=== PATIENT | male | born 1935 | race Hispanic/Latino ===

== ENCOUNTER 2017-12-28 11:15 | Observation (INO) | payer OTHER, MEDICAID ==
[2017-12-28] MEDS ORDERED: LEVALBUTEROL 1.25 MG/3 ML NEB ONE (11:54)
[2017-12-28] MEDS ORDERED: IPRATROPIUM BROM 0.5MG/2.5ML ONE (11:54)
[2017-12-28 12:20] LABS: Absolute Lymphocytes (CBC) 2.3 K/uL (0.7-4.9); Absolute Monocytes 1.3 K/uL (0.1-1.3); Absolute Neutrophil 10.5 K/uL (1.8-8.0); Basophils % 0.4 % (0-1.3); Hematocrit 37.6 % (39.6-49.0); Lymphocytes % 15.9 % (15.3-44.8); MCH 24.9 pg (27.0-35.0); MCV 76.4 fL (80-100); MPV 7.3 fL (7.6-11.3); Monocytes % 8.9 % (3.3-12.3); RBC Red Blood Cell Count 4.92 M/uL (4.33-5.43)
--- NOTE | 2017-12-28 12:25 | EKG ---
Test Date: 2017-12-28 Test Time: 11:38:06 Engineering Mathematician: JOSELIN MEASUREMENT RESULTS: Intervals: Rate: 81 OH: 144 QRSD: 76 QT: 398 QTc: 462 [place]: P: 5 OH: 144 QRS: 65 T: 51 INTERPRETIVE STATEMENTS: Normal sinus rhythm Normal ECG Compared to ECG 08/09/2017 05:18:45 Atrial fibrillation no longer present ST (T wave) deviation no longer present Electronically Signed On 12-28-17 12:25:05 CDT by Olman Devries
[2017-12-28 12:30] LABS: Protime INR 2.73
--- NOTE | 2017-12-28 12:31 | RAD REPORT ---
EXAM DESCRIPTION: RAD - Chest Single View - 12/28/2017 12:25 pm CLINICAL HISTORY: Shortness of breath, cough. COMPARISON: 08/07/2017 FINDINGS: Portable technique limits examination quality. The lungs are emphysematous but grossly clear. The heart is normal in size. No displaced fractures. IMPRESSION: No acute intrathoracic process suspected.
[2017-12-28 12:33] LABS: Glucose Level 220 mg/dL (65-120)
[2017-12-28 12:34] LABS: BUN Blood Urea Nitrogen 12 mg/dL (6-20)
[2017-12-28 12:37] LABS: Bicarbonate 26 mEq/L (21-31); Sodium Level 132 mEq/L (135-145)
[2017-12-28] MEDS ORDERED: METHYLPREDNISOLONE 125 MG INJ ONE (12:38)
[2017-12-28] MEDS ORDERED: POTASSIUM CL SA 10 MEQ TAB PO ONE (13:20)
[2017-12-28] MEDS ORDERED: ONDANSETRON 4 MG/2 ML VIAL IV PRN (13:35)
[2017-12-28] MEDS ORDERED: IPRATROPIUM BROM 0.5MG/2.5ML NEB PRN (13:35)
[2017-12-28] MEDS ORDERED: BENZONATATE 100 MG CAP PO PRN (13:35)
[2017-12-28] MEDS ORDERED: ACETAMINOPHEN 500 MG TAB PO PRN (13:35)
[2017-12-28] MEDS ORDERED: ALBUTEROL 2.5 MG/3 ML NEB SOL NEB PRN (13:35)
--- NOTE | 2017-12-28 13:40 | EDPHYS ---
Physician Documentation [facility] Name: Geen Cisneros Age: 82 yrs Sex: Male : 1935 Arrival Date: 12/28/2017 Time: 11:18 Bed 15 Private MD: Out, [facility], [facility] ED Physician Linden Shen HPI: 12/28 12:13 This 82 yrs old Male presents to ER via Ambulatory with complaints of Cough, rn Congestion, Chest Pain, COPD Exacerbation. 12:13 The patient or guardian reports cough, difficulty breathing. Onset: The rn symptoms/episode began/occurred 1 week(s) ago. Severity of symptoms: At their worst the symptoms were moderate, in the emergency department the symptoms are unchanged. Modifying factors: The symptoms are alleviated by nothing, the symptoms are aggravated by nothing. The patient has experienced similar episodes in the past. Reports cough, sob, worse over last few days, had abx for worsening symptoms a couple of weeks ago, no fever, no chest pain. . Historical: - Allergies: 11:33 No Known Allergies; tw2 - Home Meds: 16:55 cilostazol 50 mg Oral tab 1 tab 2 times per day [Active]; pravastatin 40 mg Oral tab 1 ch tab once daily [Active]; Sotalol 40 mg Oral 2 times per day [Active]; tamsulosin 0.4 mg Oral cp24 1 cap once daily [Active]; Lyrica 200 mg Oral 1 cap 2 times per day for Diabetic Peripheral Neuropathy [Active]; Jantoven 2 mg Oral tab [Active]; triamterene-hydrochlorothiazid 37.5-25 mg Oral cap 1 cap once daily [Active]; Nexium 20 mg Oral cpDR 1 cap once daily [Active]; Vitamin D3 2,000 unit oral tab [Active]; mirtazapine 15 mg Oral tab 1 tab once daily [Active]; metformin 500 mg Oral tab 1 tab daily [Active]; aspirin 81 mg Oral chew 1 tab once daily [Active]; ipratropium-albuterol 0.5 mg-3 mg(2.5 mg base)/3 mL Inhl nebu 3 mL 4 times per day [Active]; - PMHx: 11:33 Atrial Fib; PVD; Diabetes - NIDDM; Hypertension; Bronchitis; CAD; COPD; Pneumonia; tw2 - PSHx: 17:14 back; anal fistula; Cholecystectomy; ch - Immunization history:: Adult Immunizations up to date. - Social history:: Smoking status: Patient/guardian denies using tobacco. - Family history:: not pertinent. - Hospitalizations: : No recent hospitalization is reported. ROS: 12:13 Constitutional: Negative for fever, chills, and weight loss, Eyes: Negative for injury, rn pain, redness, and discharge, Neck: Negative for injury, pain, and swelling, Cardiovascular: Negative for chest pain, palpitations, and edema, Respiratory: Negative for pleuritic chest pain Abdomen/GI: Negative for abdominal pain, nausea, vomiting, diarrhea, and constipation, MS/Extremity: Negative for injury and deformity, Skin: Negative for injury, rash, and discoloration, Neuro: Negative for headache, weakness, numbness, tingling, and seizure. Exam: 12:13 Constitutional: This is a well developed, well nourished patient who is awake, alert, rn and in no acute distress. Head/Face: Normocephalic, atraumatic. Eyes: Pupils equal round and reactive to light, extra-ocular motions intact. Lids and lashes normal. Conjunctiva and sclera are non-icteric and not injected. Cornea within normal limits. Periorbital areas with no swelling, redness, or edema. Cardiovascular: Regular rate and rhythm with a normal S1 and S2. No gallops, murmurs, or rubs. Normal PMI, no JVD. No pulse deficits. Respiratory: diffuse exp wheezing bilaterally, mildly diminished LLL Abdomen/GI: Soft, non-tender, with normal bowel sounds. No distension or tympany. No guarding or rebound. No evidence of tenderness throughout. MS/ Extremity: Pulses equal, no cyanosis. Neurovascular intact. Full, normal range of motion. Equal circumference. Neuro: Awake and alert, GCS 15, oriented to person, place, time, and situation. Cranial nerves II-XII grossly intact. Motor strength 5/5 in all extremities. Sensory grossly intact. Vital Signs: 11:32 BP 120 / 74; Pulse 85; Resp 19; Temp 98.2(O); Pulse Ox 96% on R/A; Weight 70.31 kg (R); tw2 Height 5 ft. 4 in. (162.56 cm); Pain 0/10; 12:32 BP 110 / 68; Pulse 83; Resp 20; Temp 99; Pulse Ox 100% on Nebulizer Mask; Pain 0/10; ch 13:36 Resp 26; rn 14:07 BP 109 / 60; Pulse 86; Resp 15; Pulse Ox 96% on R/A; mh5 15:03 BP 129 / 67; Pulse 80; Resp 19; Pulse Ox 95% on R/A; Pain 0/10; ed1 16:30 BP 106 / 62; Pulse 150; Resp 26 S; Pulse Ox 94% on R/A; ch 16:55 BP 142 / 80; Pulse 82; Resp 18; Pulse Ox 96% on R/A; Pain 0/10; ch 18:00 BP 132 / 71; Pulse 91; Resp 20; Pulse Ox 96% on R/A; Pain 0/10; ch 11:32 Body Mass Index 26.61 (70.31 kg, 162.56 cm) tw2 MDM: 11:37 Patient medically screened. rn 13:36 Differential Diagnosis: Upper Respiratory Infection Viral Syndrome Pneumonia. rn Differential Diagnosis: Bronchitis. Data reviewed: vital signs, nurses notes. Data reviewed: vital signs, lab test result(s), EKG, radiologic studies, plain films, and as a result, I will admit patient. Counseling: I had a detailed discussion with the patient and/or guardian regarding: the historical points, exam findings, and any diagnostic results supporting the discharge/admit diagnosis, lab results, radiology results, the need for further work-up and treatment in the hospital. Response to treatment: the patient's symptoms have mildly improved after treatment, and as a result, I will admit patient. Admission orders: after a detailed discussion of the patient's condition and case, the admit orders are written by me. ED course: Pt still tachypneic, faint wheezing, will obs given abnormal vital signs.. 12/28 11:50 Order name: Blood Culture Adult (2) rn 12/28 11:50 Order name: BMP; Complete Time: 12:37 rn 12/28 11:50 Order name: BNP; Complete Time: 13:03 rn 12/28 11:50 Order name: CBC with Diff; Complete Time: 12:37 rn 12/28 11:50 Order name: PT-INR; Complete Time: 12:37 rn 12/28 11:50 Order name: Ptt, Activated; Complete Time: 12:37 rn 12/28 11:50 Order name: Troponin (emerg Dept Use Only); Complete Time: 13:03 rn 12/28 13:40 Order name: Basic Metabolic Panel EDMS 12/28 13:40 Order name: Basic Metabolic Panel EDMS 12/28 13:40 Order name: Basic Metabolic Panel EDMS 12/28 13:40 Order name: Basic Metabolic Panel EDMS 12/28 13:40 Order name: CBC with Automated Diff EDMS 12/28 13:40 Order name: Magnesium EDMS 12/28 13:40 Order name: Magnesium EDMS 12/28 11:50 Order name: XRAY CXR (1 view); Complete Time: 12:37 rn 12/28 13:40 Order name: Magnesium EDMS 12/28 13:40 Order name: Magnesium EDMS 12/28 13:41 Order name: Urinalysis EDGA 12/28 13:41 Order name: CBC with Automated Diff EDMS 12/28 13:41 Order name: CBC with Automated Diff EDMS 12/28 13:41 Order name: CBC with Automated Diff EDMS 12/28 13:41 Order name: Chest Pa And Lat (2 Views) EDMS 12/28 13:41 Order name: Chest Pa And Lat (2 Views) EDMS 12/28 11:50 Order name: Cardiac monitoring; Complete Time: 11:51 rn 12/28 11:50 Order name: EKG - Nurse/Tech; Complete Time: 11:51 rn 12/28 11:50 Order name: IV Saline Lock; Complete Time: 11:51 rn 12/28 11:50 Order name: Labs collected and sent; Complete Time: 11:51 rn 12/28 11:50 Order name: O2 Per Protocol; Complete Time: 11:51 rn 12/28 11:50 Order name: O2 Sat Monitoring; Complete Time: 11:51 rn 12/28 11:51 Order name: EKG Electrocardiogram; Complete Time: 12:58 EDGA 12/28 13:40 Order name: Consistent Carb (ADA) 2000 Caesar EDGA 12/28 13:41 Order name: Respiratory Therapy Consult EDMS Administered Medications: 11:50 Drug: Xopenex (3) 1.25 mg Route: Inhalation; 13:00 Follow up: Response: No adverse reaction; Marked relief of symptoms ch 12:15 Drug: AtroVENT Aerosol 0.5 mg Route: Inhalation; 13:03 Drug: SOLU-Medrol 125 mg Route: IVP; Site: right forearm; 16:00 Follow up: Response: No adverse reaction 13:22 Drug: Potassium Chloride 40 mEq Route: PO; 15:05 Follow up: Response: No adverse reaction ed1 16:49 CANCELLED (Duplicate Order; pt has personal meds): Sotalol 80 mg PO once rn 17:47 Drug: Insulin Regular Human 4 units {Co-Signature: (Emmy Noe RN).} Route: iw Sub-Q; Site: right upper arm; 18:14 Follow up: Response: No adverse reaction; Marked relief of symptoms Point of Care Testing: Blood Glucose: 17:26 Blood Glucose: 287 mg/dL; Ranges: Critical Glucose Levels:Adult <50 mg/dl or >400 mg/dl <40 mg/dl or >180 mg/dl Disposition: 12/28/17 13:39 Hospitalization ordered by Greg Nicholas for Observation. Preliminary diagnosis is Chronic obstructive pulmonary disease with (acute) exacerbation. - Bed requested for Telemetry/MedSurg (observation). - Status is Observation. ch - Condition is Stable. - Problem is new. - Symptoms have improved. UTI on Admission? No Signatures: Dispatcher [employer] EDMS Yadi Bowling Christina, RN RN Neisha Oconnor RN RN Linden Shen MD MD rn Wise, Tara, RN RN 2 Vane Senior [facility] ed1 Emmy Noe RN Corrections: (The following items were deleted from the chart) 16:44 13:39 Hospitalization Ordered by Greg Nicholas DO for Observation. Preliminary bd diagnosis is Chronic obstructive pulmonary disease with (acute) exacerbation. Bed requested for Telemetry/MedSurg (observation). Status is Observation. Condition is Stable. Problem is new. Symptoms have improved. UTI on Admission? No. rn 16:49 16:49 Sotalol 80 mg PO once ordered. rn rn 18:14 16:44 12/28/2017 13:39 Hospitalization Ordered by Greg Nicholas DO for Observation. Preliminary diagnosis is Chronic obstructive pulmonary disease with (acute) exacerbation. Bed requested for Telemetry/MedSurg (observation). Status is Observation. Condition is Stable. Problem is new. Symptoms have improved. UTI on Admission? No. bd
--- NOTE | 2017-12-28 13:40 | ER ---
Nurse's Notes [facility] Name: Gene Cisneros Age: 82 yrs Sex: Male : 1935 Arrival Date: 12/28/2017 Time: 11:18 Bed 15 Private MD: Out, [facility] Diagnosis: Chronic obstructive pulmonary disease with (acute) exacerbation Presentation: 12/28 11:31 Presenting complaint: Patient states: yesterday or the day before, he wanted to go see tw2 the drAdelaide but my daughter convinced me to come here, sob and cough, then some chest pain. Transition of care: patient was not received from another setting of care. Onset of symptoms was December 28, 2017. Risk Assessment: Do you want to hurt yourself or someone else? Patient reports no desire to harm self or others. Care prior to arrival: None. 11:31 Method Of Arrival: Ambulatory tw2 11:31 Acuity: JO-ANN 3 tw2 11:33 Initial Sepsis Screen: Does the patient meet any 2 criteria? No. Patient's initial tw2 sepsis screen is negative. Does the patient have a suspected source of infection? No. Patient's initial sepsis screen is negative. Historical: - Allergies: 11:33 No Known Allergies; tw2 - Home Meds: 16:55 cilostazol 50 mg Oral tab 1 tab 2 times per day [Active]; pravastatin 40 mg Oral tab 1 ch tab once daily [Active]; Sotalol 40 mg Oral 2 times per day [Active]; tamsulosin 0.4 mg Oral cp24 1 cap once daily [Active]; Lyrica 200 mg Oral 1 cap 2 times per day for Diabetic Peripheral Neuropathy [Active]; Jantoven 2 mg Oral tab [Active]; triamterene-hydrochlorothiazid 37.5-25 mg Oral cap 1 cap once daily [Active]; Nexium 20 mg Oral cpDR 1 cap once daily [Active]; Vitamin D3 2,000 unit oral tab [Active]; mirtazapine 15 mg Oral tab 1 tab once daily [Active]; metformin 500 mg Oral tab 1 tab daily [Active]; aspirin 81 mg Oral chew 1 tab once daily [Active]; ipratropium-albuterol 0.5 mg-3 mg(2.5 mg base)/3 mL Inhl nebu 3 mL 4 times per day [Active]; - PMHx: 11:33 Atrial Fib; PVD; Diabetes - NIDDM; Hypertension; Bronchitis; CAD; COPD; Pneumonia; tw2 - PSHx: 17:14 back; anal fistula; Cholecystectomy; ch - Immunization history:: Adult Immunizations up to date. - Social history:: Smoking status: Patient/guardian denies using tobacco. - Family history:: not pertinent. - Hospitalizations: : No recent hospitalization is reported. Screenin:49 Abuse screen: Denies threats or abuse. Denies injuries from another. Nutritional ch screening: No deficits noted. Tuberculosis screening: No symptoms or risk factors identified. Fall Risk None identified. Assessment: 11:49 General: Appears in no apparent distress. comfortable, Behavior is cooperative, ch appropriate for age. Pain: Denies pain. Neuro: No deficits noted. Cardiovascular: Heart tones S1 S2 present Capillary refill < 3 seconds in bilateral fingers toes Clubbing of nail beds is present JVD is absent Patient's skin is warm and dry. Pulses are all present. Edema is 1+ to left midcalf, left ankle, right midcalf and right ankle Rhythm is sinus rhythm. Respiratory: Airway is patent Trachea midline Respiratory effort is even, labored, Respiratory pattern is regular, Breath sounds with rhonchi bilaterally. Breath sounds with wheezes. GI: No signs and/or symptoms were reported involving the gastrointestinal system. : No signs and/or symptoms were reported regarding the genitourinary system. Derm: Skin is pink, warm \T\ dry. Musculoskeletal: No signs and/or symptoms reported regarding the musculoskeletal system. 12:32 Reassessment: Patient appears in no apparent distress at this time. Patient and/or ch family updated on plan of care and expected duration. Pain level reassessed. pt respiratory effor is improved Patient states feeling better. Patient states symptoms have improved. 13:01 Reassessment: Patient appears in no apparent distress at this time. Patient and/or ch family updated on plan of care and expected duration. Pain level reassessed. pt has dry hacking cough. report given to Diana. 15:03 Reassessment: Patient appears in no apparent distress at this time. No changes from ed1 previously documented assessment. Patient and/or family updated on plan of care and expected duration. Pain level reassessed. Patient is alert, oriented x 3, equal unlabored respirations, skin warm/dry/pink. Patient denies pain at this time. 16:00 Reassessment: Patient appears in no apparent distress at this time. Patient and/or ch family updated on plan of care and expected duration. Pain level reassessed. Patient states feeling better. Patient states symptoms have improved. 16:40 Reassessment: erp notified of pt HR, pt takes his home SOTOLOL per Dr. Shen orders. pt ch auto converts from 150 to 90's on his own after coughing prior to taking sotolol. pt still takes home sotolol 40 mg po home medication per dr shen. 17:06 Reassessment: Patient appears in no apparent distress at this time. Patient and/or ch family updated on plan of care and expected duration. Pain level reassessed. pt states he feels better now that his HR is down. pt states he no longer feels SOB, or dizzy. Patient states feeling better. Patient states symptoms have improved. 17:08 Reassessment: Patient appears in no apparent distress at this time. Patient and/or ch family updated on plan of care and expected duration. Pain level reassessed. Patient is alert, oriented x 3, equal unlabored respirations, skin warm/dry/pink. I call to give report pt, placed on hold. 17:24 Reassessment: Patient appears in no apparent distress at this time. I call to give ch report again to floor now. 18:12 Reassessment: Patient appears in no apparent distress at this time. Patient and/or ch family updated on plan of care and expected duration. Pain level reassessed. Patient is alert, oriented x 3, equal unlabored respirations, skin warm/dry/pink. Patient states feeling better. Patient states symptoms have improved. Vital Signs: 11:32 BP 120 / 74; Pulse 85; Resp 19; Temp 98.2(O); Pulse Ox 96% on R/A; Weight 70.31 kg (R); tw2 Height 5 ft. 4 in. (162.56 cm); Pain 0/10; 12:32 BP 110 / 68; Pulse 83; Resp 20; Temp 99; Pulse Ox 100% on Nebulizer Mask; Pain 0/10; ch 13:36 Resp 26; rn 14:07 BP 109 / 60; Pulse 86; Resp 15; Pulse Ox 96% on R/A; mh5 15:03 BP 129 / 67; Pulse 80; Resp 19; Pulse Ox 95% on R/A; Pain 0/10; ed1 16:30 BP 106 / 62; Pulse 150; Resp 26 S; Pulse Ox 94% on R/A; ch 16:55 BP 142 / 80; Pulse 82; Resp 18; Pulse Ox 96% on R/A; Pain 0/10; ch 18:00 BP 132 / 71; Pulse 91; Resp 20; Pulse Ox 96% on R/A; Pain 0/10; ch 11:32 Body Mass Index 26.61 (70.31 kg, 162.56 cm) tw2 ED Course: 11:18 Patient arrived in ED. mr 11:19 Out, of Town is Private Physician. mr 11:31 Arm band placed on. tw2 11:32 Triage completed. tw2 11:37 Linden Shen MD is Attending Physician. rn 11:43 EKG done, by arcade game technician. reviewed by Linden Shen MD. at1 11:49 Emmy Noe, DEBBI is Primary Nurse. ch 11:49 No apparent distress. Resting quietly. ch 11:49 Patient has correct armband on for positive identification. Placed in gown. Bed in low ch position. Call light in reach. Side rails up X 1. Adult w/ patient. youth nutritional monitor on. Pulse ox on. NIBP on. 11:49 No provider procedures requiring assistance completed. ch 12:25 XRAY CXR (1 view) In Process Unspecified. EDMS 12:32 Inserted saline lock: 20 gauge in right forearm, using aseptic technique. Blood ch collected. 13:38 Greg Nicholas DO is Hospitalizing Provider. rn 13:44 Primary Nurse role handed off by Emmy Noe, DEBBI ed1 13:44 Diana Senior LVN is Primary Nurse. ed1 15:04 Resting quietly. Awaiting bed assignment. ed1 15:50 Primary Nurse role handed off by Diana Senior LVN ed1 16:48 Emmy Noe, DEBBI is Primary Nurse. ch 18:00 Patient admitted, IV remains in place. ch Administered Medications: 11:50 Drug: Xopenex (3) 1.25 mg Route: Inhalation; ch 13:00 Follow up: Response: No adverse reaction; Marked relief of symptoms ch 12:15 Drug: AtroVENT Aerosol 0.5 mg Route: Inhalation; ch 13:03 Drug: SOLU-Medrol 125 mg Route: IVP; Site: right forearm; 16:00 Follow up: Response: No adverse reaction ch 13:22 Drug: Potassium Chloride 40 mEq Route: PO; ch 15:05 Follow up: Response: No adverse reaction ed1 16:49 CANCELLED (Duplicate Order; pt has personal meds): Sotalol 80 mg PO once rn 17:47 Drug: Insulin Regular Human 4 units {Co-Signature: (Emmy Noe RN).} Route: iw Sub-Q; Site: right upper arm; 18:14 Follow up: Response: No adverse reaction; Marked relief of symptoms Point of Care Testing: Blood Glucose: 17:26 Blood Glucose: 287 mg/dL; Ranges: Outcome: 13:39 Decision to Hospitalize by Provider. rn 17:48 Admitted to Med/surg accompanied by nurse, via wheelchair, room 210, with chart, Report ch called to [place] 17:48 Condition: stable 17:48 Instructed on the need for admit. 18:14 Patient left the ED. ch Signatures: Dispatcher [employer] EDMS Emmy Noe, RN RN Marylu Yadav Irene, RN Linden Adorno MD MD rn Riggs, Erika, GREENHOUSE ASSISTANT GREENHOUSE ASSISTANT ed1 Aydee downs, airdox fitter EKG Tat1 Sommer Funk RN RN Marylu Nash 5 Emmy Noe RN ch
[2017-12-28] MEDS ORDERED: D50W 25 GM/50 ML SYRINGE IV PRN (13:43)
[2017-12-28] MEDS ORDERED: GLUCAGON 1 MG/VIAL IM PRN (13:43)
--- NOTE | 2017-12-28 13:45 | P.HP ---
Certification for Inpatient Patient admitted to: Observation With expected LOS: <2 Midnights Patient will require the following post-hospital care: None Practitioner: I am a practitioner with admitting privileges, knowledge of patient current condition, hospital course, and medical plan of care. Services: Services provided to patient in accordance with Admission requirements found in Title 42 Section 412.3 of the Code of Federal Regulations Patient History Date of Service: 12/28/17 Primary Care Provider: Dr. Huang([facility]); Pulm-Dr. Conway; Card-Dr. Constantino Reason for admission: Shortness of breath History of Present Illness: 82-year-old male presented emergency room with shortness of breath Patient presented with shortness of breath and cough over the last several days. He denies any fever. Patient reports some mild chest pain with cough. Patient has a history of COPD with bronchitis in the past. Patient came to the ER for further evaluation. Patient denied any nausea, vomiting. No palpitations noted. In the ER the patient was assessed. Patient was slightly tachycardic and tachypneic upon arrival. Patient given treatment in the ER. Symptoms improved. Due to his multiple medical problems the patient was admitted for observation. I was asked to admit the patient. Initial chest x-ray she unremarkable. White count 14.3. Hemoglobin 12. Sodium 132, potassium 3.0. Troponin unremarkable. BMP unremarkable. INR 2.73. When I saw the patient ER, he appeared comfortable but reported some shortness of breath with cough. Patient with history of COPD, CAD, atrial fibrillation on chronic anti coagulation therapy, carotid arterial disease, hypertension, diabetes and hyperlipidemia. Patient is a previous smoker. Allergies No Known Allergies Allergy (Verified 03/17/16 00:56) Home medications list reviewed: Yes Home Medications: Metformin HCl [Glucophage*] 500 mg PO DAILY 11/03/15 Pravastatin Sodium [Pravachol] 40 mg PO DAILY 11/03/15 Pregabalin [Lyrica] 200 mg PO BID 11/03/15 Roflumilast [Daliresp] 500 mcg PO DAILY 11/03/15 Tamsulosin [Flomax*] 0.4 mg PO DAILY 11/03/15 Warfarin Sodium [Coumadin] 2 mg PO SEECOM 11/03/15 Triamterene/Hydrochlorothiazid [Triamterene-Hctz 37.5-25 mg Cp] 1 cap PO DAILY 03/03/16 Esomeprazole Mag Trihydrate [Nexium] 1 cap PO DAILY 08/25/16 Cilostazol 50 mg PO BID 11/04/16 Mirtazapine 15 mg PO BEDTIME 11/04/16 Sotalol HCl [Betapace*] 40 mg PO BID 11/04/16 Albuterol Inhaler [Ventolin Inhaler*] 2 puff IH Q6H PRN #1 hfa.aer.ad 08/09/17 Guaifen W/Codeine Syrup [ROBITUSSIN A-C Syrup*] 5 ml PO QID #120 ml 08/09/17 Insulin -Regular Human [Novolin -R*] See Protocol SQ ACHS ml 08/09/17 Ipratropium Neb [Atrovent*] 0.5 mg NEB [id number] amp 08/09/17 Methylpred Na Suc [Solu-Medrol*] 40 mg IV Q8HR vial 08/09/17 Prednisone [Prednisone*] 40 mg PO [id number] #20 tab 08/09/17 - Past Medical/Surgical History Diabetic: Yes -: COPD -: Atrial fibrillation, chronic anti coagulation -: Hyperlipidemia -: Carotid arterial disease -: CAD -: Hypertension -: Diabetes mellitus type 2 -: Urinary incontinence -: Former tobacco use -: PVD -: CHOLECYSTECTOMY -: BACK SURGERY -: RECTAL FISTULA REPAIRED -: Carotid stent Psychosocial/ Personal History: The patient is . He has 7 children. He does not work. - Family History Father -: Heart disease, Diabetes Mother -: Other (see notes) Notes: hypotension Sister -: Lung disease, Diabetes Brother -: Lung disease, Diabetes - Social History Smoking Status: Former smoker Alcohol use: Yes CD- Drugs: No Caffeine use: Yes Place of Residence: Home Review of Systems General: Weakness, As per HPI Eyes: Unremarkable ENT: As per HPI Respiratory: Cough, Shortness of Breath, SOB with Excertion, Wheezing, As per HPI Cardiovascular: As per HPI Gastrointestinal: Unremarkable Genitourinary: Unremarkable Musculoskeletal: Unremarkable Integumentary: Unremarkable Neurological: As per HPI Lymphatics: Unremarkable Physical Examination - Physical Exam General: Alert, In no apparent distress, Oriented x3, Cooperative HEENT: Atraumatic, Normocephalic, PERRLA, Mucous membr. moist/pink Neck: Supple, No Thyromegaly Respiratory: Crackles/rales (To the right base), Expiratory wheezes (Bilateral) Cardiovascular: Normal pulses, Regular rate/rhythm Gastrointestinal: Normal bowel sounds, Soft and benign, Non-distended, No tenderness, No masses, No rebound, No guarding Musculoskeletal: No erythema, No tenderness, No warmth Integumentary: No tenderness/swelling, No erythema, No warmth, No cyanosis Neurological: Normal speech, Normal strength at 5/5 x4 extr, Normal tone, Normal affect Lymphatics: No axilla or inguinal lymphadenopathy - Studies Laboratory Data (last 24 hrs) 12/28/17 12:10: PT 32.6 H, INR 2.73, APTT 41.8 H 12/28/17 12:10: WBC 14.3 H, Hgb 12.3 L, Hct 37.6 L, Plt Count 399 12/28/17 12:10: B-Natriuretic Peptide 65 12/28/17 12:10: Sodium 132 L, Potassium 3.0 L, BUN 12, Creatinine 0.80, Glucose 220 H Assessment and Plan - Problems (Diagnosis) (1) Carotid arterial disease Current Visit: Yes Status: Chronic Plan: Will need to continue home medication. Qualifiers: Laterality: unspecified laterality Qualified Code(s): I77.9 - Disorder of arteries and arterioles, unspecified (2) Chronic anticoagulation Current Visit: Yes Status: Chronic Plan: Will verify home medication and restart. INR therapeutic. (3) CAD (coronary artery disease) Onset Date: 11/04/15 Current Visit: No Status: Chronic Plan: Will continue with home medication. (4) COPD (chronic obstructive pulmonary disease) Onset Date: 11/04/15 Current Visit: No Status: Acute Plan: COPD exacerbation noted. No evidence of pneumonia. Will check for influenza. Will continue IV steroids and COPD treatment. Will wean off oxygen. Anticipate discharge tomorrow if much improved. Qualifiers: COPD type: COPD with acute exacerbation Qualified Code(s): J44.1 - Chronic obstructive pulmonary disease with (acute) exacerbation (5) Hypokalemia Onset Date: 06/08/16 Current Visit: No Status: Acute Plan: Will monitor and replace appropriately. Replacement protocol in place. (6) PVD (peripheral vascular disease) Onset Date: 11/04/15 Current Visit: No Status: Chronic Plan: Continue with medication (7) Atrial fibrillation Onset Date: 11/04/15 Current Visit: No Status: Chronic Plan: Continue with medication. Qualifiers: Atrial fibrillation type: chronic Qualified Code(s): I48.2 - Chronic atrial fibrillation (8) Hypertension Onset Date: 11/04/15 Current Visit: No Status: Chronic Plan: Will verify and restart home medication. Qualifiers: Hypertension type: essential hypertension (9) Diabetes mellitus Current Visit: Yes Status: Chronic Plan: Will monitor Accu-Cheks and provide sliding scale. Qualifiers: Diabetes mellitus type: type 2 Diabetes mellitus salvage determiner insulin use: without salvage determiner use Diabetes mellitus complication status: with other specified complication Qualified Code(s): E11.69 - Type 2 diabetes mellitus with other specified complication Discharge Plan: Home Plan to discharge in: 24 Hours - Advance Directives Does patient have a Living Will: No Does patient have a Durable POA for Healthcare: No - Code Status/Comfort Care Code Status Assessed: Yes (Patient is DNR. Patient has filed paperwork.) Time Spent Managing Pts Care (In Minutes): 55
[2017-12-28] MEDS: INSULIN -REGULAR HUMAN 50 UNIT/0.5 ML ML SQ SCH ×2 (16:30→22:18)
[2017-12-28] MEDS ORDERED: INSULIN -REGULAR HUMAN 50 UNIT/0.5 ML ML ONE (17:35)
[2017-12-28] MEDS: METHYLPREDNISOLONE 40 MG INJ IV SCH (18:17)
[2017-12-28 18:29] VITALS: BMI 26.6
[2017-12-28] MEDS: ARFORMOTEROL TARTRATE 15 MCG/2 ML VIAL.NEB NEB SCH (19:52)
[2017-12-29 00:39] LABS: Urine Appearance CLEAR; Urine Bilirubin NEGATIVE (NEG); Urine Blood NEGATIVE (NEG); Urine Color YELLOW; Urine Glucose 2+ (NEG); Urine Protein NEGATIVE (NEG); Urine Urobilinogen 0.2 mg/dL (0.2-1.0); Urine pH 6.5 (5.0-7.0)
[2017-12-29 00:44] LABS: Urine Microscopic Reflex NO UMIC
[2017-12-29] MEDS: METHYLPREDNISOLONE 40 MG INJ IV SCH ×2 (01:25→09:56)
[2017-12-29 05:12] LABS: Absolute Lymphocytes (CBC) 1.3 K/uL (0.7-4.9); Absolute Monocytes 0.2 K/uL (0.1-1.3); Absolute Neutrophil 7.6 K/uL (1.8-8.0); Basophils % 0.2 % (0-1.3); Lymphocytes % 14.3 % (15.3-44.8); MCH 25.2 pg (27.0-35.0); MCV 75.8 fL (80-100); MPV 7.9 fL (7.6-11.3); Monocytes % 2.5 % (3.3-12.3); RBC Red Blood Cell Count 5.01 M/uL (4.33-5.43)
[2017-12-29 05:33] LABS: Bicarbonate 26 mEq/L (21-31); Potassium 4.2 mEq/L (3.6-5.0); Sodium Level 132 mEq/L (135-145)
[2017-12-29 05:34] LABS: BUN Blood Urea Nitrogen 14 mg/dL (6-20); Glucose Level 255 mg/dL (65-120); Magnesium 1.9 mg/dL (1.8-2.5)
[2017-12-29] MEDS ORDERED: PANTOPRAZOLE 40MG TABLET PO SCH (07:30)
--- NOTE | 2017-12-29 08:10 | P.DS ---
Admission Date: 12/28/17 Discharge Date: 12/29/17 Primary Care Provider: Dr. Huang([facility]); [place]-Dr. Conway; [place]dy-Dr. Constantino Disposition: ROUTINE DISCHARGE Discharge Condition: GOOD Reason for Admission: Shortness of breath - Problems (1) Carotid arterial disease Onset Date: 12/29/17 Current Visit: Yes Status: Chronic Qualifiers: Laterality: unspecified laterality Qualified Code(s): I77.9 - Disorder of arteries and arterioles, unspecified (2) Chronic anticoagulation Onset Date: 12/29/17 Current Visit: Yes Status: Chronic (3) CAD (coronary artery disease) Onset Date: 11/04/15 Current Visit: No Status: Chronic Qualifiers: Coronary Disease-Associated Artery/Lesion type: unspecified vessel or lesion type [place] vs. transplanted heart: unspecified whether [place] or transplanted heart Associated angina: angina presence unspecified Qualified Code(s): I25.10 - Atherosclerotic heart disease of [place] coronary artery without angina pectoris (4) COPD (chronic obstructive pulmonary disease) Onset Date: 11/04/15 Current Visit: No Status: Acute Qualifiers: COPD type: COPD with acute exacerbation Qualified Code(s): J44.1 - Chronic obstructive pulmonary disease with (acute) exacerbation (5) Hypokalemia Onset Date: 06/08/16 Current Visit: No Status: Acute (6) PVD (peripheral vascular disease) Onset Date: 11/04/15 Current Visit: No Status: Chronic (7) Atrial fibrillation Onset Date: 11/04/15 Current Visit: No Status: Chronic Qualifiers: Atrial fibrillation type: chronic Qualified Code(s): I48.2 - Chronic atrial fibrillation (8) Hypertension Onset Date: 11/04/15 Current Visit: No Status: Chronic Qualifiers: Hypertension type: essential hypertension (9) Diabetes mellitus Onset Date: 12/29/17 Current Visit: Yes Status: Chronic Qualifiers: Diabetes mellitus type: type 2 Diabetes mellitus fdc insulin use: without fdc use Diabetes mellitus complication status: with other specified complication Qualified Code(s): E11.69 - Type 2 diabetes mellitus with other specified complication (10) Hyponatremia Onset Date: 06/08/16 Current Visit: No Status: Acute (11) GERD (gastroesophageal reflux disease) Current Visit: Yes Status: Chronic Qualifiers: Esophagitis presence: esophagitis presence not specified Qualified Code(s) : K21.9 - Gastro-esophageal reflux disease without esophagitis (12) Diabetic neuropathy Current Visit: Yes Status: Acute Qualifiers: Diabetes mellitus type: type 2 Diabetes mellitus complication detail: diabetic polyneuropathy Qualified Code(s): E11.42 - Type 2 diabetes mellitus with diabetic polyneuropathy Brief History of Present Illness: 82-year-old male presented emergency room with shortness of breath Patient presented with shortness of breath and cough over the last several days. He denies any fever. Patient reports some mild chest pain with cough. Patient has a history of COPD with bronchitis in the past. Patient came to the ER for further evaluation. Patient denied any nausea, vomiting. No palpitations noted. In the ER the patient was assessed. Patient was slightly tachycardic and tachypneic upon arrival. Patient given treatment in the ER. Symptoms improved. Due to his multiple medical problems the patient was admitted for observation. I was asked to admit the patient. Initial chest x-ray she unremarkable. White count 14.3. Hemoglobin 12. Sodium 132, potassium 3.0. Troponin unremarkable. BMP unremarkable. INR 2.73. When I saw the patient ER, he appeared comfortable but reported some shortness of breath with cough. Patient with history of COPD, CAD, atrial fibrillation on chronic anti coagulation therapy, carotid arterial disease, hypertension, diabetes and hyperlipidemia. Patient is a previous smoker. Hospital Course: The patient presented with shortness of breath secondary to COPD exacerbation. Patient was treated in the hospital all with IV steroids and COPD treatment. Patient doing well at discharge. No significant chest pain or shortness of breath. Patient did not require any oxygen at discharge. Patient will continue with his COPD medication. At discharge patient will continue with prednisone 20 mg 1 pill twice daily for 5 days then 1 pill once daily for 5 days. Patient will be started on Brovana 1 unit dose twice daily for his COPD. Patient will continue with atrovent/albuterol nebs 1 unit dose 3 times a day as needed for shortness of breath. Patient will continue with his medication of Daliresp 1 pill daily. Recommendations for the patient to follow up with his collections and archives director in 1-2 weeks to follow up this hospitalization. Patient has chronic atrial fibrillation with chronic anti coagulation therapy. This remained stable during his stay. Patient continue with his medication including sotalol and Coumadin. INR therapeutic at this time. His INR's will need to be monitored by his PCP or supervisor [place]. Patient has diabetes. This seems to be fairly controlled. Patient will continue with his medication-Glucophage. Recommendation is to maintain blood sugars less than 140 fasting and less than 200 after meals. Further adjustment can be done by his PCP. Patient has hypertension. Patient will continue with his medication, this includes triamterene/hydrochlorothiazide. Recommendation is to maintain blood pressures less 150/80. Further adjustment can be done by his PCP. Patient has BPH. Patient will continue with his medication-Flomax. Patient has GERD. He will continue with his medication-Nexium. Patient has diabetic neuropathy. Patient will continue with his medication- Lyrica. Patient has hyperlipidemia. Patient will continue with Pravachol. Patient had some electrolyte abnormalities. This improved. Recommendation is to recheck BMP in 1 week to monitor his progress. Vital Signs/Physical Exam: Temp Pulse Resp BP Pulse Ox 97.0 F 69 18 156/69 H 98 12/29/17 04:00 12/29/17 04:00 12/29/17 04:00 12/29/17 04:00 12/29/17 04:00 General: Alert, In no apparent distress, Oriented x3, Cooperative HEENT: Atraumatic Neck: Supple Respiratory: Clear to auscultation bilaterally, Normal air movement Cardiovascular: Normal pulses, Regular rate/rhythm Gastrointestinal: Normal bowel sounds, Soft and benign, Non-distended, No masses , No rebound, No guarding Musculoskeletal: No erythema, No tenderness, No warmth Integumentary: No tenderness/swelling, No erythema, No warmth, No cyanosis Neurological: Normal speech, Normal strength at 5/5 x4 extr, Normal tone, Normal affect Lymphatics: No axilla or inguinal lymphadenopathy Laboratory Data at Discharge: WBC 9.1 K/uL (4.3-10.9) D 12/29/17 04:29 Hgb 12.6 g/dL (13.6-17.9) L 12/29/17 04:29 Hct 38.0 % (39.6-49.0) L 12/29/17 04:29 Plt Count 420 K/uL (152-406) H 12/29/17 04:29 PT 32.6 SECONDS (9.5-12.5) H 12/28/17 12:10 INR 2.73 12/28/17 12:10 APTT 41.8 SECONDS (24.3-36.9) H 12/28/17 12:10 Sodium 132 mEq/L (135-145) L 12/29/17 04:29 Potassium 4.2 mEq/L (3.6-5.0) 12/29/17 04:29 BUN 14 mg/dL (6-20) 12/29/17 04:29 Creatinine 0.73 mg/dL (0.61-1.24) 12/29/17 04:29 Glucose 255 mg/dL (65-120) H 12/29/17 04:29 Magnesium 1.9 mg/dL (1.8-2.5) 12/29/17 04:29 B-Natriuretic Peptide 65 pg/ml (<=100) 12/28/17 12:10 Home Medications: Metformin HCl [Glucophage*] 2 tab PO DAILY 11/03/15 Pravastatin Sodium [Pravachol] 40 mg PO DAILY 11/03/15 Pregabalin [Lyrica] 200 mg PO BID 11/03/15 Roflumilast [Daliresp] 500 mcg PO DAILY 11/03/15 Tamsulosin [Flomax*] 0.4 mg PO DAILY 11/03/15 Warfarin Sodium [Coumadin] 2 mg PO SEECOM 11/03/15 Triamterene/Hydrochlorothiazid [Triamterene-Hctz 37.5-25 mg Cp] 1 cap PO DAILY 03/03/16 Esomeprazole Mag Trihydrate [Nexium] 1 cap PO DAILY 08/25/16 Cilostazol 50 mg PO BID 11/04/16 Mirtazapine 15 mg PO BEDTIME 11/04/16 Sotalol HCl [Betapace*] 40 mg PO BID 11/04/16 Arformoterol Tartrate [Brovana] 15 mcg NEB BIDRESP #60 vial.neb 12/29/17 Benzonatate [Tessalon Perle*] 200 mg PO TID PRN #30 cap 12/29/17 Ipratropium/Albuterol Sulfate [Iprat-Albut 0.5-3(2.5) mg/3 ml] 3 ml NEB QID PRN #90 ampul.neb 12/29/17 Prednisone 20 mg PO SEECOM #15 tablet 12/29/17 New Medications: Arformoterol Tartrate [Brovana] 15 mcg NEB BIDRESP #60 vial.neb Benzonatate [Tessalon Perle*] 200 mg PO TID PRN #30 cap PRN Reason: Cough Ipratropium/Albuterol Sulfate [Iprat-Albut 0.5-3(2.5) mg/3 ml] 3 ml NEB QID PRN #90 ampul.neb PRN Reason: Shortness Of Breath Prednisone 20 mg PO SEECOM #15 tablet Patient Discharge Instructions: 1. Patient will need to follow up its PCP in 1 week to follow up this hospitalization. 2. Patient presented with shortness of breath secondary to COPD exacerbation. Patient doing well at discharge. No significant chest pain or shortness of breath. Patient did not require any oxygen at discharge. Patient will continue with his COPD medication. At discharge patient will continue with prednisone 20 mg 1 pill twice daily for 5 days then 1 pill once daily for 5 days. Patient will be started on Brovana 1 unit dose twice daily for his COPD. Patient will continue with atrovent/ albuterol nebs 1 unit dose 3 times a day as needed for shortness of breath. Patient will continue with his medication of Daliresp 1 pill daily. Recommendations for the patient to follow up with his collections and archives director in 1-2 weeks to follow up this hospitalization. 3. Patient has chronic atrial fibrillation with chronic anti coagulation therapy. Patient continue with his medication including sotalol and Coumadin. INR therapeutic at this time. His INR's will need to be monitored by his PCP or supervisor [place]. 4. Patient has diabetes. This seems to be fairly controlled. Patient will continue with his medication-Glucophage. Recommendation is to maintain blood sugars less than 140 fasting and less than 200 after meals. Further adjustment can be done by his PCP. 5. Patient has hypertension. Patient will continue with his medication, this includes triamterene/hydrochlorothiazide. Recommendation is to maintain blood pressures less 150/80. Further adjustment can be done by his PCP. 6. Patient has BPH. Patient will continue with his medication-Flomax. 7. Patient has GERD. He will continue with his medication-Nexium. 8. Patient has diabetic neuropathy. Patient will continue with his medication- Lyrica. 9. Patient has hyperlipidemia. Patient will continue with Pravachol. 10. Patient had some electrolyte abnormalities. This improved. Recommendation is to recheck BMP in 1 week to monitor his progress. Diet: ADA Activity: Fall precautions Time spent managing pt's care (in minutes): 55
[2017-12-29] MEDS ORDERED: METFORMIN HCL 500 MG TAB PO SCH (08:30)
[2017-12-29] MEDS: ARFORMOTEROL TARTRATE 15 MCG/2 ML VIAL.NEB NEB SCH (08:44)
[2017-12-29] MEDS ORDERED: MAXZIDE (HCTZ 25/TRIAMTERENE 37.5MG) TAB PO SCH (09:00)
[2017-12-29] MEDS ORDERED: TAMSULOSIN 0.4 MG SR CAP PO SCH (09:00)
[2017-12-29] MEDS ORDERED: PREGABALIN 50 MG CAP PO SCH (09:00)
[2017-12-29] MEDS ORDERED: SOTALOL HCL 80 MG TAB PO SCH (09:00)
[2017-12-29] MEDS ORDERED: PREGABALIN 150 MG CAP PO SCH (09:00)
[2017-12-29] MEDS ORDERED: ROFLUMILAST 500 MCG TABLET PO SCH (09:00)
[2017-12-29] MEDS ORDERED: PREGABALIN 200 MG PO SCH (09:00)
[2017-12-29] MEDS ORDERED: CILOSTAZOL 100 MG TAB PO SCH (09:00)
[2017-12-29 09:30] VITALS: O2SAT 94
--- NOTE | 2017-12-29 09:43 | RAD REPORT ---
EXAM DESCRIPTION: RAD - Chest Pa And Lat (2 Views) - 12/29/2017 7:22 am CLINICAL HISTORY: Shortness of breath COMPARISON: 12/28/2017, 08/07/2017 FINDINGS: Diffuse COPD is noted. No focal infiltrate detected. The heart is normal in size. No displ aced fractures. IMPRESSION: COPD.
[2017-12-29] MEDS: INSULIN -REGULAR HUMAN 50 UNIT/0.5 ML ML SQ SCH (09:55)
[2017-12-29 10:06] VITALS: BP 112/59; TEMP 97.4
[2017-12-29] MEDS ORDERED: WARFARIN SODIUM 1 MG TAB PO SCH (17:00)
[2017-12-29] MEDS ORDERED: MIRTAZAPINE 15 MG TAB PO SCH (21:00)
[2017-12-29] MEDS ORDERED: ATORVASTATIN 10 MG TAB PO SCH (21:00)
[2017-12-30] MEDS ORDERED: WARFARIN SODIUM 2 MG TAB PO SCH (17:00)
== END 2017-12-29 11:16 | disposition home or self-care (01) ==
LOC: ER 11:15 → ERHOLD 13:35 → 2ND 17:31
PROVIDERS: ADMIT Family Medicine; ATTEND Family Medicine
DX: J44.1 Chronic obstructive pulmonary disease with (acute) exacerbation (principal); E87.6 Hypokalemia; I77.89 Other specified disorders of arteries and arterioles; I25.10 Atherosclerotic heart disease of native coronary artery without angina pectoris; I73.9 Peripheral vascular disease, unspecified; I48.2 Chronic atrial fibrillation; I10 Essential (primary) hypertension; E87.1 Hypo-osmolality and hyponatremia; K21.9 Gastro-esophageal reflux disease without esophagitis; E11.42 Type 2 diabetes mellitus with diabetic polyneuropathy; Z79.01 Long term (current) use of anticoagulants
CPT/HCPCS: 36415; 71045; 71046; 80048 ×2; 81003; 82962 ×3; 83735; 83880; 84484; 85025 ×2; 85610; 85730; 87040 ×2; 87070; 87205; 93005; 94640; 96372; 96374; 99285; G0378 ×2; J2920 ×3; J2930; J7605 ×2

== ENCOUNTER 2018-01-08 02:16 | Observation (INO) | payer OTHER ==
--- NOTE | 2018-01-08 03:40 | ER ---
Nurse's Notes [facility] Name: Gene Cisneros Age: 82 yrs Sex: Male : 1935 Arrival Date: 01/08/2018 Time: 02:29 Bed 8 Private MD: Out, [facility] Diagnosis: Asthma;Dyspnea;Chronic obstructive pulmonary disease with (acute) exacerbation;Hypokalemia Presentation: 01/08 02:53 Presenting complaint: Patient states: he has chills, productive cough, SOB and chest bb pain was seen here last week for similar symptoms but now is getting worse, pt has hx of COPD and Asthma. Transition of care: patient was not received from another setting of care. Onset of symptoms was December 31, 2017. Risk Assessment: Do you want to hurt yourself or someone else? Patient reports no desire to harm self or others. Initial Sepsis Screen: Does the patient meet any 2 criteria? No. Patient's initial sepsis screen is negative. Does the patient have a suspected source of infection? No. Patient's initial sepsis screen is negative. Care prior to arrival: None. 02:53 Method Of Arrival: Ambulatory bb 02:53 Acuity: JO-ANN 3 bb Historical: - Allergies: 02:55 No Known Allergies; bb - Home Meds: 02:55 aspirin 81 mg Oral chew 1 tab once daily [Active]; cilostazol 50 mg Oral tab 1 tab 2 bb times per day [Active]; ipratropium-albuterol 0.5 mg-3 mg(2.5 mg base)/3 mL Inhl nebu 3 mL 4 times per day [Active]; Jantoven 2 mg Oral tab [Active]; Lyrica 200 mg Oral 1 cap 2 times per day for Diabetic Peripheral Neuropathy [Active]; metformin 500 mg Oral tab 1 tab daily [Active]; mirtazapine 15 mg Oral tab 1 tab once daily [Active]; Nexium 20 mg Oral cpDR 1 cap once daily [Active]; pravastatin 40 mg Oral tab 1 tab once daily [Active]; Sotalol 40 mg Oral 2 times per day [Active]; tamsulosin 0.4 mg Oral cp24 1 cap once daily [Active]; triamterene-hydrochlorothiazid 37.5-25 mg Oral cap 1 cap once daily [Active]; Vitamin D3 2,000 unit Oral tab [Active]; - PMHx: 02:55 Atrial Fib; Bronchitis; CAD; COPD; Diabetes - NIDDM; Hypertension; Pneumonia; PVD; bb - PSHx: 02:55 back; anal fistula; Cholecystectomy; bb - Immunization history:: Adult Immunizations up to date. - Social history:: Smoking status: Patient/guardian denies using tobacco. - Ebola Screening: : No symptoms or risks identified at this time. Screenin:15 Abuse screen: Denies threats or abuse. Denies injuries from another. Nutritional ao screening: No deficits noted. Tuberculosis screening: No symptoms or risk factors identified. Fall Risk None identified. Assessment: 03:13 General: Appears in no apparent distress. uncomfortable, Behavior is calm, cooperative, ao appropriate for age. Pain: Complains of pain in chest congestion. Neuro: Level of Consciousness is awake, alert, obeys commands, Oriented to person, place, time, situation, Appropriate for age Moves all extremities. Speech is normal, Facial symmetry appears normal. Cardiovascular: Heart tones S1 S2. Respiratory: Airway is patent Respiratory effort is even, unlabored, Respiratory pattern is regular, symmetrical, Sputum is thick, Cough. GI: Abdomen is non-distended. : No signs and/or symptoms were reported regarding the genitourinary system. EENT: No signs and/or symptoms were reported regarding the EENT system. Derm: Skin is intact, Skin is pink, warm \T\ dry. Skin temperature is warm. Musculoskeletal: Range of motion:. 04:00 Reassessment: Patient appears in no apparent distress at this time. Patient and/or ao family updated on plan of care and expected duration. Pain level reassessed. Patient is alert, oriented x 3, equal unlabored respirations, skin warm/dry/pink. 05:23 Reassessment: Patient appears in no apparent distress at this time. Patient and/or ao family updated on plan of care and expected duration. Pain level reassessed. Patient is alert, oriented x 3, equal unlabored respirations, skin warm/dry/pink. 05:26 Reassessment: Waiting on room assignment. ao 06:30 Reassessment: Patient appears in no apparent distress at this time. Patient and/or ao family updated on plan of care and expected duration. Pain level reassessed. Patient is alert, oriented x 3, equal unlabored respirations, skin warm/dry/pink. Patient o be taken to his room after shift change. Vital Signs: 02:55 BP 118 / 80; Pulse 86; Resp 20 S; Temp 97.7(O); Pulse Ox 95% on R/A; Weight 70.31 kg bb (R); Height 5 ft. 4 in. (162.56 cm) (R); Pain 4/10; 04:00 BP 112 / 74; Pulse 88; Resp 18; Pulse Ox 98% on R/A; Pain 0/10; ao 05:23 BP 118 / 72; Pulse 82; Resp 16; Pulse Ox 100% on R/A; Pain 0/10; ao 06:30 BP 120 / 68; Pulse 80; Resp 18; Pulse Ox 98% on R/A; ao 02:55 Body Mass Index 26.61 (70.31 kg, 162.56 cm) bb ED Course: 02:29 Patient arrived in ED. es 02:30 Out, [facility] is Private Physician. es 02:54 Triage completed. bb 02:55 Arm band placed on Patient placed in an exam room, on a stretcher, on pulse oximetry. bb Family accompanied patient. 03:00 Wil Rock, DEBBI is Primary Nurse. bp 03:04 Stef Ravi MD is Attending Physician. evgeny 03:15 Patient has correct armband on for positive identification. Pulse ox on. NIBP on. ao 03:38 Kathie Paredes MD is Hospitalizing Provider. evgeny 03:45 X-ray completed. Portable x-ray completed in exam room. Patient tolerated procedure kc2 well. 03:45 XRAY Chest (1 view) In Process Unspecified. EDMS 04:19 Inserted saline lock: 20 gauge in right antecubital area, using aseptic technique. ao Blood collected. 06:59 Report given to Rickey RN. ao Administered Medications: 03:40 Drug: Albuterol - atroVENT (3:1) (2.5 mg - 0.5 mg) 3 ml Route: Nebulizer; ao 05:59 Follow up: Response: No adverse reaction ao 04:00 Drug: SOLU-Medrol 125 mg Route: IVP; Site: right forearm; ao 05:59 Follow up: Response: No adverse reaction ao 04:16 Drug: Zithromax 500 mg Route: IVPB; Infused Over: 1 hrs; Site: left antecubital; ao 05:54 Follow up: IV Status: Completed infusion bp 04:17 Drug: Rocephin - (cefTRIAXone) 1 grams Route: IVPB; Infused Over: 30 mins; Site: left ao antecubital; 05:54 Follow up: IV Status: Completed infusion bp 05:54 Drug: Potassium Effervescent Tablet 25 mEq Route: PO; bp 05:54 Follow up: Response: No adverse reaction bp 05:54 Drug: Xopenex 2.5 mg Route: Inhalation; bp Outcome: 03:40 Decision to Hospitalize by Provider. [facility] 08:37 Patient left the ED. ss Signatures: Dispatcher [employer] EDStef Degroot MD MD cha Salyer, Edna es Ballard, Brenda, RN RN Althea Mantilla RN RN Luis Alberto Camilo RN RN Cynthia Silvestre Brian, RN RN bp
--- NOTE | 2018-01-08 03:40 | EDPHYS ---
Physician Documentation [facility] Name: Gene Cisneros Age: 82 yrs Sex: Male : 1935 Arrival Date: 01/08/2018 Time: 02:29 Bed 8 Private MD: Out, [facility] ED Physician Stef Ravi HPI: 01/08 03:32 This 82 yrs old Male presents to ER via Ambulatory with complaints of Chest evgeny Congestion, Cough, Fever. 03:32 The patient or guardian reports airway noise, cough, difficulty breathing. Onset: The evgeny symptoms/episode began/occurred 2 day(s) ago. Severity of symptoms: At their worst the symptoms were mild, moderate, in the emergency department the symptoms are unchanged. Modifying factors: The symptoms are alleviated by nothing, the symptoms are aggravated by nothing. Associated signs and symptoms: The patient has no apparent associated signs or symptoms. The patient has not experienced similar symptoms in the past. Historical: - Allergies: 02:55 No Known Allergies; bb - Home Meds: 02:55 aspirin 81 mg Oral chew 1 tab once daily [Active]; cilostazol 50 mg Oral tab 1 tab 2 bb times per day [Active]; ipratropium-albuterol 0.5 mg-3 mg(2.5 mg base)/3 mL Inhl nebu 3 mL 4 times per day [Active]; Jantoven 2 mg Oral tab [Active]; Lyrica 200 mg Oral 1 cap 2 times per day for Diabetic Peripheral Neuropathy [Active]; metformin 500 mg Oral tab 1 tab daily [Active]; mirtazapine 15 mg Oral tab 1 tab once daily [Active]; Nexium 20 mg Oral cpDR 1 cap once daily [Active]; pravastatin 40 mg Oral tab 1 tab once daily [Active]; Sotalol 40 mg Oral 2 times per day [Active]; tamsulosin 0.4 mg Oral cp24 1 cap once daily [Active]; triamterene-hydrochlorothiazid 37.5-25 mg Oral cap 1 cap once daily [Active]; Vitamin D3 2,000 unit Oral tab [Active]; - PMHx: 02:55 Atrial Fib; Bronchitis; CAD; COPD; Diabetes - NIDDM; Hypertension; Pneumonia; PVD; bb - PSHx: 02:55 back; anal fistula; Cholecystectomy; bb - Immunization history:: Adult Immunizations up to date. - Social history:: Smoking status: Patient/guardian denies using tobacco. - Ebola Screening: : No symptoms or risks identified at this time. ROS: 03:33 Constitutional: Negative for fever, chills, and weight loss, Eyes: Negative for injury, evgeny pain, redness, and discharge, ENT: Negative for injury, pain, and discharge, Neck: Negative for injury, pain, and swelling, Cardiovascular: Negative for chest pain, palpitations, and edema, Abdomen/GI: Negative for abdominal pain, nausea, vomiting, diarrhea, and constipation, Back: Negative for injury and pain, : Negative for injury, bleeding, discharge, and swelling, MS/Extremity: Negative for injury and deformity, Skin: Negative for injury, rash, and discoloration, Neuro: Negative for headache, weakness, numbness, tingling, and seizure, Psych: Negative for depression, anxiety, suicide ideation, homicidal ideation, and hallucinations, Allergy/Immunology: Negative for hives, rash, and allergies, Endocrine: Negative for neck swelling, polydipsia, polyuria, polyphagia, and marked weight changes, Hematologic/Lymphatic: Negative for swollen nodes, abnormal bleeding, and unusual bruising. 03:33 Respiratory: Positive for cough, shortness of breath, wheezing, inspiratory, expiratory. Exam: 03:33 Constitutional: This is a well developed, well nourished patient who is awake, alert, evgeny and in no acute distress. Head/Face: Normocephalic, atraumatic. Eyes: Pupils equal round and reactive to light, extra-ocular motions intact. Lids and lashes normal. Conjunctiva and sclera are non-icteric and not injected. Cornea within normal limits. Periorbital areas with no swelling, redness, or edema. ENT: Nares patent. No nasal discharge, no septal abnormalities noted. Tympanic membranes are normal and external auditory canals are clear. Oropharynx with no redness, swelling, or masses, exudates, or evidence of obstruction, uvula midline. Mucous membranes moist. Neck: Trachea midline, no thyromegaly or masses palpated, and no cervical lymphadenopathy. Supple, full range of motion without nuchal rigidity, or vertebral point tenderness. No Meningismus. Chest/axilla: Normal chest wall appearance and motion. Nontender with no deformity. No lesions are appreciated. Cardiovascular: Regular rate and rhythm with a normal S1 and S2. No gallops, murmurs, or rubs. Normal PMI, no JVD. No pulse deficits. Abdomen/GI: Soft, non-tender, with normal bowel sounds. No distension or tympany. No guarding or rebound. No evidence of tenderness throughout. Back: No spinal tenderness. No costovertebral tenderness. Full range of motion. Male : Normal genitalia with no discharge or lesions. Skin: Warm, dry with normal turgor. Normal color with no rashes, no lesions, and no evidence of cellulitis. MS/ Extremity: Pulses equal, no cyanosis. Neurovascular intact. Full, normal range of motion. Neuro: Awake and alert, GCS 15, oriented to person, place, time, and situation. Cranial nerves II-XII grossly intact. Motor strength 5/5 in all extremities. Sensory grossly intact. Cerebellar exam normal. Normal gait. Psych: Awake, alert, with orientation to person, place and time. Behavior, mood, and affect are within normal limits. 03:33 Respiratory: mild respiratory distress is noted, Respirations: labored breathing, that is mild, Breath sounds: bronchial sounds, decreased breath sounds, rhonchi, wheezing: inspiratory expiratory Vital Signs: 02:55 BP 118 / 80; Pulse 86; Resp 20 S; Temp 97.7(O); Pulse Ox 95% on R/A; Weight 70.31 kg bb (R); Height 5 ft. 4 in. (162.56 cm) (R); Pain 4/10; 04:00 BP 112 / 74; Pulse 88; Resp 18; Pulse Ox 98% on R/A; Pain 0/10; ao 05:23 BP 118 / 72; Pulse 82; Resp 16; Pulse Ox 100% on R/A; Pain 0/10; ao 06:30 BP 120 / 68; Pulse 80; Resp 18; Pulse Ox 98% on R/A; ao 02:55 Body Mass Index 26.61 (70.31 kg, 162.56 cm) MDM: 03:04 Patient medically screened. [facility] 03:33 Data reviewed: vital signs, nurses notes, lab test result(s), EKG, radiologic studies, [facility] plain films. 01/08 03:32 Order name: Basic Metabolic Panel [facility] 01/08 03:32 Order name: BNP [facility] 01/08 03:32 Order name: CBC with Diff; Complete Time: 05:33 [facility] 01/08 03:32 Order name: Ckmb; Complete Time: 05:33 [facility] 01/08 03:32 Order name: CPK; Complete Time: 05:33 [facility] 01/08 03:32 Order name: LFT's; Complete Time: 05:33 evgeny 01/08 03:32 Order name: Magnesium; Complete Time: 05:33 [facility] 01/08 03:32 Order name: PT-INR; Complete Time: 05:33 [facility] 01/08 03:32 Order name: Ptt, Activated; Complete Time: 05:33 [facility] 01/08 03:32 Order name: Troponin (emerg Dept Use Only); Complete Time: 05:33 [facility] 01/08 03:32 Order name: Lipase; Complete Time: 05:33 [facility] 01/08 03:32 Order name: Blood Culture Adult (2) [facility] 01/08 03:32 Order name: Procalcitonin; Complete Time: 05:33 [facility] 01/08 03:32 Order name: Basic Metabolic Panel; Complete Time: 05:33 EDMS 01/08 03:32 Order name: XRAY Chest (1 view) [facility] 01/08 03:32 Order name: EKG; Complete Time: 03:33 [facility] 01/08 03:32 Order name: Cardiac monitoring; Complete Time: 04:18 [facility] 01/08 03:32 Order name: EKG - Nurse/Tech; Complete Time: 04:18 [facility] 01/08 03:32 Order name: IV Saline Lock; Complete Time: 04:18 [facility] 01/08 03:32 Order name: Labs collected and sent; Complete Time: 04:18 [facility] 01/08 03:32 Order name: O2 Per Protocol; Complete Time: 04:18 [facility] 01/08 03:32 Order name: O2 Sat Monitoring; Complete Time: 04:18 [facility] Administered Medications: 03:40 Drug: Albuterol - atroVENT (3:1) (2.5 mg - 0.5 mg) 3 ml Route: Nebulizer; ao 05:59 Follow up: Response: No adverse reaction ao 04:00 Drug: SOLU-Medrol 125 mg Route: IVP; Site: right forearm; ao 05:59 Follow up: Response: No adverse reaction ao 04:16 Drug: Zithromax 500 mg Route: IVPB; Infused Over: 1 hrs; Site: left antecubital; ao 05:54 Follow up: IV Status: Completed infusion bp 04:17 Drug: Rocephin - (cefTRIAXone) 1 grams Route: IVPB; Infused Over: 30 mins; Site: left ao antecubital; 05:54 Follow up: IV Status: Completed infusion bp 05:54 Drug: Potassium Effervescent Tablet 25 mEq Route: PO; bp 05:54 Follow up: Response: No adverse reaction bp 05:54 Drug: Xopenex 2.5 mg Route: Inhalation; bp Disposition: 01/08/18 03:40 Hospitalization ordered by Kathie Paredes for Inpatient Admission. Preliminary diagnosis are Asthma, Dyspnea, Chronic obstructive pulmonary disease with (acute) exacerbation, Hypokalemia. - Bed requested for Telemetry/MedSurg (Inpatient). - Status is Inpatient Admission. ss - Condition is Fair. - Problem is new. - Symptoms have improved. UTI on Admission? No Signatures: Dispatcher [employer] EDMS Nathaly Moore RN RN kl Anderson, Corey, MD MD cha Ballard, Brenda, RN RN bb Martinez, Eric em1 Althea Thomas RN RN ss Ortiz, Alex, RN RN ao Wil Rock RN RN bp Corrections: (The following items were deleted from the chart) 05:35 03:40 Hospitalization Ordered by Kathie Paredes MD for Inpatient Admission. Preliminary evgeny diagnosis is Asthma; Dyspnea; Chronic obstructive pulmonary disease with (acute) exacerbation. Bed requested for Telemetry/MedSurg (Inpatient). Status is Inpatient Admission. Condition is Fair. Problem is new. Symptoms have improved. UTI on Admission? No. evgeny 06:13 05:35 01/08/2018 03:40 Hospitalization Ordered by Kathie Paredes MD for Inpatient kl Admission. Preliminary diagnosis is Asthma; Dyspnea; Chronic obstructive pulmonary disease with (acute) exacerbation; Hypokalemia. Bed requested for Telemetry/MedSurg (Inpatient). Status is Inpatient Admission. Condition is Fair. Problem is new. Symptoms have improved. UTI on Admission? No. evgeny 08:04 06:13 01/08/2018 03:40 Hospitalization Ordered by Kathie Paredes MD for Inpatient em1 Admission. Preliminary diagnosis is Asthma; Dyspnea; Chronic obstructive pulmonary disease with (acute) exacerbation; Hypokalemia. Bed requested for Telemetry/MedSurg (Inpatient). Status is Inpatient Admission. Condition is Fair. Problem is new. Symptoms have improved. UTI on Admission? No. kl 08:37 08:04 01/08/2018 03:40 Hospitalization Ordered by Kathie Paredes MD for Inpatient ss Admission. Preliminary diagnosis is Asthma; Dyspnea; Chronic obstructive pulmonary disease with (acute) exacerbation; Hypokalemia. Bed requested for Telemetry/MedSurg (Inpatient). Status is Inpatient Admission. Condition is Fair. Problem is new. Symptoms have improved. UTI on Admission? No. em1
[2018-01-08] MEDS ORDERED: ALBUTEROL 2.5 MG/3 ML NEB SOL ONE (03:46)
[2018-01-08] MEDS ORDERED: METHYLPREDNISOLONE 125 MG INJ ONE (03:46)
[2018-01-08] MEDS ORDERED: IPRATROPIUM BROM 0.5MG/2.5ML ONE (03:46)
[2018-01-08] MEDS ORDERED: AZITHROMYCIN 500 MG/250 ML BAG ONE (03:47)
[2018-01-08] MEDS ORDERED: CEFTRIAXONE 1000 MG/VIAL ONE (03:47)
[2018-01-08 04:14] LABS: Absolute Lymphocytes (CBC) 2.3 K/uL (0.7-4.9); Absolute Monocytes 1.6 K/uL (0.1-1.3); Basophils % 0.4 % (0-1.3); Eosinophils % 1.7 % (0-4.4); Hematocrit 44.4 % (39.6-49.0); Lymphocytes % 15.2 % (15.3-44.8); MCH 24.6 pg (27.0-35.0); MCV 76.3 fL (80-100); MPV 7.5 fL (7.6-11.3); Monocytes % 10.2 % (3.3-12.3); RBC Red Blood Cell Count 5.82 M/uL (4.33-5.43)
[2018-01-08 04:32] LABS: Protime INR 2.71
[2018-01-08 04:35] LABS: Potassium 3.4 mEq/L (3.6-5.0)
[2018-01-08 04:41] LABS: Albumin 3.6 g/dL (3.2-5.5); Bilirubin Direct 0.1 mg/dL (0-0.2); Bilirubin Total 0.7 mg/dL (0.3-1.2); Magnesium 1.8 mg/dL (1.8-2.5); Protein, Total 6.9 g/dL (6.0-8.3)
[2018-01-08 04:45] LABS: CKMB Creatine Kinase MB 4.5 ng/ml (0.3-4.0)
--- NOTE | 2018-01-08 05:21 | P.HP ---
Certification for Inpatient Patient admitted to: Observation With expected LOS: <2 Midnights Practitioner: I am a practitioner with admitting privileges, knowledge of patient current condition, hospital course, and medical plan of care. Services: Services provided to patient in accordance with Admission requirements found in Title 42 Section 412.3 of the Code of Federal Regulations Patient History Date of Service: 01/08/18 Reason for admission: COPD exacerbation History of Present Illness: Mr Cisneros is an 82 years old male with history of COPD, A.Fib anticoagulated with warfarin, DM II, who was admitted to the the hospital 1 week ago due to COPD exacerbation. Since discharge, the patient slowly start with productive cough, with yellowish secretion. He also has had progressive SOB, associated with fever. Today temp at home was 99.9 F. At arrival the patient had audible wheezing, temp was 97.7 F, O2 sat 95% on RA. Lab work shows leukocytosis 15.2K, but he is on prednisone at home, normal procalcitonin, hyponatremia. Allergies No Known Allergies Allergy (Verified 12/28/17 23:18) Home Medications: Metformin HCl [Glucophage*] 2 tab PO DAILY 11/03/15 Pravastatin Sodium [Pravachol] 40 mg PO DAILY 11/03/15 Pregabalin [Lyrica] 200 mg PO BID 11/03/15 Roflumilast [Daliresp] 500 mcg PO DAILY 11/03/15 Tamsulosin [Flomax*] 0.4 mg PO DAILY 11/03/15 Warfarin Sodium [Coumadin] 2 mg PO SEECOM 11/03/15 Triamterene/Hydrochlorothiazid [Triamterene-Hctz 37.5-25 mg Cp] 1 cap PO DAILY 03/03/16 Esomeprazole Mag Trihydrate [Nexium] 1 cap PO DAILY 08/25/16 Cilostazol 50 mg PO BID 11/04/16 Mirtazapine 15 mg PO BEDTIME 11/04/16 Sotalol HCl [Betapace*] 40 mg PO BID 11/04/16 Arformoterol Tartrate [Brovana] 15 mcg NEB BIDRESP #60 vial.neb 12/29/17 Benzonatate [Tessalon Perle*] 200 mg PO TID PRN #30 cap 12/29/17 Ipratropium/Albuterol Sulfate [Iprat-Albut 0.5-3(2.5) mg/3 ml] 3 ml NEB QID PRN #90 ampul.neb 12/29/17 Prednisone 20 mg PO SEECOM #15 tablet 12/29/17 - Past Medical/Surgical History Diabetic: Yes -: COPD -: Atrial fibrillation, chronic anti coagulation -: Hyperlipidemia -: Carotid arterial disease -: CAD -: Hypertension -: Diabetes mellitus type 2 -: Urinary incontinence -: Former tobacco use -: PVD -: CHOLECYSTECTOMY -: BACK SURGERY -: RECTAL FISTULA REPAIRED -: Carotid stent Psychosocial/ Personal History: The patient is . He has 7 children. He does not work. - Family History Father -: Heart disease, Diabetes Mother -: Other (see notes) Notes: hypotension Sister -: Lung disease, Diabetes Brother -: Lung disease, Diabetes - Social History Smoking Status: Former smoker Alcohol use: Yes CD- Drugs: No Caffeine use: Yes Place of Residence: Home Review of Systems 10-point ROS is otherwise unremarkable Physical Examination - Physical Exam General: Alert, In no apparent distress HEENT: Atraumatic, PERRLA, Mucous membr. moist/pink, EOMI, Sclerae nonicteric Neck: Supple, 2+ carotid pulse no bruit, No LAD, Without JVD or thyroid abnormality Respiratory: Diminished, Crackles/rales (bibasilar crackles, more on the right than left), Expiratory wheezes Cardiovascular: Regular rate/rhythm, Normal S1 S2 Gastrointestinal: Normal bowel sounds, No tenderness Musculoskeletal: No tenderness Integumentary: No rashes Neurological: Normal speech, Normal strength at 5/5 x4 extr, Normal tone, Normal affect Lymphatics: No axilla or inguinal lymphadenopathy - Studies Laboratory Data (last 24 hrs) 01/08/18 03:15: PT 32.3 H, INR 2.71, APTT 38.9 H 01/08/18 03:15: WBC 15.2 H D, Hgb 14.3, Hct 44.4 D, Plt Count 315 D 01/08/18 03:15: Sodium 130 L, Potassium 3.4 L, BUN 18, Creatinine 0.90, Glucose 219 H, Magnesium 1.8, Total Bilirubin 0.7, AST 37, ALT 50, Alkaline Phosphatase 71, Lipase 33 Assessment and Plan - Problems (Diagnosis) (1) COPD exacerbation Onset Date: 11/04/16 Current Visit: No Status: Acute (2) Hyponatremia Onset Date: 06/08/16 Current Visit: No Status: Acute (3) Afib Onset Date: 06/08/16 Current Visit: No Status: Chronic Qualifiers: Atrial fibrillation type: persistent Qualified Code(s): I48.1 - Persistent atrial fibrillation (4) Diabetes mellitus Onset Date: 12/29/17 Current Visit: No Status: Chronic Qualifiers: Diabetes mellitus type: type 2 Diabetes mellitus intermission coordinator insulin use: without group home use Diabetes mellitus complication status: with other specified complication Qualified Code(s): E11.69 - Type 2 diabetes mellitus with other specified complication - Plan #1 COPD exacerbation: Awaiting formal reading of CXR, no obvious consolidation. Will order IV steroids, IV antibiotics and breathing treatments. #2 hyponatremia: possible a combination of volume depletion and medication, will give IV NS, hold HCTZ. #3 DM II: continue with SSI #4 history of A.Fib: currently on SR, anticoagulated with warfarin. Check INR in AM - Advance Directives Does patient have a Living Will: No Does patient have a Durable POA for Healthcare: No - Code Status/Comfort Care Code Status Assessed: Yes Code Status: Full Code
[2018-01-08] MEDS ORDERED: LEVALBUTEROL 1.25 MG/3 ML NEB ONE (05:46)
[2018-01-08] MEDS ORDERED: POTASSIUM 25 MEQ EFFERV TAB ONE (05:47)
--- NOTE | 2018-01-08 06:45 | EKG ---
Test Date: 2018-01-08 Test Time: 03:49:53 Complaint Investigator: BONNIE MEASUREMENT RESULTS: Intervals: Rate: 85 [place]: 140 QRSD: 72 QT: 386 QTc: 459 Wever: P: 41 [place]: 140 QRS: 43 T: 71 INTERPRETIVE STATEMENTS: Normal sinus rhythm Normal ECG Compared to ECG 12/28/2017 11:38:06 No significant changes Electronically Signed On 01-08-18 06:45:02 CDT by Olman Devries
[2018-01-08] MEDS: INSULIN -REGULAR HUMAN 50 UNIT/0.5 ML ML SQ SCH ×4 (08:09→21:00)
[2018-01-08] MEDS ORDERED: ONDANSETRON 4 MG/2 ML VIAL IV PRN (08:09)
[2018-01-08] MEDS ORDERED: ACETAMINOPHEN 500 MG TAB PO PRN (08:09)
[2018-01-08] MEDS ORDERED: NA CHLORIDE 0.9% 1,000 ML IV SCH (08:09)
[2018-01-08] MEDS ORDERED: D50W 25 GM/50 ML SYRINGE IV PRN (08:20)
[2018-01-08] MEDS ORDERED: GLUCAGON 1 MG/VIAL IM PRN (08:20)
[2018-01-08] MEDS ORDERED: Levofloxacin 750mg IV 750 MG/150 ML BAG IV SCH (09:00)
[2018-01-08] MEDS ORDERED: IPRATROPIUM BROM 0.5MG/2.5ML NEB SCH (09:00)
[2018-01-08] MEDS ORDERED: METHYLPREDNISOLONE 40 MG INJ IV SCH (09:00)
[2018-01-08] MEDS ORDERED: ALBUTEROL 2.5 MG/3 ML NEB SOL NEB SCH (09:00)
[2018-01-08] MEDS: ENOXAPARIN 40 MG/0.4 ML SQ SCH ×2 (09:00→10:19)
--- NOTE | 2018-01-08 10:36 | RAD REPORT ---
EXAM DESCRIPTION: RAD - Chest Single View - 01/08/2018 3:48 am CLINICAL HISTORY: Cough, shortness of breath, chest pain COMPARISON: December 2017 TECHNIQUE: AP portable chest image was obtained 0336 hours . FINDINGS: No significant failure or volume overload. Patient has chronic interstitial lung disease a ccentuated by the shallow inspiration. Significant change from comparison is doubtful. Heart and vasculature are normal. No measurable pleural effusion and no pneumothorax. No gross bony abnormality seen. No acute aortic findings suspected. IMPRESSION: Chronic interstitial lung disease not substantially different from comparison.
[2018-01-08 10:38] VITALS: BMI 26.6
[2018-01-08] MEDS ORDERED: WARFARIN SODIUM 2 MG TAB PO SCH (11:00)
--- NOTE | 2018-01-08 11:22 | P.CNS ---
Date of Consult: 01/08/18 Reason for Consult: COPD exacerbation Chief Complaint: COPD exacerbation History of Present Illness: Patient is 82 years of age. 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 ironer got worse over the past month and a half frequent exacerbation frequent antibiotics uses Spiriva and nebulizers at home is not on any oxygen this time he has gotten particularly worse as coughing spells shortness of breath is here about 2 weeks ago patient is fully anti coagulated nonproductive cough Allergies No Known Allergies Allergy (Verified 12/28/17 23:18) Home Medications: Metformin HCl [Glucophage*] 2 tab PO DAILY 11/03/15 Pravastatin Sodium [Pravachol] 40 mg PO DAILY 11/03/15 Tamsulosin [Flomax*] 0.4 mg PO DAILY 11/03/15 Warfarin Sodium [Coumadin] 2 mg PO SEECOM 11/03/15 Triamterene/Hydrochlorothiazid [Triamterene-Hctz 37.5-25 mg Cp] 1 cap PO DAILY 03/03/16 Esomeprazole Mag Trihydrate [Nexium] 1 cap PO DAILY 08/25/16 Cilostazol 50 mg PO BID 11/04/16 Mirtazapine 15 mg PO BEDTIME 11/04/16 Sotalol HCl [Betapace*] 40 mg PO BID 11/04/16 Albuterol Inhaler [Ventolin Inhaler] 2 puff IH Q6H PRN 01/08/18 - Past Medical/Surgical History Diabetic: Yes -: COPD -: Atrial fibrillation, chronic anti coagulation -: Hyperlipidemia -: Carotid arterial disease -: CAD -: Hypertension -: Diabetes mellitus type 2 -: Urinary incontinence -: Former tobacco use -: PVD -: CHOLECYSTECTOMY -: BACK SURGERY -: RECTAL FISTULA REPAIRED -: Carotid stent Psychosocial/ Personal History: The patient is . He has 7 children. He does not work. - Family History Father Medical History: Heart disease, Diabetes Mother Medical History: Other (see notes) Notes: hypotension Sister Medical History: Lung disease, Diabetes Brother Medical History: Lung disease, Diabetes - Social History Smoking Status: Former smoker Alcohol use: Yes CD- Drugs: No Caffeine use: Yes Place of Residence: Home Review of Systems 10-point ROS is otherwise unremarkable General: Weakness Respiratory: Cough, Shortness of Breath Physical Examination Temp Pulse Resp BP Pulse Ox 98.1 F 82 18 120/59 L 93 01/08/18 08:30 01/08/18 08:30 01/08/18 08:30 01/08/18 08:30 01/08/18 08:30 General: Alert, Oriented x3 HEENT: Atraumatic Neck: Supple Respiratory: Expiratory wheezes Cardiovascular: No edema, Irregular heart rate/rhythm Gastrointestinal: Normal bowel sounds, Soft and benign Musculoskeletal: No clubbing, No swelling Laboratory Data (last 24 hrs) 01/08/18 03:32: B-Natriuretic Peptide 55 01/08/18 03:15: PT 32.3 H, INR 2.71, APTT 38.9 H 01/08/18 03:15: WBC 15.2 H D, Hgb 14.3, Hct 44.4 D, Plt Count 315 D 01/08/18 03:15: Sodium 130 L, Potassium 3.4 L, BUN 18, Creatinine 0.90, Glucose 219 H, Magnesium 1.8, Total Bilirubin 0.7, AST 37, ALT 50, Alkaline Phosphatase 71, Lipase 33 - Problems (1) COPD exacerbation Onset Date: 11/04/16 Current Visit: No Status: Acute Plan: Patient is 82 years of age with a history of severe COPD and multi with an exacerbation he has had frequent exacerbation hospitalizations in the past month and a half patient is followed up at the [facility] and has all his doctors over there is fully anti coagulated labs all reviewed PT INR is therapeutic BNP is negative mildly elevated white count presumably from steroids ordered ABGs continue with bronchodilators previous echo in 2017 was normal repeat an echo also added per Rafiq room-air oxygenation is 93% lithium probably benefit from a nebulized long-acting bronchodilator at home instead of an inhaler
[2018-01-08] MEDS: TAMSULOSIN 0.4 MG SR CAP PO SCH (13:02)
[2018-01-08] MEDS: ROFLUMILAST 500 MCG TABLET PO SCH (13:02)
[2018-01-08] MEDS: PANTOPRAZOLE 40MG TABLET PO SCH (13:02)
[2018-01-08] MEDS: CILOSTAZOL 100 MG TAB PO SCH ×2 (13:03→21:21)
[2018-01-08] MEDS: SOTALOL HCL 80 MG TAB PO SCH ×2 (13:03→21:22)
[2018-01-08] MEDS: MAXZIDE (HCTZ 25/TRIAMTERENE 37.5MG) TAB PO SCH (13:03)
[2018-01-08] MEDS: IPRATROPIUM BROM 0.5MG/2.5ML NEB SCH ×2 (13:30→19:16)
[2018-01-08] MEDS: ARFORMOTEROL TARTRATE 15 MCG/2 ML VIAL.NEB NEB SCH ×2 (13:30→19:21)
[2018-01-08] MEDS: ALBUTEROL 2.5 MG/3 ML NEB SOL NEB SCH ×2 (13:30→19:21)
[2018-01-08 13:47] LABS: Arterial Blood Carboxyhemoglob 1.4 % (0-1.5); Blood Gas Oxyhemoglobin 92.1 % (94-97); Blood O2 Saturation 93.6 % (92-98.5)
[2018-01-08] MEDS: METHYLPREDNISOLONE 40 MG INJ IV SCH (17:03)
[2018-01-08 20:41] LABS: Urine Appearance CLEAR; Urine Bilirubin NEGATIVE (NEG); Urine Blood NEGATIVE (NEG); Urine Color YELLOW; Urine Glucose 2+ (NEG); Urine Protein NEGATIVE (NEG); Urine Urobilinogen 0.2 mg/dL (0.2-1.0)
[2018-01-08 20:48] LABS: Urine Microscopic Reflex NO UMIC
[2018-01-08] MEDS ORDERED: CILOSTAZOL 50 MG PO SCH (21:00)
[2018-01-08] MEDS: MIRTAZAPINE 15 MG TAB PO SCH (21:21)
[2018-01-08] MEDS: ATORVASTATIN 10 MG TAB PO SCH (21:22)
[2018-01-09] MEDS: METHYLPREDNISOLONE 40 MG INJ IV SCH ×3 (00:01→17:00)
[2018-01-09] MEDS: IPRATROPIUM BROM 0.5MG/2.5ML NEB SCH ×4 (01:05→19:30)
[2018-01-09] MEDS: ALBUTEROL 2.5 MG/3 ML NEB SOL NEB SCH ×4 (01:06→19:30)
[2018-01-09 05:20] LABS: Absolute Lymphocytes (CBC) 1.5 K/uL (0.7-4.9); Absolute Monocytes 0.5 K/uL (0.1-1.3); Absolute Neutrophil 11.6 K/uL (1.8-8.0); Basophils % 0.2 % (0-1.3); Lymphocytes % 11.1 % (15.3-44.8); MCH 25.1 pg (27.0-35.0); MCV 76.6 fL (80-100); MPV 7.7 fL (7.6-11.3); Monocytes % 3.5 % (3.3-12.3); RBC Red Blood Cell Count 5.22 M/uL (4.33-5.43)
[2018-01-09 05:21] LABS: Protime INR 2.02
[2018-01-09 05:53] LABS: BUN Blood Urea Nitrogen 19 mg/dL (6-20); Bicarbonate 25 mEq/L (21-31); Glucose Level 320 mg/dL (65-120); Magnesium 1.9 mg/dL (1.8-2.5); Potassium 4.2 mEq/L (3.6-5.0); Sodium Level 132 mEq/L (135-145)
[2018-01-09 06:03] LABS: Blood Morphology Comment NOT SEEN (NOT SEEN); Platelet Estimate ADEQ; Urine White Blood Cell Casts OK
[2018-01-09] MEDS: ARFORMOTEROL TARTRATE 15 MCG/2 ML VIAL.NEB NEB SCH ×2 (07:40→19:30)
[2018-01-09] MEDS: PANTOPRAZOLE 40MG TABLET PO SCH (08:57)
[2018-01-09] MEDS: INSULIN -REGULAR HUMAN 50 UNIT/0.5 ML ML SQ SCH ×4 (08:57→21:18)
[2018-01-09] MEDS: SOTALOL HCL 80 MG TAB PO SCH ×2 (08:58→21:19)
[2018-01-09] MEDS: CILOSTAZOL 100 MG TAB PO SCH ×2 (08:58→21:19)
[2018-01-09] MEDS: TAMSULOSIN 0.4 MG SR CAP PO SCH (08:58)
[2018-01-09] MEDS: MAXZIDE (HCTZ 25/TRIAMTERENE 37.5MG) TAB PO SCH (08:58)
[2018-01-09] MEDS: ROFLUMILAST 500 MCG TABLET PO SCH (08:58)
[2018-01-09] MEDS ORDERED: HOME MED 1 EA UNK (Esomeprazole Mag Trihydrate [Nexium] 1 CAP) PO SCH (09:00)
[2018-01-09] MEDS ORDERED: HOME MED 1 EA UNK (Pravastatin Sodium [Pravachol] 40 MG) PO SCH (09:00)
[2018-01-09] MEDS ORDERED: [UNRECOGNIZED DRUG - OTHER] PO SCH (09:00)
--- NOTE | 2018-01-09 14:08 | P.PN ---
Subjective Date of Service: 01/09/18 Chief Complaint: COPD exacerbation pt seen and examined at bedside. Chart reviewed. case DW Pulmonology. Currently Pt sitting up in the chair. having audible Wheezing. last neb treatment was 1 hrs ago. No complains to offer at this time Review of Systems General: As per HPI Physical Examination - Vital Signs Temperature: 97.8 F Blood Pressure: 148/77 Pulse: 77 Respirations: 18 Pulse Ox (%): 98 - Physical Exam General: Alert, Oriented x3, Mild distress HEENT: Atraumatic Neck: Supple, JVD not distended Respiratory: Normal air movement, Expiratory wheezes, Inspiratory wheezes Cardiovascular: Regular rate/rhythm, Normal S1 S2 Gastrointestinal: Normal bowel sounds, No tenderness Musculoskeletal: No tenderness Integumentary: No rashes Neurological: Normal speech, Normal tone, Normal affect Lymphatics: No axilla or inguinal lymphadenopathy - Studies Medications List Reviewed: Yes Assessment & Plan - Problems (Diagnosis) (1) COPD exacerbation Onset Date: 11/04/16 Current Visit: No Status: Acute Plan: COPD exacerbation. ESCOPD with progressive worsening. -Pt has been off the dailresp at home due to insurance. -Pulmonology consulted. Appreciated reccs -Currently on duonebs, Steriods, Brovana and Dailyresp here in the hospital -Marked Improvement -Awaiting ECHO sherie (2) Atrial fibrillation Onset Date: 11/04/15 Current Visit: No Status: Chronic Qualifiers: Atrial fibrillation type: chronic Qualified Code(s): I48.2 - Chronic atrial fibrillation (3) CAD (coronary artery disease) Onset Date: 11/04/15 Current Visit: No Status: Chronic Qualifiers: Coronary Disease-Associated Artery/Lesion type: unspecified vessel or lesion type [place] vs. transplanted heart: unspecified whether [place] or transplanted heart Associated angina: angina presence unspecified Qualified Code(s): I25.10 - Atherosclerotic heart disease of [place] coronary artery without angina pectoris (4) Carotid arterial disease Onset Date: 12/29/17 Current Visit: No Status: Chronic Qualifiers: Laterality: unspecified laterality Qualified Code(s): I77.9 - Disorder of arteries and arterioles, unspecified (5) Chronic anticoagulation Onset Date: 12/29/17 Current Visit: No Status: Chronic (6) Diabetes mellitus, type II, insulin dependent Onset Date: 11/04/15 Current Visit: No Status: Chronic (7) GERD (gastroesophageal reflux disease) Current Visit: No Status: Chronic Qualifiers: Esophagitis presence: esophagitis presence not specified Qualified Code(s) : K21.9 - Gastro-esophageal reflux disease without esophagitis (8) Hypertension Onset Date: 11/04/15 Current Visit: No Status: Chronic Qualifiers: Hypertension type: essential hypertension (9) PVD (peripheral vascular disease) Onset Date: 11/04/15 Current Visit: No Status: Chronic Discharge Plan: Home Plan to discharge in: 48 Hours - Code Status/Comfort Care Code Status Assessed: Yes Critical Care: No
[2018-01-09] MEDS ORDERED: WARFARIN SODIUM 2 MG TAB PO ONE (21:00)
[2018-01-09] MEDS: MIRTAZAPINE 15 MG TAB PO SCH (21:18)
[2018-01-09] MEDS: ATORVASTATIN 10 MG TAB PO SCH (21:19)
[2018-01-09] MEDS ORDERED: TRAZODONE 50 MG TABLET PO ONE (22:00)
[2018-01-10] MEDS: METHYLPREDNISOLONE 40 MG INJ IV SCH ×2 (00:35→08:09)
[2018-01-10] MEDS: ALBUTEROL 2.5 MG/3 ML NEB SOL NEB SCH ×4 (02:10→19:45)
[2018-01-10] MEDS: IPRATROPIUM BROM 0.5MG/2.5ML NEB SCH ×4 (02:10→19:45)
[2018-01-10] MEDS: INSULIN -REGULAR HUMAN 50 UNIT/0.5 ML ML SQ SCH ×4 (08:07→21:37)
[2018-01-10] MEDS: ROFLUMILAST 500 MCG TABLET PO SCH (08:08)
[2018-01-10] MEDS: PANTOPRAZOLE 40MG TABLET PO SCH (08:08)
[2018-01-10] MEDS: SOTALOL HCL 80 MG TAB PO SCH ×2 (08:08→21:36)
[2018-01-10] MEDS: MAXZIDE (HCTZ 25/TRIAMTERENE 37.5MG) TAB PO SCH (08:09)
[2018-01-10] MEDS: TAMSULOSIN 0.4 MG SR CAP PO SCH (08:09)
[2018-01-10] MEDS: CILOSTAZOL 100 MG TAB PO SCH ×2 (08:09→21:36)
[2018-01-10] MEDS: ARFORMOTEROL TARTRATE 15 MCG/2 ML VIAL.NEB NEB SCH ×2 (08:59→19:45)
--- NOTE | 2018-01-10 09:21 | P.PN ---
Subjective Date of Service: 01/10/18 Chief Complaint: COPD exacerbation pt seen and examined at bedside. Chart reviewed. case DW Pulmonology. Currently Pt laying in bed. No Audible Wheezing however does appear to be in some distress. States he feels the same as yesterday. Review of Systems General: As per HPI Physical Examination - Vital Signs Temperature: 97.2 F Blood Pressure: 138/75 Pulse: 82 Respirations: 16 Pulse Ox (%): 94 - Physical Exam General: Alert, Oriented x3, Mild distress HEENT: Atraumatic, PERRLA, EOMI Neck: Supple, JVD not distended Respiratory: Normal air movement, Expiratory wheezes, Inspiratory wheezes Cardiovascular: Regular rate/rhythm, Normal S1 S2 Gastrointestinal: Normal bowel sounds, Soft and benign, Non-distended, No tenderness Musculoskeletal: No tenderness Integumentary: No rashes Neurological: Normal speech, Normal tone, Normal affect Lymphatics: No axilla or inguinal lymphadenopathy - Studies Medications List Reviewed: Yes Assessment & Plan - Problems (Diagnosis) (1) COPD exacerbation Onset Date: 11/04/16 Current Visit: No Status: Acute Plan: COPD exacerbation. ESCOPD with progressive worsening. -Pt has been off the dailresp at home due to insurance denial for medication cost. -Pulmonology consulted. Appreciated reccs -Currently on duonebs, IV Steriods, Brovana and Dailyresp here in the hospital -Has improvement. Will change to PO steriods today and observe for another 24hrs. If continue to improve can DC home sherie -Awaiting ECHO today (2) Atrial fibrillation Onset Date: 11/04/15 Current Visit: No Status: Chronic Qualifiers: Atrial fibrillation type: chronic Qualified Code(s): I48.2 - Chronic atrial fibrillation (3) CAD (coronary artery disease) Onset Date: 11/04/15 Current Visit: No Status: Chronic Qualifiers: Coronary Disease-Associated Artery/Lesion type: unspecified vessel or lesion type [place] vs. transplanted heart: unspecified whether [place] or transplanted heart Associated angina: angina presence unspecified Qualified Code(s): I25.10 - Atherosclerotic heart disease of [place] coronary artery without angina pectoris (4) Carotid arterial disease Onset Date: 12/29/17 Current Visit: No Status: Chronic Qualifiers: Laterality: unspecified laterality Qualified Code(s): I77.9 - Disorder of arteries and arterioles, unspecified (5) Chronic anticoagulation Onset Date: 12/29/17 Current Visit: No Status: Chronic (6) Diabetes mellitus, type II, insulin dependent Onset Date: 11/04/15 Current Visit: No Status: Chronic (7) GERD (gastroesophageal reflux disease) Current Visit: No Status: Chronic Qualifiers: Esophagitis presence: esophagitis presence not specified Qualified Code(s) : K21.9 - Gastro-esophageal reflux disease without esophagitis (8) Hypertension Onset Date: 11/04/15 Current Visit: No Status: Chronic Qualifiers: Hypertension type: essential hypertension (9) PVD (peripheral vascular disease) Onset Date: 11/04/15 Current Visit: No Status: Chronic Discharge Plan: Home Plan to discharge in: 48 Hours - Code Status/Comfort Care Code Status Assessed: Yes Critical Care: No
--- NOTE | 2018-01-10 12:31 | ECHO ---
HEIGHT: 5 ft 4 in WEIGHT: 155 lb 0 oz DATE OF STUDY: 01/10/[address]: Aman Cervantes MD 2-DIMENSIONAL: YES M.MODE: YES DOPPLER: YES COLOR FLOW: YES TDS: YES PORTABLE: NO DEFINITY: NO BUBBLE STUDY: NO DIAGNOSIS: SHORTNESS OF BREATH CARDIAC HISTORY: CATHERIZATION: NO SURGERY: NO PROSTHETIC VALVE: NO PACEMAKER: NO MEASUREMENTS (cm) DIASTOLIC (NORMALS) SYSTOLIC (NORMALS) IVSd 1.0 (0.6-1.2) LA Diam (1.9-4.0) LVEF 60% LVIDd 3.4 (3.5-5.7) LVIDs 2.4 (2.0-3.5) %FS 31% LVPWd 1.3 (0.6-1.2) Ao Diam 2.8 (2.0-3.7) 2 DIMENSIONAL ASSESSMENT: RIGHT ATRIUM: NORMAL LEFT ATRIUM: DILATED RIGHT VENTRICLE: NORMAL LEFT VENTRICLE: NORMAL TRICUSPID VALVE: NORMAL MITRAL VALVE: NORMAL PULMONIC VALVE: NORMAL AORTIC VALVE: NORMAL PERICARDIAL EFFUSION: NONE AORTIC ROOT: NORMAL LEFT VENTRICULAR WALL MOTION: NORMAL DOPPLER/COLOR FLOW: IMPAIRED LEFT VENTRICULAR RELAXATION. COMMENTS: NORMAL LEFT VENTRICULAR EJECTION FRACTION. DILATED LEFT ATRIUM. IMPAIRED LEFT VENTRICULAR RELAXATION. TECHNOLOGIST: Agnes HIRSCH
--- NOTE | 2018-01-10 12:42 | P.PN ---
Subjective Date of Service: 01/10/18 Chief Complaint: COPD exacerbation Subjective: Improving (Patient's cough is improving is still short of breath) Review of Systems Respiratory: Cough, Shortness of Breath Physical Examination - Vital Signs Temperature: 97.7 F Blood Pressure: 144/71 Pulse: 81 Respirations: 18 Pulse Ox (%): 92 - Physical Exam General: Alert, Oriented x3 Respiratory: Expiratory wheezes Cardiovascular: No edema, Regular rate/rhythm - Studies Medications List Reviewed: Yes Assessment & Plan - Problems (Diagnosis) (1) COPD exacerbation Onset Date: 11/04/16 Current Visit: No Status: Acute Plan: Patient is 82 years of age she is doing well admitted with COPD exacerbation discuss with Dr. Callahan reduce prednisone to 10 mg twice a day continue with Advair Spiriva and Dalresp at home patient will not qualify for home O2 patient probably has underlying diastolic dysfunction patient to restrict fluid intake follow with me in 2 weeks if possible
[2018-01-10] MEDS ORDERED: WARFARIN SODIUM 2 MG TAB PO SCH (17:00)
[2018-01-10] MEDS: predniSONE 20 MG TAB PO SCH (21:36)
[2018-01-10] MEDS: ATORVASTATIN 10 MG TAB PO SCH (21:36)
[2018-01-10] MEDS: MIRTAZAPINE 15 MG TAB PO SCH (21:36)
[2018-01-11] MEDS: IPRATROPIUM BROM 0.5MG/2.5ML NEB SCH ×2 (01:18→07:54)
[2018-01-11] MEDS: ALBUTEROL 2.5 MG/3 ML NEB SOL NEB SCH ×2 (01:18→07:54)
[2018-01-11] MEDS: INSULIN -REGULAR HUMAN 50 UNIT/0.5 ML ML SQ SCH ×2 (07:30→11:30)
[2018-01-11] MEDS: ARFORMOTEROL TARTRATE 15 MCG/2 ML VIAL.NEB NEB SCH (07:54)
[2018-01-11] MEDS: ROFLUMILAST 500 MCG TABLET PO SCH (09:51)
[2018-01-11] MEDS: PANTOPRAZOLE 40MG TABLET PO SCH (09:51)
[2018-01-11] MEDS: CILOSTAZOL 100 MG TAB PO SCH (09:51)
[2018-01-11] MEDS: SOTALOL HCL 80 MG TAB PO SCH (09:51)
[2018-01-11] MEDS: MAXZIDE (HCTZ 25/TRIAMTERENE 37.5MG) TAB PO SCH (09:52)
[2018-01-11] MEDS: predniSONE 20 MG TAB PO SCH (09:52)
[2018-01-11] MEDS: TAMSULOSIN 0.4 MG SR CAP PO SCH (09:52)
[2018-01-11 12:11] VITALS: O2SAT 94
--- NOTE | 2018-01-11 12:24 | P.DS ---
Admission Date: 01/08/18 Discharge Date: 01/11/18 Disposition: ROUTINE DISCHARGE Discharge Condition: GOOD Reason for Admission: COPD exacerbation Consultations: Pulmonology - Problems (1) COPD exacerbation Onset Date: 11/04/16 Current Visit: No Status: Acute (2) Atrial fibrillation Onset Date: 11/04/15 Current Visit: No Status: Chronic Qualifiers: Atrial fibrillation type: chronic Qualified Code(s): I48.2 - Chronic atrial fibrillation (3) CAD (coronary artery disease) Onset Date: 11/04/15 Current Visit: No Status: Chronic Qualifiers: Coronary Disease-Associated Artery/Lesion type: unspecified vessel or lesion type [place] vs. transplanted heart: unspecified whether [place] or transplanted heart Associated angina: angina presence unspecified Qualified Code(s): I25.10 - Atherosclerotic heart disease of [place] coronary artery without angina pectoris (4) Carotid arterial disease Onset Date: 12/29/17 Current Visit: No Status: Chronic Qualifiers: Laterality: unspecified laterality Qualified Code(s): I77.9 - Disorder of arteries and arterioles, unspecified (5) Chronic anticoagulation Onset Date: 12/29/17 Current Visit: No Status: Chronic (6) Diabetes mellitus, type II, insulin dependent Onset Date: 11/04/15 Current Visit: No Status: Chronic (7) GERD (gastroesophageal reflux disease) Current Visit: No Status: Chronic Qualifiers: Esophagitis presence: esophagitis presence not specified Qualified Code(s) : K21.9 - Gastro-esophageal reflux disease without esophagitis (8) Hypertension Onset Date: 11/04/15 Current Visit: No Status: Chronic Qualifiers: Hypertension type: essential hypertension (9) PVD (peripheral vascular disease) Onset Date: 11/04/15 Current Visit: No Status: Chronic Brief History of Present Illness: Mr Cisneros is an 82 years old male with history of COPD, A.Fib anticoagulated with warfarin, DM II, who was admitted to the the hospital 1 week ago due to COPD exacerbation. Since discharge, the patient slowly start with productive cough, with yellowish secretion. He also has had progressive SOB, associated with fever. Today temp at home was 99.9 F. At arrival the patient had audible wheezing, temp was 97.7 F, O2 sat 95% on RA. Lab work shows leukocytosis 15.2K, but he is on prednisone at home, normal procalcitonin, hyponatremia. Hospital Course: Overall during the hospital stay patient remained stable The patient was initially admitted to the hospital for COPD exacerbation. Patient has frequent hospitalization due to his end-stage COPD. Patient's daughter at bedside stated that patient has not been able to get his dailyresp any inhaler approved by insurance program and has not been able to take them. However insurance did approve the meds and she can get it in the house latest by tomorrow. Patient was initially admitted for COPD and was treated with Duonebs, steroids Dailyresp and Brovana. Pulmonology was consulted who agreed with the above plan and stated that patient could be switched over to oral steroids 10 mg BID with dailyresp after patient was having marked improvement on IV steroids and the nebulizing treatment. Patient was also asked to continue taking his albuterol and Spiriva at home. Patient was asked to follow up with a cement handler in about 1-2 days post discharge. Patient does have a cement handler in [place] that he usually sees and was asked to return to him for Dr. Magallanes here in [place]. Vital Signs/Physical Exam: Temp Pulse Resp BP Pulse Ox 97.4 F 82 14 140/69 93 01/11/18 04:00 01/11/18 04:00 01/11/18 04:00 01/11/18 04:00 01/11/18 04:00 General: Alert, In no apparent distress HEENT: Atraumatic, PERRLA, EOMI Neck: Supple, JVD not distended Respiratory: Clear to auscultation bilaterally, Normal air movement Cardiovascular: Regular rate/rhythm, Normal S1 S2 Gastrointestinal: Normal bowel sounds, No tenderness Musculoskeletal: No tenderness Integumentary: No rashes Neurological: Normal speech, Normal tone, Normal affect Lymphatics: No axilla or inguinal lymphadenopathy Laboratory Data at Discharge: WBC 13.6 K/uL (4.3-10.9) H 01/09/18 04:53 Hgb 13.1 g/dL (13.6-17.9) L 01/09/18 04:53 Hct 40.0 % (39.6-49.0) 01/09/18 04:53 Plt Count 308 K/uL (152-406) 01/09/18 04:53 PT 24.0 SECONDS (9.5-12.5) H 01/09/18 04:53 INR 2.02 01/09/18 04:53 APTT 38.9 SECONDS (24.3-36.9) H 01/08/18 03:15 Sodium 132 mEq/L (135-145) L 01/09/18 04:53 Potassium 4.2 mEq/L (3.6-5.0) 01/09/18 04:53 BUN 19 mg/dL (6-20) 01/09/18 04:53 Creatinine 0.75 mg/dL (0.61-1.24) 01/09/18 04:53 Glucose 320 mg/dL (65-120) H 01/09/18 04:53 Magnesium 1.9 mg/dL (1.8-2.5) 01/09/18 04:53 Total Bilirubin 0.7 mg/dL (0.3-1.2) 01/08/18 03:15 AST 37 IU/L (10-42) 01/08/18 03:15 ALT 50 IU/L (10-60) 01/08/18 03:15 Alkaline Phosphatase 71 IU/L (42-121) 01/08/18 03:15 B-Natriuretic Peptide 55 pg/ml (<=100) 01/08/18 03:32 Lipase 33 U/L (22-51) 01/08/18 03:15 Home Medications: Metformin HCl [Glucophage*] 2 tab PO DAILY 11/03/15 Pravastatin Sodium [Pravachol] 40 mg PO DAILY 11/03/15 Tamsulosin [Flomax*] 0.4 mg PO DAILY 11/03/15 Warfarin Sodium [Coumadin] 2 mg PO SEECOM 11/03/15 Triamterene/Hydrochlorothiazid [Triamterene-Hctz 37.5-25 mg Cp] 1 cap PO DAILY 03/03/16 Esomeprazole Mag Trihydrate [Nexium] 1 cap PO DAILY 08/25/16 Cilostazol 50 mg PO BID 11/04/16 Mirtazapine 15 mg PO BEDTIME 11/04/16 Sotalol HCl [Betapace*] 40 mg PO BID 11/04/16 Albuterol Inhaler [Ventolin Inhaler*] 2 puff IH Q6H PRN 01/08/18 Arformoterol Tartrate [Brovana] 15 mcg NEB BIDRESP #60 vial.neb 06/05/18 Prednisone [Prednisone*] 10 mg PO BID #20 tab 01/11/18 Roflumilast [Daliresp*] 250 mcg PO DAILY #30 tablet 01/11/18 New Medications: Arformoterol Tartrate [Brovana] 15 mcg NEB BIDRESP #60 vial.neb Prednisone [Prednisone*] 10 mg PO BID #20 tab Roflumilast [Daliresp*] 250 mcg PO DAILY #30 tablet Patient Discharge Instructions: Please f/u with PCP and Hot Dip Tinning Supervisor in 1 week post discharge. New medication. Brovana Neb --> occupational hygienist from dr Magallanes office samples. Prednisone with tapering dose. Continue the following medication as prescribed. Albuterol. Spirivia. Dailyresp Diet: Regular Activity: Ad berna Followup: Aman Cervantes MD [ACTIVE - CAN ADMIT] - 1 Week (Proceed to his office after discharge to orange picker machine operator samples.Call to schedule an appointment. ) Jae MORGAN [OUTSIDE PHYSICIAN] - 1 Week (CAll to schedule an appointment)
[2018-01-11 13:49] VITALS: BP 128/69; TEMP 97
[2018-01-12] MEDS ORDERED: WARFARIN SODIUM 1 MG TAB PO SCH (17:00)
== END 2018-01-11 13:29 | disposition home or self-care (01) ==
LOC: ER 02:16 → ERHOLD 03:41 → 2ND 08:20 → 4TH 01-10 11:35
PROVIDERS: ADMIT Internal Medicine; ATTEND Internal Medicine
DX: J44.1 Chronic obstructive pulmonary disease with (acute) exacerbation (principal); I73.9 Peripheral vascular disease, unspecified; I10 Essential (primary) hypertension; I48.91 Unspecified atrial fibrillation; E11.9 Type 2 diabetes mellitus without complications; I25.10 Atherosclerotic heart disease of native coronary artery without angina pectoris; I77.89 Other specified disorders of arteries and arterioles; E87.1 Hypo-osmolality and hyponatremia; K21.9 Gastro-esophageal reflux disease without esophagitis; Z79.01 Long term (current) use of anticoagulants
CPT/HCPCS: 36415 ×2; 71045; 80048 ×2; 80076; 81003; 82550; 82553; 82805; 82962 ×13; 83690; 83735 ×2; 83880; 84132; 84145; 84484; 85025 ×2; 85610 ×2; 85730; 87040 ×2; 87070; 87205; 93005; 93306; 94640 ×2; 94760 ×8; 96365; 96368; 96375; 99284; G0378 ×2; J0456; J2405; J2920 ×7; J2930; J7030; J7605 ×7; J1650; J7512

== ENCOUNTER 2018-04-07 08:34 | Observation (INO) | payer OTHER, MEDICAID ==
[2018-04-07 09:27] LABS: BUN Blood Urea Nitrogen 12 mg/dL (7-18); Bicarbonate 28 mmol/L (21-32); Glucose Level 140 mg/dL (74-106); Magnesium 2.2 mg/dL (1.8-2.4); Potassium 3.1 mmol/L (3.5-5.1); Sodium Level 134 mmol/L (136-145)
[2018-04-07] MEDS ORDERED: NA CHLORIDE 0.9% 500 ML ONE (09:27)
--- NOTE | 2018-04-07 09:38 | RAD REPORT ---
EXAM DESCRIPTION: CT - Head Brain Wo Cont - 04/07/2018 9:08 am CLINICAL HISTORY: Numbness COMPARISON: 2015 TECHNIQUE: Computed axial tomography of the head was obtained. IV contrast was not requested. All CT scans are performed using dose optimization technique as appropriate and may include automated exposure control or mA/KV adjustment according to patient size. FINDINGS: An intracranial bleed is not seen . The ventricles are normal in caliber. No extra-axial fluid collection is noted. Moderate low-density areas within periventricular, deep and subcortical white matter likely represent ischemic changes secondary to small vessel disease Fluid within the sinuses/ mastoids is not seen. IMPRESSION: No acute intracranial abnormality is seen. If patient's symptoms persist MRI of the bra in would be recommended.
[2018-04-07] MEDS ORDERED: KCL 20 MEQ/100 mL IVPB 20 MEQ/100 ML BAG IV ONE (10:01)
[2018-04-07 10:14] LABS: Absolute Lymphocytes (CBC) 2.8 K/uL (0.7-4.9); Absolute Monocytes 0.9 K/uL (0.1-1.3); Absolute Neutrophil 7.1 K/uL (1.8-8.0); Basophils % 0.6 % (0-1.3); Eosinophils % 0.7 % (0-4.4); Lymphocytes % 25.6 % (15.3-44.8); MCH 26.9 pg (27.0-35.0); MCV 78.7 fL (80-100); MPV 7.7 fL (7.6-11.3); Monocytes % 7.9 % (3.3-12.3); RBC Red Blood Cell Count 5.08 M/uL (4.33-5.43)
[2018-04-07] MEDS ORDERED: NA CHLORIDE 0.9% 250 ML ONE (10:16)
--- NOTE | 2018-04-07 10:56 | RAD REPORT ---
EXAM DESCRIPTION: RAD - Chest Single View - 04/07/2018 9:19 am CLINICAL HISTORY: Chest pain;Dyspnea Chest pain. COMPARISON: Chest Single View dated 01/08/2018; Chest Pa And Lat (2 Views) dated 12/29/2017; Chest Sing le View dated 12/28/2017; Chest Single View dated 08/07/2017 FINDINGS: Portable technique limits examination quality. The lungs are emphysematous but grossly clear. The heart is normal in size. No displaced fractures. IMPRESSION: No acute intrathoracic process suspected.
[2018-04-07 11:40] LABS: Urine Blood NEGATIVE (NEG); Urine Glucose NEGATIVE (NEG); Urine Protein NEGATIVE (NEG); Urine Specific Gravity 1.015 (1.005-1.030)
--- NOTE | 2018-04-07 11:40 | EDPHYS ---
Physician Documentation [facility] Name: Gene Cisneros Age: 83 yrs Sex: Male : 1935 Arrival Date: 04/07/2018 Time: 08:35 Bed 20 Private MD: ED Physician Linden Shen HPI: 04/07 09:00 This 83 yrs old Male presents to ER via Unassigned with complaints of rn paresthesias, trouble walking. 09:00 The patient's problem is reported as difficulty walking, paresthesias, all over. Onset: rn The symptoms/episode began/occurred last night. Duration: This was a single incident. The symptoms are alleviated by nothing. The symptoms are aggravated by nothing. Severity of symptoms: At their worst the symptoms were mild in the emergency department the symptoms are unchanged. The patient has experienced similar episodes in the past. REports generalized weakness, + paresthesias of face and extremities, + trouble walking, feels like falls without assistance, also reports mild sob and chest pain, son reports has happened multiple times in past like this and told was "mini strokes". . Historical: - Allergies: 08:38 No Known Allergies; rb1 - Home Meds: 08:38 benzonatate 200 mg oral cap 1 cap 3 times per day [Active]; prednisone 10 mg Oral tab 1 rb1 tab once daily [Active]; Jantoven 2 mg Oral tab [Active]; Sotalol 40 mg Oral 2 times per day [Active]; prednisone 2.5 mg Oral tab 2 tabs once daily [Active]; cilostazol 50 mg Oral tab 1 tab 2 times per day [Active]; pravastatin 40 mg Oral tab 1 tab once daily [Active]; triamterene-hydrochlorothiazid 37.5-25 mg Oral cap 1 cap once daily [Active]; Daliresp 500 mcg oral tab 1 tab once daily [Active]; mirtazapine 15 mg Oral tab 1 tab once daily [Active]; Lyrica 100 mg Oral 1 cap 2 times per day [Active]; sotalol 80 mg Oral tab 0.5 tab 2 times per day [Active]; 08:38 nitroglycerin 0.4 mg SL subl 1 tab every 5 minutes [Active]; tamsulosin 0.4 mg Oral rb1 cp24 1 cap once daily [Active]; Nexium 20 mg Oral cpDR 1 cap once daily [Active]; Vitamin D3 2,000 unit Oral tab [Active]; metformin 500 mg Oral tab 2 tabs daily [Active]; aspirin 81 mg Oral chew 1 tab once daily [Active]; ipratropium-albuterol 0.5 mg-3 mg(2.5 mg base)/3 mL Inhl nebu 3 mL 4 times per day [Active]; - PMHx: 08:38 Atrial Fib; Bronchitis; rb1 08:38 CAD; COPD; Diabetes - NIDDM; Hypertension; Pneumonia; PVD; rb1 - PSHx: 08:38 back; anal fistula; Cholecystectomy; rb1 - Immunization history:: Adult Immunizations up to date. - Social history:: Smoking status: Patient/guardian denies using tobacco. - Family history:: not pertinent. - Ebola Screening: : Patient negative for fever greater than or equal to 101.5 degrees Fahrenheit, and additional compatible Ebola Virus Disease symptoms. - Hospitalizations: : No recent hospitalization is reported. ROS: 09:00 Constitutional: Negative for fever, chills, and weight loss, Eyes: Negative for injury, rn pain, redness, and discharge, Neck: Negative for injury, pain, and swelling, Cardiovascular: Negative for palpitations, and edema, Respiratory: Negative for pleuritic chest pain, Abdomen/GI: Negative for abdominal pain, nausea, vomiting, diarrhea, and constipation, Back: Negative for injury and pain, MS/Extremity: Negative for injury and deformity, Skin: Negative for injury, rash, and discoloration, Neuro: Negative for headache, seizure. Exam: 09:00 Constitutional: This is a well developed, well nourished patient who is awake, alert, rn and in no acute distress. Head/Face: Normocephalic, atraumatic. Eyes: Pupils equal round and reactive to light, extra-ocular motions intact. Lids and lashes normal. Conjunctiva and sclera are non-icteric and not injected. Cornea within normal limits. Periorbital areas with no swelling, redness, or edema. Neck: Trachea midline, no thyromegaly or masses palpated, and no cervical lymphadenopathy. Supple, full range of motion without nuchal rigidity, or vertebral point tenderness. No Meningismus. Cardiovascular: Regular rate and rhythm with a normal S1 and S2. No gallops, murmurs, or rubs. Normal PMI, no JVD. No pulse deficits. Respiratory: coarse bilateral breath sounds, no retractions Abdomen/GI: soft, non-tender MS/ Extremity: Pulses equal, no cyanosis. Neurovascular intact. Full, normal range of motion. Equal circumference. Neuro: Awake and alert, GCS 15, oriented to person, place, time, and situation. Cranial nerves II-XII grossly intact. Motor strength 5/5 in all extremities. Decreased sensation in all 4 extremities and both sides of face. Wide based gait. Vital Signs: 08:38 BP 155 / 79; Pulse 84; Resp 20; Temp 97.6(O); Pulse Ox 97% on R/A; Weight 68.04 kg (R); rb1 Height 5 ft. 4 in. (162.56 cm) (R); Pain 0/10; 09:30 BP 112 / 61; Pulse 79; Resp 20; Pulse Ox 99% on R/A; Pain 0/10; rb1 10:30 BP 125 / 69; Pulse 75; Resp 18; Pulse Ox 98% ; rb1 11:30 BP 109 / 68; Pulse 75; Resp 17; Pulse Ox 99% on R/A; rb1 12:00 BP 119 / 87; Pulse 74; Resp 19; Pulse Ox 99% on R/A; Pain 0/10; rb1 12:53 BP 148 / 84; Pulse 78; Resp 20; Pulse Ox 99% on R/A; Pain 0/10; rb1 08:38 Body Mass Index 25.75 (68.04 kg, 162.56 cm) rb1 NIH Stroke Scale Scores: 08:38 NIHSS Score: 0 rb1 MDM: 08:37 Patient medically screened. rn 11:37 Differential diagnosis: CVA, TIA, metabolic disorder. Data reviewed: vital signs, rn nurses notes, lab test result(s), EKG, radiologic studies, CT scan, plain films, and as a result, I will admit patient. Counseling: I had a detailed discussion with the patient and/or guardian regarding: the historical points, exam findings, and any diagnostic results supporting the discharge/admit diagnosis, lab results, radiology results, the need for further work-up and treatment in the hospital. Response to treatment: the patient's symptoms have mildly improved after treatment, and as a result, I will admit patient. Admission orders: after a detailed discussion of the patient's condition and case, the admit orders are written by me. ED course: Pt improved some with potassium replacement, daughter here states had some facial droop on left side as well as left sided paresthesias, gives different story than son and patient, will admit for CVA/TIA w/u. Admitted to Dr. Richard.. 04/07 08:51 Order name: Urine Microscopic Only 04/07 08:51 Order name: Basic Metabolic Panel; Complete Time: 09:43 rn 04/07 08:51 Order name: CBC with Diff; Complete Time: 10:35 rn 04/07 08:51 Order name: Magnesium; Complete Time: 09:43 rn 04/07 08:51 Order name: Troponin (emerg Dept Use Only); Complete Time: 09:43 04/07 08:51 Order name: Urine Microscopic Only [facility] 04/07 08:51 Order name: CT Head Brain wo Cont; Complete Time: 09:43 04/07 08:51 Order name: XRAY Chest (1 view); Complete Time: 11:00 04/07 11:33 Order name: Urine Dipstick--Ancillary (enter results) 04/07 11:34 Order name: Urine Dipstick-Ancillary [facility] 04/07 11:48 Order name: Echo with Doppler [facility] 04/07 11:48 Order name: Stroke Protocol [facility] 04/07 11:48 Order name: Carotid Artery Bilateral [facility] 04/07 08:51 Order name: EKG; Complete Time: 08:52 04/07 08:51 Order name: Cardiac monitoring; Complete Time: 09:33 rn 04/07 08:51 Order name: EKG - Nurse/Tech; Complete Time: 09:33 rn 04/07 08:51 Order name: IV Saline Lock; Complete Time: 09:33 rn 04/07 08:51 Order name: Labs collected and sent; Complete Time: 09:34 rn 04/07 08:51 Order name: NPO; Complete Time: 09:34 rn 04/07 08:51 Order name: O2 Per Protocol; Complete Time: 09:34 rn 04/07 08:51 Order name: O2 Sat Monitoring; Complete Time: 09:34 rn 04/07 11:48 Order name: CONS Physician Consult [facility] 04/07 11:48 Order name: Physical Therapy Consult [facility] 04/07 11:48 Order name: Speech Therapy Consult [facility] 04/07 11:48 Order name: NPO [facility] 04/07 11:48 Order name: NPO [facility] 04/07 11:48 Order name: NPO [facility] 04/07 08:51 Order name: Urine Dipstick-Ancillary (obtain specimen); Complete Time: 11:26 rn 04/07 08:51 Order name: Glucose Level; Complete Time: 09:01 rn Administered Medications: 09:22 Drug: NS 0.9% 500 ml Route: IV; Rate: bolus; Site: left femoral; rb1 10:18 Follow up: IV Status: Completed infusion rb1 09:57 Drug: Potassium Chloride 20 mEq Route: IV; Rate: calculated rate; Site: left wrist; tw2 12:45 Follow up: Response: No adverse reaction; IV Status: Completed infusion rb1 10:10 Drug: NS 0.9% 250 ml {Note: Infusing with the potassium.} Route: IV; Rate: bolus; Site: rb1 left forearm; 12:45 Follow up: IV Status: Completed infusion rb1 Point of Care Testing: Blood Glucose: 08:38 Blood Glucose: 121 mg/dL; rb1 Ranges: Critical Glucose Levels:Adult <50 mg/dl or >400 mg/dl <40 mg/dl or >180 mg/dl Disposition: 04/07/18 11:39 Hospitalization ordered by Stephon Richard for Inpatient Admission. Preliminary diagnosis are Paresthesia of skin, Hypokalemia, Dyspnea, unspecified. - Bed requested for Telemetry/MedSurg (Inpatient). - Status is Inpatient Admission. rb1 - Condition is Stable. - Problem is new. - Symptoms have improved. UTI on Admission? No NIH Stroke Scale - NIH Stroke Score Date: 04/07/2018 Time: 08:38 Total Score = 0 1a. Level of Consciousness (LOC) - 0(Alert) 1b. Level of Consciousness (LOC) (Year \\T\\ Age) - 0(Both) 1c. LOC Commands (Open \\T\\ Closes Eyes/Centrifugal Spinner) - 0(Both) 2. Best Gaze (Lateral Gaze Paresis) - 0(Normal) 3. Visual Field Loss - 0(No visual loss) 4. Facial Palsy - 0(Normal) 5a. Left Arm: Motor (10-second hold) - 0(No drift) 5b. Right Arm: Motor (10-second hold) - 0(No drift) 6a. Left Leg: Motor (5-second hold - always test supine) - 0(No drift) 6b. Right Leg: Motor (5-second hold - always test supine) - 0(No drift) 7. Limb Ataxia (finger/nose \\T\\ heel/andrew - test with eyes open) - 0(Absent) 8. Sensory Loss (pinprick arms/legs/face) - 0(Normal) 9. Best Language: Aphasia (description/naming/reading) - 0(No aphasia) 10. Dysarthria (speech clarity - read or repeat words) - 0(Normal) 11. Extinction and Inattention (visual/tactile/auditory/spatial/personal) - 0(No abnormality) Initials: rb1 Signatures: Dispatcher [employer] EDMS Nathaly Moore RN RN Linden Glass MD MD rn Barber, Rebecca, RN RN rb1 Sommer Funk RN RN tw2 Corrections: (The following items were deleted from the chart) 12:32 11:39 Hospitalization Ordered by Stephon Richard MD for Inpatient Admission. kl Preliminary diagnosis is Paresthesia of skin; Hypokalemia; Dyspnea, unspecified. Bed requested for Telemetry/MedSurg (Inpatient). Status is Inpatient Admission. Condition is Stable. Problem is new. Symptoms have improved. UTI on Admission? No. rn 13:08 12:32 04/07/2018 11:39 Hospitalization Ordered by Stephon Richard MD for Inpatient rb1 Admission. Preliminary diagnosis is Paresthesia of skin; Hypokalemia; Dyspnea, unspecified. Bed requested for Telemetry/MedSurg (Inpatient). Status is Inpatient Admission. Condition is Stable. Problem is new. Symptoms have improved. UTI on Admission? No. kl
--- NOTE | 2018-04-07 11:40 | ER ---
Nurse's Notes [facility] Name: Gene Cisneros Age: 83 yrs Sex: Male : 1935 Arrival Date: 04/07/2018 Time: 08:35 Bed 20 Private MD: Diagnosis: Paresthesia of skin;Hypokalemia;Dyspnea, unspecified Presentation: 04/07 08:38 Presenting complaint: Patient states: Numbness on the face and bilateral hands since rb1 last night. Transition of care: patient was not received from another setting of care. Onset of symptoms was April 06, 2018. 08:38 Method Of Arrival: Wheelchair rb1 08:38 Acuity: JO-ANN 3 rb1 08:38 Risk Assessment: Do you want to hurt yourself or someone else? Patient reports no rb1 desire to harm self or others. Initial Sepsis Screen: Does the patient meet any 2 criteria? No. Patient's initial sepsis screen is negative. Does the patient have a suspected source of infection? No. Patient's initial sepsis screen is negative. Care prior to arrival: None. Triage Assessment: 08:38 General: Appears in no apparent distress. comfortable, Behavior is calm, cooperative, rb1 Denies fever. Pain: Denies pain. Neuro: Level of Consciousness is awake, alert, obeys commands, Oriented to person, place, time, situation. Cardiovascular: Capillary refill < 3 seconds is brisk in bilateral fingers. Respiratory: Reports shortness of breath on exertion Airway is patent Respiratory effort is even, unlabored, Respiratory pattern is regular, symmetrical. GI: No signs and/or symptoms were reported involving the gastrointestinal system. : No signs and/or symptoms were reported regarding the genitourinary system. Derm: Skin is dry, Skin is normal, Skin temperature is warm. Musculoskeletal: Range of motion: intact in all extremities, Reports numbness in face and bilateral hands Son reports that the pt. is walking unsteady, which is a new onset. Pt. denies falling. 08:38 Neuro: Reports weakness in generalized. rb1 Historical: - Allergies: 08:38 No Known Allergies; rb1 - Home Meds: 08:38 benzonatate 200 mg oral cap 1 cap 3 times per day [Active]; prednisone 10 mg Oral tab 1 rb1 tab once daily [Active]; Jantoven 2 mg Oral tab [Active]; Sotalol 40 mg Oral 2 times per day [Active]; prednisone 2.5 mg Oral tab 2 tabs once daily [Active]; cilostazol 50 mg Oral tab 1 tab 2 times per day [Active]; pravastatin 40 mg Oral tab 1 tab once daily [Active]; triamterene-hydrochlorothiazid 37.5-25 mg Oral cap 1 cap once daily [Active]; Daliresp 500 mcg oral tab 1 tab once daily [Active]; mirtazapine 15 mg Oral tab 1 tab once daily [Active]; Lyrica 100 mg Oral 1 cap 2 times per day [Active]; sotalol 80 mg Oral tab 0.5 tab 2 times per day [Active]; 08:38 nitroglycerin 0.4 mg SL subl 1 tab every 5 minutes [Active]; tamsulosin 0.4 mg Oral rb1 cp24 1 cap once daily [Active]; Nexium 20 mg Oral cpDR 1 cap once daily [Active]; Vitamin D3 2,000 unit Oral tab [Active]; metformin 500 mg Oral tab 2 tabs daily [Active]; aspirin 81 mg Oral chew 1 tab once daily [Active]; ipratropium-albuterol 0.5 mg-3 mg(2.5 mg base)/3 mL Inhl nebu 3 mL 4 times per day [Active]; - PMHx: 08:38 Atrial Fib; Bronchitis; rb1 08:38 CAD; COPD; Diabetes - NIDDM; Hypertension; Pneumonia; PVD; rb1 - PSHx: 08:38 back; anal fistula; Cholecystectomy; rb1 - Immunization history:: Adult Immunizations up to date. - Social history:: Smoking status: Patient/guardian denies using tobacco. - Family history:: not pertinent. - Ebola Screening: : Patient negative for fever greater than or equal to 101.5 degrees Fahrenheit, and additional compatible Ebola Virus Disease symptoms. - Hospitalizations: : No recent hospitalization is reported. Screenin:38 Abuse screen: Denies threats or abuse. Nutritional screening: No deficits noted. rb1 Tuberculosis screening: No symptoms or risk factors identified. Fall Risk No fall in past 12 months (0 pts). Secondary diagnosis (15 points) impaired mobility, No IV (0 pts). Ambulatory Aid- None/Bed Rest/Nurse Assist (0 pts). Gait- Impaired (20 pts.). Mental Status- Oriented to own ability (0 pts). Total Velasco Fall Scale indicates Low Risk Score (25-44 pts). Fall prevention measures have been instituted. Side Rails Up X 2 Placed close to Nursing Station 1:1 attendant Assigned to Pt. Frequent Obs/Assesments occuring Family Present and informed to notify staff if they need to leave bedside As available Patient and Family Educated on Fall Prevention Program and strategies. 08:38 Patient has been NPO before screening. The patient is alert, able to follow commands. rb1 The patient does not exhibit slurred or garbled speech The patient is not exhibiting difficulty speaking. The patient does not exhibit difficulty understanding words. The patient is able to swallow own secretions with no drooling or need for suction. Patient tolerated one teaspoon of water. No drooling, immediate coughing, gurgling, or clearing of the throat was noted. The patient tolerated 90mL of water. No drooling, immediate coughing, gurgling, or clearing of the throat was noted. The patient passed the bedside swallow screening. Oral medications may be given as ordered. Contact Physician for further diet orders. Provider notified of bedside swallow screening results: Linden Shen MD. Assessment: 08:38 General: See triage assessment. rb1 08:38 Neuro: Rib Builder are equal bilaterally Moves all extremities. Gait is unsteady, Speech is rb1 normal, Facial symmetry appears normal, Pupils are PERRLA. 09:35 Reassessment: Patient appears in no apparent distress at this time. No changes from rb1 previously documented assessment. Family at bedside. 10:19 Reassessment: Patient appears in no apparent distress at this time. Patient and/or rb1 family updated on plan of care and expected duration. Pain level reassessed. Patient is alert, oriented x 3, equal unlabored respirations, skin warm/dry/pink. Family remains at bedside. 11:19 Reassessment: Patient appears in no apparent distress at this time. No changes from rb1 previously documented assessment. 12:10 Reassessment: Patient appears in no apparent distress at this time. Patient and/or rb1 family updated on plan of care and expected duration. Pain level reassessed. Patient is alert, oriented x 3, equal unlabored respirations, skin warm/dry/pink. Pt. is having ECHO done at bedside. Patient denies pain at this time. 12:45 Reassessment: Gave report to DEBBI Mcclain. Information from the SBAR was given. All rb1 questions asked and answered. 13:01 Reassessment: Patient appears in no apparent distress at this time. No changes from rb1 previously documented assessment. Pt. is going to MRI and will be taken to the floor from there. Vital Signs: 08:38 BP 155 / 79; Pulse 84; Resp 20; Temp 97.6(O); Pulse Ox 97% on R/A; Weight 68.04 kg (R); rb1 Height 5 ft. 4 in. (162.56 cm) (R); Pain 0/10; 09:30 BP 112 / 61; Pulse 79; Resp 20; Pulse Ox 99% on R/A; Pain 0/10; rb1 10:30 BP 125 / 69; Pulse 75; Resp 18; Pulse Ox 98% ; rb1 11:30 BP 109 / 68; Pulse 75; Resp 17; Pulse Ox 99% on R/A; rb1 12:00 BP 119 / 87; Pulse 74; Resp 19; Pulse Ox 99% on R/A; Pain 0/10; rb1 12:53 BP 148 / 84; Pulse 78; Resp 20; Pulse Ox 99% on R/A; Pain 0/10; rb1 08:38 Body Mass Index 25.75 (68.04 kg, 162.56 cm) rb1 NIH Stroke Scale Scores: 08:38 NIHSS Score: 0 rb1 ED Course: 08:35 Patient arrived in ED. sb2 08:37 Linden Shen MD is Attending Physician. rn 08:38 Farhana To, RN is Primary Nurse. rb1 08:38 Arm band placed on right wrist. rb1 08:38 Patient has correct armband on for positive identification. Placed in gown. Bed in low rb1 position. Call light in reach. Side rails up X2. hardware assembler on. Pulse ox on. NIBP on. Warm blanket given. 09:08 CT Head Brain wo Cont In Process Unspecified. EDMS 09:08 CT completed. Patient tolerated procedure well. Patient moved to CT via stretcher. sj Patient moved back from CT. 09:16 X-ray completed. Patient tolerated procedure well. Patient moved back from radiology. jb2 09:19 XRAY Chest (1 view) In Process Unspecified. EDMS 09:28 EKG done, by fire technician. reviewed by Linden Shen MD. at1 10:22 Triage completed. rb1 11:39 Stephon Richard MD is Hospitalizing Provider. rn 12:54 Echocardiogram with Doppler done by porcelain technician. tc 13:02 No provider procedures requiring assistance completed. Patient admitted, IV remains in rb1 place. Administered Medications: 09:22 Drug: NS 0.9% 500 ml Route: IV; Rate: bolus; Site: left femoral; rb1 10:18 Follow up: IV Status: Completed infusion rb1 09:57 Drug: Potassium Chloride 20 mEq Route: IV; Rate: calculated rate; Site: left wrist; tw2 12:45 Follow up: Response: No adverse reaction; IV Status: Completed infusion rb1 10:10 Drug: NS 0.9% 250 ml {Note: Infusing with the potassium.} Route: IV; Rate: bolus; Site: rb1 left forearm; 12:45 Follow up: IV Status: Completed infusion rb1 Point of Care Testing: Blood Glucose: 08:38 Blood Glucose: 121 mg/dL; rb1 Ranges: Outcome: 11:39 Decision to Hospitalize by Provider. rn 13:02 Admitted to Tele accompanied by tech, via wheelchair, room 411, with chart, Report rb1 called to DEBBI Mcclain. Information from the SBAR was given. All questions asked and answered. 13:02 Condition: stable 13:02 Instructed on the need for admit. 13:02 Patient left the ED. rb1 NIH Stroke Scale - NIH Stroke Score Date: 04/07/2018 Time: 08:38 Total Score = 0 1a. Level of Consciousness (LOC) - 0(Alert) 1b. Level of Consciousness (LOC) (Year \T\ Age) - 0(Both) 1c. LOC Commands (Open \T\ Closes Eyes/Industrial Fabric Cutter) - 0(Both) 2. Best Gaze (Lateral Gaze Paresis) - 0(Normal) 3. Visual Field Loss - 0(No visual loss) 4. Facial Palsy - 0(Normal) 5a. Left Arm: Motor (10-second hold) - 0(No drift) 5b. Right Arm: Motor (10-second hold) - 0(No drift) 6a. Left Leg: Motor (5-second hold - always test supine) - 0(No drift) 6b. Right Leg: Motor (5-second hold - always test supine) - 0(No drift) 7. Limb Ataxia (finger/nose \T\ heel/andrew - test with eyes open) - 0(Absent) 8. Sensory Loss (pinprick arms/legs/face) - 0(Normal) 9. Best Language: Aphasia (description/naming/reading) - 0(No aphasia) 10. Dysarthria (speech clarity - read or repeat words) - 0(Normal) 11. Extinction and Inattention (visual/tactile/auditory/spatial/personal) - 0(No abnormality) Initials: rb1 Signatures: Dispatcher [employer] EDMS [place] Jason jb2 Suzanne Silvestre Roman, MD MD rn Aydee Alfonso, hand model EKG Tat1 Lesly Kimball, hand model EKG Ttc Farhana To RN RN rb1 Sommer Funk RN RN tw2 Kayla Black sb2 Corrections: (The following items were deleted from the chart) 12:11 11:30 BP 119 / 87; Pulse 74bpm; Resp 19bpm; Pulse Ox 99% RA; Pain 0/10; rb1 rb1 20:07 13:08 Patient left the ED. rb1 rb1
[2018-04-07 11:41] LABS: Urine Bacteria NONE SEEN /HPF (NONE SEEN); Urine Culture Reflex Order NOT NEEDED; Urine RBC NONE SEEN /HPF (NONE SEEN)
[2018-04-07] MEDS ORDERED: ONDANSETRON 4 MG/2 ML VIAL IV PRN (11:43)
[2018-04-07] MEDS ORDERED: ACETAMINOPHEN 500 MG TAB PO PRN (11:43)
--- NOTE | 2018-04-07 14:26 | RAD REPORT ---
EXAM DESCRIPTION: MRI - Brain W/Wo Cont - 04/07/2018 2:07 pm CLINICAL HISTORY: CVA COMPARISON: MRA Head Wo Cont dated 04/07/2018; Head Brain Wo Cont dated 04/07/2018; Head Brain Wo Cont dated 03/16/2016; Brain Wo Cont dated 03/03/2016 TECHNIQUE: Multi-sequence, multiplanar MR imaging of the brain was performed with contrast. FINDINGS: No intracranial hemorrhage, hydrocephalus, extra-axial fluid collection or acute infarctio n.Moderate confluent T2/FLAIR hyperintensity in the periventricular and deep white matter is present compatible with chronic microvascular ischemic changes. No edema or shift of midline structures. No i ntracranial mass. DWI is negative for acute CVA. The midline structures are normally formed. Mastoid air cells and paranasal sinuses are clear. Post-contrast images show no abnormal enhancement to suggest tumor or infection. IMPRESSION: Negative for acute CVA or other acute intracranial process. No pathologic contrast enhancement seen.
--- NOTE | 2018-04-07 14:33 | RAD REPORT ---
EXAM DESCRIPTION: MRI - MRA Head Wo Cont - 04/07/2018 2:08 pm CLINICAL HISTORY: CVA CVA COMPARISON: Head Brain Wo Cont dated 04/07/2018 FINDINGS: 3D noncontrast [id number] MR angiography of the [place] was performed. No aneurysm, flow-limiting stenosis or vascular malformation is seen. Forward flow seen in codominant vertebral arteries. The visualized dural venous sinuses appear patent. IMPRESSION: No significant flow abnormality of the [place] is identified.
--- NOTE | 2018-04-07 14:35 | RAD REPORT ---
EXAM DESCRIPTION: MRI - MRA Neck W/Wo Cont - 04/07/2018 2:07 pm CLINICAL HISTORY: CVA COMPARISON: Carotid Artery Bilateral dated 04/07/2018 FINDINGS: Contrast enhance 2D [id number] MR angiography of the neck vessels was performed. Diminished flow is visible in the proximal left internal carotid artery, likely related to the presen ce of an internal carotid artery stent. The stent appears patent. Mild atheromatous narrowing of both carotid bulbs is seen without high-grade carotid stenosis suspected. Antegrade flow seen in both renzo tebral arteries. IMPRESSION: No high-grade carotid stenosis is seen.
[2018-04-07 14:59] LABS: Protime INR 2.64
[2018-04-07] MEDS ORDERED: D50W 25 GM/50 ML SYRINGE IV PRN (15:00)
[2018-04-07] MEDS ORDERED: GLUCAGON 1 MG/VIAL IM PRN (15:00)
[2018-04-07 15:16] VITALS: BMI 24.9
[2018-04-07] MEDS ORDERED: ROFLUMILAST 500 MCG TABLET PO PRN (16:25)
[2018-04-07] MEDS ORDERED: ALBUTEROL INHALER 60 PUFF/8 GM IH PRN (16:25)
--- NOTE | 2018-04-07 16:29 | EKG ---
Test Date: 2018-04-07 Test Time: 09:28:56 Graphic Coordinator: JOSELIN MEASUREMENT RESULTS: Intervals: Rate: 78 [place]: 142 QRSD: 70 QT: 392 QTc: 446 [place]: P: 51 [place]: 142 QRS: 34 T: 49 INTERPRETIVE STATEMENTS: Normal sinus rhythm with sinus arrhythmia Normal ECG Compared to ECG 01/08/2018 03:49:53 No significant changes Electronically Signed On 04-07-18 16:26:12 CDT by Aly Mari
[2018-04-07] MEDS: INSULIN -REGULAR HUMAN 50 UNIT/0.5 ML ML SQ SCH ×2 (16:30→22:49)
--- NOTE | 2018-04-07 16:55 | ECHO ---
HEIGHT: 5 ft 4 in WEIGHT: 145 lb 0 oz DATE OF STUDY: 04/07/[address]: Stephon Richard MD 2-DIMENSIONAL: YES M.MODE: YES DOPPLER: YES COLOR FLOW: YES TDS: YES PORTABLE: YES DEFINITY: BUBBLE STUDY: DIAGNOSIS: STROKE CARDIAC HISTORY: CATHERIZATION: NO SURGERY: NO PROSTHETIC VALVE: NO PACEMAKER: NO MEASUREMENTS (cm) DIASTOLIC (NORMALS) SYSTOLIC (NORMALS) IVSd 1.0 (0.6-1.2) LA Diam 3.2 (1.9-4.0) LVEF 55% LVIDd 4.1 (3.5-5.7) LVIDs 2.9 (2.0-3.5) %FS 28% LVPWd 0.9 (0.6-1.2) Ao Diam 2.9 (2.0-3.7) 2 DIMENSIONAL ASSESSMENT: RIGHT ATRIUM: NORMAL LEFT ATRIUM: NORMAL RIGHT VENTRICLE: NORMAL LEFT VENTRICLE: NORMAL TRICUSPID VALVE: NORMAL MITRAL VALVE: NORMAL PULMONIC VALVE: NORMAL AORTIC VALVE: NORMAL PERICARDIAL EFFUSION: NONE AORTIC ROOT: NORMAL LEFT VENTRICULAR WALL MOTION: NORMAL DOPPLER/COLOR FLOW: NORMAL COMMENTS: NORMAL TWO DIMENSIONAL ECHOCARDIOGRAM WITH DOPPLER. NO WALL MOTION ABNORMALITY. NO VEGETATION. NO THROMBUS. TECHNOLOGIST: DARIEN GOOD
[2018-04-07] MEDS ORDERED: NITROGLYCERIN 0.4 MG/TAB SL PRN (16:59)
[2018-04-07] MEDS ORDERED: HOME MED 1 EA UNK (Ipratropium/Albuterol Sulfate [Iprat-Albut 0.5-3(2.5) Mg/3 Ml] 3 ML) IH SCH (17:00)
[2018-04-07] MEDS ORDERED: POTASSIUM 25 MEQ EFFERV TAB PO ONE (17:00)
[2018-04-07] MEDS: NA CHLORIDE 0.9% 1,000 ML IV SCH (17:04)
--- NOTE | 2018-04-07 17:25 | RAD REPORT ---
EXAM DESCRIPTION: USCAROTID ARTERY BILATERAL04/07/2018 12:37 pm CLINICAL HISTORY: CVASyncope COMPARISON: Carotid Artery Bilateral dated FINDINGS: The velocity of the right internal carotid artery equals 59 cm/sec. The right ICA/CCA rati o 0.8 The velocity of the left internal carotid artery equals 102 cm/sec. The left ICA/CCA ratio 1.6 A left internal carotid arterial stent is patent. Mild to moderate plaque is present within the carot id arteries. The vertebral arteries demonstrate antegrade flow IMPRESSION: Patent left internal carotid arterial stent No evidence of a hemodynamically significant stenosis
[2018-04-07] MEDS: ARFORMOTEROL TARTRATE 15 MCG/2 ML VIAL.NEB NEB PRN (19:49)
[2018-04-07] MEDS: PREGABALIN 150 MG CAP PO SCH (21:00)
[2018-04-07] MEDS ORDERED: CILOSTAZOL 50 MG PO SCH (21:00)
[2018-04-07] MEDS ORDERED: PREGABALIN 50 MG CAP PO SCH (21:00)
[2018-04-07] MEDS ORDERED: MELATONIN PO SCH (21:00)
[2018-04-07] MEDS ORDERED: PREGABALIN 200 MG PO SCH (21:00)
[2018-04-07] MEDS: SOTALOL HCL 80 MG TAB PO SCH (21:00)
[2018-04-07] MEDS: CILOSTAZOL 100 MG TAB PO SCH (22:50)
[2018-04-07] MEDS: MELATONIN 5 MG TABLET PO SCH (22:50)
[2018-04-07] MEDS: ATORVASTATIN 40 MG TAB PO SCH (22:51)
[2018-04-07] MEDS: MIRTAZAPINE 15 MG TAB PO SCH (22:52)
[2018-04-07] MEDS: ATORVASTATIN 10 MG TAB PO SCH (22:52)
[2018-04-08] MEDS: NA CHLORIDE 0.9% 1,000 ML IV SCH ×3 (01:20→16:48)
--- NOTE | 2018-04-08 02:05 | HP ---
Date of Admission: 04/07/2018 Code Status: DNR. Primary Care Physician: In [place]. Patent Drafter: Dr. Black with Neurology. Chief Complaint: Paresthesia of the left arm and face, left face drooping. History Of Present Illness: The patient is an 83-year-old male with past medical history of TIA; [employer]INE[employer] D; Afib, on Coumadin; diabetes; hyperlipidemia; carotid artery disease; heart disease; hypertension a nd peripheral vascular disease, comes in with weakness on the left side of the face, which was notice d at 10 p.m. last night. The patient did have some improvement in his condition. He did report some paresthesias that extended from the face over to the left side of his arm. The patient therefore wa s brought into the ER for worsening symptoms. His symptoms are constant, moderate, and progressively worsening. In the ER, his workup revealed normal vital signs. He was afebrile. His labs showed lo w potassium, otherwise, normal white blood cell count. CT scan was done, which was negative for any acute hemorrhage. The patient has been referred for admission for possible CVA. When the patient wa hoda seen, he was awake, alert, and oriented x3, in some mild distress. Past Medical History: Peripheral vascular disease; coronary artery disease; COPD;, atrial fibrillati on, on Coumadin; hyperlipidemia; carotid artery disease; hypertension; diabetes mellitus type 2; urin ry incontinence; former tobacco user. Surgical History: Cholecystectomy, back surgery, rectal fistula repair, and carotid stent. Social History: The patient is , has 7 children. He is retired, former smoker. Does not use alcohol or illicit drug use. Currently independent in his activities of daily living. Allergies: NO KNOWN DRUG ALLERGIES. Medications: List reviewed. Family History: Father had heart disease and diabetes. Mother had hypertension. Sister had lung di sease and diabetes as well as a brother who also had lung disease and diabetes. Review of Systems: An 11-point system reviewed, negative except as per HPI. Physical Examination: Vital Signs: Temperature 97.6, heart rate 84, blood pressure 155/79, respirations 20, and O2 97% on room air. General: Awake, alert, and oriented x3. Some mild distress. Elderly male, somewhat lethargic, ill appearing. HEENT: Normocephalic, atraumatic. PERRLA. EOMI. Moist mucous membranes. Oropharynx is clear. Po or dentition. Conjunctivae anicteric. Neck: Supple. No JVD. Trachea midline. CV: S1, S2. Irregularly irregular. Peripheral pulses weak bilaterally. Respiratory: Moving air well bilaterally. No wheezing. No stridor or use of accessory muscles. Gastrointestinal: Abdomen is soft, nontender, and nondistended. Positive bowel sounds. Extremities: No clubbing, cyanosis, or edema. No calf tenderness. Neuro: Cranial nerves 2-12 intact grossly. The patient does have some weakness in the left upper ex tremity, normal strength 5/5 in the right upper extremity and bilateral lower extremities. Sensation is intact to light touch. Speech is normal. No facial asymmetry. Skin: No rashes. Normal skin turgor. Psych: Mood is okay. Affect is full. Insight and judgment are good. Laboratory Data: WBC 10.8, H and H 13.7 and 40, platelets 364, and neutrophils 65%. INR 2.64. [place] um 134, potassium 3.1, chloride 97, CO2 28, BUN 12, creatinine 0.8, glucose 140, calcium 9.1, and mag nesium 2.2. Troponin less than 0.02. UA is negative. CT scan of the head shows no acute intracrani al abnormality. Chest x-ray personally reviewed, shows no acute intrathoracic process identified. M RA of the neck shows no high-grade carotid stenosis. Brain MRI and MRA show no significant flow abno rmality of the [place] and brain MRI does not show any acute CVA. Assessment: An 83-year-old male with; 1.Left-sided facial droop, possible TIA versus CVA. MRI of the brain is negative. The patient does have history of neck trauma in the remote past. May have some cervical radiculopathy leading to par esthesia in his left arm. We will continue anticoagulation. We will check INR. 2.Carotid artery disease. MRA of neck does not show any significant stenosis. 3.COPD, chronic bronchitis. 4.Atrial fibrillation, on Coumadin. We will check INR. 5.Hyperlipidemia. 6.Essential hypertension. 7.Diabetes mellitus type 2, non-insulin dependent. We will start on sliding scale insulin. 8.Urinary incontinence. 9.Peripheral vascular disease. 10.Coronary artery disease, [place] artery and [place] heart, without angina. Plan: Admit the patient to Med-Surg, place as inpatient. Dr. Black of Neurology has been consult ed. We will continue workup including echocardiogram. May need cervical spine MRI. Continue PT, OT , and ST. SA/MODL Voice ID: [id number]
[2018-04-08 05:57] LABS: Absolute Lymphocytes (CBC) 2.9 K/uL (0.7-4.9); Absolute Monocytes 0.8 K/uL (0.1-1.3); Absolute Neutrophil 5.7 K/uL (1.8-8.0); Basophils % 0.5 % (0-1.3); Eosinophils % 0.7 % (0-4.4); Hematocrit 37.5 % (39.6-49.0); Lymphocytes % 30.4 % (15.3-44.8); MCH 27.1 pg (27.0-35.0); MCV 78.6 fL (80-100); MPV 7.3 fL (7.6-11.3); Monocytes % 8.2 % (3.3-12.3); RBC Red Blood Cell Count 4.76 M/uL (4.33-5.43)
[2018-04-08 06:03] LABS: Protime INR 2.53
[2018-04-08 06:09] LABS: ALT/SGPT 51 U/L (12-78); AST/SGOT 29 U/L (15-37); Albumin 3.2 g/dL (3.4-5.0); Alkaline Phosphatase 71 U/L (45-117); BUN Blood Urea Nitrogen 8 mg/dL (7-18); Bicarbonate 27 mmol/L (21-32); Bilirubin Total 0.9 mg/dL (0.2-1.0); Glucose Level 100 mg/dL (74-106); HDL Cholesterol 59 mg/dL (40-60); LDL Cholesterol, Calculated 55 (<130); Potassium 3.3 mmol/L (3.5-5.1); Protein, Total 6.8 g/dL (6.4-8.2); Sodium Level 139 mmol/L (136-145)
[2018-04-08] MEDS ORDERED: POTASSIUM CL SA 10 MEQ TAB PO ONE ×2 (06:49→13:59)
[2018-04-08] MEDS: INSULIN -REGULAR HUMAN 50 UNIT/0.5 ML ML SQ SCH ×4 (07:30→21:00)
[2018-04-08] MEDS: ARFORMOTEROL TARTRATE 15 MCG/2 ML VIAL.NEB NEB PRN (07:42)
[2018-04-08] MEDS ORDERED: [UNRECOGNIZED DRUG - OTHER] PO SCH (09:00)
[2018-04-08] MEDS ORDERED: HOME MED 1 EA UNK (Esomeprazole Mag Trihydrate [Nexium] 1 CAP) PO SCH (09:00)
[2018-04-08] MEDS ORDERED: predniSONE 5 MG TAB PO SCH (09:00)
[2018-04-08] MEDS ORDERED: HOME MED 1 EA UNK (Budesonide/Formoterol Fumarate [Symbicort 160-4.5 Mcg Inhaler] 2 PUFF) IH SCH (09:00)
[2018-04-08] MEDS: CILOSTAZOL 100 MG TAB PO SCH ×2 (09:00→22:05)
[2018-04-08] MEDS ORDERED: HOME MED 1 EA UNK (Pravastatin Sodium [Pravachol] 40 MG) PO SCH (09:00)
[2018-04-08] MEDS: MAXZIDE (HCTZ 25/TRIAMTERENE 37.5MG) TAB PO SCH (10:09)
[2018-04-08] MEDS: PREGABALIN 150 MG CAP PO SCH ×2 (10:09→22:06)
[2018-04-08] MEDS: SOTALOL HCL 80 MG TAB PO SCH ×2 (10:09→22:06)
[2018-04-08] MEDS: PREGABALIN 50 MG CAP PO SCH ×2 (10:09→22:05)
[2018-04-08] MEDS: ASPIRIN EC 81 MG TAB PO SCH (10:10)
[2018-04-08] MEDS: TAMSULOSIN 0.4 MG SR CAP PO SCH (10:10)
[2018-04-08] MEDS: PANTOPRAZOLE 40MG TABLET PO SCH (10:10)
[2018-04-08] MEDS ORDERED: WARFARIN SODIUM 1 MG TAB PO SCH (17:00)
--- NOTE | 2018-04-08 17:13 | CON ---
Reason For Consultation: Consultation called because of possible stroke. History Of Present Illness: Mr. Cisneros is an 83-year-old right-handed patient with history of atrial fibrillation and bronchitis along with coronary artery disease, hypertension who comes in with bilateral face and hand numbness. He was to [facility] on 04[facility]07[facility]18 with those symptoms. There is no report that the patient had a focal findings or deficits on his evaluation, and his NIH score was 0 on his admission. His head CT scan and brain MRI were negative for acute ischemic or hemorrhagic events. His brain and neck MRA were essentially unremarkable for any hemodynamically significant stenosis. Echocardiogram was unremarkable for any abnormalities. Ejection fraction 55%. Study was essentially normal. The patient did say that the symptoms resolved sometime after he was admitted. He is unclear how long symptoms were in place. Please note too that his carotid artery ultrasound did identify a patent left internal carotid artery stent. He had an electrocardiogram showing normal sinus rhythm and is a normal study. He has been treated with aspirin and Coumadin prior to his admission. Past Medical History: As indicated above in addition to chronic obstructive pulmonary disease. He has [id number] diabetes mellitus and history of pneumonia and peripheral vascular disease. Surgical History: Anal fistula surgery, cholecystectomy, back surgery. Allergies: NO KNOWN DRUG ALLERGIES. Medications: Benzonatate 200 mg 3 times daily, prednisone 10 mg daily, Jantoven 2 mg daily, sotalol 40 mg twice daily, prednisone 2.5 mg 2 times daily , cilostazol 50 mg twice daily, pravastatin once daily, triamterene hydrochlorothiazide 37.5/25 daily, Daliresp 500 mcg daily, mirtazapine 15 mg once at night for insomnia, Lyrica 100 mg twice daily, sotalol 80 mg tablets half 2 times daily, nitroglycerin 0.4 mg every 5 minutes as needed, tamsulosin 0.4 mg every 24 hours, Nexium 20 mg daily, vitamin D3 2000 mcg daily, metformin 500 mg 2 daily, aspirin 81 mg daily, ipratropium albuterol 0.5 mg-3 mg nebulizer 4 times daily. Social History: No recent alcohol, tobacco, or drug use. The patient resides at home with family. Review of Systems: No recent fevers or chills. Mild shortness of breath related to COPD. No nausea or vomiting. No myalgias, arthralgias. No rash. No weight change. No headaches. Physical Examination: Vital Signs: Blood pressure 140/78, pulse 82, respiratory rate 18, temperature 97.4, oxygen saturation 97%, weight 145 pounds, height 5 feet 4 inches, BMI 24.9. General: Mr. Alfonso is resting in bed. He is in no acute distress. HEENT: He is normocephalic, atraumatic. Sclerae anicteric. Oropharynx is pink and moist. Neck: Supple. Chest: Clear. Heart: Regular. Extremities: show no edema, cyanosis, or clubbing. Neurologic: He is alert and oriented to situation place, person. Follows all commands appropriately. He has no cranial nerve deficits on 2 through 12. He has normal labial, lingual and guttural sounds and no expressive or receptive aphasia. Motor examination, he has normal bulk and tone in the arms and legs, 5 /5 proximally and distally. Sensory examination, he has stocking-glove loss to light touch, temperature in the arms and legs. Reflexes 0 at the biceps, triceps, brachioradialis, 0 at the patella and heels. Coordination intact in upper lower extremities and his gait, he has good stance, stride, and arm swing. Laboratory Studies: White blood cell count 9.4, hemoglobin 12.9, hematocrit 37.5, platelets 317. INR 2.53. Chemistry; sodium 139, potassium 3.3, chloride 105, carbon dioxide 27, BUN 8, creatinine 0.6. Glucose ranged from 100-206. Calcium 8.4, albumin 3.2. LDL cholesterol 55, HDL cholesterol 59. The cholesterol to HDL ratio is 2.41 with a total cholesterol of 142. Urinalysis is normal. Assessment: Mr. Cisneros is an 83-year-old patient with nonspecific face and arm tingling and no focal neurologic deficits on all neurologic examination as well as no abnormalities seen on brain CT scan and MRI. The patient's symptoms are not likely to be related to stroke, perhaps related to anxiety. He does have reported history of atrial fibrillation, but is currently in normal sinus rhythm with a normal EKG. He does have a therapeutic INR while on Coumadin. Plan: 1. The patient will be discharged home. Follow up with his primary care physician and Cardiology as scheduled. 2. Follow up if needed with Neurology. At this point, no clear reason for him to follow up with Neurology and he may be discharged home at this point. It is mentioned that the patient may have had some neck pain related to an accident that he suffered about 50 years ago. The hospitalist is working that up with a noncontrast MRI of the C-spine and may follow up with Dr. Black for that reason within a month. VICENTA Voice ID: [id number] Report ID: [id number] PEPITO
--- NOTE | 2018-04-08 19:38 | RAD REPORT ---
EXAM DESCRIPTION: CT - Head Brain Wo Cont - 04/08/2018 7:11 pm CLINICAL HISTORY: slurred speach, numbness left side COMPARISON: Head Brain Wo Cont dated 04/07/2018; Head Brain Wo Cont dated 03/16/2016; Brain W/Wo Cont d ated 04/07/2018 TECHNIQUE: Computed axial tomography of the head was obtained. IV contrast was not requested. All CT scans are performed using dose optimization technique as appropriate and may include automated exposure control or mA/KV adjustment according to patient size. FINDINGS: An intracranial bleed is not seen . The ventricles are normal in caliber. No extra-axial fluid collection is noted. Moderate low-density areas within periventricular, deep and subcortical white matter likely represent ischemic changes secondary to small vessel disease. Fluid within the sinuses/ mastoids is not seen. IMPRESSION: No acute intracranial abnormality is seen. If patient's symptoms persist MRI of the bra in would be recommended.
--- NOTE | 2018-04-08 20:02 | RAD REPORT ---
EXAM DESCRIPTION: MRI - C Spine Wo Cont - 04/08/2018 7:41 pm CLINICAL HISTORY: numbness, tingling left arm COMPARISON: None TECHNIQUE: Magnetic resonance imaging of the cervical spine was obtained with coronal and sagittal r econstruction FINDINGS: C2-3 is unremarkable Osteophytes and facet hypertrophy at C3-4 result in mild narrowing of the left neural foramina. C4-5 disc is thinned. Disc bulge, osteophytes and facet hypertrophy are present. The thecal sac measu res 9.5 millimeters. Moderate narrowing the neural foramina bilaterally is seen. Disc bulge and osteophytes are present at C5-6. The thecal sac is mildly narrowed. There is moderate to marked narrowing of the neural foramina bilaterally. Disc bulge osteophytes and facet hypertrophy are present C 6-7. Moderate to marked narrowing of the r ight and mild moderate narrowing left neural foramina is seen. C7-T1 is unremarkable. The spinal cord is normal caliber and signal. No abnormal signal within the bones is noted. 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 Moderate bilateral foraminal stenosis is present. Spondylosis C5-6 resulting in moderate to marked bilateral foraminal stenosis Spondylosis C6-7 resulting in moderate to marked right foraminal stenosis
[2018-04-08] MEDS: ATORVASTATIN 10 MG TAB PO SCH (21:00)
[2018-04-08] MEDS: MELATONIN 5 MG TABLET PO SCH (21:00)
[2018-04-08] MEDS ORDERED: HYDROCORTISONE SUC 100 MG INJ IV ONE (21:38)
[2018-04-08] MEDS: ATORVASTATIN 40 MG TAB PO SCH (22:06)
[2018-04-08] MEDS: MIRTAZAPINE 15 MG TAB PO SCH (22:06)
--- NOTE | 2018-04-08 22:33 | PN ---
Date of Progress Note: 04/08/2018 Subjective: The patient was seen and examined. Chart was reviewed and case was discussed with DEBBI Black. The patient feels significantly better. No further episodes of facial asymmetry or paresthesias. Review of Systems: Negative. Medications: Reviewed. Physical Examination: Vital Signs: Temperature 97.2, heart rate 79, blood pressure 109/59, respirations 18, and O2 96% on room air. General: Awake, alert, and oriented x3. No acute distress. Elderly male. CV: S1 and S2. No murmurs. Respiratory: Moving air well bilaterally. No wheezing or stridor. No use of accessory muscles. Gastrointestinal: Abdomen is soft, nontender, and nondistended. Positive bowel sounds. Extremities: No clubbing, cyanosis, or edema. Neurologic: Nonfocal. The patient does have some decrease sensation to light touch on the left lowe r extremity. No facial asymmetry. Muscle strength is 5/5 in bilateral upper and lower extremities. Laboratory Data: Sodium 139, potassium 3.3, recheck is 3.6, chloride 105, CO2 27, BUN 8, creatinine 0.6, glucose 100, and calcium 8.4. WBC 9.4, H and H 12.9 and 37.5, and platelets 317. Triglycerides 141, cholesterol 142, LDL 55, and HDL 59. INR 2.53. Echocardiogram shows EF 55%, no wall motion ab normality, no vegetations, and no thrombus. Assessment: An 83-year-old male with; 1.TIA, CVA ruled out. MRI of the brain is negative. MRA of the brain does not show any abnormaliti es of [place]. MRA of the neck, negative. Echocardiogram does not show any thrombus or veg etation. We will continue with warfarin. Appreciate Dr. Black's input. No further symptoms of f acial asymmetry. 2.Paresthesias may be related to cervical radiculopathy. C-spine MRI pending. 3.Carotid artery disease. 4.COPD, chronic bronchitis. 5.Atrial fibrillation, on Coumadin. Therapeutic INR. 6.Mixed hyperlipidemia. Lipid panel shows normal triglycerides and total cholesterol. 7.Essential hypertension, stable. 8.Diabetes mellitus, type 2, non insulin dependent. Continue sliding scale insulin. 9.Urinary incontinence. 10.Peripheral vascular disease. 11.Coronary artery disease, [place] artery and [place] heart, without angina. Plan: Follow up on C-spine MRI. Discharge once cleared by Neurology. SA/MODL Voice ID: [id number] Report ID: [id number]
--- NOTE | 2018-04-09 06:06 | EKG ---
Test Date: 2018-04-08 Test Time: 18:56:09 Transformation Specialist: RT MEASUREMENT RESULTS: Intervals: Rate: 77 TX: 152 QRSD: 68 QT: 356 QTc: 402 [place]: P: 53 TX: 152 QRS: 31 T: 73 INTERPRETIVE STATEMENTS: Normal sinus rhythm Normal ECG Compared to ECG 04/07/2018 09:28:56 Sinus arrhythmia no longer present Electronically Signed On 04-09-18 06:05:59 CDT by Aly Mari
[2018-04-09 06:07] LABS: Absolute Monocytes 0.4 K/uL (0.1-1.3); Absolute Neutrophil 6.8 K/uL (1.8-8.0); Basophils % 0.4 % (0-1.3); Eosinophils % 0.1 % (0-4.4); Lymphocytes % 21.8 % (15.3-44.8); MCH 27.2 pg (27.0-35.0); MCV 80.7 fL (80-100); MPV 7.3 fL (7.6-11.3); Monocytes % 4.5 % (3.3-12.3); RBC Red Blood Cell Count 4.84 M/uL (4.33-5.43)
[2018-04-09 06:13] LABS: ALT/SGPT 50 U/L (12-78); AST/SGOT 30 U/L (15-37); Alkaline Phosphatase 68 U/L (45-117); BUN Blood Urea Nitrogen 9 mg/dL (7-18); Bicarbonate 24 mmol/L (21-32); Bilirubin Total 0.6 mg/dL (0.2-1.0); Glucose Level 184 mg/dL (74-106); Potassium 3.8 mmol/L (3.5-5.1); Sodium Level 140 mmol/L (136-145)
[2018-04-09 06:14] LABS: Albumin 3.1 g/dL (3.4-5.0); Protein, Total 6.6 g/dL (6.4-8.2)
[2018-04-09] MEDS ORDERED: POTASSIUM CL SA 10 MEQ TAB PO ONE (06:28)
[2018-04-09] MEDS: INSULIN -REGULAR HUMAN 50 UNIT/0.5 ML ML SQ SCH ×2 (07:30→11:30)
[2018-04-09] MEDS: NA CHLORIDE 0.9% 1,000 ML IV SCH (07:40)
[2018-04-09] MEDS ORDERED: predniSONE 10 MG TAB PO SCH (09:00)
[2018-04-09] MEDS ORDERED: predniSONE 5 MG TAB PO SCH (09:00)
[2018-04-09] MEDS: ASPIRIN EC 81 MG TAB PO SCH (09:13)
[2018-04-09] MEDS: PREGABALIN 150 MG CAP PO SCH (09:13)
[2018-04-09] MEDS: CILOSTAZOL 100 MG TAB PO SCH (09:13)
[2018-04-09] MEDS: MAXZIDE (HCTZ 25/TRIAMTERENE 37.5MG) TAB PO SCH (09:13)
[2018-04-09] MEDS: PREGABALIN 50 MG CAP PO SCH (09:13)
[2018-04-09] MEDS: PANTOPRAZOLE 40MG TABLET PO SCH (09:13)
[2018-04-09] MEDS: TAMSULOSIN 0.4 MG SR CAP PO SCH (09:13)
[2018-04-09] MEDS: SOTALOL HCL 80 MG TAB PO SCH (09:13)
[2018-04-09 11:16] VITALS: O2SAT 96
[2018-04-09 12:58] VITALS: BP 133/66; TEMP 97.5
[2018-04-09] MEDS ORDERED: WARFARIN SODIUM 2 MG TAB PO SCH ×2 (17:00)
--- NOTE | 2018-04-10 11:21 | P.DS ---
Admission Date: 04/07/18 Discharge Date: 04/10/18 Disposition: ROUTINE DISCHARGE Discharge Condition: FAIR Consultations: Dr. Victor Brief History of Present Illness: Patient is 08/16/1977 years of age admitted with paresthesia Hospital Course: Extensive workup did not show any significant abnormality patient has had brain MRI MRA a CT scan of the head including cervical spine evaluation at the time of discharge he was alert oriented responsive cooperative vital signs all stable ambulating he had no weakness of his arms and legs no facial weakness was seen by neurologist and was stable for discharge to follow up with his primary care physician patient's home medications were all resumed vital signs stable room-air sats satisfactory Vital Signs/Physical Exam: Temp Pulse Resp BP Pulse Ox 97.5 F 84 18 133/66 96 04/09/18 12:00 04/09/18 12:00 04/09/18 12:00 04/09/18 12:00 04/09/18 12:00 Laboratory Data at Discharge: WBC 9.2 K/uL (4.3-10.9) 04/09/18 05:10 Hgb 13.1 g/dL (13.6-17.9) L 04/09/18 05:10 Hct 39.0 % (39.6-49.0) L 04/09/18 05:10 Plt Count 315 K/uL (152-406) 04/09/18 05:10 PT 30.1 SECONDS (9.5-12.5) H 04/08/18 05:08 INR 2.53 04/08/18 05:08 Sodium 140 mmol/L (136-145) 04/09/18 05:10 Potassium 3.8 mmol/L (3.5-5.1) 04/09/18 05:10 BUN 9 mg/dL (7-18) 04/09/18 05:10 Creatinine 0.60 mg/dL (0.55-1.3) 04/09/18 05:10 Glucose 184 mg/dL (74-106) H 04/09/18 05:10 Magnesium 2.2 mg/dL (1.8-2.4) 04/07/18 08:55 Total Bilirubin 0.6 mg/dL (0.2-1.0) 04/09/18 05:10 AST 30 U/L (15-37) 04/09/18 05:10 ALT 50 U/L (12-78) 04/09/18 05:10 Alkaline Phosphatase 68 U/L (45-117) 04/09/18 05:10 Troponin I < 0.02 ng/mL (0.0-0.045) 04/09/18 06:19 Triglycerides 141 mg/dL (<150) 04/08/18 05:08 Cholesterol 142 mg/dL (<200) 04/08/18 05:08 HDL Cholesterol 59 mg/dL (40-60) 04/08/18 05:08 Cholesterol/HDL Ratio 2.41 04/08/18 05:08 Home Medications: Metformin HCl [Glucophage*] 2 tab PO DAILY 11/03/15 Pravastatin Sodium [Pravachol] 40 mg PO DAILY 11/03/15 Tamsulosin [Flomax*] 0.4 mg PO DAILY 11/03/15 Warfarin Sodium [Coumadin] 2 mg PO SEECOM 11/03/15 Esomeprazole Mag Trihydrate [Nexium] 1 cap PO DAILY 08/25/16 Cilostazol 50 mg PO BID 11/04/16 Mirtazapine 15 mg PO BEDTIME 11/04/16 Sotalol HCl [Betapace*] 40 mg PO BID 11/04/16 Albuterol Inhaler [Ventolin Inhaler*] 2 puff IH Q6H PRN 01/08/18 Arformoterol Tartrate [Brovana] 1 aero NEB BID PRN 04/07/18 Budesonide/Formoterol Fumarate [Symbicort 160-4.5 Mcg Inhaler] 2 puff IH DAILY 04/07/18 Cholecalciferol (Vitamin D3) [Vitamin D3] 1 cap PO DAILY 04/07/18 Ipratropium/Albuterol Sulfate [Iprat-Albut 0.5-3(2.5) mg/3 ml] 3 ml IH QID 04/07 Melatonin 1 cap PO BEDTIME 04/07/18 Mepolizumab [Nucala] 100 mg IVP SEECOM 04/07/18 Nitroglycerin 0.4 mg SL SEECOM PRN 04/07/18 Pregabalin [Lyrica] 200 mg PO BID 04/07/18 Roflumilast [Daliresp*] 500 mcg PO DAILY PRN 04/07/18 Triamterene/Hydrochlorothiazid [Triamterene-Hctz 37.5-25 mg Cp] 1 cap PO DAILY 04/07/18 Warfarin Sodium [Coumadin] 1 mg PO SEECOM 04/07/18 predniSONE [Prednisone*] 5 mg PO SEECOM 04/07/18 predniSONE [Prednisone*] 10 mg PO SEECOM 04/07/18 Followup: Oneal Black MD [ASSOCIATE-ACTIVE - CAN ADMIT] - (Call for appointment)
--- NOTE | 2018-04-10 11:26 | CON ---
Date of Consultation: 04/09/[address] Richard's service on 04/07/2018. I saw the patient on 04/09/2018. Reason For Consultation: Paresthesias and atrial fibrillation. History Of Present Illness: Mr. Cisneros is an 83-year-old male. He came in with par esthesias and numbness in the face and arms bilaterally. The family requested that I see the patient because of history of atrial fibrillation and cerebrovascular disease. He denied any chest pain, na usea, vomiting, diaphoresis, PND, orthopnea, pedal edema, palpitation, or syncope. He has already be en seen by Dr. Healy who believed some of his symptoms may be cervical spondylosis related or anxiety related. He has an extensive past medical history including hypertension, diabetes, dyslipidemia, a trial fibrillation, and COPD. He has had a left carotid stent before. Since he has been in the hosp ital, he has had a normal chest x-ray, normal EKG, and normal CT of his head. He has had a normal MR I, normal MRA, carotid Doppler, and echocardiogram. He had a negative Lexiscan in 2016. Past Medical History: As stated above. Allergies: NONE. Review of Systems: Negative. Social History: Negative. Family History: Noncontributory. Medications: Include metformin, Pravachol, Betapace, multiple inhalers, Coumadin, and prednisone. Physical Examination: General: He appeared to be in no acute distress. Still complaining of some paresthesia. Vital Signs: Stable, sinus rhythm, afebrile. HEENT: Negative. Neck: Supple without any bruit, lymphadenopathy, JVD, or thyromegaly. Chest: Clear to auscultation and percussion. Cardiac: Revealed a regular rhythm and rate without any murmurs, gallops, or rubs. Abdomen: Benign. Extremities: Revealed no clubbing, cyanosis, or edema. Diagnostic Data: Showed a glucose of 222. INR of 2.53. Potassium was 3.3. Rest of the workup was mentioned in the HPI. Impression And Plan: 1.I believe Mr. Cisneros's symptoms of paresthesia are most likely secondary to cervical spondylosis , documented by MRI of the neck, spine and certainly could be anxiety, but this is not an acute coron ry syndrome and I do not think his symptoms are related to anything coronary gutierrez or atrial fibrilla tion gutierrez. Certainly, it is possible that the Betapace may be given him some side effects as well. We may have to re-address down the road. If the symptoms continue that may be worth trying. 2.Cardiovascular diseases, status post left carotid stent that is patent. 3.Chronic obstructive pulmonary disease. 4.Atrial fibrillation, resolved on Coumadin and Betapace. 5.Diabetes, controlled. 6.Dyslipidemia, controlled. 7.Hypertension, controlled. The case was discussed in detail with Mr. Cisneros. He was really most ly reassured. Mr. Cisneros as far as I am concerned can go home. We will be happy to see him in the office in the near future if his symptoms persist. LANE/AICHA Voice ID: [id number] Report ID: [id number]
== END 2018-04-09 15:20 | disposition home or self-care (01) ==
LOC: ER 08:34 → ERHOLD 11:40 → INTOOBSV 11:40 → 4TH 12:54
PROVIDERS: ADMIT Family Medicine; ATTEND Family Medicine
DX: R20.2 Paresthesia of skin (principal); I48.91 Unspecified atrial fibrillation; I10 Essential (primary) hypertension; E78.5 Hyperlipidemia, unspecified; E11.9 Type 2 diabetes mellitus without complications; J44.9 Chronic obstructive pulmonary disease, unspecified; I77.89 Other specified disorders of arteries and arterioles; I25.10 Atherosclerotic heart disease of native coronary artery without angina pectoris; I73.9 Peripheral vascular disease, unspecified; R32 Unspecified urinary incontinence; Z86.73 Personal history of transient ischemic attack (TIA), and cerebral infarction without residual deficits; Z79.01 Long term (current) use of anticoagulants; Z87.891 Personal history of nicotine dependence
CPT/HCPCS: 36415 ×2; 70450 ×2; 70544; 70549; 70553; 71045; 72141; 80048; 80053 ×2; 80061; 82962 ×8; 83735; 84132 ×2; 84484 ×4; 85025 ×3; 85610 ×2; 92526; 93005 ×2; 93306; 93880; 94760 ×6; 97163; 99285; A9577; G0378 ×2; J1720; J7030 ×4; J7605 ×2; 81003; 81015; J7512

== ENCOUNTER 2018-07-04 10:59 | Emergency (ER) | payer OTHER, MEDICAID ==
--- NOTE | 2018-07-04 12:40 | EKG ---
Test Date: 2018-07-04 Test Time: 11:37:28 Appliance Service Supervisor: JOSELIN MEASUREMENT RESULTS: Intervals: Rate: 86 IA: 142 QRSD: 72 QT: 362 QTc: 433 [place]: P: 56 IA: 142 QRS: 54 T: 68 INTERPRETIVE STATEMENTS: Normal sinus rhythm Normal ECG Compared to ECG 04/08/2018 18:56:09 No significant changes Electronically Signed On 07-04-18 12:39:27 CONTAMINATED LAND CONSULTANT by Olman Devries
[2018-07-04] MEDS ORDERED: METHYLPREDNISOLONE 125 MG INJ ONE (12:48)
[2018-07-04] MEDS ORDERED: LEVALBUTEROL 1.25 MG/3 ML NEB ONE ×2 (12:48→15:32)
[2018-07-04 13:02] LABS: Absolute Lymphocytes (CBC) 1.2 K/uL (0.7-4.9); Absolute Monocytes 0.9 K/uL (0.1-1.3); Absolute Neutrophil 10.3 K/uL (1.8-8.0); Basophils % 0.3 % (0-1.3); Eosinophils % 0.1 % (0-4.4); Hematocrit 36.5 % (39.6-49.0); Lymphocytes % 9.4 % (15.3-44.8); MCH 25.3 pg (27.0-35.0); MCV 74.9 fL (80-100); MPV 7.4 fL (7.6-11.3); Monocytes % 7.4 % (3.3-12.3); RBC Red Blood Cell Count 4.87 M/uL (4.33-5.43)
[2018-07-04 13:05] LABS: Protime INR 2.44
[2018-07-04 13:26] LABS: BUN Blood Urea Nitrogen 12 mg/dL (7-18); Bicarbonate 27 mmol/L (21-32); Glucose Level 252 mg/dL (74-106); NT PRO-BNP 505 pg/mL (<450); Potassium 3.7 mmol/L (3.5-5.1); Sodium Level 135 mmol/L (136-145); Troponin (Emerg Dept Use Only) < 0.02 ng/mL (0.0-0.045)
--- NOTE | 2018-07-04 14:08 | RAD REPORT ---
EXAM DESCRIPTION: RAD - Chest Single View - 07/04/2018 1:45 pm CLINICAL HISTORY: Cough, COPD COMPARISON: April 07, 2018 TECHNIQUE: AP portable chest image was obtained 1300 hours . FINDINGS: Lungs are fibrotic as a baseline. Interstitial pattern is similar to comparison. No focal infiltrate, mass or significant failure finding. Heart and vasculature are normal. No measurable pleural effusion and no pneumothorax. No acute bony abnormality seen. No acute aortic findings suspected. IMPRESSION: Chronic fibrotic lung change similar to comparison. No acute finding.
--- NOTE | 2018-07-04 14:30 | ER ---
Nurse's Notes [facility] Name: Gene Cisneros Age: 83 yrs Sex: Male : 1935 Arrival Date: 07/04/2018 Time: 11:06 Bed 7 Private MD: Diagnosis: Chronic obstructive pulmonary disease with (acute) exacerbation Presentation: 07/04 11:24 Presenting complaint: Child states: has had SOB, productive cough, no fever, X 3 days. iw Transition of care: patient was not received from another setting of care. Onset of symptoms was July 01, 2018. Risk Assessment: Do you want to hurt yourself or someone else? Patient reports no desire to harm self or others. Initial Sepsis Screen: Does the patient meet any 2 criteria? No. Patient's initial sepsis screen is negative. Does the patient have a suspected source of infection? No. Patient's initial sepsis screen is negative. Care prior to arrival: None. 11:24 Method Of Arrival: Ambulatory iw 11:24 Acuity: JO-ANN 3 iw Historical: - Allergies: 11: No Known Allergies; iw - Home Meds: 11:27 aspirin 81 mg Oral chew 1 tab once daily [Active]; benzonatate 200 mg Oral cap 1 cap 3 iw times per day [Active]; cilostazol 50 mg Oral tab 1 tab 2 times per day [Active]; Daliresp 500 mcg Oral tab 1 tab once daily [Active]; ipratropium-albuterol 0.5 mg-3 mg(2.5 mg base)/3 mL Inhl nebu 3 mL 4 times per day [Active]; Jantoven 2 mg Oral tab [Active]; Lyrica 100 mg Oral 1 cap 2 times per day for Diabetic Peripheral Neuropathy [Active]; metformin 500 mg Oral tab 2 tabs daily [Active]; mirtazapine 15 mg Oral tab 1 tab once daily [Active]; Nexium 20 mg Oral cpDR 1 cap once daily [Active]; nitroglycerin 0.4 mg SL subl 1 tab every 5 minutes [Active]; pravastatin 40 mg Oral tab 1 tab once daily [Active]; prednisone 10 mg Oral tab 1 tab once daily [Active]; prednisone 2.5 mg Oral tab 2 tabs once daily [Active]; sotalol 80 mg Oral tab 0.5 tab 2 times per day [Active]; Sotalol 40 mg Oral 2 times per day [Active]; tamsulosin 0.4 mg Oral cp24 1 cap once daily [Active]; triamterene-hydrochlorothiazid 37.5-25 mg Oral cap 1 cap once daily [Active]; Vitamin D3 2,000 unit Oral tab [Active]; - PMHx: 11:27 Atrial Fib; Bronchitis; CAD; COPD; Diabetes - NIDDM; Hypertension; Pneumonia; PVD; iw - PSHx: 11:27 back; anal fistula; Cholecystectomy; iw - Immunization history:: Adult Immunizations up to date. - Social history:: Smoking status: Patient/guardian denies using tobacco. - Ebola Screening: : Patient negative for fever greater than or equal to 101.5 degrees Fahrenheit, and additional compatible Ebola Virus Disease symptoms Patient denies exposure to infectious person Patient denies travel to an Ebola-affected area in the 21 days before illness onset No symptoms or risks identified at this time. - Family history:: not pertinent. - Hospitalizations: : No recent hospitalization is reported. Screenin:27 Abuse screen: Denies threats or abuse. Denies injuries from another. Nutritional jl7 screening: No deficits noted. Tuberculosis screening: No symptoms or risk factors identified. Fall Risk IV access (20 points). Total Velasco Fall Scale indicates No Risk (0-24 pts). Assessment: 12:21 General: Appears in no apparent distress. uncomfortable, ill, Behavior is calm, jl7 cooperative, appropriate for age. Pain: Denies pain. Neuro: Level of Consciousness is awake, alert, obeys commands. Cardiovascular: Heart tones present Rhythm is regular. Respiratory: Airway is patent Respiratory effort is even, unlabored, Respiratory pattern is regular, symmetrical, Breath sounds are coarse bilaterally. Breath sounds with wheezes bilaterally. GI: No signs and/or symptoms were reported involving the gastrointestinal system. Patient currently denies diarrhea, nausea, vomiting. : No signs and/or symptoms were reported regarding the genitourinary system. EENT: No signs and/or symptoms were reported regarding the EENT system. Derm: Skin is pink, warm \T\ dry. Musculoskeletal: No signs and/or symptoms reported regarding the musculoskeletal system. Vital Signs: 11:27 BP 139 / 75; Pulse 86; Resp 20 S; Temp 97.5(TE); Pulse Ox 96% on R/A; Weight 70.31 kg; iw Height 5 ft. 4 in. (162.56 cm); Pain 0/10; 12:27 BP 148 / 70; Pulse 88; Resp 20 S; Pulse Ox 95% on R/A; jl7 11:27 Body Mass Index 26.61 (70.31 kg, 162.56 cm) ED Course: 11:06 Patient arrived in ED. sb2 11:25 Triage completed. iw 11:27 Arm band placed on. iw 12:20 Dalila Feldman RN is Primary Nurse. jl7 12:27 Patient has correct armband on for positive identification. Placed in gown. Bed in low jl7 position. Call light in reach. Side rails up X 1. dispatcher refinery on. Pulse ox on. NIBP on. Warm blanket given. 12:28 Linden Shen MD is Attending Physician. rn 12:35 Inserted saline lock: 22 gauge in right wrist, using aseptic technique. Blood collected.gm 12:35 First set of blood cultures drawn by me. gm 12:50 Second set of blood cultures drawn by me. gm 12:55 Initial lab(s) drawn, by me, sent to lab. gm 13:17 X-ray completed. Portable x-ray completed in exam room. Patient tolerated procedure jb2 well. 13:47 XRAY CXR (1 view) In Process Unspecified. EDMS Administered Medications: 12:48 Drug: SOLU-Medrol 125 mg Route: IVP; Site: right wrist; jl7 12:49 Follow up: Response: No adverse reaction jl7 12:48 Drug: Xopenex (3) 1.25 mg Route: Inhalation; jl7 15:28 Drug: Xopenex 1.25 mg Route: Inhalation; jl7 Outcome: 14:29 Discharge ordered by . rn 15:58 Patient left the ED. dm5 Signatures: Dispatcher [employer] EDMS Minal Arnett RN RN dm5 [place] Jason jb2 Neisha Oconnor RN RN iw Linden Shen MD MD rn Leal, Jahala, RN RN jl7 Kayla Black sb2 Mariam Spivey
--- NOTE | 2018-07-04 14:30 | EDPHYS ---
Physician Documentation [facility] Name: Gene Cisneros Age: 83 yrs Sex: Male : 1935 Arrival Date: 07/04/2018 Time: 11:06 Bed 7 Private MD: ED Physician Linden Shen HPI: 07/04 13:29 This 83 yrs old Male presents to ER via Ambulatory with complaints of Cough, rn Shortness Of Breath. 13:29 The patient or guardian reports cough, difficulty breathing. Onset: The rn symptoms/episode began/occurred 3 day(s) ago. Severity of symptoms: At their worst the symptoms were moderate, in the emergency department the symptoms are unchanged. Modifying factors: The symptoms are alleviated by nothing, the symptoms are aggravated by exertion. The patient has experienced similar episodes in the past. Family reports several days of cough and sob, breathing treatments help a little but returns, + cough, no fever, no hemoptysis.. Historical: - Allergies: 11: No Known Allergies; iw - Home Meds: 11:27 aspirin 81 mg Oral chew 1 tab once daily [Active]; benzonatate 200 mg Oral cap 1 cap 3 iw times per day [Active]; cilostazol 50 mg Oral tab 1 tab 2 times per day [Active]; Daliresp 500 mcg Oral tab 1 tab once daily [Active]; ipratropium-albuterol 0.5 mg-3 mg(2.5 mg base)/3 mL Inhl nebu 3 mL 4 times per day [Active]; Jantoven 2 mg Oral tab [Active]; Lyrica 100 mg Oral 1 cap 2 times per day for Diabetic Peripheral Neuropathy [Active]; metformin 500 mg Oral tab 2 tabs daily [Active]; mirtazapine 15 mg Oral tab 1 tab once daily [Active]; Nexium 20 mg Oral cpDR 1 cap once daily [Active]; nitroglycerin 0.4 mg SL subl 1 tab every 5 minutes [Active]; pravastatin 40 mg Oral tab 1 tab once daily [Active]; prednisone 10 mg Oral tab 1 tab once daily [Active]; prednisone 2.5 mg Oral tab 2 tabs once daily [Active]; sotalol 80 mg Oral tab 0.5 tab 2 times per day [Active]; Sotalol 40 mg Oral 2 times per day [Active]; tamsulosin 0.4 mg Oral cp24 1 cap once daily [Active]; triamterene-hydrochlorothiazid 37.5-25 mg Oral cap 1 cap once daily [Active]; Vitamin D3 2,000 unit Oral tab [Active]; - PMHx: 11:27 Atrial Fib; Bronchitis; CAD; COPD; Diabetes - NIDDM; Hypertension; Pneumonia; PVD; iw - PSHx: 11:27 back; anal fistula; Cholecystectomy; iw - Immunization history:: Adult Immunizations up to date. - Social history:: Smoking status: Patient/guardian denies using tobacco. - Ebola Screening: : Patient negative for fever greater than or equal to 101.5 degrees Fahrenheit, and additional compatible Ebola Virus Disease symptoms Patient denies exposure to infectious person Patient denies travel to an Ebola-affected area in the 21 days before illness onset No symptoms or risks identified at this time. - Family history:: not pertinent. - Hospitalizations: : No recent hospitalization is reported. ROS: 13:29 Constitutional: Negative for fever, chills, and weight loss, Eyes: Negative for injury, rn pain, redness, and discharge, Neck: Negative for injury, pain, and swelling, Cardiovascular: Negative for chest pain, palpitations, and edema, Respiratory: + sob and cough Abdomen/GI: Negative for abdominal pain, nausea, vomiting, diarrhea, and constipation, MS/Extremity: Negative for injury and deformity, Skin: Negative for injury, rash, and discoloration, Neuro: + generalized weakness Exam: 13:29 Constitutional: This is a well developed, well nourished patient who is awake, alert, rn + mild tachypnea Head/Face: Normocephalic, atraumatic. ENT: dry MM, no stridor Cardiovascular: Irregular rhythm, normal rate, no murmur Respiratory: + mild tachypnea, no retractions, + diffuse wheezing Abdomen/GI: soft, non-tender MS/ Extremity: Pulses equal, no cyanosis. Neurovascular intact. Full, normal range of motion. Equal circumference. Neuro: Awake and alert, GCS 15, oriented to person, place, time, and situation. Cranial nerves II-XII grossly intact. Motor strength 5/5 in all extremities. Sensory grossly intact. Vital Signs: 11:27 BP 139 / 75; Pulse 86; Resp 20 S; Temp 97.5(TE); Pulse Ox 96% on R/A; Weight 70.31 kg; iw Height 5 ft. 4 in. (162.56 cm); Pain 0/10; 12:27 BP 148 / 70; Pulse 88; Resp 20 S; Pulse Ox 95% on R/A; jl7 11:27 Body Mass Index 26.61 (70.31 kg, 162.56 cm) iw MDM: 12:28 Patient medically screened. rn 14:28 Differential Diagnosis: Bronchitis Upper Respiratory Infection Viral Syndrome rn Pneumonia. Data reviewed: vital signs, nurses notes, lab test result(s), radiologic studies, plain films, and as a result, I will discharge patient. Counseling: I had a detailed discussion with the patient and/or guardian regarding: the historical points, exam findings, and any diagnostic results supporting the discharge/admit diagnosis, lab results, radiology results, the need for outpatient follow up, to return to the emergency department if symptoms worsen or persist or if there are any questions or concerns that arise at home. Response to treatment: the patient's symptoms have markedly improved after treatment, and as a result, I will discharge patient. Special discussion: I discussed with the patient/guardian in detail that at this point there is no indication for admission to the hospital. It is understood, however, that if the symptoms persist or worsen the patient needs to return immediately for re-evaluation. ED course: Pt improved, feels better, improved oxygenation and decreased effort, offered observation, patient wants to go home, CXR clear, will dc home with abx and steroids, family states still has breathing treatments. . 07/04 12:37 Order name: PT-INR rn 07/04 12:37 Order name: Blood Culture Adult (2) rn 07/04 12:37 Order name: BMP; Complete Time: 13:28 rn 07/04 12:37 Order name: CBC with Diff; Complete Time: 13:28 rn 07/04 12:37 Order name: NT PRO-BNP; Complete Time: 13:28 rn 07/04 12:37 Order name: Troponin (emerg Dept Use Only); Complete Time: 13:28 rn 07/04 12:37 Order name: XRAY CXR (1 view); Complete Time: 14:14 rn 07/04 12:37 Order name: EKG; Complete Time: 12:38 rn 07/04 12:37 Order name: Cardiac monitoring; Complete Time: 12:49 rn 07/04 12:37 Order name: Flu; Complete Time: 13:28 rn 07/04 12:38 Order name: Protime (+INR); Complete Time: 13:28 EDMS 07/04 12:37 Order name: EKG - Nurse/Tech; Complete Time: 12:49 rn 07/04 12:37 Order name: IV Saline Lock; Complete Time: 12:49 rn 07/04 12:37 Order name: Labs collected and sent; Complete Time: 12:49 rn 07/04 12:37 Order name: O2 Per Protocol; Complete Time: 12:49 rn 07/04 12:37 Order name: O2 Sat Monitoring; Complete Time: 12:49 rn Administered Medications: 12:48 Drug: SOLU-Medrol 125 mg Route: IVP; Site: right wrist; 7 12:49 Follow up: Response: No adverse reaction jl7 12:48 Drug: Xopenex (3) 1.25 mg Route: Inhalation; jl7 15:28 Drug: Xopenex 1.25 mg Route: Inhalation; jl7 Disposition: 07/04/18 14:29 Discharged to Home. Impression: Chronic obstructive pulmonary disease with (acute) exacerbation. - Condition is Stable. - Discharge Instructions: Chronic Obstructive Pulmonary Disease, Chronic Obstructive Pulmonary Disease Exacerbation. - Prescriptions for Augmentin 875- 125 mg Oral Tablet - take 1 tablet by ORAL route every 12 hours for 10 days; 20 tablet. Prednisone 20 mg Oral Tablet - take 3 tablet by ORAL route once daily for 5 days; 15 tablet. - Medication Reconciliation Form, Thank You Letter, Antibiotic Education, Prescription Opioid Use form. - Follow up: Private Physician; When: As needed; Reason: Recheck today's complaints, Re-evaluation by your physician. - Problem is new. - Symptoms have improved. Signatures: Dispatcher [employer] [facility] Minal Arnett RN RN dmNeisha Parish RN RN iw Nieto, Roman, MD MD rn Leal, Jahala, RN RN jl7 Corrections: (The following items were deleted from the chart) 15:58 14:29 07/04/2018 14:29 Discharged to Home. Impression: Chronic obstructive pulmonary dm5 disease with (acute) exacerbation. Condition is Stable. Forms are Medication Reconciliation Form, Thank You Letter, Antibiotic Education, Prescription Opioid Use. Follow up: Private Physician; When: As needed; Reason: Recheck today's complaints, Re-evaluation by your physician. Problem is new. Symptoms have improved. rn
[2018-07-04 21:39] VITALS: TEMP 97.5
[2018-07-04 21:41] VITALS: BP 148/70; O2SAT 95
== END 2018-07-04 15:58 | disposition home or self-care (01) ==
LOC: ER 10:59
DX: J44.1 Chronic obstructive pulmonary disease with (acute) exacerbation (principal); E11.51 Type 2 diabetes mellitus with diabetic peripheral angiopathy without gangrene; E11.42 Type 2 diabetes mellitus with diabetic polyneuropathy; I48.91 Unspecified atrial fibrillation; I25.10 Atherosclerotic heart disease of native coronary artery without angina pectoris; I10 Essential (primary) hypertension; Z79.82 Long term (current) use of aspirin; Z79.84 Long term (current) use of oral hypoglycemic drugs; Z79.52 Long term (current) use of systemic steroids; Z79.899 Other long term (current) drug therapy
CPT/HCPCS: 36415; 71045; 80048; 83880; 84484; 85025; 85610; 87040 ×2; 87804 ×2; 93005; 96374; 99285; J2930

== ENCOUNTER 2018-09-18 13:01 | Observation (INO) | payer OTHER, MEDICAID ==
[2018-09-18] MEDS ORDERED: METHYLPREDNISOLONE 125 MG INJ ONE (13:31)
[2018-09-18] MEDS ORDERED: LEVALBUTEROL 1.25 MG/3 ML NEB ONE (13:31)
[2018-09-18] MEDS ORDERED: predniSONE 20 MG TAB ONE (13:32)
[2018-09-18 13:58] LABS: Absolute Lymphocytes (CBC) 1.3 K/uL (0.7-4.9); Absolute Monocytes 0.7 K/uL (0.1-1.3); Absolute Neutrophil 5.8 K/uL (1.8-8.0); Basophils % 0.6 % (0-1.3); Eosinophils % 0.1 % (0-4.4); Hematocrit 37.1 % (39.6-49.0); Lymphocytes % 16.7 % (15.3-44.8); MPV 7.4 fL (7.6-11.3); Monocytes % 8.6 % (3.3-12.3); RBC Red Blood Cell Count 5.11 M/uL (4.33-5.43)
[2018-09-18 13:59] LABS: Protime INR 2.43
[2018-09-18 14:17] LABS: NT PRO-BNP 127 pg/mL (<450); Sodium Level 137 mmol/L (136-145); Troponin (Emerg Dept Use Only) < 0.02 ng/mL (0.0-0.045)
[2018-09-18 14:18] LABS: ALT/SGPT 38 U/L (12-78); AST/SGOT 25 U/L (15-37); Albumin 3.4 g/dL (3.4-5.0); Alkaline Phosphatase 73 U/L (45-117); BUN Blood Urea Nitrogen 13 mg/dL (7-18); Bicarbonate 26 mmol/L (21-32); Bilirubin Direct 0.1 mg/dL (0-0.2); Bilirubin Total 0.3 mg/dL (0.2-1.0); Glucose Level 250 mg/dL (74-106); Magnesium 2.2 mg/dL (1.8-2.4); Potassium 3.4 mmol/L (3.5-5.1); Protein, Total 7.3 g/dL (6.4-8.2)
--- NOTE | 2018-09-18 14:22 | RAD REPORT ---
EXAM DESCRIPTION: RAD - Chest Single View - 09/18/2018 1:50 pm CLINICAL HISTORY: Cough, shortness of breath, COPD COMPARISON: June 2018 TECHNIQUE: AP portable chest image was obtained 1348 hours . FINDINGS: Lungs are fibrotic with the interstitial pattern appearing to have increased slightly from the comparison. No focal consolidation or mass. Failure or volume overload are not suspected. Heart and vasculature are normal. No measurable pleural effusion and no pneumothorax. No acute bony abnorma lity seen. No acute aortic findings suspected. IMPRESSION: Bilateral interstitial edema or infiltrate superimposed on COPD.
[2018-09-18] MEDS ORDERED: ALBUTEROL 2.5 MG/3 ML NEB SOL ONE (14:53)
[2018-09-18] MEDS ORDERED: IPRATROPIUM BROM 0.5MG/2.5ML ONE (14:53)
--- NOTE | 2018-09-18 15:37 | EDPHYS ---
Physician Documentation [facility] Name: Gene Cisneros Age: 83 yrs Sex: Male : 1935 Arrival Date: 09/18/2018 Time: 13:03 Bed 25 Private MD: Out, [facility] ED Physician Linden Shen HPI: 09/18 13:30 This 83 yrs old Male presents to ER via Ambulatory with complaints of pm1 Shortness Of Breath. 13:30 The patient has shortness of breath at rest. Onset: The symptoms/episode began/occurred pm1 3 day(s) ago. Duration: The symptoms are continuous, and are steadily getting worse. The patient's shortness of breath is aggravated by light activity, is alleviated by nothing. Associated signs and symptoms: Pertinent positives: productive cough, Pertinent negatives: chest pain, fever. Severity of symptoms: in the emergency department the symptoms are worse Pain is currently a 0 / 10. The patient has experienced similar episodes in the past, several times. The patient has been recently seen by a physician: the patient's primary care provider, yesterday, with similar presenting complaints, and apparently given a diagnosis of COPD exacerbation and given a prescription for cefuroxime , was given a prescription for antibiotics, but the patient's symptoms have worsened. Historical: - Allergies: 13:14 No Known Allergies; hb - Home Meds: 13:14 aspirin 81 mg Oral chew 1 tab once daily [Active]; benzonatate 200 mg Oral cap 1 cap 3 hb times per day [Active]; cilostazol 50 mg Oral tab 1 tab 2 times per day [Active]; Daliresp 500 mcg Oral tab 1 tab once daily [Active]; ipratropium-albuterol 0.5 mg-3 mg(2.5 mg base)/3 mL Inhl nebu 3 mL 4 times per day [Active]; Jantoven 2 mg Oral tab [Active]; Lyrica 100 mg Oral 1 cap 2 times per day for Diabetic Peripheral Neuropathy [Active]; metformin 500 mg Oral tab 2 tabs daily [Active]; mirtazapine 15 mg Oral tab 1 tab once daily [Active]; Nexium 20 mg Oral cpDR 1 cap once daily [Active]; nitroglycerin 0.4 mg SL subl 1 tab every 5 minutes [Active]; pravastatin 40 mg Oral tab 1 tab once daily [Active]; prednisone 10 mg Oral tab 1 tab once daily [Active]; prednisone 2.5 mg Oral tab 2 tabs once daily [Active]; sotalol 80 mg Oral tab 0.5 tab 2 times per day [Active]; Sotalol 40 mg Oral 2 times per day [Active]; tamsulosin 0.4 mg Oral cp24 1 cap once daily [Active]; triamterene-hydrochlorothiazid 37.5-25 mg Oral cap 1 cap once daily [Active]; Vitamin D3 2,000 unit Oral tab [Active]; - PMHx: 13:14 Atrial Fib; Bronchitis; COPD; Hypertension; Diabetes - NIDDM; CAD; Pneumonia; PVD; hb - PSHx: 13:14 back; anal fistula; Cholecystectomy; hb - Immunization history:: Adult Immunizations up to date. - Social history:: Smoking status: Patient/guardian denies using tobacco. - Ebola Screening: : No symptoms or risks identified at this time. ROS: 13:30 Constitutional: Negative for fever, chills, and weight loss, Eyes: Negative for injury, pm1 pain, redness, and discharge, ENT: Negative for injury, pain, and discharge, Neck: Negative for injury, pain, and swelling, Cardiovascular: Negative for chest pain, palpitations, and edema. 13:30 Abdomen/GI: Negative for abdominal pain, nausea, vomiting, diarrhea, and constipation, Back: Negative for injury and pain, : Negative for injury, bleeding, discharge, and swelling, MS/Extremity: Negative for injury and deformity, Skin: Negative for injury, rash, and discoloration, Neuro: Negative for headache, weakness, numbness, tingling, and seizure. 13:30 Respiratory: Positive for cough, with yellow sputum, shortness of breath, at rest. Exam: 13:30 Constitutional: This is a well developed, well nourished patient who is awake, alert, pm1 and in no acute distress. Head/Face: Normocephalic, atraumatic. Eyes: Pupils equal round and reactive to light, extra-ocular motions intact. Lids and lashes normal. Conjunctiva and sclera are non-icteric and not injected. Cornea within normal limits. Periorbital areas with no swelling, redness, or edema. ENT: Nares patent. No nasal discharge, no septal abnormalities noted. Tympanic membranes are normal and external auditory canals are clear. Oropharynx with no redness, swelling, or masses, exudates, or evidence of obstruction, uvula midline. Mucous membranes moist. Neck: Trachea midline, no thyromegaly or masses palpated, and no cervical lymphadenopathy. Supple, full range of motion without nuchal rigidity, or vertebral point tenderness. No Meningismus. Chest/axilla: Normal chest wall appearance and motion. Nontender with no deformity. No lesions are appreciated. Cardiovascular: Regular rate and rhythm with a normal S1 and S2. No gallops, murmurs, or rubs. Normal PMI, no JVD. No pulse deficits. 13:30 Abdomen/GI: Soft, non-tender, with normal bowel sounds. No distension or tympany. No guarding or rebound. No evidence of tenderness throughout. Back: No spinal tenderness. No costovertebral tenderness. Full range of motion. Skin: Warm, dry with normal turgor. Normal color with no rashes, no lesions, and no evidence of cellulitis. MS/ Extremity: Pulses equal, no cyanosis. Neurovascular intact. Full, normal range of motion. 13:30 Respiratory: the patient does not display signs of respiratory distress, Respirations: accessory muscle usage, that is mild, Breath sounds: wheezing: expiratory is heard diffusely. 13:30 Neuro: Orientation: is normal, Motor: is normal, moves all fours, Gait: is steady, at a normal pace, without difficulty. Vital Signs: 13:12 BP 156 / 77; Pulse 102; Resp 24; Temp 99.4; Pulse Ox 97% on R/A; Pain 2/10; hb 14:01 BP 116 / 70; Pulse 93; Resp 18; Pulse Ox 94% on R/A; la1 14:40 BP 126 / 66; Pulse 97; Resp 18; Pulse Ox 96% on R/A; la1 16:23 BP 126 / 89; Pulse 81; Resp 16; Temp 97.4; Pulse Ox 98% on R/A; la1 17:04 BP 128 / 68; Pulse 98; Resp 18; Pulse Ox 97% on R/A; la1 17:05 Temp 97.9(O); la1 MDM: 13:16 Patient medically screened. pm1 15:34 Data reviewed: vital signs. Data interpreted: Pulse oximetry: on room air is 96 %. pm1 Interpretation: normal. Counseling: I had a detailed discussion with the patient and/or guardian regarding: the historical points, exam findings, and any diagnostic results supporting the discharge/admit diagnosis, lab results, radiology results, the need for further work-up and treatment in the hospital. 15:55 Physician consultation: Stephon Richard MD was contacted at 15:55, regarding admission, pm1 patient's condition, in the emergency department to see patient at 15:55. 09/18 13:20 Order name: Basic Metabolic Panel; Complete Time: 14:33 pm09/18 13:20 Order name: CBC with Diff; Complete Time: 14:33 pm09/18 13:20 Order name: LFT's; Complete Time: 14:33 pm09/18 13:20 Order name: Magnesium; Complete Time: 14:33 pm09/18 13:20 Order name: NT PRO-BNP; Complete Time: 14:33 pm09/18 13:20 Order name: PT-INR; Complete Time: 14:33 pm09/18 13:20 Order name: Troponin (emerg Dept Use Only); Complete Time: 14:33 pm09/18 13:20 Order name: XRAY Chest (1 view); Complete Time: 14:33 pm09/18 13:20 Order name: Blood Culture Adult (2) pm09/18 13:20 Order name: Flu; Complete Time: 14:33 pm09/18 15:36 Order name: Procalcitonin; Complete Time: 16:38 pm09/18 13:20 Order name: EKG; Complete Time: 13:22 pm09/18 13:20 Order name: Cardiac monitoring; Complete Time: 14:01 pm09/18 13:20 Order name: EKG - Nurse/Tech; Complete Time: 14:01 pm09/18 13:20 Order name: IV Saline Lock; Complete Time: 14:01 pm09/18 13:20 Order name: Labs collected and sent; Complete Time: 14:01 pm09/18 13:20 Order name: O2 Per Protocol; Complete Time: 14:01 pm09/18 13:20 Order name: O2 Sat Monitoring; Complete Time: 14:01 pm1 Administered Medications: 13:26 Drug: Xopenex (3) 1.25 mg Route: Inhalation; la1 14:39 Follow up: Response: No adverse reaction; Wheezing diminished la1 13:26 Drug: predniSONE 60 mg Route: PO; la1 14:39 Follow up: Response: No adverse reaction la1 14:44 Drug: Albuterol 2.5 mg Route: Inhalation; la1 14:44 Drug: AtroVENT Aerosol 0.5 mg Route: Inhalation; la1 16:22 Drug: Rocephin 1 grams Route: IV; Rate: calculated rate; Site: left antecubital; la1 17:17 Follow up: IV Status: Completed infusion la1 16:23 Drug: AZITHromycin 500 mg Route: IVPB; Infused Over: 1 hrs; Site: left antecubital; la1 17:17 Follow up: IV Status: Completed infusion la1 Disposition: 18:38 Co-signature as Attending Physician, Linden Shen MD. rn Disposition: 09/18/18 15:36 Hospitalization ordered by Stephon Richard for Inpatient Admission. Preliminary diagnosis is Pneumonia, unspecified organism. - Bed requested for Telemetry/MedSurg (Inpatient). - Status is Inpatient Admission. la1 - Condition is Stable. - Problem is new. - Symptoms have improved. UTI on Admission? No Signatures: Dispatcher [employer] EDMS Linden Shen MD MD rn Attema, Lee, RN RN la1 Luis Martinez, MATTEO LODGE ATTENDANT pm1 Davina Garcia RN RN hb Fitzgerald, Diane, RN RN df Corrections: (The following items were deleted from the chart) 16:50 15:36 Hospitalization Ordered by Stephon Richard MD for Inpatient Admission. Preliminary df diagnosis is Pneumonia, unspecified organism. Bed requested for Telemetry/MedSurg (Inpatient). Status is Inpatient Admission. Condition is Stable. Problem is new. Symptoms have improved. UTI on Admission? No. pm1 18:09 16:50 09/18/2018 15:36 Hospitalization Ordered by Stephon Richard MD for Inpatient la1 Admission. Preliminary diagnosis is Pneumonia, unspecified organism. Bed requested for Telemetry/MedSurg (Inpatient). Status is Inpatient Admission. Condition is Stable. Problem is new. Symptoms have improved. UTI on Admission? No. df
--- NOTE | 2018-09-18 15:37 | ER ---
Nurse's Notes [facility] Name: Gene Cisneros Age: 83 yrs Sex: Male : 1935 Arrival Date: 09/18/2018 Time: 13:03 Bed 25 Private MD: Out, [facility] Diagnosis: Pneumonia, unspecified organism Presentation: 09/18 13:11 Presenting complaint: SOB, wheezing, and productive cough with yellow sputum x 3 days. hb Denies fever. Transition of care: patient was not received from another setting of care. Onset of symptoms was September 18, 2018. Risk Assessment: Do you want to hurt yourself or someone else? Patient reports no desire to harm self or others. Care prior to arrival: None. 13:11 Method Of Arrival: Ambulatory hb 13:11 Acuity: JO-ANN 2 hb 14:00 Initial Sepsis Screen: Does the patient meet any 2 criteria? RR > 20 per min. Does the la1 patient have a suspected source of infection? No. Patient's initial sepsis screen is negative. Historical: - Allergies: 13:14 No Known Allergies; hb - Home Meds: 13:14 aspirin 81 mg Oral chew 1 tab once daily [Active]; benzonatate 200 mg Oral cap 1 cap 3 hb times per day [Active]; cilostazol 50 mg Oral tab 1 tab 2 times per day [Active]; Daliresp 500 mcg Oral tab 1 tab once daily [Active]; ipratropium-albuterol 0.5 mg-3 mg(2.5 mg base)/3 mL Inhl nebu 3 mL 4 times per day [Active]; Jantoven 2 mg Oral tab [Active]; Lyrica 100 mg Oral 1 cap 2 times per day for Diabetic Peripheral Neuropathy [Active]; metformin 500 mg Oral tab 2 tabs daily [Active]; mirtazapine 15 mg Oral tab 1 tab once daily [Active]; Nexium 20 mg Oral cpDR 1 cap once daily [Active]; nitroglycerin 0.4 mg SL subl 1 tab every 5 minutes [Active]; pravastatin 40 mg Oral tab 1 tab once daily [Active]; prednisone 10 mg Oral tab 1 tab once daily [Active]; prednisone 2.5 mg Oral tab 2 tabs once daily [Active]; sotalol 80 mg Oral tab 0.5 tab 2 times per day [Active]; Sotalol 40 mg Oral 2 times per day [Active]; tamsulosin 0.4 mg Oral cp24 1 cap once daily [Active]; triamterene-hydrochlorothiazid 37.5-25 mg Oral cap 1 cap once daily [Active]; Vitamin D3 2,000 unit Oral tab [Active]; - PMHx: 13:14 Atrial Fib; Bronchitis; COPD; Hypertension; Diabetes - NIDDM; CAD; Pneumonia; PVD; hb - PSHx: 13:14 back; anal fistula; Cholecystectomy; hb - Immunization history:: Adult Immunizations up to date. - Social history:: Smoking status: Patient/guardian denies using tobacco. - Ebola Screening: : No symptoms or risks identified at this time. Screenin:59 Abuse screen: Denies threats or abuse. Nutritional screening: No deficits noted. la1 Tuberculosis screening: No symptoms or risk factors identified. Fall Risk None identified. Assessment: 13:59 General: Appears in no apparent distress. ill, Behavior is calm, cooperative. Pain: la1 Complains of pain in chest. Neuro: Level of Consciousness is awake, alert, obeys commands, Oriented to person, place, time, situation. Cardiovascular: Capillary refill < 3 seconds Patient's skin is warm and dry. Rhythm is sinus rhythm. Respiratory: Airway is patent Respiratory effort is labored, Respiratory pattern is regular, symmetrical, Breath sounds with wheezes bilaterally. the patient has moderate shortness of breath. GI: No signs and/or symptoms were reported involving the gastrointestinal system. : No signs and/or symptoms were reported regarding the genitourinary system. 16:23 Reassessment: Patient appears in no apparent distress at this time. No changes from la1 previously documented assessment. Patient and/or family updated on plan of care and expected duration. Pain level reassessed. Patient states feeling better. Patient states symptoms have improved. Vital Signs: 13:12 BP 156 / 77; Pulse 102; Resp 24; Temp 99.4; Pulse Ox 97% on R/A; Pain 2/10; hb 14:01 BP 116 / 70; Pulse 93; Resp 18; Pulse Ox 94% on R/A; la1 14:40 BP 126 / 66; Pulse 97; Resp 18; Pulse Ox 96% on R/A; la1 16:23 BP 126 / 89; Pulse 81; Resp 16; Temp 97.4; Pulse Ox 98% on R/A; la1 17:04 BP 128 / 68; Pulse 98; Resp 18; Pulse Ox 97% on R/A; la1 17:05 Temp 97.9(O); la1 ED Course: 13:03 Patient arrived in ED. sb2 13:04 Out, of Town is Private Physician. sb2 13:11 Triage completed. hb 13:12 Arm band placed on. hb 13:16 Luis Martinez NP is PHCP. pm1 13:16 Linden Shen MD is Attending Physician. pm1 13:47 XRAY Chest (1 view) In Process Unspecified. EDMS 13:59 Sg Molina RN is Primary Nurse. la1 14:00 Call light in reach. Side rails up X 1. cafeteria monitor on. Pulse ox on. NIBP on. la1 14:00 Inserted saline lock: 22 gauge in left wrist, using aseptic technique. Blood collected. la1 15:36 Stephon Richard MD is Hospitalizing Provider. pm1 18:08 No provider procedures requiring assistance completed. Patient admitted, IV remains in la1 place. Administered Medications: 13:26 Drug: Xopenex (3) 1.25 mg Route: Inhalation; la1 14:39 Follow up: Response: No adverse reaction; Wheezing diminished la1 13:26 Drug: predniSONE 60 mg Route: PO; la1 14:39 Follow up: Response: No adverse reaction la1 14:44 Drug: Albuterol 2.5 mg Route: Inhalation; la1 14:44 Drug: AtroVENT Aerosol 0.5 mg Route: Inhalation; la1 16:22 Drug: Rocephin 1 grams Route: IV; Rate: calculated rate; Site: left antecubital; la1 17:17 Follow up: IV Status: Completed infusion la1 16:23 Drug: AZITHromycin 500 mg Route: IVPB; Infused Over: 1 hrs; Site: left antecubital; la1 17:17 Follow up: IV Status: Completed infusion la1 Outcome: 15:36 Decision to Hospitalize by Provider. pm1 18:08 Admitted to Med/surg accompanied by tech, via wheelchair, with chart. la1 18:08 Condition: stable 18:08 Instructed on the need for admit. 18:09 Patient left the ED. la1 Signatures: Dispatcher [employer] Sg Chase RN RN la1 Luis Martinez, ASSISTANT PROFESSOR OF PHYSICS ASSISTANT PROFESSOR OF PHYSICS pm1 Davina Garcia RN RN hb Kayla Black sb2 Corrections: (The following items were deleted from the chart) 13:14 13:12 BP 156 / 77; Pulse 91bpm; Resp 24bpm; Pulse Ox 97% RA; Temp 99.4F; Pain 2/10; hb hb
[2018-09-18] MEDS ORDERED: CEFTRIAXONE/SWI 1gm 1 GM/10 ML SYR ONE (16:10)
[2018-09-18] MEDS ORDERED: AZITHROMYCIN 500 MG/250 ML BAG ONE ×2 (16:10→16:20)
[2018-09-18] MEDS ORDERED: ONDANSETRON 4 MG/2 ML VIAL IV PRN (17:58)
[2018-09-18] MEDS ORDERED: ACETAMINOPHEN 500 MG TAB PO PRN (17:58)
[2018-09-18 18:30] VITALS: BMI 26.7
[2018-09-18] MEDS ORDERED: METHYLPREDNISOLONE 40 MG INJ IV SCH (19:00)
[2018-09-18] MEDS ORDERED: NITROGLYCERIN 0.4 MG/TAB SL PRN (20:10)
[2018-09-18] MEDS ORDERED: ROFLUMILAST 500 MCG TABLET PO PRN (20:10)
[2018-09-18] MEDS ORDERED: GLUCAGON 1 MG/VIAL IM PRN (20:26)
[2018-09-18] MEDS ORDERED: D50W 25 GM/50 ML SYRINGE IV PRN (20:26)
[2018-09-18] MEDS: ALBUTEROL 2.5 MG/3 ML NEB SOL NEB PRN (20:57)
[2018-09-18] MEDS: IPRATROPIUM BROM 0.5MG/2.5ML NEB PRN (20:57)
[2018-09-18] MEDS ORDERED: CILOSTAZOL 50 MG PO SCH (21:00)
[2018-09-18] MEDS: SOTALOL HCL 80 MG TAB PO SCH (21:00)
[2018-09-18] MEDS ORDERED: MIRTAZAPINE 15 MG TAB PO SCH (21:00)
[2018-09-18] MEDS ORDERED: WARFARIN SODIUM 2 MG TAB PO SCH (21:00)
[2018-09-18] MEDS: BACLOFEN 10 MG TAB PO SCH (21:00)
[2018-09-18] MEDS ORDERED: WARFARIN SODIUM 1 MG TAB PO SCH (21:00)
[2018-09-18] MEDS ORDERED: PREGABALIN 200 MG PO SCH (21:00)
[2018-09-18] MEDS ORDERED: MELATONIN PO SCH (21:00)
[2018-09-18] MEDS: CEFTRIAXONE/SWI 1gm 1 GM/10 ML SYR IVP SCH (21:13)
[2018-09-18] MEDS: INSULIN -REGULAR HUMAN 50 UNIT/0.5 ML ML SQ SCH (21:20)
[2018-09-18] MEDS: METHYLPREDNISOLONE 40 MG INJ IV SCH (21:21)
--- NOTE | 2018-09-18 21:50 | EKG ---
Test Date: 2018-09-18 Test Time: 13:53:24 [place]: [place] MEASUREMENT RESULTS: Intervals: Rate: 91 MI: 126 QRSD: 74 QT: 368 QTc: 452 [place]: P: 68 MI: 126 QRS: 37 T: 63 INTERPRETIVE STATEMENTS: Normal sinus rhythm Normal ECG Compared to ECG 07/04/2018 11:37:28 No significant changes Electronically Signed On 09-18-18 21:50:09 SIZE MARKER by Olman Devries
[2018-09-18] MEDS: guaiFENesin 100 MG/5 ML UCUP PO PRN (22:31)
[2018-09-19] MEDS: IPRATROPIUM BROM 0.5MG/2.5ML NEB PRN ×2 (01:31→08:29)
[2018-09-19] MEDS: ALBUTEROL 2.5 MG/3 ML NEB SOL NEB PRN ×2 (01:31→08:29)
--- NOTE | 2018-09-19 05:08 | HP ---
Date of Admission: 09/18/2018 Code Status: Full. Chief Complaint: Shortness of breath. History Of Present Illness: The patient is an 83-year-old male with past medical history of TIA, COPD, atrial fibrillation, on Coumadin, diabetes, hyperlipidemia, coronary artery disease, hypertension, peripheral vascular disease, who comes in with some shortness of breath and chills. No reported fevers. The patient is also bringing up some sputum that was clear. The patient has been reporting some shortness of breath, worse with exertion. The patient's symptoms are moderate, progressive, and progressively worsening; therefore, he was brought into the ER. On evaluation, he was found to have infiltrates on the chest x-ray. He had some minimal electrolyte abnormalities, potassium being 3.4. His white blood cell count was normal. The patient was started on IV antibiotics, given breathing treatments, and felt better. The patient was then referred for admission. Past Medical History: Peripheral vascular disease, coronary artery disease, COPD, atrial fibrillation, on Coumadin, hyperlipidemia, hypertension, diabetes mellitus type 2, urinary incontinence, former tobacco smoker. Past Surgical History: Cholecystectomy, back surgery, rectal fistula repair, carotid stent. Social History: The patient is , has 7 children. Retired. Former smoker. Does not use alcohol or illicit drugs. Independent in his activities of daily living. Lives with his son. Allergies: NO KNOWN DRUG ALLERGIES. Medications: List reviewed. Family History: Father had heart disease and diabetes. Mother had hypertension. Sister had lung disease and diabetes. Brother also was a patient who had lung disease and diabetes. Review of Systems: An 11-point system reviewed, negative except as per HPI. Physical Examination: Vital Signs: Blood pressure 156/77, pulse 102, respirations 24, temperature 99.4, pulse oximetry 97% on room air, respirations 18. General: Awake, alert, and oriented x3. Some mild respiratory distress. Elderly male, ill appearing. HEENT: Normocephalic, atraumatic. PERRLA. EOMI. Moist mucous membranes. Oropharynx is clear. Poor dentition. Conjunctivae anicteric. Neck: Supple. Trachea midline. No JVD. CV: S1, S2, irregularly irregular. Peripheral pulses 1+ bilaterally. Respiratory: Diminished breath sounds. Diffuse wheezing heard. The patient is not using any accessory muscles. No stridor. Gastrointestinal: Abdomen is soft, nontender, nondistended. Positive bowel sounds. No guarding or rigidity. Extremities: No clubbing, cyanosis, or edema. No calf tenderness. Neuro: Cranial nerves 2 through 12 intact grossly. No focal neurological deficit. Strength is 5/5 in bilateral upper and lower extremities. Sensation is intact to light touch. Speech is normal. No facial asymmetry. Skin: No rashes. Normal skin turgor. Psych: Mood is okay. Affect is full. Insight and judgment are good. Laboratory Data: WBC 7.8, H and H 11.8 and 37.1, platelets 380. INR 2.43. Sodium 137, potassium 3.4, chloride 101, CO2 26, BUN 13, creatinine 0.79, glucose 250, calcium 8.9. Procalcitonin less than 0.05. Influenza screen negative. Imaging Studies: Chest x-ray shows bilateral interstitial edema or infiltrate superimposed on COPD. Assessment And Plan: An 83-year-old male with, 1. Pneumonia, bilateral. We will continue with azithromycin and Rocephin. Obtain blood cultures and sputum cultures. Influenza screen is negative. 2. Acute chronic obstructive pulmonary disease exacerbation. We will continue with breathing treatment and steroids. 3. Coronary artery disease, [place] artery, and [place] heart without angina. 4. Atrial fibrillation with controlled ventricular rate on Coumadin. INR is therapeutic. We will continue to monitor. 5. Mixed hyperlipidemia, statin. 6. Essential hypertension. Resume home medications as appropriate. 7. Diabetes mellitus type 2, noninsulin dependent, with hyperglycemia. We will start on sliding-scale insulin and continue Accu-Cheks. 8. Urinary incontinence. 9. Peripheral vascular disease. 10. History of transient ischemic attack. 11. Peripheral vascular disease. 12. Gastrointestinal and deep venous thrombosis prophylaxis addressed. The patient is already on Coumadin. Plan: Admit the patient to Med-Surg, place as observation. If the patient continues to improve within the next 24 hours, he may be discharged back home. We will obtain PT evaluation, and mobilize the patient. SHRUTHI Voice ID: [id number] PEPITO
[2018-09-19 05:26] LABS: Urine Appearance CLEAR; Urine Bilirubin NEGATIVE (NEG); Urine Blood NEGATIVE (NEG); Urine Color YELLOW; Urine Glucose 3+ (NEG); Urine Protein NEGATIVE (NEG); Urine Specific Gravity >=1.030 (1.005-1.030); Urine Urobilinogen 0.2 mg/dL (0.2-1.0)
[2018-09-19] MEDS: guaiFENesin 100 MG/5 ML UCUP PO PRN (05:39)
[2018-09-19 05:41] LABS: Urine Microscopic Reflex NO UMIC
[2018-09-19 06:04] LABS: Absolute Lymphocytes (CBC) 1.1 K/uL (0.7-4.9); Absolute Monocytes 0.3 K/uL (0.1-1.3); Absolute Neutrophil 5.5 K/uL (1.8-8.0); Basophils % 0.1 % (0-1.3); Hematocrit 40.1 % (39.6-49.0); Lymphocytes % 15.6 % (15.3-44.8); MPV 7.5 fL (7.6-11.3); Monocytes % 4.3 % (3.3-12.3); RBC Red Blood Cell Count 5.53 M/uL (4.33-5.43)
[2018-09-19 06:25] LABS: Albumin 3.8 g/dL (3.4-5.0); Bilirubin Total 0.3 mg/dL (0.2-1.0); Potassium 3.8 mmol/L (3.5-5.1); Protein, Total 8.4 g/dL (6.4-8.2)
[2018-09-19] MEDS ORDERED: glipiZIDE 5 MG TAB PO SCH (06:30)
[2018-09-19] MEDS ORDERED: PANTOPRAZOLE 40MG TABLET PO SCH (06:30)
[2018-09-19] MEDS: INSULIN -REGULAR HUMAN 50 UNIT/0.5 ML ML SQ SCH ×2 (07:30→11:30)
[2018-09-19 08:45] VITALS: BP 135/63; TEMP 97.4
[2018-09-19] MEDS ORDERED: MAXZIDE (HCTZ 25/TRIAMTERENE 37.5MG) TAB PO SCH (09:00)
[2018-09-19] MEDS ORDERED: AZITHROMYCIN IV 500 MG in NA CHLORIDE 0.9% 250 ML IVPB SCH (09:00)
[2018-09-19] MEDS ORDERED: PREGABALIN 50 MG CAP PO SCH (09:00)
[2018-09-19] MEDS ORDERED: POTASSIUM 25 MEQ EFFERV TAB PO ONE (09:00)
[2018-09-19] MEDS ORDERED: TAMSULOSIN 0.4 MG SR CAP PO SCH (09:00)
[2018-09-19] MEDS ORDERED: CILOSTAZOL 100 MG TAB PO SCH (09:00)
[2018-09-19] MEDS ORDERED: ATORVASTATIN 10 MG TAB PO SCH (09:00)
[2018-09-19] MEDS: SOTALOL HCL 80 MG TAB PO SCH (11:16)
[2018-09-19] MEDS: BACLOFEN 10 MG TAB PO SCH (11:16)
[2018-09-19] MEDS: CEFTRIAXONE/SWI 1gm 1 GM/10 ML SYR IVP SCH (11:17)
[2018-09-19] MEDS: METHYLPREDNISOLONE 40 MG INJ IV SCH (11:17)
[2018-09-19 12:03] VITALS: O2SAT 95
[2018-09-19] MEDS ORDERED: WARFARIN SODIUM 2 MG TAB PO SCH (17:00)
[2018-09-19] MEDS ORDERED: WARFARIN SODIUM 1 MG TAB PO SCH (17:00)
[2018-09-19] MEDS ORDERED: MELATONIN 5 MG TABLET PO SCH (21:00)
--- NOTE | 2018-09-20 03:09 | DS ---
Date of Discharge: 09/19/2018 Discharge Diagnoses: 1.Pneumonia, bilateral. We will continue with oral antibiotics on discharge. 2.Acute chronic obstructive pulmonary disease exacerbation, improved. 3.Coronary artery disease, [place] artery and [place] heart, without angina, stable. 4.Atrial fibrillation with controlled ventricular rate on Coumadin. INR is therapeutic. 5.Mixed hyperlipidemia, on statin. 6.Essential hypertension, stable. 7.Diabetes mellitus type 2, non-insulin dependent, with hyperglycemia, stable. 8.Urinary incontinence. 9.Peripheral vascular disease. 10.History of transient ischemic attack. 11.Carotid artery disease. Hospital Course: The patient is an 83-year-old male who comes in with shortness of breath. The el ent was found to have pneumonia, infiltrates on chest x-ray. He did have a normal white count; howev er, did have significant shortness of breath and dyspnea upon exertion. The patient also was treated for COPD exacerbation, started on IV steroids and breathing treatments. His condition improved. He did not have any fevers. The patient's breathing also improved. Cultures are currently pending; aide lund, no growth at this time. Influenza screen was also negative. The patient was stable. He was able to ambulate within the room and did not have any significant shortness of breath. The patient d oes use oxygen at home, has a nebulizer. The patient was then cleared for discharge and was sent deangelo e in a stable condition. Activity: As tolerated. No strenuous activity. Followup: Follow up with primary care physician in 2 to 3 days. Follow up with personal injury specialist in 2 w eeks. Return to ER for worsening condition. Diet: Diabetic. Medications: As per medication reconciliation list. Physical Examination: General: Awake, alert, oriented x3. Elderly male. CV: S1, S2. Peripheral pulses are present. Respiratory: Moving air well bilaterally. Minimal wheezing is heard. No stridor. No use of access ory muscles. Gastrointestinal: Abdomen is soft, nontender, and nondistended. Positive bowel sounds. Extremities: No clubbing, cyanosis, or edema. Neurologic: Nonfocal. SA/MODL Voice ID: [id number] Report ID: [id number]
[2018-09-20] MEDS ORDERED: WARFARIN SODIUM 2 MG TAB PO SCH (17:00)
== END 2018-09-19 12:16 | disposition home or self-care (01) ==
LOC: ER 13:01 → ERHOLD 16:32 → 2ND 17:20
PROVIDERS: ADMIT Family Medicine; ATTEND Family Medicine
DX: J44.0 Chronic obstructive pulmonary disease with (acute) lower respiratory infection (principal); J18.9 Pneumonia, unspecified organism; J44.1 Chronic obstructive pulmonary disease with (acute) exacerbation; I48.91 Unspecified atrial fibrillation; I25.10 Atherosclerotic heart disease of native coronary artery without angina pectoris; E11.9 Type 2 diabetes mellitus without complications; E78.2 Mixed hyperlipidemia; I10 Essential (primary) hypertension; R32 Unspecified urinary incontinence; Z79.01 Long term (current) use of anticoagulants; Z86.73 Personal history of transient ischemic attack (TIA), and cerebral infarction without residual deficits; I73.9 Peripheral vascular disease, unspecified; I77.89 Other specified disorders of arteries and arterioles
CPT/HCPCS: 36415; 71045; 80048; 80053; 80076; 81003; 82962 ×2; 83735; 83880; 84145; 84484; 85025 ×2; 85610; 87040 ×2; 87070; 87205; 87804 ×2; 93005; 94760 ×3; 96365; 96368; 97162; 99285; G0378 ×2; J0456 ×4; J0696 ×3; J2920 ×2; J2930; J7512

== ENCOUNTER 2018-09-21 13:14 | Observation (INO) | payer OTHER ==
--- NOTE | 2018-09-21 14:31 | RAD REPORT ---
EXAM DESCRIPTION: Sameert Pa And Lat (2 Views)09/21/2018 2:23 pm CLINICAL HISTORY: Cough COMPARISON: September 18, 2017 FINDINGS: No change has occurred in mild bilateral interstitial opacities. I suspect most if not al l of this is chronic. A lung consolidation is not noted. The heart is normal size
[2018-09-21] MEDS ORDERED: LEVALBUTEROL 1.25 MG/3 ML NEB ONE ×2 (15:24→16:53)
[2018-09-21] MEDS ORDERED: IPRATROPIUM BROM 0.5MG/2.5ML ONE (15:24)
[2018-09-21] MEDS ORDERED: METHYLPREDNISOLONE 125 MG INJ ONE (15:24)
[2018-09-21 15:32] LABS: Absolute Lymphocytes (CBC) 1.5 K/uL (0.7-4.9); Absolute Monocytes 0.6 K/uL (0.1-1.3); Absolute Neutrophil 8.1 K/uL (1.8-8.0); Basophils % 0.3 % (0-1.3); Hematocrit 39.9 % (39.6-49.0); Lymphocytes % 14.9 % (15.3-44.8); MPV 7.1 fL (7.6-11.3); Monocytes % 5.9 % (3.3-12.3); RBC Red Blood Cell Count 5.46 M/uL (4.33-5.43)
[2018-09-21 15:47] LABS: Potassium 4.1 mmol/L (3.5-5.1)
--- NOTE | 2018-09-21 16:09 | EDPHYS ---
Physician Documentation [facility] Name: Gene Cisneros Age: 83 yrs Sex: Male : 1935 Arrival Date: 09/21/2018 Time: 13:17 Bed 30 Private MD: Out, [facility] ED Physician Linden Shen HPI: 09/21 15:48 This 83 yrs old Male presents to ER via Wheelchair with complaints of rn Shortness Of Breath. 15:48 The patient has shortness of breath at rest, with light activity. Onset: The rn symptoms/episode began/occurred 4 day(s) ago. Duration: The symptoms are continuous. The patient's shortness of breath is aggravated by exertion, light activity, talking, walking, is alleviated by nebulizer treatment. Severity of symptoms: At their worst the symptoms were moderate in the emergency department the symptoms are unchanged. The patient has experienced similar episodes in the past. The patient has been recently been admitted at [facility]. Reports admitted and discharged after 1 night, discharged 2 days ago, admitted for COPD exacerbation, taking cefuroxime at home with nebs, not better, feels like got sent home too earlier. Still sob, son feels like got worse. . Historical: - Allergies: 13:20 No Known Allergies; hb - PMHx: 13:20 Atrial Fib; CAD; Hypertension; COPD; Diabetes - NIDDM; Pneumonia; Bronchitis; PVD; hb - PSHx: 13:20 back; anal fistula; Cholecystectomy; hb - Immunization history:: Adult Immunizations up to date. - Social history:: Smoking status: Patient/guardian denies using tobacco. - Ebola Screening: : No symptoms or risks identified at this time. - Family history:: not pertinent. - Hospitalizations: : The patient was recently seen at [facility]. ROS: 15:48 Constitutional: Negative for fever, chills, and weight loss, Eyes: Negative for injury, rn pain, redness, and discharge, Neck: Negative for injury, pain, and swelling, Cardiovascular: Negative for chest pain, palpitations, and edema, Respiratory: Negative for pleuritic chest pain Abdomen/GI: Negative for abdominal pain, nausea, vomiting, diarrhea, and constipation, MS/Extremity: Negative for injury and deformity, Skin: Negative for injury, rash, and discoloration, Neuro: Negative for headache, numbness, tingling, and seizure. Exam: 15:48 Constitutional: This is a well developed, well nourished patient who is awake, alert, rn mild respiratory distress Head/Face: Normocephalic, atraumatic. Eyes: Pupils equal round and reactive to light, extra-ocular motions intact. Lids and lashes normal. Conjunctiva and sclera are non-icteric and not injected. Cornea within normal limits. Periorbital areas with no swelling, redness, or edema. Cardiovascular: Regular rate. No pulse deficits. Respiratory: + moderate tachypnea, no retractions, + diminished bilateral breath sounds, with diffuse inspiratory and expiratory wheezing Abdomen/GI: Soft, non-tender Skin: Warm, dry with normal turgor. Normal color with no rashes, no lesions, and no evidence of cellulitis. MS/ Extremity: Pulses equal, no cyanosis. Neurovascular intact. Full, normal range of motion. Equal circumference. Neuro: Awake and alert, GCS 15, oriented to person, place, time, and situation. Cranial nerves II-XII grossly intact. Motor strength 5/5 in all extremities. Sensory grossly intact. Vital Signs: 13:19 BP 124 / 70; Pulse 95; Resp 20; Temp 97.5; Pulse Ox 96% on R/A; Pain 2/10; hb 15:33 BP 125 / 66; Pulse 82; Resp 19; Pulse Ox 100% on Nebulizer Mask; rv 16:00 BP 108 / 91; Pulse 95; Resp 22; Pulse Ox 96% on R/A; rv 16:31 BP 122 / 66; Pulse 94; Resp 21; Pulse Ox 100% on Nebulizer Mask; rv 17:00 BP 140 / 73; Pulse 101; Resp 22 S; Pulse Ox 97% on R/A; rv 17:30 BP 123 / 66; Pulse 96; Resp 23; Pulse Ox 96% on R/A; rv 18:00 BP 134 / 74; Pulse 95; Resp 22; Pulse Ox 95% on R/A; rv 18:30 BP 143 / 73; Pulse 103; Resp 23 S; Pulse Ox 96% on R/A; rv 19:49 BP 141 / 81; Pulse 96; Resp 23 S; Pulse Ox 96% on R/A; rv MDM: 14:58 Patient medically screened. rn 16:07 Differential diagnosis: Bronchitis pneumonia, Pneumothorax pulmonary edema, reactive rn airway disease. Data reviewed: vital signs, nurses notes, lab test result(s), EKG, radiologic studies, plain films, and as a result, I will admit patient. Counseling: I had a detailed discussion with the patient and/or guardian regarding: the historical points, exam findings, and any diagnostic results supporting the discharge/admit diagnosis, lab results, radiology results, the need for further work-up and treatment in the hospital. Response to treatment: the patient's symptoms have mildly improved after treatment, and as a result, I will admit patient. 09/21 15:03 Order name: CBC with Diff; Complete Time: 15:42 rn 09/21 15:03 Order name: Basic Metabolic Panel rn 09/21 13:43 Order name: Chest Pa And Lat (2 Views) XRAY; Complete Time: 14:59 snw 09/21 15:52 Order name: Urine Dipstick--Ancillary (enter results) em1 09/21 13:43 Order name: EKG; Complete Time: 13:44 snw 09/21 13:43 Order name: EKG - Nurse/Tech; Complete Time: 15:32 snw 09/21 15:03 Order name: IV Start; Complete Time: 15:32 rn Administered Medications: 15:15 Drug: Xopenex (3) 1.25 mg Route: Inhalation; rv 16:12 Follow up: Response: Wheezing diminished rv 15:15 Drug: AtroVENT Aerosol 0.5 mg Route: Inhalation; rv 16:12 Follow up: Response: Wheezing diminished rv 15:22 Drug: SOLU-Medrol 125 mg Route: IVP; Site: right antecubital; rv 16:12 Follow up: Response: Marked relief of symptoms rv 16:44 Drug: Xopenex 1.25 mg Route: Inhalation; rv 19:49 Follow up: Response: Wheezing diminished rv Disposition: 09/21/18 16:09 Hospitalization ordered by Vilma Callahan for Inpatient Admission. Preliminary diagnosis are Chronic obstructive pulmonary disease with (acute) exacerbation, Dyspnea, unspecified. - Bed requested for Telemetry/MedSurg (Inpatient). - Status is Inpatient Admission. rv - Condition is Stable. - Problem is an ongoing problem. - Symptoms have improved. UTI on Admission? No Signatures: Dispatcher [employer] EDDaily Castelan, INK MAKER-C INK MAKER-Csnw Linden Shen MD MD rn Smirch, Shelby, RN RN ss Davina Garcia, DEBBI RN Gonzalez Arnold, DEBBI RN rv Corrections: (The following items were deleted from the chart) 19:00 16:09 Hospitalization Ordered by Vilma Callahan MD for Inpatient Admission. Preliminary ss diagnosis is Chronic obstructive pulmonary disease with (acute) exacerbation; Dyspnea, unspecified. Bed requested for Telemetry/MedSurg (Inpatient). Status is Inpatient Admission. Condition is Stable. Problem is an ongoing problem. Symptoms have improved. UTI on Admission? No. rn 20:15 19:00 09/21/2018 16:09 Hospitalization Ordered by Vilma Callahan MD for Inpatient rv Admission. Preliminary diagnosis is Chronic obstructive pulmonary disease with (acute) exacerbation; Dyspnea, unspecified. Bed requested for Telemetry/MedSurg (Inpatient). Status is Inpatient Admission. Condition is Stable. Problem is an ongoing problem. Symptoms have improved. UTI on Admission? No. ss
--- NOTE | 2018-09-21 16:09 | ER ---
Nurse's Notes [facility] Name: Gene Cisneros Age: 83 yrs Sex: Male : 1935 Arrival Date: 09/21/2018 Time: 13:17 Bed 30 Private MD: Out, [facility] Diagnosis: Chronic obstructive pulmonary disease with (acute) exacerbation;Dyspnea, unspecified Presentation: 09/21 13:18 Presenting complaint: Recently hospitalized with pneumonia, d/c home 2 days ago. hb Reports worsening SOB and productive cough since yesterday. Transition of care: patient was not received from another setting of care. Onset of symptoms was September 20, 2018. Risk Assessment: Do you want to hurt yourself or someone else? Patient reports no desire to harm self or others. Care prior to arrival: None. 13:18 Method Of Arrival: Wheelchair hb 13:18 Acuity: JO-ANN 3 hb 15:34 Initial Sepsis Screen: Does the patient meet any 2 criteria? No. Patient's initial rv sepsis screen is negative. Does the patient have a suspected source of infection? No. Patient's initial sepsis screen is negative. Triage Assessment: 15:34 General: Appears in no apparent distress. comfortable. Respiratory: Reports shortness rv of breath at rest Onset: The symptoms/episode began/occurred gradually, the patient has mild shortness of breath. Historical: - Allergies: 13:20 No Known Allergies; hb - PMHx: 13:20 Atrial Fib; CAD; Hypertension; COPD; Diabetes - NIDDM; Pneumonia; Bronchitis; PVD; hb - PSHx: 13:20 back; anal fistula; Cholecystectomy; hb - Immunization history:: Adult Immunizations up to date. - Social history:: Smoking status: Patient/guardian denies using tobacco. - Ebola Screening: : No symptoms or risks identified at this time. - Family history:: not pertinent. - Hospitalizations: : The patient was recently seen at [facility]. Screenin:34 Abuse screen: Denies threats or abuse. Denies injuries from another. Nutritional rv screening: No deficits noted. Tuberculosis screening: No symptoms or risk factors identified. Fall Risk None identified. Assessment: 15:33 General: Appears in no apparent distress. comfortable, Behavior is calm, cooperative. rv Pain: Denies pain. Neuro: Level of Consciousness is awake, alert, obeys commands, Oriented to person, place, time, situation. Cardiovascular: Rhythm is regular. Respiratory: Airway is patent Respiratory effort is labored, Breath sounds with wheezes bilaterally. GI: No signs and/or symptoms were reported involving the gastrointestinal system. : No signs and/or symptoms were reported regarding the genitourinary system. EENT: No signs and/or symptoms were reported regarding the EENT system. Derm: Skin is intact. Musculoskeletal: No signs and/or symptoms reported regarding the musculoskeletal system. 16:59 Reassessment: Patient appears in no apparent distress at this time. Patient and/or rv family updated on plan of care and expected duration. Pain level reassessed. Patient is alert, oriented x 3, equal unlabored respirations, skin warm/dry/pink. Vital Signs: 13:19 BP 124 / 70; Pulse 95; Resp 20; Temp 97.5; Pulse Ox 96% on R/A; Pain 2/10; hb 15:33 BP 125 / 66; Pulse 82; Resp 19; Pulse Ox 100% on Nebulizer Mask; rv 16:00 BP 108 / 91; Pulse 95; Resp 22; Pulse Ox 96% on R/A; rv 16:31 BP 122 / 66; Pulse 94; Resp 21; Pulse Ox 100% on Nebulizer Mask; rv 17:00 BP 140 / 73; Pulse 101; Resp 22 S; Pulse Ox 97% on R/A; rv 17:30 BP 123 / 66; Pulse 96; Resp 23; Pulse Ox 96% on R/A; rv 18:00 BP 134 / 74; Pulse 95; Resp 22; Pulse Ox 95% on R/A; rv 18:30 BP 143 / 73; Pulse 103; Resp 23 S; Pulse Ox 96% on R/A; rv 19:49 BP 141 / 81; Pulse 96; Resp 23 S; Pulse Ox 96% on R/A; rv ED Course: 13:17 Patient arrived in ED. sb2 13:17 Out, of Town is Private Physician. sb2 13:19 Triage completed. hb 13:20 Arm band placed on. hb 14:15 Patient moved to radiology via wheelchair. jb2 14:22 X-ray completed. Patient tolerated procedure well. Patient moved back from radiology. jb2 14:23 Chest Pa And Lat (2 Views) XRAY In Process Unspecified. EDMS 14:58 Linden Shen MD is Attending Physician. rn 15:20 Inserted saline lock: 20 gauge in right antecubital area, using aseptic technique. rv Blood collected. 15:32 EKG done, by public address technician. reviewed by Linden Shen MD. dt2 15:32 CBC with Diff Sent. rv 15:32 Basic Metabolic Panel Sent. rv 15:34 Patient has correct armband on for positive identification. Bed in low position. Call rv light in reach. Side rails up X 1. Adult w/ patient. equipment monitor phototypesetting on. Pulse ox on. NIBP on. 16:08 Vilma Callahan MD is Hospitalizing Provider. rn 19:49 No provider procedures requiring assistance completed. Patient admitted, IV remains in rv place. intact. Administered Medications: 15:15 Drug: Xopenex (3) 1.25 mg Route: Inhalation; rv 16:12 Follow up: Response: Wheezing diminished rv 15:15 Drug: AtroVENT Aerosol 0.5 mg Route: Inhalation; rv 16:12 Follow up: Response: Wheezing diminished rv 15:22 Drug: SOLU-Medrol 125 mg Route: IVP; Site: right antecubital; rv 16:12 Follow up: Response: Marked relief of symptoms rv 16:44 Drug: Xopenex 1.25 mg Route: Inhalation; rv 19:49 Follow up: Response: Wheezing diminished rv Outcome: 16:09 Decision to Hospitalize by Provider. rn 19:49 Admitted to Tele accompanied by tech, via wheelchair, room 407, with chart, Report rv called to ANABEL WERNER 19:49 Condition: good 19:49 Instructed on the need for admit. 20:15 Patient left the ED. rv Signatures: Dispatcher [employer] EDMS [place] Jason jb2 Linden Shen MD MD rn Baxter, Heather, RN RN hb Billeau, Sheri sb2 Leonie Rodríguez dt2 Gonzalez Arnold RN RN rv
--- NOTE | 2018-09-21 16:44 | EKG ---
Test Date: 2018-09-21 Test Time: 15:28:19 Network Operations Specialist: STACIE MEASUREMENT RESULTS: Intervals: Rate: 80 ME: 126 QRSD: 68 QT: 370 QTc: [address]: P: 76 ME: 126 QRS: 59 T: 81 INTERPRETIVE STATEMENTS: Normal sinus rhythm Normal ECG Compared to ECG 09/18/2018 13:53:24 No significant changes Electronically Signed On 09-21-18 16:43:09 SERVICE CENTER SPECIALIST by Olman Devries
[2018-09-21 19:23] LABS: Urine Blood TRACE (NEG); Urine Glucose NEGATIVE (NEG); Urine Protein TRACE (NEG); Urine Specific Gravity 1.015 (1.005-1.030)
[2018-09-21] MEDS: METHYLPREDNISOLONE 40 MG INJ IV SCH (21:11)
[2018-09-21] MEDS ORDERED: ONDANSETRON 4 MG/2 ML VIAL IV PRN (21:11)
[2018-09-21] MEDS ORDERED: D50W 25 GM/50 ML SYRINGE IV PRN (21:45)
[2018-09-21] MEDS ORDERED: GLUCAGON 1 MG/VIAL IM PRN (21:45)
[2018-09-21] MEDS: INSULIN -REGULAR HUMAN 50 UNIT/0.5 ML ML SQ SCH (22:04)
[2018-09-21] MEDS: LEVALBUTEROL 1.25 MG/3 ML NEB NEB SCH (22:10)
[2018-09-21] MEDS: IPRATROPIUM BROM 0.5MG/2.5ML NEB SCH (22:10)
[2018-09-22 00:33] VITALS: BMI 26.2
[2018-09-22] MEDS: METHYLPREDNISOLONE 40 MG INJ IV SCH ×3 (01:24→17:22)
[2018-09-22] MEDS: LEVALBUTEROL 1.25 MG/3 ML NEB NEB SCH ×4 (02:32→20:00)
[2018-09-22] MEDS: IPRATROPIUM BROM 0.5MG/2.5ML NEB SCH ×4 (02:32→20:00)
[2018-09-22] MEDS ORDERED: ROFLUMILAST 500 MCG PO PRN (03:15)
[2018-09-22 04:29] LABS: Absolute Lymphocytes (CBC) 1.3 K/uL (0.7-4.9); Absolute Monocytes 0.4 K/uL (0.1-1.3); Absolute Neutrophil 5.5 K/uL (1.8-8.0); Hematocrit 36.6 % (39.6-49.0); Lymphocytes % 18.3 % (15.3-44.8); MPV 7.5 fL (7.6-11.3); Monocytes % 5.2 % (3.3-12.3)
[2018-09-22 04:49] LABS: Albumin 3.4 g/dL (3.4-5.0); Bilirubin Total 0.3 mg/dL (0.2-1.0); Potassium 3.8 mmol/L (3.5-5.1); Protein, Total 7.2 g/dL (6.4-8.2)
[2018-09-22 05:18] LABS: Protime INR 2.04
[2018-09-22] MEDS: INSULIN -REGULAR HUMAN 50 UNIT/0.5 ML ML SQ SCH ×4 (08:44→20:46)
[2018-09-22] MEDS ORDERED: CILOSTAZOL 50 MG PO SCH (09:00)
[2018-09-22] MEDS ORDERED: PNEUMOCOCCAL VACCINE 0.5 ML IMVAC ONE (09:00)
[2018-09-22] MEDS ORDERED: HOME MED 1 EA UNK (Cholecalciferol (Vitamin D3) [Vitamin D3] 1 CAP) PO SCH (09:00)
[2018-09-22] MEDS ORDERED: POTASSIUM 25 MEQ EFFERV TAB PO ONE (09:00)
[2018-09-22] MEDS ORDERED: HOME MED 1 EA UNK (Budesonide/Formoterol Fumarate [Symbicort 160-4.5 Mcg Inhaler] 2 PUFF) IH SCH (09:00)
[2018-09-22] MEDS ORDERED: HOME MED 1 EA UNK (Esomeprazole Mag Trihydrate [Nexium] 1 CAP) PO SCH (09:00)
[2018-09-22] MEDS ORDERED: CEFUROXIME 250 MG PO SCH (09:00)
[2018-09-22] MEDS ORDERED: INFLUENZA VACCINE (for 3y+) 0.5 ML DOSE IMVAC ONE (09:00)
--- NOTE | 2018-09-22 10:02 | RAD REPORT ---
EXAM DESCRIPTION: CT - Chest Angio - 09/22/2018 9:30 am CLINICAL HISTORY: Persistent dyspnea and hypoxia COMPARISON: None. TECHNIQUE: Dynamically enhanced 3 mm thick images of the chest were obtained during administration o f approximately 150mL Isovue 370 IV contrast. Coronal and oblique MIP reconstruction images were gene rated and reviewed. Exam utilizes a protocol to evaluate the pulmonary arterial tree. All CT scans are performed using dose optimization technique as appropriate and may include automated exposure control or mA/KV adjustment according to patient size. FINDINGS: No pulmonary emboli are identified. Thoracic aorta is well opacified on this study and without acute finding. A few scattered aortic calc ifications are present. Great vessels off the aortic arch show minimal calcification with no stenosis . No pericardial thickening or effusion. No infiltrate or mass in the lung parenchyma. No pleural effusion or pleural thickening. Small puncta te granuloma seen posterior lower right lung field. No mediastinal or hilar suspicious masses. No chest wall masses or abnormal axillary lymphadenopathy. Bony degenerative change present without acute finding. IMPRESSION: No pulmonary emboli or pulmonary artery abnormality. Minimal aortic calcifications with no acute aortic finding. No acute finding of the lung parenchyma. No abnormal mediastinal or hilar process. No other significant or suspicious findings.
[2018-09-22] MEDS: SOTALOL HCL 80 MG TAB PO SCH ×2 (10:36→20:48)
[2018-09-22] MEDS: ENOXAPARIN 40 MG/0.4 ML SQ SCH (10:37)
[2018-09-22] MEDS: PREGABALIN 50 MG CAP PO SCH ×2 (10:37→20:49)
[2018-09-22] MEDS: TAMSULOSIN 0.4 MG SR CAP PO SCH (10:37)
[2018-09-22] MEDS: MAXZIDE (HCTZ 25/TRIAMTERENE 37.5MG) TAB PO SCH ×2 (10:45→14:20)
[2018-09-22] MEDS: CEFUROXIME 250 MG TAB PO SCH ×2 (16:08→20:49)
[2018-09-22] MEDS ORDERED: WARFARIN SODIUM 2 MG TAB PO SCH (17:00)
--- NOTE | 2018-09-22 17:28 | P.HP ---
Certification for Inpatient Patient admitted to: Observation With expected LOS: <2 Midnights Patient will require the following post-hospital care: None Practitioner: I am a practitioner with admitting privileges, knowledge of patient current condition, hospital course, and medical plan of care. Services: Services provided to patient in accordance with Admission requirements found in Title 42 Section 412.3 of the Code of Federal Regulations Patient History Date of Service: 09/21/18 Reason for admission: shortness of breath History of Present Illness: Patient is an 83-year-old gentleman who came into the hospital with shortness of breath. He was here about a week ago with similar complaints. At that time he had been found to have a pneumonia. He was having more and more difficulty with his breathing. He tried to take his medications at home but his symptoms were not improving. He came into the hospital for further evaluation. In the ER is chest x-ray did not reveal any significant findings. He was tachycardic but not hypoxic. We will go ahead and get a CT scan of the chest to the rule out any other lung pathology. If this is negative he should be stable for discharge home. Allergies No Known Allergies Allergy (Verified 12/28/17 23:18) Home Medications: Metformin HCl [Glucophage*] 1 tab PO BID 11/03/15 Pravastatin Sodium [Pravachol] 40 mg PO BEDTIME 11/03/15 Tamsulosin [Flomax*] 0.4 mg PO DAILY 11/03/15 Warfarin Sodium [Coumadin] 2 mg PO SEECOM 11/03/15 Esomeprazole Mag Trihydrate [Nexium] 1 cap PO DAILY 08/25/16 Cilostazol 50 mg PO BID 11/04/16 Mirtazapine 15 mg PO BEDTIME 11/04/16 Sotalol HCl [Betapace*] 40 mg PO BID 11/04/16 Cholecalciferol (Vitamin D3) [Vitamin D3] 1 cap PO DAILY 04/07/18 Melatonin 1 cap PO BEDTIME 04/07/18 Nitroglycerin 0.4 mg SL SEECOM PRN 04/07/18 Pregabalin [Lyrica] 200 mg PO BID 04/07/18 Roflumilast [Daliresp*] 500 mcg PO DAILY PRN 04/07/18 Triamterene/Hydrochlorothiazid [Triamterene-Hctz 37.5-25 mg Cp] 1 cap PO DAILY 04/07/18 predniSONE [Prednisone*] 10 mg PO DAILY 04/07/18 Cefuroxime [Ceftin*] 250 mg PO BID 09/18/18 Glipizide [Glucotrol] 2.5 mg PO DAILY 09/18/18 Warfarin Sodium [Coumadin*] 1 mg PO M,W,F 09/18/18 Budesonide/Formoterol Fumarate [Symbicort 160-4.5 Mcg Inhaler] 2 puff IH DAILY # 1 hfa.aer.ad 09/19/18 Albuterol Neb [Proventil 0.083% Neb Soln] 2.5 mg NEB [id number] 09/22/18 Baclofen 2.5 mg PO BEDTIME 09/22/18 Ipratropium Neb [Atrovent*] 0.5 mg NEB [id number] 09/22/18 - Past Medical/Surgical History Has patient received pneumonia vaccine in the past: No Diabetic: Yes -: COPD -: Atrial fibrillation, chronic anti coagulation -: Hyperlipidemia -: Carotid arterial disease -: CAD -: Hypertension -: Diabetes mellitus type 2 -: Urinary incontinence -: Former tobacco use -: PVD -: CHOLECYSTECTOMY -: BACK SURGERY -: RECTAL FISTULA REPAIRED -: Carotid stent Psychosocial/ Personal History: The patient is . He has 7 children. He does not work. - Family History Father Medical History: Heart disease, Diabetes Mother Medical History: Other (see notes) Notes: hypotension Sister Medical History: Lung disease, Diabetes Brother Medical History: Lung disease, Diabetes - Social History Smoking Status: Former smoker Alcohol use: No CD- Drugs: No Caffeine use: No Place of Residence: Home Review of Systems 10-point ROS is otherwise unremarkable Physical Examination - Vital Signs Temperature: 97.2 F Blood Pressure: 107/67 Pulse: 102 Respirations: 20 Pulse Ox (%): 96 - Physical Exam General: Alert, In no apparent distress, Oriented x3 HEENT: Atraumatic, PERRLA, Mucous membr. moist/pink, EOMI, Sclerae nonicteric Neck: Supple, 2+ carotid pulse no bruit, No LAD, Without JVD or thyroid abnormality Respiratory: Normal air movement, Diminished Cardiovascular: Regular rate/rhythm, Normal S1 S2 Gastrointestinal: Normal bowel sounds, Soft and benign, Non-distended, No tenderness Musculoskeletal: No clubbing, No swelling, No tenderness Integumentary: No rashes Neurological: Normal gait, Normal speech, Normal strength at 5/5 x4 extr, Normal tone, Sensation intact, Cranial nerves 3-12 intact, Normal affect Lymphatics: No axilla or inguinal lymphadenopathy Assessment & Plan - Problems (Diagnosis) (1) COPD exacerbation Current Visit: Yes Status: Acute (2) Hyperlipidemia Onset Date: 04/08/18 Current Visit: No Status: Acute (3) Hypokalemia Onset Date: 06/08/16 Current Visit: No Status: Acute (4) Atrial fibrillation Onset Date: 11/04/15 Current Visit: No Status: Chronic Qualifiers: Atrial fibrillation type: chronic Qualified Code(s): I48.2 - Chronic atrial fibrillation (5) CAD (coronary artery disease) Onset Date: 04/08/18 Current Visit: No Status: Chronic Qualifiers: Coronary Disease-Associated Artery/Lesion type: unspecified vessel or lesion type [place] vs. transplanted heart: unspecified whether [place] or transplanted heart Associated angina: angina presence unspecified Qualified Code(s): I25.10 - Atherosclerotic heart disease of [place] coronary artery without angina pectoris (6) Diabetes mellitus, type II, insulin dependent Onset Date: 11/04/15 Current Visit: No Status: Chronic (7) GERD (gastroesophageal reflux disease) Current Visit: No Status: Chronic Qualifiers: Esophagitis presence: esophagitis presence not specified Qualified Code(s) : K21.9 - Gastro-esophageal reflux disease without esophagitis (8) Hypertension Onset Date: 11/04/15 Current Visit: No Status: Chronic Qualifiers: Hypertension type: essential hypertension (9) PVD (peripheral vascular disease) Onset Date: 04/08/18 Current Visit: No Status: Chronic - Plan -nebs, steroids, and antibiotics -O2 per protocol. -CT chest -outpatient pulmonary function testing -repeat chest x-ray Discharge Plan: Home Plan to discharge in: 24 Hours - Advance Directives Does patient have a Living Will: No Does patient have a Durable POA for Healthcare: Yes - Code Status/Comfort Care Code Status Assessed: Yes Code Status: Full Code Critical Care: No Time Spent Managing PTS Care (In Minutes): 45
--- NOTE | 2018-09-22 19:09 | P.PN ---
Subjective Date of Service: 09/22/18 Chief Complaint: shortness of breath Patient seen and examined at bedside. Daughter at bedside. Chart reviewed and case discussed with nursing staff. Review of Systems 10-point ROS is otherwise unremarkable Physical Examination - Vital Signs Temperature: 97.2 F Blood Pressure: 107/67 Pulse: 102 Respirations: 20 Pulse Ox (%): 96 - Physical Exam General: Alert, In no apparent distress, Oriented x3 HEENT: Atraumatic, PERRLA, EOMI Neck: Supple, JVD not distended Respiratory: Clear to auscultation bilaterally, Normal air movement Cardiovascular: Regular rate/rhythm, Normal S1 S2 Gastrointestinal: Normal bowel sounds, No tenderness Musculoskeletal: No tenderness Integumentary: No rashes Neurological: Normal speech, Normal tone, Normal affect Lymphatics: No axilla or inguinal lymphadenopathy Assessment And Plan - Plan 1) COPD exacerbation Current Visit: Yes Status: Acute (2) Hyperlipidemia Onset Date: 04/08/18 Current Visit: No Status: Acute (3) Hypokalemia Onset Date: 06/08/16 Current Visit: No Status: Acute (4) Atrial fibrillation Onset Date: 11/04/15 Current Visit: No Status: Chronic Qualifiers: Atrial fibrillation type: chronic Qualified Code(s): I48.2 - Chronic atrial fibrillation (5) CAD (coronary artery disease) Onset Date: 04/08/18 Current Visit: No Status: Chronic Qualifiers: Coronary Disease-Associated Artery/Lesion type: unspecified vessel or lesion type [place] vs. transplanted heart: unspecified whether [place] or transplanted heart Associated angina: angina presence unspecified Qualified Code(s): I25.10 - Atherosclerotic heart disease of [place] coronary artery without angina pectoris (6) Diabetes mellitus, type II, insulin dependent Onset Date: 11/04/15 Current Visit: No Status: Chronic (7) GERD (gastroesophageal reflux disease) Current Visit: No Status: Chronic Qualifiers: Esophagitis presence: esophagitis presence not specified Qualified Code(s) : K21.9 - Gastro-esophageal reflux disease without esophagitis (8) Hypertension Onset Date: 11/04/15 Current Visit: No Status: Chronic Qualifiers: Hypertension type: essential hypertension (9) PVD (peripheral vascular disease) Onset Date: 04/08/18 Current Visit: No Status: Chronic - Plan -nebs, steroids, and antibiotics -O2 per protocol. -CT chest -outpatient pulmonary function testing -repeat chest x-ray
[2018-09-22] MEDS: ATORVASTATIN 10 MG TAB PO SCH (20:49)
[2018-09-22] MEDS: MIRTAZAPINE 15 MG TAB PO SCH (20:49)
[2018-09-22] MEDS: BACLOFEN 10 MG TAB PO SCH (20:49)
[2018-09-22] MEDS: MELATONIN 5 MG TABLET PO SCH (20:50)
[2018-09-23] MEDS: METHYLPREDNISOLONE 40 MG INJ IV SCH ×3 (00:05→17:34)
[2018-09-23] MEDS: IPRATROPIUM BROM 0.5MG/2.5ML NEB SCH ×4 (02:00→20:09)
[2018-09-23] MEDS: LEVALBUTEROL 1.25 MG/3 ML NEB NEB SCH ×4 (02:00→20:09)
[2018-09-23 06:11] LABS: Absolute Lymphocytes (CBC) 1.5 K/uL (0.7-4.9); Absolute Monocytes 0.3 K/uL (0.1-1.3); Absolute Neutrophil 10.1 K/uL (1.8-8.0); Basophils % 0.1 % (0-1.3); Hematocrit 36.2 % (39.6-49.0); Lymphocytes % 12.4 % (15.3-44.8); MPV 7.1 fL (7.6-11.3); Monocytes % 2.6 % (3.3-12.3); RBC Red Blood Cell Count 5.08 M/uL (4.33-5.43)
[2018-09-23 06:25] LABS: Albumin 3.3 g/dL (3.4-5.0); Bilirubin Total 0.4 mg/dL (0.2-1.0); Potassium 4.2 mmol/L (3.5-5.1); Protein, Total 6.8 g/dL (6.4-8.2)
[2018-09-23] MEDS: INSULIN -REGULAR HUMAN 50 UNIT/0.5 ML ML SQ SCH ×4 (09:01→20:31)
[2018-09-23] MEDS: CEFUROXIME 250 MG TAB PO SCH ×2 (09:08→20:30)
[2018-09-23] MEDS: SOTALOL HCL 80 MG TAB PO SCH ×2 (09:08→20:29)
[2018-09-23] MEDS: TAMSULOSIN 0.4 MG SR CAP PO SCH (09:08)
[2018-09-23] MEDS: ENOXAPARIN 40 MG/0.4 ML SQ SCH (09:10)
[2018-09-23] MEDS: MAXZIDE (HCTZ 25/TRIAMTERENE 37.5MG) TAB PO SCH (12:36)
[2018-09-23] MEDS: PREGABALIN 50 MG CAP PO SCH ×2 (12:36→20:28)
[2018-09-23] MEDS ORDERED: WARFARIN SODIUM 1 MG TAB PO SCH (17:00)
--- NOTE | 2018-09-23 18:33 | P.PN ---
Subjective Date of Service: 09/23/18 Chief Complaint: shortness of breath Subjective: Ambulating, Improving, Working w/ PT Patient seen and examined at bedside. No family at bedside. Chart reviewed and case discussed with nursing staff. Doing very well, states that breathing is almost resolved back to baseline. Working well with physical therapy. Walked arm of the hallway No concerns complaints today Review of Systems 10-point ROS is otherwise unremarkable Physical Examination - Vital Signs Temperature: 97.9 F Blood Pressure: 140/72 Pulse: 69 Respirations: 16 Pulse Ox (%): 95 - Physical Exam General: Alert, In no apparent distress, Oriented x3 HEENT: Atraumatic, PERRLA, EOMI Neck: Supple, JVD not distended Respiratory: Clear to auscultation bilaterally, Normal air movement Cardiovascular: Regular rate/rhythm, Normal S1 S2 Gastrointestinal: Normal bowel sounds, No tenderness Musculoskeletal: No tenderness Integumentary: No rashes Neurological: Normal speech, Normal tone, Normal affect Lymphatics: No axilla or inguinal lymphadenopathy Assessment And Plan - Plan 1) COPD exacerbation Current Visit: Yes Status: Acute (2) Hyperlipidemia Onset Date: 04/08/18 Current Visit: No Status: Acute (3) Hypokalemia Onset Date: 06/08/16 Current Visit: No Status: Acute (4) Atrial fibrillation Onset Date: 11/04/15 Current Visit: No Status: Chronic Qualifiers: Atrial fibrillation type: chronic Qualified Code(s): I48.2 - Chronic atrial fibrillation (5) CAD (coronary artery disease) Onset Date: 04/08/18 Current Visit: No Status: Chronic Qualifiers: Coronary Disease-Associated Artery/Lesion type: unspecified vessel or lesion type [place] vs. transplanted heart: unspecified whether [place] or transplanted heart Associated angina: angina presence unspecified Qualified Code(s): I25.10 - Atherosclerotic heart disease of [place] coronary artery without angina pectoris (6) Diabetes mellitus, type II, insulin dependent Onset Date: 11/04/15 Current Visit: No Status: Chronic (7) GERD (gastroesophageal reflux disease) Current Visit: No Status: Chronic Qualifiers: Esophagitis presence: esophagitis presence not specified Qualified Code(s) : K21.9 - Gastro-esophageal reflux disease without esophagitis (8) Hypertension Onset Date: 11/04/15 Current Visit: No Status: Chronic Qualifiers: Hypertension type: essential hypertension (9) PVD (peripheral vascular disease) Onset Date: 04/08/18 Current Visit: No Status: Chronic - Plan -nebs, steroids, and antibiotics -O2 per protocol. -CT chest -outpatient pulmonary function testing -repeat chest x-ray pending for tomorrow. Disposition: Likely discharge home in the next 24 hr if remained stable.
--- NOTE | 2018-09-23 19:43 | RAD REPORT ---
EXAM DESCRIPTION: Cinda Early (2 Views)09/23/2018 7:34 pm CLINICAL HISTORY: Cough COMPARISON: September 21, 2018 FINDINGS: The lungs appear clear of acute infiltrate. The heart is normal size IMPRESSION: No acute abnormalities displayed
[2018-09-23] MEDS: BACLOFEN 10 MG TAB PO SCH (20:27)
[2018-09-23] MEDS: ATORVASTATIN 10 MG TAB PO SCH (20:29)
[2018-09-23] MEDS: MELATONIN 5 MG TABLET PO SCH (20:30)
[2018-09-23] MEDS: MIRTAZAPINE 15 MG TAB PO SCH (20:31)
[2018-09-24] MEDS: METHYLPREDNISOLONE 40 MG INJ IV SCH ×2 (00:35→08:28)
[2018-09-24] MEDS: IPRATROPIUM BROM 0.5MG/2.5ML NEB SCH ×3 (01:09→12:59)
[2018-09-24] MEDS: LEVALBUTEROL 1.25 MG/3 ML NEB NEB SCH ×3 (01:10→12:59)
[2018-09-24 07:11] LABS: Absolute Lymphocytes (CBC) 1.3 K/uL (0.7-4.9); Absolute Monocytes 0.2 K/uL (0.1-1.3); Absolute Neutrophil 8.6 K/uL (1.8-8.0); Basophils % 0.1 % (0-1.3); Hematocrit 38.4 % (39.6-49.0); Lymphocytes % 12.6 % (15.3-44.8); MPV 7.3 fL (7.6-11.3); Monocytes % 2.5 % (3.3-12.3); RBC Red Blood Cell Count 5.39 M/uL (4.33-5.43)
[2018-09-24] MEDS: INSULIN -REGULAR HUMAN 50 UNIT/0.5 ML ML SQ SCH ×2 (08:27→11:35)
[2018-09-24] MEDS: TAMSULOSIN 0.4 MG SR CAP PO SCH (08:28)
[2018-09-24] MEDS: ENOXAPARIN 40 MG/0.4 ML SQ SCH (08:28)
[2018-09-24] MEDS: SOTALOL HCL 80 MG TAB PO SCH (08:28)
[2018-09-24] MEDS: CEFUROXIME 250 MG TAB PO SCH (08:29)
[2018-09-24] MEDS: MAXZIDE (HCTZ 25/TRIAMTERENE 37.5MG) TAB PO SCH (08:30)
[2018-09-24] MEDS: PREGABALIN 50 MG CAP PO SCH (08:32)
[2018-09-24 08:35] LABS: Albumin 3.3 g/dL (3.4-5.0); Bilirubin Total 0.5 mg/dL (0.2-1.0); Potassium 4.5 mmol/L (3.5-5.1); Protein, Total 7.1 g/dL (6.4-8.2)
[2018-09-24 12:20] VITALS: O2SAT 90
[2018-09-24 12:37] VITALS: BP 143/80; TEMP 97.5
--- NOTE | 2018-09-24 16:03 | P.SSS ---
Patient History Date of Service: 09/24/18 Reason for admission: shortness of breath History of Present Illness: Patient is an 83-year-old gentleman who came into the hospital with shortness of breath. He was here about a week ago with similar complaints. At that time he had been found to have a pneumonia. He was having more and more difficulty with his breathing. He tried to take his medications at home but his symptoms were not improving. He came into the hospital for further evaluation. In the ER is chest x-ray did not reveal any significant findings. He was tachycardic but not hypoxic. We will go ahead and get a CT scan of the chest to the rule out any other lung pathology. If this is negative he should be stable for discharge home. Allergies No Known Allergies Allergy (Verified 12/28/17 23:18) Home Medications: Metformin HCl [Glucophage*] 1 tab PO BID 11/03/15 Pravastatin Sodium [Pravachol] 40 mg PO BEDTIME 11/03/15 Tamsulosin [Flomax*] 0.4 mg PO DAILY 11/03/15 Warfarin Sodium [Coumadin] 2 mg PO SEECOM 11/03/15 Esomeprazole Mag Trihydrate [Nexium] 1 cap PO DAILY 08/25/16 Cilostazol 50 mg PO BID 11/04/16 Mirtazapine 15 mg PO BEDTIME 11/04/16 Sotalol HCl [Betapace*] 40 mg PO BID 11/04/16 Cholecalciferol (Vitamin D3) [Vitamin D3] 1 cap PO DAILY 04/07/18 Melatonin 1 cap PO BEDTIME 04/07/18 Nitroglycerin 0.4 mg SL SEECOM PRN 04/07/18 Pregabalin [Lyrica] 200 mg PO BID 04/07/18 Roflumilast [Daliresp*] 500 mcg PO DAILY PRN 04/07/18 Triamterene/Hydrochlorothiazid [Triamterene-Hctz 37.5-25 mg Cp] 1 cap PO DAILY 04/07/18 Glipizide [Glucotrol] 2.5 mg PO DAILY 09/18/18 Warfarin Sodium [Coumadin*] 1 mg PO M,W,F 09/18/18 Budesonide/Formoterol Fumarate [Symbicort 160-4.5 Mcg Inhaler] 2 puff IH DAILY # 1 hfa.aer.ad 09/19/18 Albuterol Neb [Proventil 0.083% Neb Soln] 2.5 mg NEB [id number] 09/22/18 Baclofen 2.5 mg PO BEDTIME 09/22/18 Ipratropium Neb [Atrovent*] 0.5 mg NEB [id number] 09/22/18 Cefuroxime [Ceftin*] 250 mg PO BID #14 tab 09/24/18 predniSONE [Prednisone] 20 mg PO BID #14 tablet 09/24/18 - Past Medical/Surgical History Has patient received pneumonia vaccine in the past: No Diabetic: Yes -: COPD -: Atrial fibrillation, chronic anti coagulation -: Hyperlipidemia -: Carotid arterial disease -: CAD -: Hypertension -: Diabetes mellitus type 2 -: Urinary incontinence -: Former tobacco use -: PVD -: CHOLECYSTECTOMY -: BACK SURGERY -: RECTAL FISTULA REPAIRED -: Carotid stent Psychosocial/ Personal History: The patient is . He has 7 children. He does not work. - Family History Father -: Heart disease, Diabetes Mother -: Other (see notes) Notes: hypotension Sister -: Lung disease, Diabetes Brother -: Lung disease, Diabetes - Social History Smoking Status: Former smoker Alcohol use: No CD- Drugs: No Caffeine use: No Place of Residence: Home Review of Systems 10-point ROS is otherwise unremarkable Physical Examination - Vital Signs Temperature: 97.5 F Blood Pressure: 143/80 Pulse: 70 Respirations: 18 Pulse Ox (%): 97 - Physical Exam General: Alert, In no apparent distress, Oriented x3 HEENT: Atraumatic, PERRLA, Mucous membr. moist/pink, EOMI, Sclerae nonicteric Neck: Supple, 2+ carotid pulse no bruit, No LAD, Without JVD or thyroid abnormality Respiratory: Clear to auscultation bilaterally, Normal air movement Cardiovascular: Regular rate/rhythm, Normal S1 S2 Gastrointestinal: Normal bowel sounds, No tenderness Musculoskeletal: No tenderness Integumentary: No rashes Neurological: Normal gait, Normal speech, Normal strength at 5/5 x4 extr, Normal tone, Normal affect Lymphatics: No axilla or inguinal lymphadenopathy Treatment Summary: COPD exacerbation Hyperlipidemia Hypokalemia Atrial fibrillation CAD (coronary artery disease) Diabetes mellitus, type II, insulin dependent GERD (gastroesophageal reflux disease) Hypertension PVD (peripheral vascular disease) Patient was admitted for COPD exacerbation. Was started on nebulizer treatments , IV steroids. His antibiotics were continued. He was given oxygen as needed. He was weaned off of the oxygen. Repeat chest x-ray looked without any acute abnormalities. He worked really well with physical therapy. He was ambulating well, without any acute distress. He was satting well on room air. Her prior to discharge. His symptoms had improved drastically. He will follow up with his slubber operator in [place] in the next week. He otherwise remained hemodynamically stable throughout the stay. - Disposition Disposition: ROUTINE DISCHARGE Condition: GOOD Patient Discharge Instructions: Please follow up with your slubber operator in 2-3 days. Please return to the emergency room for worsening symptoms Diet: AHA Activity: Ad berna Time Spent Managing Pts Care (In Minutes): 55
== END 2018-09-24 14:14 | disposition home or self-care (01) ==
LOC: ER 13:14 → ERHOLD 15:57 → 4TH 19:44
PROVIDERS: ADMIT Family Medicine; ATTEND Hospitalist
DX: J44.1 Chronic obstructive pulmonary disease with (acute) exacerbation (principal); I48.91 Unspecified atrial fibrillation; E78.5 Hyperlipidemia, unspecified; I25.10 Atherosclerotic heart disease of native coronary artery without angina pectoris; E11.9 Type 2 diabetes mellitus without complications; I10 Essential (primary) hypertension; E87.6 Hypokalemia; K21.9 Gastro-esophageal reflux disease without esophagitis; I73.9 Peripheral vascular disease, unspecified; Z87.891 Personal history of nicotine dependence; Z79.01 Long term (current) use of anticoagulants
CPT/HCPCS: 36415; 71046; 71275; 80048; 80053; 81003; 82962; 84132; 85025; 85610; 87070; 87077; 87186; 87205; 93005; 94760; 96374; 97161; 99285; G0378; J1650; J2920; J2930; Q9967

== ENCOUNTER 2018-11-02 13:56 | Emergency (ER) | payer OTHER ==
--- NOTE | 2018-11-02 16:19 | RAD REPORT ---
EXAM DESCRIPTION: Cinda Single View11/02/2018 3:43 pm CLINICAL HISTORY: cough COMPARISON: 09/27 FINDINGS: The lungs appear clear of acute infiltrate. The heart is normal size IMPRESSION: No acute abnormalities displayed
[2018-11-02] MEDS ORDERED: LEVALBUTEROL 1.25 MG/3 ML NEB ONE (16:44)
[2018-11-02 17:05] LABS: Protime INR 2.09
[2018-11-02 17:08] LABS: Absolute Lymphocytes (CBC) 1.6 K/uL (0.7-4.9); Absolute Monocytes 0.7 K/uL (0.1-1.3); Absolute Neutrophil 6.5 K/uL (1.8-8.0); Basophils % 0.7 % (0-1.3); Eosinophils % 0.2 % (0-4.4); Hematocrit 34.9 % (39.6-49.0); Lymphocytes % 18.4 % (15.3-44.8); MPV 7.4 fL (7.6-11.3); Monocytes % 7.6 % (3.3-12.3)
[2018-11-02 17:18] LABS: ALT/SGPT 35 U/L (12-78); AST/SGOT 26 U/L (15-37); Albumin 3.3 g/dL (3.4-5.0); Alkaline Phosphatase 66 U/L (45-117); BUN Blood Urea Nitrogen 8 mg/dL (7-18); Bicarbonate 28 mmol/L (21-32); Bilirubin Direct 0.1 mg/dL (0-0.2); Bilirubin Total 0.4 mg/dL (0.2-1.0); Glucose Level 202 mg/dL (74-106); Magnesium 2.1 mg/dL (1.8-2.4); NT PRO-BNP 446 pg/mL (<450); Potassium 3.5 mmol/L (3.5-5.1); Protein, Total 6.9 g/dL (6.4-8.2); Sodium Level 141 mmol/L (136-145); Troponin (Emerg Dept Use Only) < 0.02 ng/mL (0.0-0.045)
[2018-11-02] MEDS ORDERED: NA CHLORIDE 0.9% 500 ML ONE (18:07)
[2018-11-02] MEDS ORDERED: NA CHLORIDE 0.9% 250 ML ONE (19:07)
[2018-11-02] MEDS ORDERED: AZITHROMYCIN 500 MG INJ IVPB ONE (19:07)
[2018-11-02] MEDS ORDERED: CEFTRIAXONE/SWI 1gm 2 GM/20 ML SYR ONE (19:08)
[2018-11-02 19:38] LABS: Urine Bacteria <20 /HPF (NONE SEEN); Urine Culture Reflex Order NOT NEEDED; Urine RBC <5 /HPF (NONE SEEN)
[2018-11-02 19:39] LABS: Urine Mucus SLIGHT /HPF (NONE SEEN)
--- NOTE | 2018-11-02 20:02 | ER ---
Nurse's Notes [facility] Name: Gene Cisneros Age: 83 yrs Sex: Male : 1935 Arrival Date: 11/02/2018 Time: 13:59 Bed 30 Private MD: Diagnosis: Acute bronchitis Presentation: 11/02 14:09 Presenting complaint: Patient states: body aches, chills and cough that began ss yesterday. Transition of care: patient was not received from another setting of care. Onset of symptoms was November 01, 2018. Risk Assessment: Do you want to hurt yourself or someone else? Patient reports no desire to harm self or others. Initial Sepsis Screen: Does the patient meet any 2 criteria? No. Patient's initial sepsis screen is negative. Does the patient have a suspected source of infection? No. Patient's initial sepsis screen is negative. Care prior to arrival: None. 14:09 Method Of Arrival: Ambulatory ss 14:09 Acuity: JO-ANN 4 ss Historical: - Allergies: 14:11 No Known Allergies; ss - PMHx: 14:11 Atrial Fib; Bronchitis; CAD; COPD; Diabetes - NIDDM; Hypertension; Pneumonia; PVD; ss - PSHx: 14:11 back; anal fistula; Cholecystectomy; ss - Immunization history:: Adult Immunizations up to date. - Social history:: Smoking status: Patient/guardian denies using tobacco. - Ebola Screening: : Patient denies exposure to infectious person Patient denies travel to an Ebola-affected area in the 21 days before illness onset. - Family history:: not pertinent. - Hospitalizations: : No recent hospitalization is reported. Screenin:23 Abuse screen: Denies threats or abuse. Denies injuries from another. Nutritional rv screening: No deficits noted. Tuberculosis screening: No symptoms or risk factors identified. Fall Risk None identified. Assessment: 15:22 General: Appears in no apparent distress. uncomfortable, ill, Behavior is calm, rv cooperative. Pain: Denies pain. Neuro: Level of Consciousness is awake, alert, obeys commands, Oriented to person, place, time, situation. Cardiovascular: Capillary refill < 3 seconds. Respiratory: Airway is patent. GI: No signs and/or symptoms were reported involving the gastrointestinal system. : No signs and/or symptoms were reported regarding the genitourinary system. EENT: No signs and/or symptoms were reported regarding the EENT system. Derm: Skin is intact. Musculoskeletal: No signs and/or symptoms reported regarding the musculoskeletal system. 17:03 Reassessment: Patient appears in no apparent distress at this time. Patient and/or rv family updated on plan of care and expected duration. Pain level reassessed. Patient is alert, oriented x 3, equal unlabored respirations, skin warm/dry/pink. Patient denies pain at this time. Vital Signs: 14:11 Pulse 89; Resp 17; Temp 97.7; Pulse Ox 96% on R/A; Weight 69.4 kg; Height 5 ft. 5 in. ss (165.10 cm); Pain 3/10; 14:13 BP 119 / 70; ss 15:30 BP 126 / 80 LA; Pulse 90; Resp 19 S; Pulse Ox 99% on R/A; rv 16:00 BP 116 / 70 LA; Pulse 87; Resp 20 S; Pulse Ox 96% on R/A; rv 16:30 BP 137 / 82 LA; Pulse 88; Resp 19 S; Pulse Ox 97% on R/A; rv 16:57 BP 130 / 76; Pulse 87; Resp 20; Temp 97.8; Pulse Ox 98% ; lt1 18:00 BP 118 / 81 LA; Pulse 88; Resp 18 S; Pulse Ox 97% on R/A; rv 19:11 BP 164 / 96 LA; Pulse 87; Resp 19 S; Pulse Ox 97% on R/A; rv 20:09 BP 162 / 107; Pulse 97; Resp 18; Pulse Ox 98% on R/A; rv 14:11 Body Mass Index 25.46 (69.40 kg, 165.10 cm) ED Course: 13:59 Patient arrived in ED. tw3 14:10 Triage completed. ss 14:11 Arm band placed on left wrist. ss 15:23 Logan Sanchez MD is Attending Physician. wa 15:25 Patient has correct armband on for positive identification. Bed in low position. Call rv light in reach. Side rails up X 1. Pulse ox on. NIBP on. 15:43 XRAY Chest (1 view) In Process Unspecified. EDMS 16:37 Initial lab(s) drawn, by me, sent to lab. First set of blood cultures drawn by me. lt1 16:45 Inserted saline lock: 22 gauge in right antecubital area, using aseptic technique. lt1 17:14 Second set of blood cultures drawn by me. lt1 19:23 Deondre Johnson PA is PHCP. bailey 20:10 No provider procedures requiring assistance completed. IV discontinued, bleeding rv controlled, No redness/swelling at site. Pressure dressing applied. Administered Medications: 16:15 Drug: Xopenex 1.25 mg Route: Inhalation; rv 18:50 Follow up: Response: Marked relief of symptoms rv 18:00 Drug: NS 0.9% 500 ml Route: IV; Rate: bolus; Site: right antecubital; rv 18:51 Follow up: IV Status: Completed infusion rv 19:00 Drug: Rocephin - (cefTRIAXone) 2 grams Route: IVPB; Infused Over: 30 mins; Site: left rv forearm; 19:08 Drug: Zithromax 500 mg Route: IVPB; Infused Over: 1 hrs; Site: left forearm; rv Outcome: 20:01 Discharge ordered by . bailey 20:10 Discharged to home ambulatory. rv 20:10 Condition: good 20:10 Discharge instructions given to patient, family, Instructed on discharge instructions, follow up and referral plans. medication usage, Demonstrated understanding of instructions, follow-up care, medications, Prescriptions given X 1. 20:11 Patient left the ED. rv Signatures: Dispatcher [employer] EDMS Deondre Johnson PA PA jmm Smirch, Shelby, RN RN Cristian, Lexy tw3 Logan Sanchez MD MD wa Vicente, Ronaldo, RN RN Che Marks lt1
--- NOTE | 2018-11-02 20:02 | EDPHYS ---
Physician Documentation [facility] Name: Gene Cisneros Age: 83 yrs Sex: Male : 1935 Arrival Date: 11/02/2018 Time: 13:59 Bed 30 Private MD: ED Physician Logan Sanchez HPI: 11/02 18:37 This 83 yrs old Male presents to ER via Ambulatory with complaints of Flu wa Symptoms. 18:37 The patient or guardian reports cough, difficulty breathing, flu symptoms, myalgias. wa Onset: The symptoms/episode began/occurred yesterday. Modifying factors: The symptoms are alleviated by nothing. the symptoms are aggravated by nothing. Associated signs and symptoms: Pertinent negatives: chest pain, diarrhea, fever, rhinorrhea, sore throat, vomiting. Severity of symptoms: At their worst the symptoms were moderate in the emergency department the symptoms are unchanged. The patient has experienced a previous episode. The patient has not recently seen a physician. states became weak with coughing and SOB yesterday. also generalized weakness. Historical: - Allergies: 14:11 No Known Allergies; ss - PMHx: 14:11 Atrial Fib; Bronchitis; CAD; COPD; Diabetes - NIDDM; Hypertension; Pneumonia; PVD; ss - PSHx: 14:11 back; anal fistula; Cholecystectomy; ss - Immunization history:: Adult Immunizations up to date. - Social history:: Smoking status: Patient/guardian denies using tobacco. - Ebola Screening: : Patient denies exposure to infectious person Patient denies travel to an Ebola-affected area in the 21 days before illness onset. - Family history:: not pertinent. - Hospitalizations: : No recent hospitalization is reported. ROS: 18:39 Eyes: Negative for injury, pain, redness, and discharge, ENT: Negative for injury, wa pain, and discharge, Neck: Negative for injury, pain, and swelling, Cardiovascular: Negative for chest pain, palpitations, and edema, Abdomen/GI: Negative for abdominal pain, nausea, vomiting, diarrhea, and constipation, Back: Negative for injury and pain, : Negative for injury, bleeding, discharge, and swelling, MS/Extremity: Negative for injury and deformity, Skin: Negative for injury, rash, and discoloration, Neuro: Negative for headache, weakness, numbness, tingling, and seizure, Psych: Negative for depression, anxiety, suicide ideation, homicidal ideation, and hallucinations. 18:39 Constitutional: Positive for fatigue, malaise, weakness. 18:39 Respiratory: Positive for cough, shortness of breath. Exam: 18:40 Constitutional: This is a well developed, well nourished patient who is awake, alert, wa and in no acute distress. Head/Face: Normocephalic, atraumatic. Eyes: Pupils equal round and reactive to light, extra-ocular motions intact. Lids and lashes normal. Conjunctiva and sclera are non-icteric and not injected. Cornea within normal limits. Periorbital areas with no swelling, redness, or edema. ENT: Nares patent. No nasal discharge, no septal abnormalities noted. Tympanic membranes are normal and external auditory canals are clear. Oropharynx with no redness, swelling, or masses, exudates, or evidence of obstruction, uvula midline. Mucous membranes moist. Neck: Trachea midline, no thyromegaly or masses palpated, and no cervical lymphadenopathy. Supple, full range of motion without nuchal rigidity, or vertebral point tenderness. No Meningismus. Chest/axilla: Normal chest wall appearance and motion. Nontender with no deformity. No lesions are appreciated. Cardiovascular: Regular rate and rhythm with a normal S1 and S2. No gallops, murmurs, or rubs. Normal PMI, no JVD. No pulse deficits. Abdomen/GI: Soft, non-tender, with normal bowel sounds. No distension or tympany. No guarding or rebound. No evidence of tenderness throughout. Back: No spinal tenderness. No costovertebral tenderness. Full range of motion. Skin: Warm, dry with normal turgor. Normal color with no rashes, no lesions, and no evidence of cellulitis. MS/ Extremity: Pulses equal, no cyanosis. Neurovascular intact. Full, normal range of motion. Neuro: Awake and alert, GCS 15, oriented to person, place, time, and situation. Cranial nerves II-XII grossly intact. Motor strength 5/5 in all extremities. Sensory grossly intact. Cerebellar exam normal. Normal gait. Psych: Awake, alert, with orientation to person, place and time. Behavior, mood, and affect are within normal limits. 18:40 Respiratory: the patient does not display signs of respiratory distress, Respirations: normal, Breath sounds: mildly diminished. scattered wheezes auscultated. Vital Signs: 14:11 Pulse 89; Resp 17; Temp 97.7; Pulse Ox 96% on R/A; Weight 69.4 kg; Height 5 ft. 5 in. ss (165.10 cm); Pain 3/10; 14:13 BP 119 / 70; ss 15:30 BP 126 / 80 LA; Pulse 90; Resp 19 S; Pulse Ox 99% on R/A; rv 16:00 BP 116 / 70 LA; Pulse 87; Resp 20 S; Pulse Ox 96% on R/A; rv 16:30 BP 137 / 82 LA; Pulse 88; Resp 19 S; Pulse Ox 97% on R/A; rv 16:57 BP 130 / 76; Pulse 87; Resp 20; Temp 97.8; Pulse Ox 98% ; lt1 18:00 BP 118 / 81 LA; Pulse 88; Resp 18 S; Pulse Ox 97% on R/A; rv 19:11 BP 164 / 96 LA; Pulse 87; Resp 19 S; Pulse Ox 97% on R/A; rv 20:09 BP 162 / 107; Pulse 97; Resp 18; Pulse Ox 98% on R/A; rv 14:11 Body Mass Index 25.46 (69.40 kg, 165.10 cm) MDM: 15:24 Patient medically screened. az 18:41 Differential diagnosis: bronchitis, flu, URI, r/o pna. az 19:16 Data reviewed: vital signs, nurses notes. ED course: walked pt at 1900 hrs. ambulated az well. no SOB. SATs 98% . 20:01 Counseling: I had a detailed discussion with the patient and/or guardian regarding: the [facility] historical points, exam findings, and any diagnostic results supporting the discharge/admit diagnosis, lab results, radiology results, the need for outpatient follow up, to return to the emergency department if symptoms worsen or persist or if there are any questions or concerns that arise at home. 11/02 14:13 Order name: Flu; Complete Time: 15:20 ss 11/02 16:09 Order name: Blood Culture Adult (2) az 11/02 16:09 Order name: BMP; Complete Time: 17:52 az 11/02 16:09 Order name: CBC with Diff; Complete Time: 17:52 az 11/02 16:09 Order name: Hepatic Function; Complete Time: 17:52 az 11/02 16:09 Order name: Magnesium; Complete Time: 17:52 az 11/02 14:13 Order name: XRAY Chest (1 view); Complete Time: 16:47 11/02 16:09 Order name: NT PRO-BNP; Complete Time: 17:52 az 11/02 16:09 Order name: PT-INR; Complete Time: 17:52 az 11/02 16:09 Order name: Troponin (emerg Dept Use Only); Complete Time: 17:52 az 11/02 17:54 Order name: Urine Microscopic Only; Complete Time: 20:00 az 11/02 19:06 Order name: Urine Dipstick--Ancillary (enter results) [facility] 11/02 16:09 Order name: EKG; Complete Time: 16:10 az 11/02 16:09 Order name: Cardiac monitoring; Complete Time: 16:55 az 11/02 16:09 Order name: EKG - Nurse/Tech; Complete Time: 16:56 az 11/02 16:09 Order name: IV Saline Lock; Complete Time: 16:56 az 11/02 16:09 Order name: Labs collected and sent; Complete Time: 16:46 az 11/02 16:09 Order name: O2 Per Protocol; Complete Time: 16:55 az 11/02 16:09 Order name: O2 Sat Monitoring; Complete Time: 16:56 az 11/02 17:54 Order name: Urine Dipstick-Ancillary (obtain specimen); Complete Time: 18:50 az Administered Medications: 16:15 Drug: Xopenex 1.25 mg Route: Inhalation; rv 18:50 Follow up: Response: Marked relief of symptoms rv 18:00 Drug: NS 0.9% 500 ml Route: IV; Rate: bolus; Site: right antecubital; rv 18:51 Follow up: IV Status: Completed infusion rv 19:00 Drug: Rocephin - (cefTRIAXone) 2 grams Route: IVPB; Infused Over: 30 mins; Site: left rv forearm; 19:08 Drug: Zithromax 500 mg Route: IVPB; Infused Over: 1 hrs; Site: left forearm; rv Disposition: 11/03 07:32 Co-signature as Attending Physician, Logan Sanchez MD I agree with the assessment and az plan of care. Disposition: 11/02/18 20:01 Discharged to Home. Impression: Acute bronchitis. - Condition is Stable. - Discharge Instructions: Acute Bronchitis, Adult. - Prescriptions for Albuterol Sulfate 90 mcg/actuation - inhale 1-2 puff by INHALATION route every 4-6 hours; 1 Inhaler. - Medication Reconciliation Form, Thank You Letter, Antibiotic Education, Prescription Opioid Use form. - Follow up: Private Physician; When: 2 - 3 days; Reason: Recheck today's complaints, Continuance of care, Re-evaluation by your physician. Signatures: Dispatcher [employer] EDTX Deondre Johnson PA PA Althea Pantoja, RN RN ss Logan Sanchez MD MD wa Vicente, Ronaldo, RN RN rv Corrections: (The following items were deleted from the chart) 11/02 16:47 16:09 Chest Pa And Lat (2 Views)+[email or web address].[email or web address] ordered. [facility] 20:11 20:01 11/02/2018 20:01 Discharged to Home. Impression: Acute bronchitis. Condition is rv Stable. Forms are Medication Reconciliation Form, Thank You Letter, Antibiotic Education, Prescription Opioid Use. Follow up: Private Physician; When: 2 - 3 days; Reason: Recheck today's complaints, Continuance of care, Re-evaluation by your physician. bailey
--- NOTE | 2018-11-02 20:19 | EKG ---
Test Date: 2018-11-02 Test Time: 16:26:32 [employer] Ce[employer]: ROSY MEASUREMENT RESULTS: Intervals: Rate: 90 LA: 138 QRSD: 70 QT: 374 QTc: 457 Mead: P: 44 LA: 138 QRS: 59 T: 62 INTERPRETIVE STATEMENTS: Normal sinus rhythm Normal ECG Compared to ECG 09/21/2018 15:28:19 No significant changes Electronically Signed On 11-02-18 20:17:48 CDT by Olman Devries
[2018-11-02 20:23] LABS: Urine Blood 1+ (NEG); Urine Glucose NEGATIVE (NEG); Urine Protein TRACE (NEG); Urine Specific Gravity 1.025 (1.005-1.030); Urine pH 5.5 (5.0-7.0)
[2018-11-02 21:29] VITALS: TEMP 97.8
[2018-11-02 21:33] VITALS: BP 162/107; O2SAT 98
== END 2018-11-02 20:11 | disposition home or self-care (01) ==
LOC: ER 13:56
DX: J20.9 Acute bronchitis, unspecified (principal); I10 Essential (primary) hypertension; I48.91 Unspecified atrial fibrillation
CPT/HCPCS: 96361; 93005; 87040 ×2; 85025; 80048; 36415; 83735; 85610; 80076; 84484; 83880; 87804 ×2; 71045; 96375; 96374; 99284; J0456; J0696; 81003; 81015

== ENCOUNTER 2019-02-14 19:48 | Emergency (ER) | payer OTHER ==
[2019-02-14] MEDS ORDERED: DICYCLOMINE HCL 10 MG CAP ONE (21:39)
[2019-02-14] MEDS ORDERED: NA CHLORIDE 0.9% 500 ML ONE (21:39)
[2019-02-14 21:52] LABS: Absolute Lymphocytes (CBC) 2.3 K/uL (0.7-4.9); Basophils % 0.8 % (0-1.3); Eosinophils % 0.8 % (0-4.4); Hematocrit 42.5 % (39.6-49.0); Lymphocytes % 22.6 % (15.3-44.8); MPV 7.5 fL (7.6-11.3); Monocytes % 9.2 % (3.3-12.3); RBC Red Blood Cell Count 5.75 M/uL (4.33-5.43)
[2019-02-14 22:10] LABS: Blood Morphology Comment NOT SEEN (NOT SEEN); Platelet Estimate ADEQ; Urine White Blood Cell Casts OK
[2019-02-14 22:14] LABS: Albumin 3.5 g/dL (3.4-5.0); Bilirubin Direct 0.1 mg/dL (0-0.2); Bilirubin Total 0.4 mg/dL (0.2-1.0); Potassium 3.9 mmol/L (3.5-5.1); Protein, Total 7.5 g/dL (6.4-8.2)
--- NOTE | 2019-02-14 23:49 | ER ---
Nurse's Notes [facility] Name: Gene Cisneros Age: 84 yrs Sex: Male : 1935 Arrival Date: 02/14/2019 Time: 20:15 Bed 15 Private MD: Diagnosis: Dehydration;Abdominal distension (gaseous) Presentation: 02/14 20:28 Presenting complaint: Patient states: bloating and gas s/p colonoscopy in [place] by ak1 Dr. Rodrigues yesterday. Transition of care: patient was not received from another setting of care. Onset of symptoms was February 14, 2019. Risk Assessment: Do you want to hurt yourself or someone else? Patient reports no desire to harm self or others. Initial Sepsis Screen: Does the patient meet any 2 criteria? No. Patient's initial sepsis screen is negative. Does the patient have a suspected source of infection? No. Patient's initial sepsis screen is negative. Care prior to arrival: None. 20:28 Method Of Arrival: Wheelchair ak1 20:28 Acuity: JO-ANN 3 ak1 Triage Assessment: 20:30 General: Appears in no apparent distress. ak1 Historical: - Allergies: 20:30 No Known Allergies; ak1 - Home Meds: 20:30 baclofen 10 mg Oral tab 0.5 tab 4 times per day [Active]; cilostazol 50 mg Oral tab 1 ak1 tab 2 times per day [Active]; Daliresp 500 mcg Oral tab 1 tab once daily [Active]; Feosol 325 mg (65 mg iron) Oral tab daily [Active]; glipizide 10 mg Oral tab 1 tab once daily [Active]; Lyrica 200 mg Oral 1 cap 2 times per day [Active]; melatonin 10 mg Oral tab 1 tab nightly [Active]; metformin 750 mg Oral Tb24 1 tab twice a day [Active]; mirtazapine 15 mg Oral tab 1 tab nightly [Active]; Nexium 40 mg Oral cpDR 1 cap once daily [Active]; pravastatin 40 mg Oral tab 1 tab once daily [Active]; sotalol 80 mg Oral tab 0.5 tab 2 times per day [Active]; tamsulosin 0.4 mg Oral cp24 1 cap once daily [Active]; triamterene-hydrochlorothiazid 37.5-25 mg Oral cap 1 cap once daily [Active]; warfarin 2 mg Oral tab 1/2 tab on MWF and 1 tab on TThSatSun [Active]; - PMHx: 20:30 Anemia; Atrial Fib; Bronchitis; CAD; COPD; Diabetes - NIDDM; GERD; High Cholesterol; ak1 Hypertension; Pneumonia; PVD; - PSHx: 20:30 Cholecystectomy; anal fistula; back; ak1 - Immunization history:: Adult Immunizations. - Family history:: not pertinent. - Social history:: Smoking status: Patient/guardian denies using tobacco. - Ebola Screening: : No symptoms or risks identified at this time. - Hospitalizations: : No recent hospitalization is reported. Screenin:42 Abuse screen: Denies threats or abuse. Nutritional screening: No deficits noted. ea Tuberculosis screening: No symptoms or risk factors identified. Fall Risk IV access (20 points). Assessment: 21:42 General: Appears in no apparent distress. Behavior is calm, cooperative, appropriate ea for age. Pain: Denies pain. Neuro: Level of Consciousness is awake, alert, obeys commands, Oriented to person, place, time, situation. Cardiovascular: Patient's skin is warm and dry. Respiratory: Airway is patent Respiratory effort is even, unlabored, Respiratory pattern is regular, symmetrical. GI: Abdomen is distended, Bowel sounds present X 4 quads. Abd is soft and non tender X 4 quads. Derm: Skin is pink, warm \T\ dry. 22:20 Reassessment: Patient and/or family updated on plan of care and expected duration. Pain ea level reassessed. Patient is alert, oriented x 3, equal unlabored respirations, skin warm/dry/pink. Pt taken to CT. 22:37 Reassessment: Patient and/or family updated on plan of care and expected duration. Pain ea level reassessed. Patient is alert, oriented x 3, equal unlabored respirations, skin warm/dry/pink. Returned from CT. 23:40 Reassessment: Patient and/or family updated on plan of care and expected duration. Pain ea level reassessed. Patient is alert, oriented x 3, equal unlabored respirations, skin warm/dry/pink. 02/15 00:18 Reassessment: Patient and/or family updated on plan of care and expected duration. Pain ea level reassessed. Patient is alert, oriented x 3, equal unlabored respirations, skin warm/dry/pink. Discharge instruction given to patient and daughter, both verbalized the understanding of instruction. No s/s of pain or discomfort noted at this time. Pt left via wheelchair per ED staff, pt assisted to private vehicle per ED staff, pt accompanied by daughter. Vital Signs: 02/14 20:28 BP 118 / 70; Pulse 83; Resp 16; Temp 98.1; Pulse Ox 99% on R/A; Weight 72.12 kg (R); ak1 Height 5 ft. 4 in. (162.56 cm) (R); Pain 8/10; 21:36 BP 127 / 80; Pulse 75; Resp 18; Pulse Ox 97% on R/A; ea 22:10 BP 110 / 56; Pulse 78; Resp 18; Pulse Ox 96% on R/A; ea 22:42 BP 109 / 71; Pulse 79; Resp 16; Pulse Ox 100% ; ea 23:15 BP 106 / 61; Pulse 82; Resp 18; Pulse Ox 100% ; ea 02/15 00:15 BP 120 / 76; Pulse 80; Resp 18; Temp 97.8; Pulse Ox 99% ; ea 02/14 20:28 Body Mass Index 27.29 (72.12 kg, 162.56 cm) ak1 ED Course: 02/14 20:15 Patient arrived in ED. do 20:29 Triage completed. ak1 20:30 Arm band placed on Patient placed in waiting room, Patient notified of wait time. ak1 20:55 Linden Shen MD is Attending Physician. rn 21:13 Radiology exam delayed due to lab results not completed at this time. (BUN/Creatinine). vm2 21:21 Chio Tao, RN is Primary Nurse. ea 21:38 Inserted saline lock: 20 gauge in left antecubital area, using aseptic technique. Blood ea collected. 21:42 Patient has correct armband on for positive identification. Placed in gown. Bed in low ea position. Call light in reach. Side rails up X2. 22:00 Radiology exam delayed due to lab results not completed at this time. (BUN/Creatinine). nj 22:12 Radiology exam delayed due to lab results not completed at this time. (BUN/Creatinine). sj 22:55 CT Abd/Pelvis - IV Contrast Only In Process Unspecified. EDMS 02/15 00:22 No provider procedures requiring assistance completed. IV discontinued, intact, ea bleeding controlled, No redness/swelling at site. Pressure dressing applied. Administered Medications: 02/14 21:35 Drug: Bentyl 20 mg Route: PO; ea 22:00 Follow up: Response: No adverse reaction ea 21:40 Drug: NS 0.9% 500 ml Route: IV; Rate: bolus; Site: left antecubital; ea 23:40 Follow up: Response: No adverse reaction; IV Status: Completed infusion; IV Intake: ea 500ml Intake: 23:40 IV: 500ml; Total: 500ml. ea Outcome: 23:48 Discharge ordered by . rn 02/15 00:22 Discharged to home via wheelchair, with family. ea Condition: stable Discharge instructions given to patient, family, Instructed on discharge instructions, follow up and referral plans. Demonstrated understanding of instructions, follow-up care. 00:23 Patient left the ED. ea Signatures: Dispatcher [employer] Suzanne Hodges Roman, MD MD rn Krenek, Amber RN RN [email or web address] Leonie Morrison Nathan nj McGuire, Victoria [facility] Chio Tao RN RN ea
--- NOTE | 2019-02-14 23:49 | EDPHYS ---
Physician Documentation [facility] Name: Gene Cisneros Age: 84 yrs Sex: Male : 1935 Arrival Date: 02/14/2019 Time: 20:15 Bed 15 Private MD: ED Physician Linden Shen HPI: 02/14 21:16 This 84 yrs old Male presents to ER via Wheelchair with complaints of rn Colonoscopy Yesterday Shaky, Insomnia. 21:16 Reports had colonoscopy yesterday in [place], reports fine prior, then after rn colonoscopy has been having trouble resting, reports abd feels bloated, generalized weakness. Reports breathing at baseline, no fever, no diarrhea. No trauma. Has had problems with low potassium in past. . Onset: The symptoms/episode began/occurred yesterday. Severity of symptoms: At their worst the symptoms were mild in the emergency department the symptoms are unchanged. The patient has not experienced similar symptoms in the past. The patient has been recently seen by a physician:. Told by nurse hotline to be seen. Historical: - Allergies: 20:30 No Known Allergies; ak1 - Home Meds: 20:30 baclofen 10 mg Oral tab 0.5 tab 4 times per day [Active]; cilostazol 50 mg Oral tab 1 ak1 tab 2 times per day [Active]; Daliresp 500 mcg Oral tab 1 tab once daily [Active]; Feosol 325 mg (65 mg iron) Oral tab daily [Active]; glipizide 10 mg Oral tab 1 tab once daily [Active]; Lyrica 200 mg Oral 1 cap 2 times per day [Active]; melatonin 10 mg Oral tab 1 tab nightly [Active]; metformin 750 mg Oral Tb24 1 tab twice a day [Active]; mirtazapine 15 mg Oral tab 1 tab nightly [Active]; Nexium 40 mg Oral cpDR 1 cap once daily [Active]; pravastatin 40 mg Oral tab 1 tab once daily [Active]; sotalol 80 mg Oral tab 0.5 tab 2 times per day [Active]; tamsulosin 0.4 mg Oral cp24 1 cap once daily [Active]; triamterene-hydrochlorothiazid 37.5-25 mg Oral cap 1 cap once daily [Active]; warfarin 2 mg Oral tab 1/2 tab on MWF and 1 tab on TThSatSun [Active]; - PMHx: 20:30 Anemia; Atrial Fib; Bronchitis; CAD; COPD; Diabetes - NIDDM; GERD; High Cholesterol; ak1 Hypertension; Pneumonia; PVD; - PSHx: 20:30 Cholecystectomy; anal fistula; back; ak1 - Immunization history:: Adult Immunizations. - Family history:: not pertinent. - Social history:: Smoking status: Patient/guardian denies using tobacco. - Ebola Screening: : No symptoms or risks identified at this time. - Hospitalizations: : No recent hospitalization is reported. ROS: 21:16 Constitutional: Negative for fever, chills, and weight loss, Eyes: Negative for injury, rn pain, redness, and discharge, Cardiovascular: Negative for chest pain, palpitations, and edema, Respiratory: Negative for shortness of breath, cough, wheezing, and pleuritic chest pain, Abdomen/GI: Negative for nausea, vomiting, diarrhea, and constipation, MS/Extremity: Negative for injury and deformity, Skin: Negative for injury, rash, and discoloration, Neuro: Negative for headache,numbness, tingling, and seizure. Exam: 21:16 Constitutional: This is a well developed, well nourished patient who is awake, alert, rn and in no acute distress. Head/Face: Normocephalic, atraumatic. Eyes: Pupils equal round and reactive to light, extra-ocular motions intact. Lids and lashes normal. Conjunctiva and sclera are non-icteric and not injected. Cornea within normal limits. Periorbital areas with no swelling, redness, or edema. ENT: MMM Cardiovascular: Irregular, no murmur Respiratory: Faint exp wheezing, speaking full sentences, without retractions Abdomen/GI: soft, non-tender, no masses MS/ Extremity: Pulses equal, no cyanosis. Neurovascular intact. Full, normal range of motion. Equal circumference. Neuro: Awake and alert, GCS 15, oriented to person, place, time, and situation. Cranial nerves II-XII grossly intact. Motor strength 5/5 in all extremities. Sensory grossly intact. Cerebellar exam normal. Vital Signs: 20:28 BP 118 / 70; Pulse 83; Resp 16; Temp 98.1; Pulse Ox 99% on R/A; Weight 72.12 kg (R); ak1 Height 5 ft. 4 in. (162.56 cm) (R); Pain 8/10; 21:36 BP 127 / 80; Pulse 75; Resp 18; Pulse Ox 97% on R/A; ea 22:10 BP 110 / 56; Pulse 78; Resp 18; Pulse Ox 96% on R/A; ea 22:42 BP 109 / 71; Pulse 79; Resp 16; Pulse Ox 100% ; ea 23:15 BP 106 / 61; Pulse 82; Resp 18; Pulse Ox 100% ; ea 07 00:15 BP 120 / 76; Pulse 80; Resp 18; Temp 97.8; Pulse Ox 99% ; ea 02/14 20:28 Body Mass Index 27.29 (72.12 kg, 162.56 cm) ak1 MDM: 02/14 20:55 Patient medically screened. rn 23:47 Differential Diagnosis dehydration, electrolyte disorder, anesthesia reaction. Data rn reviewed: vital signs, nurses notes, lab test result(s), radiologic studies, CT scan, and as a result, I will discharge patient. Counseling: I had a detailed discussion with the patient and/or guardian regarding: the historical points, exam findings, and any diagnostic results supporting the discharge/admit diagnosis, lab results, radiology results, the need for outpatient follow up, to return to the emergency department if symptoms worsen or persist or if there are any questions or concerns that arise at home. Response to treatment: the patient's symptoms have mildly improved after treatment, and as a result, I will discharge patient. Special discussion: I discussed with the patient/guardian in detail that at this point there is no indication for admission to the hospital. It is understood, however, that if the symptoms persist or worsen the patient needs to return immediately for re-evaluation. ED course: No acute pathology found, possible anesthesia reaction and gaseous distension due to colonoscopy. 02/14 21:03 Order name: Basic Metabolic Panel; Complete Time: 22:30 rn 02/14 21:03 Order name: CBC with Diff; Complete Time: :30 rn 02/14 21:03 Order name: Creatinine for Radiology; Complete Time: 22:30 rn 02/14 21:03 Order name: Hepatic Function; Complete Time: 22:30 rn 02/14 21:03 Order name: Lipase; Complete Time: 22:30 rn 02/14 22:11 Order name: CBC Smear Scan; Complete Time: 22:30 EDMS 07/09 21:03 Order name: IV Saline Lock; Complete Time: 21:40 rn 02/14 21:03 Order name: Labs collected and sent; Complete Time: 21:40 rn 02/14 21:04 Order name: CT Abd/Pelvis - IV Contrast Only rn Administered Medications: 21:35 Drug: Bentyl 20 mg Route: PO; ea 22:00 Follow up: Response: No adverse reaction ea 21:40 Drug: NS 0.9% 500 ml Route: IV; Rate: bolus; Site: left antecubital; ea 23:40 Follow up: Response: No adverse reaction; IV Status: Completed infusion; IV Intake: ea 500ml Disposition: 02/14/19 23:48 Discharged to Home. Impression: Dehydration, Abdominal distension (gaseous). - Condition is Stable. - Discharge Instructions: Dehydration, Adult, Colonoscopy, Care After. - Medication Reconciliation Form, Thank You Letter, Antibiotic Education, Prescription Opioid Use form. - Follow up: Private Physician; When: As needed; Reason: Recheck today's complaints, Re-evaluation by your physician. - Problem is new. - Symptoms have improved. Signatures: Dispatcher [employer] [facility] Linden Shen MD MD rn Krenek, Amber RN RN ak1 Chio Tao RN RN lilly Corrections: (The following items were deleted from the chart) 02/15 00:23 02/14 23:48 02/14/2019 23:48 Discharged to Home. Impression: Dehydration; Abdominal ea distension (gaseous). Condition is Stable. Forms are Medication Reconciliation Form, Thank You Letter, Antibiotic Education, Prescription Opioid Use. Follow up: Private Physician; When: As needed; Reason: Recheck today's complaints, Re-evaluation by your physician. Problem is new. Symptoms have improved. rn
[2019-02-15 05:01] VITALS: BP 120/76; TEMP 97.8; O2SAT 99
--- NOTE | 2019-02-15 11:07 | RAD REPORT ---
EXAM DESCRIPTION: CT abdomen and pelvis with IV contrast CLINICAL HISTORY: 84-year-old male status post colonoscopy yesterday, evaluate for complaint of abdo eveline distention, bloating TECHNIQUE: Axial CT imaging of the abdomen and pelvis was performed following the administration of intravenous contrast.. Sagittal and coronal reconstructed images were then performed. The CT stud y is performed according to ALARA (as low as reasonably achievable) or ALARA/IMAGE GENTLY, with autom atic adjustment of mA and/or kV according to patient size. Performed on: 02/14/2019 at 10:34 PM. C None FINDINGS: Lung bases: The lung bases are clear. There is minimal right basilar atelectasis and/or fi brosis. Liver: The liver is normal in size and configuration. No focal hepatic abnormalities are identified. Liver attenuation is slightly diminished favoring underlying fatty infiltration. There are a couple o f punctate calcifications in the liver consistent with granulomas. Spleen: The spleen is normal is size, configuration and attenuation. There are a few splenic granulom as. Gallbladder and bile duct: The gallbladder is surgically absent. There is no biliary ductal dilatat ion. Pancreas: The pancreas is grossly normal in size and configuration. Adrenal Glands: The adrenal glands are normal in size and configuration. Kidneys: The kidneys are normal in size and configuration. There is no evidence of hydronephrosis. Th ere is no evidence of nephrolithiasis. No definite solid or cystic renal mass lesions are identified. Stomach: The stomach is grossly normal. There is no definite hiatal hernia. Bowel: The bowel gas pattern is non specific and non obstructive. Appendix: The appendix is normal. Free air: There is no evidence of free air. Free fluid: There is no evidence of free fluid. Vasculature: The aorta is normal in caliber and contour. There are atherosclerotic calcifications sonny ng the abdominal aorta and major branch vessels. The inferior vena cava is grossly unremarkable. Lymphadenopathy: No pathologic lymphadenopathy is identified. Bladder: The bladder is well distended and smooth in contour. Reproductive: The prostate gland is grossly within normal limits. There are bilateral fat-containing inguinal hernias. Bones: No acute osseous abnormalities are identified. There are advanced degenerative changes through out the thoracolumbar spine with vacuum discs at numerous levels. There is canal stenosis at the L4-L 5 level and left neural foraminal stenosis Soft tissues: No focal soft tissue abnormalities are identified. IMPRESSION: 1. No evidence of acute intra-abdominal or intrapelvic pathology. There is no evidence o f bowel obstruction, free air or free fluid. 2. Fatty infiltration of the liver. 3. Evidence of prior granulomatous disease. 4. Remote cholecystectomy. 5. Degenerative changes of the skeletal and vascular structures. 6. Bilateral fat-containing inguinal hernias. Electronically signed by: Mary Purcell DO 02/14/2019 11:10 PM CDT Due to temporary technical issues with the PACS/Fluency reporting system, reports are being signed by the in house radiologist as a courtesy to ensure prompt reporting. The interpreting radiologist is f ully responsible for the content of the report.
== END 2019-02-15 00:23 | disposition home or self-care (01) ==
LOC: ER 19:48
DX: E86.0 Dehydration (principal); I10 Essential (primary) hypertension; E11.9 Type 2 diabetes mellitus without complications; I48.91 Unspecified atrial fibrillation; J44.9 Chronic obstructive pulmonary disease, unspecified; E78.00 Pure hypercholesterolemia, unspecified; Z79.01 Long term (current) use of anticoagulants; Z98.890 Other specified postprocedural states
CPT/HCPCS: 85025; 80048; 36415; 80076; 83690; 74177; Q9967; 96360; 96361; 99284

== ENCOUNTER 2019-02-23 09:52 | Emergency (ER) | payer OTHER ==
[2019-02-23 10:53] LABS: Absolute Lymphocytes (CBC) 1.5 K/uL (0.7-4.9); Basophils % 0.4 % (0-1.3); Eosinophils % 0.3 % (0-4.4); Hematocrit 41.4 % (39.6-49.0); Lymphocytes % 14.1 % (15.3-44.8); MPV 7.4 fL (7.6-11.3); Monocytes % 5.2 % (3.3-12.3); RBC Red Blood Cell Count 5.67 M/uL (4.33-5.43)
[2019-02-23 11:19] LABS: Albumin 3.6 g/dL (3.4-5.0); Bilirubin Direct 0.2 mg/dL (0-0.2); Bilirubin Total 0.4 mg/dL (0.2-1.0); Potassium 3.3 mmol/L (3.5-5.1); Protein, Total 7.4 g/dL (6.4-8.2)
--- NOTE | 2019-02-23 12:28 | RAD REPORT ---
EXAM DESCRIPTION: CT - Abdomen Pelvis W Contrast - 02/23/2019 11:45 am CLINICAL HISTORY: Abdominal pain/left lower quadrant pain COMPARISON: February 14, 2018 TECHNIQUE: Computed axial tomography of the abdomen pelvis was obtained. 100 cc Isovue-300 was admin istered intravenously. Oral contrast was not requested which limits evaluation of bowel. All CT scans are performed using dose optimization technique as appropriate and may include automated exposure control or mA/KV adjustment according to patient size. FINDINGS: Fatty liver. Cholecystectomy 1 Spleen, pancreas, adrenal and kidneys appear unremarkable. There is no evidence of diverticulitis. A catheter is present within the bladder. Bladder wall is thickened. Small inguinal hernias contain f at Postsurgical changes involve the spine IMPRESSION: No acute abnormality is displayed.
[2019-02-23 12:33] LABS: Urine Blood 1+ (NEG); Urine Glucose NEGATIVE (NEG); Urine Protein NEGATIVE (NEG); Urine Specific Gravity 1.015 (1.005-1.030)
--- NOTE | 2019-02-23 12:52 | EDPHYS ---
Physician Documentation [facility] Name: Gene Cisneros Age: 84 yrs Sex: Male : 1935 Arrival Date: 02/23/2019 Time: 09:54 Bed 8 Private MD: ED Physician Kavin Trevizo HPI: 02/23 10:21 This 84 yrs old Male presents to ER via Ambulatory with complaints of Urinary jmm Retention, Abdominal Pain. 10:21 The patient presents with abdominal pain in the left lower quadrant. Onset: The jmm symptoms/episode began/occurred gradually, 1 day(s) ago. The symptoms do not radiate. Associated signs and symptoms: Pertinent positives: dysuria. This is an 84 year old male with a history of anemia, atrial fib, bronchitis, CAD, DM that presents to the ED with complaints of left lower abdominal pain and decreased urination beginning yesterday. Denies vomiting, denies diarrhea. . Historical: - Allergies: 09:58 No Known Allergies; hb - PMHx: 10:09 Anemia; Atrial Fib; Bronchitis; CAD; COPD; Diabetes - NIDDM; GERD; High Cholesterol; aa5 Hypertension; Pneumonia; PVD; - PSHx: 10:09 Cholecystectomy; anal fistula; back; aa5 - Ebola Screening: : No symptoms or risks identified at this time. ROS: 10:21 Constitutional: Negative for fever, chills, and weight loss, Cardiovascular: Negative jmm for chest pain, palpitations, and edema, Respiratory: Negative for shortness of breath, cough, wheezing, and pleuritic chest pain. 10:21 Abdomen/GI: Positive for abdominal pain. 10:21 : Positive for urinary symptoms, small amounts. 10:21 All other systems are negative. Exam: 10:21 Constitutional: This is a well developed, well nourished patient who is awake, alert, jmm and in no acute distress. Head/Face: atraumatic. Eyes: EOMI, no conjunctival erythema appreciated ENT: Moist Mucus Membranes Neck: Trachea midline, Supple Chest/axilla: Normal chest wall appearance and motion. Cardiovascular: Regular rate and rhythm. No edema appreciated Respiratory: Normal respirations, no respiratory distress appreciated 10:21 Back: Normal ROM Skin: General appearance color normal MS/ Extremity: Moves all extremities, no obvious deformities appreciated, no edema noted to the lower extremities Neuro: Awake and alert, normal gait Psych: Behavior is normal, Mood is normal, Patient is cooperative and pleasant 10:21 Abdomen/GI: Inspection: Bowel sounds: normal, Palpation: soft, mild abdominal tenderness, in the left lower quadrant, Hernia: noted in the paraumbilical area. Vital Signs: 09:57 BP 137 / 73; Pulse 81; Resp 16; Temp 98.1; Pulse Ox 97% on R/A; Weight 72.57 kg; Height hb 5 ft. 4 in. (162.56 cm); Pain 3/10; 11:00 BP 158 / 92; Pulse 72; Resp 16 S; Pulse Ox 100% on R/A; Pain 0/10; aa5 12:15 BP 172 / 83; Pulse 80; Resp 16 S; Temp 97.6(O); Pulse Ox 100% on R/A; Pain 0/10; aa5 09:57 Body Mass Index 27.46 (72.57 kg, 162.56 cm) hb MDM: 10:21 Patient medically screened. [facility] 12:50 Data reviewed: vital signs, nurses notes. Counseling: I had a detailed discussion with bailey the patient and/or guardian regarding: the historical points, exam findings, and any diagnostic results supporting the discharge/admit diagnosis, lab results, radiology results, the need for outpatient follow up, to return to the emergency department if symptoms worsen or persist or if there are any questions or concerns that arise at home. 02/23 10:24 Order name: Basic Metabolic Panel; Complete Time: 11:53 [facility] 02/23 10:24 Order name: CBC with Diff; Complete Time: 16:21 [facility] 02/23 10:24 Order name: Creatinine for Radiology; Complete Time: 11:53 [facility] 02/23 10:24 Order name: Hepatic Function; Complete Time: 11:53 [facility] 02/23 10:24 Order name: Lipase; Complete Time: 11:53 [facility] 02/23 10:46 Order name: Urine Dipstick--Ancillary (enter results); Complete Time: 12:40 02/23 10:24 Order name: IV Saline Lock; Complete Time: 10:44 [facility] 02/23 10:24 Order name: Labs collected and sent; Complete Time: 10:44 [facility] 02/23 10:24 Order name: Thompson; Complete Time: 10:44 [facility] 02/23 10:24 Order name: CT Abd/Pelvis - IV Contrast Only; Complete Time: 12:30 [facility] 02/23 13:05 Order name: Manual Differential; Complete Time: 16:21 EDMS Administered Medications: No medications were administered Disposition: 02/23/19 12:51 Discharged to Home. Impression: Dysuria. - Condition is Stable. - Discharge Instructions: Dysuria. - Prescriptions for Cephalexin 500 mg Oral Capsule - take 1 capsule by ORAL route every 12 hours for 10 days; 20 capsule. - Medication Reconciliation Form, Thank You Letter, Antibiotic Education, Prescription Opioid Use form. - Follow up: Kris Cowan MD; When: 2 - 3 days; Reason: Recheck today's complaints, Continuance of care, Re-evaluation by your physician. Addendum: 02/25/2019 07:33 Co-signature as Attending Physician, Kavin Trevizo MD. g s Signatures: Dispatcher [employer] EDMD Aydee Schulz, RN Deondre Norwood PA PA [facility] Myriam Coe, RN RN aa5 Davina Garcia, RN RN Kavin Trevizo MD MD Corrections: (The following items were deleted from the chart) 02/23 13:07 12:51 02/23/2019 12:51 Discharged to Home. Impression: Dysuria. Condition is Stable. aj Forms are Medication Reconciliation Form, Thank You Letter, Antibiotic Education, Prescription Opioid Use. Follow up: Kris Cowan; When: 2 - 3 days; Reason: Recheck today's complaints, Continuance of care, Re-evaluation by your physician. [facility]
--- NOTE | 2019-02-23 12:52 | ER ---
Nurse's Notes [facility] Name: Gene Cisneros Age: 84 yrs Sex: Male : 1935 Arrival Date: 02/23/2019 Time: 09:54 Bed 8 Private MD: Diagnosis: Dysuria Presentation: 02/23 09:56 Presenting complaint: LLQ pain and difficulty urinating x 2 days. Denies fever/blood in hb urine. Transition of care: patient was not received from another setting of care. Onset of symptoms was February 22, 2019. Risk Assessment: Do you want to hurt yourself or someone else? Patient reports no desire to harm self or others. Initial Sepsis Screen: Does the patient meet any 2 criteria? No. Patient's initial sepsis screen is negative. Does the patient have a suspected source of infection? No. Patient's initial sepsis screen is negative. Care prior to arrival: None. 09:56 Method Of Arrival: Ambulatory hb 09:56 Acuity: JO-ANN 3 hb Historical: - Allergies: 09:58 No Known Allergies; hb - PMHx: 10:09 Anemia; Atrial Fib; Bronchitis; CAD; COPD; Diabetes - NIDDM; GERD; High Cholesterol; aa5 Hypertension; Pneumonia; PVD; - PSHx: 10:09 Cholecystectomy; anal fistula; back; aa5 - Ebola Screening: : No symptoms or risks identified at this time. Screenin:49 Abuse screen: Denies threats or abuse. Nutritional screening: No deficits noted. aa5 Tuberculosis screening: No symptoms or risk factors identified. Fall Risk IV access (20 points). Total Velasco Fall Scale indicates No Risk (0-24 pts). Assessment: 10:20 General: Appears comfortable, Behavior is calm, cooperative. Pain: Complains of pain in aa5 left lower quadrant Pain radiates to left flank and left mid-low back Pain currently is 0 out of 10 on a pain scale. Quality of pain is described as sharp, Pain began 2-3 days ago. Is intermittent. Neuro: Level of Consciousness is awake, alert, obeys commands, Oriented to person, place, time, situation. Cardiovascular: Patient's skin is warm and dry. Respiratory: Airway is patent Respiratory effort is even, unlabored, Respiratory pattern is regular, symmetrical. GI: Abdomen is round Bowel sounds present X 4 quads. Abd is soft X 4 quads Abdomen is tender to palpation in left lower quadrant. : Reports inability to void, since 2 days ago. Pt reports last normal void was 2 days ago, pt states "every time I try to pee it's just dribbles". EENT: No signs and/or symptoms were reported regarding the EENT system. Derm: Skin is pink, warm \\T\\ dry. Musculoskeletal: Range of motion: intact in all extremities. 11:19 Reassessment: Patient is alert, oriented x 3, equal unlabored respirations, skin aa5 warm/dry/pink. Awaiting CT scan, pt notified of wait time. . 12:17 Reassessment: Patient is alert, oriented x 3, equal unlabored respirations, skin aa5 warm/dry/pink. Patient denies pain at this time. Pt lying down in bed watching TV. Pt's son at bedside. Awaiting CT scan results, pt and family notified of wait time. . Vital Signs: 09:57 BP 137 / 73; Pulse 81; Resp 16; Temp 98.1; Pulse Ox 97% on R/A; Weight 72.57 kg; Height hb 5 ft. 4 in. (162.56 cm); Pain 3/10; 11:00 BP 158 / 92; Pulse 72; Resp 16 S; Pulse Ox 100% on R/A; Pain 0/10; aa5 12:15 BP 172 / 83; Pulse 80; Resp 16 S; Temp 97.6(O); Pulse Ox 100% on R/A; Pain 0/10; aa5 09:57 Body Mass Index 27.46 (72.57 kg, 162.56 cm) hb ED Course: 09:54 Patient arrived in ED. as 09:57 Triage completed. hb 09:58 Arm band placed on. hb 10:00 Myriam Coe, DEBBI is Primary Nurse. aa5 10:09 Deondre Johnson PA is PHCP. jm 10:09 Kavin Trevizo MD is Attending Physician. jm 10:20 Patient has correct armband on for positive identification. Placed in gown. Bed in low aa5 position. Call light in reach. Side rails up X2. 10:38 Thompson cath inserted, using sterile technique, 16 Fr., by ut, balloon inflated, to aa5 gravity drainage, urine specimen collected. other 45cc of urine returned, JILLIAN was notified. 10:38 No provider procedures requiring assistance completed. aa5 10:46 Initial lab(s) drawn, by me, sent to lab. Inserted saline lock: 22 gauge in right jb1 wrist, using aseptic technique. Blood collected. 10:50 Note: per Deondre, wait for new labs . Radiology exam delayed due to lab results not sj completed at this time. (BUN/Creatinine). 11:45 CT Abd/Pelvis - IV Contrast Only In Process Unspecified. EDMS 12:51 Kris Cowan MD is Referral Physician. [facility] 13:04 Thompson cath removed intact, balloon deflated. IV discontinued, intact, bleeding aj controlled, No redness/swelling at site. Pressure dressing applied. Administered Medications: No medications were administered Output: 12:20 Urine: 600ml (Voided); Total: 600ml. aa5 Outcome: 12:51 Discharge ordered by MD. [facility] 13:04 Discharged to home via wheelchair, with family. aj 13:04 Condition: good 13:04 Discharge instructions given to patient, family, Instructed on discharge instructions, follow up and referral plans. medication usage, Demonstrated understanding of instructions, follow-up care, medications, Prescriptions given X 1. 13:07 Patient left the ED. aj Signatures: Dispatcher [employer] EDMS Wilder Griffith Aydee Schulz, RN Deondre Norwood PA PA jmm Jones, Susan sj Martinez, Amelia as Calderon, Audri, RN RN aa5 Davina Garcia RN RN
[2019-02-23 13:05] LABS: Anisocytosis SLIGHT; Blood Morphology Comment NOTED (NOT SEEN); Platelet Estimate ADEQ
[2019-02-23 13:18] VITALS: O2SAT 100
[2019-02-23 13:19] VITALS: BP 172/83; TEMP 97.6
== END 2019-02-23 13:07 | disposition home or self-care (01) ==
LOC: ER 09:52
DX: R30.0 Dysuria (principal); D64.9 Anemia, unspecified; I48.91 Unspecified atrial fibrillation; I25.10 Atherosclerotic heart disease of native coronary artery without angina pectoris; I10 Essential (primary) hypertension; E11.9 Type 2 diabetes mellitus without complications; E78.00 Pure hypercholesterolemia, unspecified; J44.9 Chronic obstructive pulmonary disease, unspecified
CPT/HCPCS: 85025; 80048; 36415; 80076; 81003; 83690; 74177; Q9967; 51702; 99284

== ENCOUNTER 2019-08-18 08:57 | Inpatient (IN) | payer OTHER ==
[2019-08-18 09:32] LABS: Absolute Lymphocytes (CBC) 1.1 K/uL (0.7-4.9); Basophils % 0.3 % (0-1.3); Lymphocytes % 9.8 % (15.3-44.8); MPV 7.8 fL (7.6-11.3); RBC Red Blood Cell Count 5.79 M/uL (4.33-5.43)
[2019-08-18 09:35] LABS: Protime INR 2.06
[2019-08-18 09:51] LABS: ALT/SGPT 64 U/L (12-78); AST/SGOT 46 U/L (15-37); Albumin 3.5 g/dL (3.4-5.0); Alkaline Phosphatase 64 U/L (45-117); BUN Blood Urea Nitrogen 14 mg/dL (7-18); Bicarbonate 25 mmol/L (21-32); Bilirubin Direct 0.2 mg/dL (0-0.2); Bilirubin Total 0.5 mg/dL (0.2-1.0); Glucose Level 167 mg/dL (74-106); Lipase 196 U/L (73-393); Magnesium 1.7 mg/dL (1.8-2.4); NT PRO-BNP 1187 pg/mL (<450); Potassium 3.2 mmol/L (3.5-5.1); Protein, Total 7.7 g/dL (6.4-8.2); Sodium Level 134 mmol/L (136-145); Troponin (Emerg Dept Use Only) < 0.02 ng/mL (0.0-0.045)
[2019-08-18] MEDS ORDERED: dexAMETHasone 10 MG/ML VIAL ONE (10:05)
[2019-08-18] MEDS ORDERED: LEVALBUTEROL 1.25 MG/3 ML NEB ONE ×3 (10:05→12:20)
[2019-08-18] MEDS ORDERED: ACETAMINOPHEN 325 MG TABLET ONE (10:06)
[2019-08-18 10:07] LABS: CKMB Creatine Kinase MB 1.5 ng/mL (0.3-3.6)
--- NOTE | 2019-08-18 10:22 | EDPHYS ---
Physician Documentation [facility] Name: Gene Cisneros Age: 84 yrs Sex: Male : 1935 Arrival Date: 08/18/2019 Time: 08:59 Bed 16 Private MD: APRIL Physician Stef Ravi HPI: 08/18 10:12 This 84 yrs old Male presents to ER via Wheelchair with complaints of evgeny Shortness Of Breath. 10:12 The patient has shortness of breath at rest, with light activity. Onset: The evgeny symptoms/episode began/occurred 2 day(s) ago. Duration: The symptoms are continuous, and are steadily getting worse. The patient's shortness of breath has no apparent modifying factors. Associated signs and symptoms: The patient has no apparent associated signs or symptoms. Severity of symptoms: At their worst the symptoms were moderate in the emergency department the symptoms are unchanged. The patient has experienced similar episodes in the past, multiple times. Historical: - Allergies: 09:10 No Known Allergies; aa5 - Home Meds: 09:10 baclofen 10 mg Oral tab 0.5 tab 4 times per day [Active]; cilostazol 50 mg Oral tab 1 aa5 tab 2 times per day [Active]; Daliresp 500 mcg Oral tab 1 tab once daily [Active]; Feosol 325 mg (65 mg iron) Oral tab daily [Active]; glipizide 10 mg Oral tab 1 tab once daily [Active]; Lyrica 200 mg Oral 1 cap 2 times per day [Active]; melatonin 10 mg Oral tab 1 tab nightly [Active]; metformin 750 mg Oral Tb24 1 tab twice a day [Active]; mirtazapine 15 mg Oral tab 1 tab nightly [Active]; Nexium 40 mg Oral cpDR 1 cap once daily [Active]; pravastatin 40 mg Oral tab 1 tab once daily [Active]; sotalol 80 mg Oral tab 0.5 tab 2 times per day [Active]; tamsulosin 0.4 mg Oral cp24 1 cap once daily [Active]; triamterene-hydrochlorothiazid 37.5-25 mg Oral cap 1 cap once daily [Active]; warfarin 2 mg Oral tab 1/2 tab on MWF and 1 tab on TThSatSun [Active]; prednisone 20 mg Oral tab once daily [Active]; cefdinir 300 mg oral cap every 12 hours [Active]; - PMHx: 09:10 Anemia; Atrial Fib; Bronchitis; CAD; COPD; Diabetes - NIDDM; GERD; High Cholesterol; aa5 Hypertension; Pneumonia; PVD; - PSHx: 09:10 Cholecystectomy; anal fistula; back; aa5 - Immunization history:: Adult Immunizations up to date, Pneumococcal vaccine is up to date, Flu vaccine is up to date. - Ebola Screening: : No symptoms or risks identified at this time. - Family history:: not pertinent. - Social history:: Smoking status: Patient/guardian denies using tobacco. ROS: 10:12 Constitutional: Negative for fever, chills, and weight loss, Eyes: Negative for injury, evgeny pain, redness, and discharge, ENT: Negative for injury, pain, and discharge, Neck: Negative for injury, pain, and swelling, Abdomen/GI: Negative for abdominal pain, nausea, vomiting, diarrhea, and constipation, Back: Negative for injury and pain, : Negative for injury, bleeding, discharge, and swelling, MS/Extremity: Negative for injury and deformity, Skin: Negative for injury, rash, and discoloration, Neuro: Negative for headache, weakness, numbness, tingling, and seizure, Psych: Negative for depression, anxiety, suicide ideation, homicidal ideation, and hallucinations, Allergy/Immunology: Negative for hives, rash, and allergies, Endocrine: Negative for neck swelling, polydipsia, polyuria, polyphagia, and marked weight changes, Hematologic/Lymphatic: Negative for swollen nodes, abnormal bleeding, and unusual bruising. 10:12 Cardiovascular: Positive for palpitations. 10:12 Respiratory: Positive for cough, shortness of breath, wheezing, inspiratory, expiratory. Exam: 10:12 Constitutional: This is a well developed, well nourished patient who is awake, alert, evgeny and in no acute distress. Head/Face: Normocephalic, atraumatic. Eyes: Pupils equal round and reactive to light, extra-ocular motions intact. Lids and lashes normal. Conjunctiva and sclera are non-icteric and not injected. Cornea within normal limits. Periorbital areas with no swelling, redness, or edema. ENT: Nares patent. No nasal discharge, no septal abnormalities noted. Tympanic membranes are normal and external auditory canals are clear. Oropharynx with no redness, swelling, or masses, exudates, or evidence of obstruction, uvula midline. Mucous membranes moist. Neck: Trachea midline, no thyromegaly or masses palpated, and no cervical lymphadenopathy. Supple, full range of motion without nuchal rigidity, or vertebral point tenderness. No Meningismus. Chest/axilla: Normal chest wall appearance and motion. Nontender with no deformity. No lesions are appreciated. Abdomen/GI: Soft, non-tender, with normal bowel sounds. No distension or tympany. No guarding or rebound. No evidence of tenderness throughout. Back: No spinal tenderness. No costovertebral tenderness. Full range of motion. Male : Normal genitalia with no discharge or lesions. Skin: Warm, dry with normal turgor. Normal color with no rashes, no lesions, and no evidence of cellulitis. MS/ Extremity: Pulses equal, no cyanosis. Neurovascular intact. Full, normal range of motion. Neuro: Awake and alert, GCS 15, oriented to person, place, time, and situation. Cranial nerves II-XII grossly intact. Motor strength 5/5 in all extremities. Sensory grossly intact. Cerebellar exam normal. Normal gait. Psych: Awake, alert, with orientation to person, place and time. Behavior, mood, and affect are within normal limits. 10:12 Cardiovascular: Rate: tachycardic, Rhythm: irregularly irregular, Pulses: Pulses are 4+ in bilateral radial, brachial, femoral, popliteal, posterior tibial and and dorsalis pedis arteries.. Heart sounds: normal, Edema: is not appreciated, JVD: is not appreciated. Vital Signs: 09:10 BP 118 / 77; Pulse 119; Resp 26; Temp 99.5(O); Pulse Ox 92% on R/A; Weight 72.57 kg; aa5 Height 5 ft. 4 in. (162.56 cm); 09:30 Resp 26 S; Pulse Ox 96% on Nebulizer Mask; aa5 10:00 BP 124 / 59; Pulse 118; Resp 25; Pulse Ox 93% on R/A; ca1 11:00 BP 130 / 67; Pulse 109; Resp 27 S; Pulse Ox 93% on R/A; ca1 12:00 BP 115 / 61; Pulse 99; Resp 22 S; Pulse Ox 93% on R/A; ca1 13:00 BP 106 / 91; Pulse 95; Resp 20 S; Pulse Ox 94% on R/A; ca1 14:00 BP 110 / 86; Pulse 92; Resp 19; Temp 98.1(O); Pulse Ox 94% on R/A; ca1 09:10 Body Mass Index 27.46 (72.57 kg, 162.56 cm) [facility] MDM: 09:03 Patient medically screened. [facility] 10:15 Data reviewed: vital signs, nurses notes, lab test result(s), EKG, radiologic studies, evgeny plain films. 08/18 09:04 Order name: Basic Metabolic Panel; Complete Time: 11:51 [facility] 08/18 09:04 Order name: CBC with Diff; Complete Time: 10:03 [facility] 08/18 09:04 Order name: LFT's; Complete Time: 11:51 [facility] 08/18 09:04 Order name: Magnesium; Complete Time: 11:51 [facility] 08/18 09:04 Order name: NT PRO-BNP; Complete Time: 11:51 [facility] 08/18 09:04 Order name: PT-INR; Complete Time: 10:03 [facility] 08/18 09:04 Order name: Troponin (emerg Dept Use Only); Complete Time: 11:51 [facility] 08/18 09:04 Order name: Lipase; Complete Time: 11:51 [facility] 08/18 09:04 Order name: Blood Culture Adult (2) [facility] 08/18 09:04 Order name: Influenza Screen (a \T\ B); Complete Time: 10:03 [facility] 08/18 09:04 Order name: Urine Culture [facility] 08/18 09:28 Order name: Ckmb; Complete Time: 11:51 [facility] 08/18 09:28 Order name: CPK; Complete Time: 11:51 [facility] 08/18 09:28 Order name: Lactate; Complete Time: 11:51 [facility] 08/18 09:04 Order name: XRAY Chest (1 view); Complete Time: 11:51 [facility] 08/18 09:28 Order name: Procalcitonin; Complete Time: 11:51 [facility] 08/18 09:28 Order name: Ptt, Activated; Complete Time: 10:03 aa5 08/18 09:28 Order name: Urine Microscopic Only [facility] 08/18 09:40 Order name: Glucose, Ancillary Testing; Complete Time: 10:03 EDMS 08/18 11:28 Order name: Urine Dipstick--Ancillary (enter results) eb 08/18 13:04 Order name: Urine Dipstick-Ancillary EDMS 08/18 09:04 Order name: EKG; Complete Time: 09:05 [facility] 08/18 09:04 Order name: Cardiac monitoring; Complete Time: 09:07 [facility] 08/18 09:04 Order name: EKG - Nurse/Tech; Complete Time: 09:21 [facility] 08/18 09:04 Order name: IV Saline Lock; Complete Time: 09:31 [facility] 08/18 09:04 Order name: Labs collected and sent; Complete Time: 09:31 [facility] 08/18 09:04 Order name: O2 Per Protocol; Complete Time: 09:07 [facility] 08/18 09:04 Order name: O2 Sat Monitoring; Complete Time: 09:07 [facility] 08/18 09:04 Order name: Urine Dipstick-Ancillary (obtain specimen); Complete Time: 12:27 [facility] 08/18 09:28 Order name: Accucheck; Complete Time: 09:28 [facility] 08/18 09:28 Order name: IV Saline Lock - Large Bore; Complete Time: 09:28 [facility] 08/18 12:15 Order name: Diet Ada 1800 Caesar; Complete Time: 12:16 eb Administered Medications: 09:19 Drug: Xopenex (3) 1.25 mg Route: Inhalation; aa5 09:19 Drug: AtroVENT Aerosol 0.5 mg Route: Inhalation; aa5 09:25 Drug: SOLU-Medrol 125 mg Route: IVP; Site: left wrist; aa5 09:40 Drug: Zosyn 3.375 grams Route: IVPB; Infused Over: 60 mins; Site: left wrist; aa5 09:40 Drug: NS 0.9% (30 ml/kg) 30 ml/kg Route: IV; Rate: bolus; Site: left wrist; aa5 11:00 Follow up: Urine output 340 ml; Response: No adverse reaction; IV Status: Completed ca1 infusion; IV Intake: 2000ml 09:41 CANCELLED (Physician Discretion): NS 0.9% 1000 ml IV at 125 ml/hr continuous aa5 10:00 Drug: Tylenol 650 mg Route: PO; ca1 12:27 Follow up: Response: No adverse reaction ca1 10:01 Drug: Xopenex 1.25 mg Route: Inhalation; ca1 10:01 Drug: Xopenex 1.25 mg Route: Inhalation; ca1 10:05 Drug: Decadron - Dexamethasone 10 mg Route: IVP; Site: left forearm; ca1 12:00 Follow up: Response: No adverse reaction; Marked relief of symptoms ca1 10:36 Drug: Tamiflu 75 mg Route: PO; ca1 12:27 Follow up: Response: No adverse reaction ca1 11:55 Drug: Potassium Effervescent Tablet 50 mEq Route: PO; ca1 13:32 Follow up: Response: No adverse reaction ca1 12:00 Drug: Xopenex 1.25 mg Route: Inhalation; ca1 12:00 Drug: Magnesium Sulfate 2 grams Route: IVPB; Infused Over: 2 hrs; Site: left forearm; ca1 14:23 Follow up: Response: No adverse reaction; IV Status: Completed infusion ca1 Point of Care Testing: Blood Glucose: 09:29 Blood Glucose: 180 mg/dL; aa5 Ranges: Critical Glucose Levels:Adult <50 mg/dl or >400 mg/dl <40 mg/dl or >180 mg/dl Disposition: 08/18/19 10:20 Hospitalization ordered by Prince Cezar for Inpatient Admission. Preliminary diagnosis are Hypoxemia, Chronic obstructive pulmonary disease with (acute) exacerbation, Influenza due to other identified influenza virus - INF B, Type 2 diabetes mellitus, Hypomagnesemia, Hypokalemia. - Bed requested for Telemetry/MedSurg (Inpatient). - Status is Inpatient Admission. ca1 - Condition is Fair. - Problem is new. - Symptoms have improved. UTI on Admission? No Signatures: Dispatcher [employer] EDDE Stef Ravi MD MD cha Calderon, Audri, RN RN aa5 Althea Thomas RN RN ss Botello, Elizabeth eb Acob, Cheryl, RN RN ca1 Corrections: (The following items were deleted from the chart) 09:41 09:04 NS 0.9% 1000 ml IV at 125 ml/hr continuous ordered. evgeny aaSahara 09:41 09:41 NS 0.9% 1000 ml IV at 125 ml/hr continuous ordered. ady aa5 11:52 10:20 Hospitalization Ordered by Prince Cezar DUMONT for Inpatient Admission. Preliminary evgeny diagnosis is Hypoxemia; Chronic obstructive pulmonary disease with (acute) exacerbation; Influenza due to other identified influenza virus - INF B; Type 2 diabetes mellitus. Bed requested for Telemetry/MedSurg (Inpatient). Status is Inpatient Admission. Condition is Fair. Problem is new. Symptoms have improved. UTI on Admission? No. evgeny 13:38 11:52 08/18/2019 10:20 Hospitalization Ordered by Prince Cezar DUMONT for Inpatient eb Admission. Preliminary diagnosis is Hypoxemia; Chronic obstructive pulmonary disease with (acute) exacerbation; Influenza due to other identified influenza virus - INF B; Type 2 diabetes mellitus; Hypomagnesemia; Hypokalemia. Bed requested for Telemetry/MedSurg (Inpatient). Status is Inpatient Admission. Condition is Fair. Problem is new. Symptoms have improved. UTI on Admission? No. evgeny 14:36 13:38 08/18/2019 10:20 Hospitalization Ordered by Prince Cezar DUMONT for Inpatient ca1 Admission. Preliminary diagnosis is Hypoxemia; Chronic obstructive pulmonary disease with (acute) exacerbation; Influenza due to other identified influenza virus - INF B; Type 2 diabetes mellitus; Hypomagnesemia; Hypokalemia. Bed requested for Telemetry/MedSurg (Inpatient). Status is Inpatient Admission. Condition is Fair. Problem is new. Symptoms have improved. UTI on Admission? No. eb
--- NOTE | 2019-08-18 10:22 | ER ---
Nurse's Notes [facility] Name: Gene Cisneros Age: 84 yrs Sex: Male : 1935 Arrival Date: 08/18/2019 Time: 08:59 Bed 16 Private MD: Diagnosis: Hypoxemia;Chronic obstructive pulmonary disease with (acute) exacerbation;Influenza due to other identified influenza virus-INF B;Type 2 diabetes mellitus;Hypomagnesemia;Hypokalemia Presentation: 08/18 09:10 Presenting complaint: Pt's son reports SOB and productive cough that began 3 days ago. aa5 Also reports pt started Prednisone 20 mg daily and Cefdinir per preparation plant supervisor 2 days ago. 09:10 Transition of care: patient was not received from another setting of care. Onset of aa5 symptoms was August 18, 2019. Risk Assessment: Do you want to hurt yourself or someone else? Patient reports no desire to harm self or others. 09:10 Acuity: JO-ANN 2 aa5 09:10 Method Of Arrival: Wheelchair aa5 09:15 Initial Sepsis Screen: Does the patient meet any 2 criteria? RR > 20 per min. HR > 90 aa5 bpm. Yes Does the patient have a suspected source of infection? Yes: Productive cough/pneumonia If YES to both, name of provider notified: Stef Ravi MD. Care prior to arrival: None. Triage Assessment: 13:31 Respiratory: ca1 Historical: - Allergies: 09:10 No Known Allergies; aa5 - Home Meds: 09:10 baclofen 10 mg Oral tab 0.5 tab 4 times per day [Active]; cilostazol 50 mg Oral tab 1 aa5 tab 2 times per day [Active]; Daliresp 500 mcg Oral tab 1 tab once daily [Active]; Feosol 325 mg (65 mg iron) Oral tab daily [Active]; glipizide 10 mg Oral tab 1 tab once daily [Active]; Lyrica 200 mg Oral 1 cap 2 times per day [Active]; melatonin 10 mg Oral tab 1 tab nightly [Active]; metformin 750 mg Oral Tb24 1 tab twice a day [Active]; mirtazapine 15 mg Oral tab 1 tab nightly [Active]; Nexium 40 mg Oral cpDR 1 cap once daily [Active]; pravastatin 40 mg Oral tab 1 tab once daily [Active]; sotalol 80 mg Oral tab 0.5 tab 2 times per day [Active]; tamsulosin 0.4 mg Oral cp24 1 cap once daily [Active]; triamterene-hydrochlorothiazid 37.5-25 mg Oral cap 1 cap once daily [Active]; warfarin 2 mg Oral tab 1/2 tab on MWF and 1 tab on TThSatSun [Active]; prednisone 20 mg Oral tab once daily [Active]; cefdinir 300 mg oral cap every 12 hours [Active]; - PMHx: 09:10 Anemia; Atrial Fib; Bronchitis; CAD; COPD; Diabetes - NIDDM; GERD; High Cholesterol; aa5 Hypertension; Pneumonia; PVD; - PSHx: 09:10 Cholecystectomy; anal fistula; back; aa5 - Immunization history:: Adult Immunizations up to date, Pneumococcal vaccine is up to date, Flu vaccine is up to date. - Ebola Screening: : No symptoms or risks identified at this time. - Family history:: not pertinent. - Social history:: Smoking status: Patient/guardian denies using tobacco. Screenin:30 Abuse screen: Denies threats or abuse. Nutritional screening: No deficits noted. aa5 Tuberculosis screening: No symptoms or risk factors identified. Fall Risk Fall in past 12 months (25 points). IV access (20 points). Total Velasco Fall Scale indicates High Risk Score (45 or more points). Fall prevention measures have been instituted. Side Rails Up X 2 Placed Close to Nursing Station. Assessment: 09:10 General: Appears distressed, uncomfortable, Behavior is cooperative. Pain: Complains of aa5 pain in thoracic area and chest Pain does not radiate. Pain currently is 0 out of 10 on a pain scale. Quality of pain is described as aching, Pt reports pain only with cough Pain began 2-3 days ago. Is episodic. Neuro: Level of Consciousness is awake, alert, obeys commands, Oriented to person, place, time, situation. Cardiovascular: Heart tones S1 S2 present Rhythm is atrial fibrillation with rapid ventricular response. Respiratory: Reports shortness of breath cough that is productive, Airway is patent Respiratory effort is labored, Respiratory pattern is tachypnea Breath sounds with wheezes bilaterally. GI: Abdomen is round Bowel sounds present X 4 quads. Abd is soft and non tender X 4 quads. : No signs and/or symptoms were reported regarding the genitourinary system. EENT: No signs and/or symptoms were reported regarding the EENT system. Derm: Skin is pink, warm \T\ dry. Musculoskeletal: Range of motion: intact in all extremities. 10:00 Reassessment: Patient appears in no apparent distress at this time. Patient and/or ca1 family updated on plan of care and expected duration. Pain level reassessed. Patient is alert, oriented x 3, equal unlabored respirations, skin warm/dry/pink. 11:03 Reassessment: Patient appears in no apparent distress at this time. Patient and/or ca1 family updated on plan of care and expected duration. Pain level reassessed. Patient is alert, oriented x 3, equal unlabored respirations, skin warm/dry/pink. 12:10 Reassessment: Patient appears in no apparent distress at this time. Patient is alert, ca1 oriented x 3, equal unlabored respirations, skin warm/dry/pink. 13:00 Reassessment: Patient appears in no apparent distress at this time. Patient is alert, ca1 oriented x 3, equal unlabored respirations, skin warm/dry/pink. Pt eating lunch at bedside. Tolerated well. 13:12 Reassessment: Dr. Richard at bedside. ca1 13:58 Reassessment: Patient appears in no apparent distress at this time. Patient is alert, ca1 oriented x 3, equal unlabored respirations, skin warm/dry/pink. Assisted pt to restroom. Called for report. Nurse will call back once back from lunch break. Vital Signs: 09:10 BP 118 / 77; Pulse 119; Resp 26; Temp 99.5(O); Pulse Ox 92% on R/A; Weight 72.57 kg; aa5 Height 5 ft. 4 in. (162.56 cm); 09:30 Resp 26 S; Pulse Ox 96% on Nebulizer Mask; aa5 10:00 BP 124 / 59; Pulse 118; Resp 25; Pulse Ox 93% on R/A; ca1 11:00 BP 130 / 67; Pulse 109; Resp 27 S; Pulse Ox 93% on R/A; ca1 12:00 BP 115 / 61; Pulse 99; Resp 22 S; Pulse Ox 93% on R/A; ca1 13:00 BP 106 / 91; Pulse 95; Resp 20 S; Pulse Ox 94% on R/A; ca1 14:00 BP 110 / 86; Pulse 92; Resp 19; Temp 98.1(O); Pulse Ox 94% on R/A; ca1 09:10 Body Mass Index 27.46 (72.57 kg, 162.56 cm) aa5 ED Course: 08:59 Patient arrived in ED. as 09:02 Stef Ravi MD is Attending Physician. evgeny 09:03 Myriam Coe, DEBBI is Primary Nurse. aa5 09:10 Patient has correct armband on for positive identification. Placed in gown. Bed in low aa5 position. Call light in reach. Side rails up X 1. Adult w/ patient. wheel alignment mechanic on. Pulse ox on. NIBP on. 09:10 Arm band placed on. aa5 09:15 Initial lab(s) drawn, by ED staff, sent to lab. Missed attempt(s): 22 gauge in left aa5 forearm. Missed attempt by ANDRE Muñiz tech . Bleeding controlled, band aid applied, catheter tip intact. 09:15 First set of blood cultures drawn by ED staff. aa5 09:18 EKG done, by emergency technician. reviewed by Stef Ravi MD. at1 09:25 Inserted saline lock: 20 gauge in left wrist, using aseptic technique. aa5 09:29 XRAY Chest (1 view) In Process Unspecified. EDMS 09:30 Ckmb Sent. 5 09:30 Lactate Sent. 5 09:30 CPK Sent. 5 09:30 Procalcitonin Sent. mh5 09:30 Ptt, Activated Sent. 5 09:30 Troponin (emerg Dept Use Only) Sent. 5 09:30 PT-INR Sent. 5 09:30 NT PRO-BNP Sent. 5 09:30 Second set of blood cultures drawn by de. aa5 09:31 Magnesium Sent. mh5 09:31 LFT's Sent. mh5 09:31 CBC with Diff Sent. mh5 09:31 Basic Metabolic Panel Sent. 5 09:32 Warm blanket given. 5 09:48 Triage completed. aa5 10:00 Report given to DEBBI Morris. aa5 10:18 Prince Robb MD is Hospitalizing Provider. evgeny 14:22 No provider procedures requiring assistance completed. Patient admitted, IV remains in ca1 place. Administered Medications: 09:19 Drug: Xopenex (3) 1.25 mg Route: Inhalation; aa5 09:19 Drug: AtroVENT Aerosol 0.5 mg Route: Inhalation; aa5 09:25 Drug: SOLU-Medrol 125 mg Route: IVP; Site: left wrist; aa5 09:40 Drug: Zosyn 3.375 grams Route: IVPB; Infused Over: 60 mins; Site: left wrist; aa5 09:40 Drug: NS 0.9% (30 ml/kg) 30 ml/kg Route: IV; Rate: bolus; Site: left wrist; aa5 11:00 Follow up: Urine output 340 ml; Response: No adverse reaction; IV Status: Completed ca1 infusion; IV Intake: 2000ml 09:41 CANCELLED (Physician Discretion): NS 0.9% 1000 ml IV at 125 ml/hr continuous aa5 10:00 Drug: Tylenol 650 mg Route: PO; ca1 12:27 Follow up: Response: No adverse reaction ca1 10:01 Drug: Xopenex 1.25 mg Route: Inhalation; ca1 10:01 Drug: Xopenex 1.25 mg Route: Inhalation; ca1 10:05 Drug: Decadron - Dexamethasone 10 mg Route: IVP; Site: left forearm; ca1 12:00 Follow up: Response: No adverse reaction; Marked relief of symptoms ca1 10:36 Drug: Tamiflu 75 mg Route: PO; ca1 12:27 Follow up: Response: No adverse reaction ca1 11:55 Drug: Potassium Effervescent Tablet 50 mEq Route: PO; ca1 13:32 Follow up: Response: No adverse reaction ca1 12:00 Drug: Xopenex 1.25 mg Route: Inhalation; ca1 12:00 Drug: Magnesium Sulfate 2 grams Route: IVPB; Infused Over: 2 hrs; Site: left forearm; ca1 14:23 Follow up: Response: No adverse reaction; IV Status: Completed infusion ca1 Point of Care Testing: Blood Glucose: 09:29 Blood Glucose: 180 mg/dL; aa5 Ranges: Intake: 11:00 IV: 2000ml; Total: 2000ml. ca1 Output: 11:00 Urine: 340ml; Total: 340ml. ca1 Outcome: 10:20 Decision to Hospitalize by Provider. evgeny 14:22 Admitted to Tele accompanied by tech, via wheelchair, room 407, with chart, Report ca1 called to Katie Echevarria RN 14:22 Condition: stable 14:22 Instructed on the need for admit. 14:36 Patient left the ED. ca1 Signatures: Dispatcher [employer] EDStef Degroot MD MD cha Martinez, Amelia as Calderon, Audri, RN RN [facility] Aydee Alfonso, info specialist EKG Tat1 Marylu Parekh [facility] Alexandra Salguero RN RN ca1 Corrections: (The following items were deleted from the chart) 09:45 09:33 BP 118 / 77; Pulse 65bpm; Resp 26bpm; Pulse Ox 96% Nebulizer Mask; Temp 99.5F [facility] Oral; 72.57 kg; Height 5 ft. 4 in.; BMI: 27.4; [facility] 09:46 09:32 Patient has correct armband on for positive identification. Placed in gown. Bed aa in low position. Call light in reach. Side rails up X 1. Adult w/ patient. [facility] 09:32 wheel alignment mechanic on. Pulse ox on. NIBP on. [place] [id number] 09:31 Initial lab(s) drawn, by me, sent to lab. [place] [id number] 09:31 Missed attempt(s): 22 gauge in left forearm. [place] [id number]
--- NOTE | 2019-08-18 10:36 | RAD REPORT ---
EXAM DESCRIPTION: RAD - Chest Single View - 08/18/2019 9:28 am CLINICAL HISTORY: Cough, shortness of breath COMPARISON: January 2019 TECHNIQUE: AP portable chest image was obtained 0920 hours . FINDINGS: Lung volumes are reduced compared to the prior study. This accentuates a baseline chronic interstitial lung pattern. No failure or volume overload. No acute lung parenchymal process seen. Hea rt and vasculature are normal. No measurable pleural effusion and no pneumothorax. No acute bony abno rmality seen. No acute aortic findings suspected. IMPRESSION: Chronic interstitial lung disease is present accentuated by shallow inspiration. Chest is not substantially different from January 2019.
[2019-08-18] MEDS ORDERED: OSELTAMIVIR 75 MG CAP ONE (10:37)
[2019-08-18] MEDS ORDERED: NA CHLORIDE 0.9% 1,000 ML ONE (10:46)
--- NOTE | 2019-08-18 12:16 | EKG ---
Test Date: 2019-08-18 Test Time: 10:15:27 Strategic Sourcing Specialist: JOSELIN MEASUREMENT RESULTS: Intervals: Rate: 124 VT: 132 QRSD: 74 QT: 310 QTc: 445 [place]: P: 67 VT: 132 QRS: 1 T: 60 INTERPRETIVE STATEMENTS: Sinus tachycardia with occasional premature ventricular complexes Otherwise normal ECG Compared to ECG 02/03/2019 02:31:14 Ventricular premature complex(es) now present Electronically Signed On 08-18-19 12:16:19 DIGITAL MARKETING APPRENTICE by Olman Devries
[2019-08-18] MEDS ORDERED: Magnesium Sulfate 2gm IVPB 2 G/50 ML BAG IV ONE (12:20)
[2019-08-18] MEDS ORDERED: POTASSIUM 25 MEQ EFFERV TAB ONE (12:20)
[2019-08-18 12:53] LABS: Urine Bacteria <20 /HPF (NONE SEEN); Urine Culture Reflex Order NOT NEEDED; Urine RBC <5 /HPF (NONE SEEN)
[2019-08-18 13:03] LABS: Urine Blood 1+ (NEG); Urine Glucose NEGATIVE (NEG); Urine Protein 1+ (NEG)
[2019-08-18] MEDS ORDERED: ACETAMINOPHEN 500 MG TAB PO PRN (14:35)
[2019-08-18] MEDS ORDERED: INSULIN -REGULAR HUMAN 50 UNIT/0.5 ML ML SQ SCH (14:35)
[2019-08-18] MEDS ORDERED: ONDANSETRON 4 MG/2 ML VIAL IV PRN (14:35)
[2019-08-18 15:07] VITALS: BMI 27.4
[2019-08-18] MEDS: INSULIN -REGULAR HUMAN 50 UNIT/0.5 ML ML SQ SCH ×2 (16:30→20:13)
[2019-08-18] MEDS: ALBUTEROL 2.5 MG/3 ML NEB SOL NEB PRN (16:31)
[2019-08-18] MEDS: IPRATROPIUM BROM 0.5MG/2.5ML NEB PRN (16:31)
[2019-08-18] MEDS ORDERED: WARFARIN SODIUM 1 MG TAB PO SCH (19:00)
[2019-08-18] MEDS: SOTALOL HCL 80 MG TAB PO SCH (20:14)
[2019-08-18] MEDS: predniSONE 20 MG TAB PO SCH (20:14)
[2019-08-18] MEDS: MIRTAZAPINE 15 MG TAB PO SCH (20:14)
[2019-08-18] MEDS: ATORVASTATIN 10 MG TAB PO SCH (20:14)
[2019-08-18] MEDS: BENZONATATE 100 MG CAP PO PRN (20:14)
[2019-08-18] MEDS: OSELTAMIVIR 75 MG CAP PO SCH (20:14)
[2019-08-18] MEDS: PREGABALIN 200 MG PO SCH (20:38)
[2019-08-18] MEDS: CILOSTAZOL 50 MG PO SCH (20:38)
[2019-08-18] MEDS ORDERED: HOME MED 1 EA UNK (Budesonide/Formoterol Fumarate [Symbicort 160-4.5 Mcg Inhaler] 2 PUFF) PO SCH (21:00)
[2019-08-18] MEDS ORDERED: ACETYLCYST 6,000 MG/30 ML VIAL IH SCH (21:00)
[2019-08-18] MEDS ORDERED: HOME MED 1 EA UNK (Melatonin [Melatonin] 10 MG) PO SCH (21:00)
[2019-08-18] MEDS ORDERED: BUDESONIDE IH SCH (21:00)
--- NOTE | 2019-08-19 00:10 | HP ---
Date of Admission: 08/18/2019 Primary Care Physician: Out of town in [place]. Consultants: Dr. Cervantes with Pulmonology. Chief Complaint: Shortness of breath, wheezing. Code Status: Full. History Of Present Illness: Patient is an 84-year-old male with past medical history of COPD, atrial fibrillation on Coumadin, hyperlipidemia, carotid artery disease, coronary artery disease, hypertens ion, diabetes, who was in his usual state of health until day prior to admission when the patient had sudden onset of shortness of breath, cough, which was not improving, scant sputum production along w ith difficulty breathing and wheezing. Patient's symptoms were worsened with exertion. His symptoms are constant, moderate, progressively worsening. Patient denies any ill contacts. Did have some brooke bjective fevers and chills. Patient came into the ER for further evaluation. His workup revealed a white count of 11.6. He had multiple electrolyte abnormalities. His procal and lactate were negativ e. He was not septic. His influenza screen was positive for flu A. The patient was then referred f or admission. When seen in the ER, he was awake, alert, oriented x3, in some mild respiratory distre ss. Past Medical History: Atrial fibrillation on Coumadin, coronary artery disease, carotid artery disea se, COPD, hyperlipidemia, hypertension, diabetes mellitus type 2, urinary incontinence, former tobacc o user, peripheral vascular disease. Past Surgical History: Cholecystectomy, back surgery, rectal fistula repair, and carotid stent. Allergies: NO KNOWN DRUG ALLERGIES. Medications: List reviewed. Social History: Patient is a former long-time smoker. No illicit drug use or alcohol use. Patient lives at home, has good social support. Family History: Father has heart disease and diabetes. Mother has low blood pressure. Sister has l cory disease and diabetes as well as brother, who also has lung disease and diabetes. Review of Systems: A 10-point system reviewed, negative except as per HPI. Physical Examination: Vital Signs: Temperature 99.5, heart rate 119, respirations 26, blood pressure 118/77, O2 92% on 2 L via nasal cannula. General: Awake, alert, and oriented x3. Elderly male, in some mild respiratory distress ill-appeari ng. HEENT: Normocephalic, atraumatic. PERRLA. EOMI. Moist mucous membranes. Oropharynx is clear. Co njunctivae are anicteric. Poor dentition. Neck: Supple. No JVD. Trachea midline. CV: S1, S2. Irregularly irregular. Peripheral pulses are weak. Gastrointestinal: Abdomen is soft, nontender, nondistended. Positive bowel sounds. Respiratory: Diminished breath sounds. Patient is tachypneic. Diffuse wheezing is heard. No use o f accessory muscles. Extremities: No clubbing, cyanosis, or edema. No calf tenderness. Neuro: Cranial nerves 2 through 12 intact grossly. No focal neurological deficit. Speech is normal . Skin: No rashes, normal skin turgor. Laboratory Data: Sodium 134, potassium 3.2, chloride 100, CO2 of 25, BUN 14, creatinine 1.15, glucos e 167, lactate 1.6, calcium 8.8, magnesium 1.7, AST 46, ALT 64, CK levels 103, troponin less than 0.0 2. BNP 1187, albumin 3.5, lipase 196. Procalcitonin 0.06, lactate 1.6. WBC 11.6, H and H 16.3 and 48, platelets 265, neutrophils 77%. Imaging Studies: Chest x-ray personally reviewed shows chronic interstitial lung disease accentuated by shallow inspiration. Assessment: An 84-year-old male with, 1.Acute respiratory failure with hypoxia. The patient is on supplemental oxygen via nasal cannula s econdary to chronic obstructive pulmonary disease. 2.Acute chronic obstructive pulmonary disease exacerbation. We will continue with nebulizer treatme nts. Resume double dose of his home steroids. Continue with inhalers. We will consult Pulmonology. 3.Influenza A. We will start on Tamiflu. Continue with droplet precautions. Family members advise d to be checked for the flu. 4.Atrial fibrillation, chronic. Continue Coumadin. Patient's INR is therapeutic range. We will co ntinue to monitor. 5.Mixed hyperlipidemia. We will continue statin. 6.Diabetes mellitus type 2 nuf-kahzipj-ebwzauozi with hyperglycemia. We will continue monitoring bl ood glucose levels and start on sliding scale insulin. 7.Coronary artery disease ramona artery and ramona heart without angina, stable. 8.Carotid artery disease status post stent. 9.Essential hypertension, stable. We will resume home medications. 10.Peripheral vascular disease. Plan: Admit patient to Med-Surg, place as inpatient. Length of stay greater than 2 midnights. SHRUTHI Voice ID: [id number]
[2019-08-19] MEDS: ALBUTEROL 2.5 MG/3 ML NEB SOL NEB PRN ×4 (01:15→20:05)
[2019-08-19] MEDS: IPRATROPIUM BROM 0.5MG/2.5ML NEB PRN ×5 (01:15→20:05)
[2019-08-19] MEDS ORDERED: LORAZEPAM 0.5 MG TABLET ONE (01:22)
[2019-08-19] MEDS ORDERED: LORAZEPAM 0.5 MG TABLET PO ONE (01:23)
[2019-08-19] MEDS: BENZONATATE 100 MG CAP PO PRN ×3 (05:17→20:59)
[2019-08-19 06:15] LABS: Absolute Lymphocytes (CBC) 0.8 K/uL (0.7-4.9); Basophils % 0.1 % (0-1.3); Hematocrit 41.6 % (39.6-49.0); Lymphocytes % 8.7 % (15.3-44.8); MPV 7.8 fL (7.6-11.3); Protime INR 1.7; RBC Red Blood Cell Count 4.95 M/uL (4.33-5.43)
[2019-08-19 06:32] LABS: Magnesium 2.1 mg/dL (1.8-2.4); Potassium 3.7 mmol/L (3.5-5.1)
[2019-08-19] MEDS: SOTALOL HCL 80 MG TAB PO SCH ×2 (07:54→20:57)
[2019-08-19] MEDS: glipiZIDE 5 MG TAB PO SCH (07:55)
[2019-08-19] MEDS: TAMSULOSIN 0.4 MG SR CAP PO SCH (07:55)
[2019-08-19] MEDS: OSELTAMIVIR 75 MG CAP PO SCH ×2 (07:56→20:59)
[2019-08-19] MEDS: FERROUS SULFATE 325 MG TAB PO SCH (07:57)
[2019-08-19] MEDS: predniSONE 20 MG TAB PO SCH ×2 (07:57→20:58)
[2019-08-19] MEDS: CILOSTAZOL 50 MG PO SCH ×2 (07:59→20:56)
[2019-08-19] MEDS: PREGABALIN 200 MG PO SCH (08:00)
[2019-08-19] MEDS ORDERED: ACETYLCYST 6,000 MG/30 ML VIAL IH SCH (08:00)
[2019-08-19] MEDS: INSULIN -REGULAR HUMAN 50 UNIT/0.5 ML ML SQ SCH ×4 (08:02→20:57)
[2019-08-19] MEDS: ROFLUMILAST 500 MCG PO SCH (08:03)
[2019-08-19] MEDS ORDERED: [UNRECOGNIZED DRUG - OTHER] PO SCH (09:00)
[2019-08-19] MEDS ORDERED: HOME MED 1 EA UNK (Pravastatin Sodium [Pravachol] 40 MG) PO SCH (09:00)
[2019-08-19] MEDS ORDERED: POTASSIUM CL SA 10 MEQ TAB PO ONE (09:00)
[2019-08-19] MEDS ORDERED: BACLOFEN 5 MG PO SCH (09:00)
[2019-08-19] MEDS ORDERED: HOME MED 1 EA UNK (Glipizide [Glipizide] 10 MG) PO SCH (09:00)
[2019-08-19] MEDS ORDERED: HOME MED 1 EA UNK (Esomeprazole Mag Trihydrate [Nexium] 40 MG) PO SCH (09:00)
[2019-08-19] MEDS: ACETYLCYST 20% 4 ML VIAL IH SCH ×2 (13:40→20:05)
[2019-08-19] MEDS: GUAIFENESIN/CODEINE 5ML UCUP PO PRN ×2 (16:52→23:51)
[2019-08-19] MEDS ORDERED: WARFARIN SODIUM 2 MG TAB PO SCH (17:00)
--- NOTE | 2019-08-19 17:20 | PN ---
Date of Progress Note: 08/19/2019 Subjective: Patient is seen and examined. Chart reviewed and case discussed with RN. Patient still having some difficulty breathing, however, now off supplemental oxygen, audible wheezing. Patient s tates he is feeling slightly better. Medications: List reviewed. Physical Examination: Vital Signs: Temperature 97.4, heart rate 87, blood pressure 139/70, respirations 20, O2 91% on room air. General: Awake, alert, oriented x3. Elderly male, in some mild respiratory distress. CV: S1, S2. Regular rate and rhythm. Peripheral pulses weak. Respiratory: Diminished breath sounds. Wheezing is heard. Gastrointestinal: Abdomen is soft, nontender, nondistended. Positive bowel sounds. No guarding or rigidity. Extremities: No clubbing, cyanosis, or edema. Neurologic: Nonfocal. Laboratory Data: Sodium 136, potassium 3.7, chloride 104, CO2 of 25, BUN 17, creatinine 1.01, glucos e 249, calcium 8.2, magnesium 2.1. WBC 8.8, H and H 14 and 41.6, platelets 239, neutrophils 81%. IN R 1.7. Blood cultures, no growth to date. Urine culture, no growth to date. Assessment And Plan: 84-year-old male with: 1.Acute respiratory distress with hypoxia, now significantly improved, likely secondary to chronic o bstructive pulmonary disease, now back on room air. 2.Acute chronic obstructive pulmonary disease exacerbation. We will continue with nebulizer treatme nts, steroids. Slightly improved. Appreciate Pulmonology input. 3.Atrial fibrillation, on Coumadin. Patient has a subtherapeutic INR. We will ensure the patient i s following a Coumadin diet. 4.Influenza A. We will continue Tamiflu, droplet precautions. 5.Mixed hyperlipidemia. Continue statin. 6.Diabetes mellitus type 2, insulin requiring with hyperglycemia. We will continue on sliding scale insulin and monitor blood glucose levels. 7.Coronary artery disease [place] artery and [place] heart without angina, stable. 8.Carotid artery disease status post stent, stable. 9.Essential hypertension, stable. 10.Peripheral vascular disease, stable. Continue home medications. Plan: Likely, discharge in the next 24 to 48 hours depending on clinical response. Cultures so far negative. SA/MODL Voice ID: [id number] Report ID: [id number]
[2019-08-19] MEDS ORDERED: ACETYLCYST 20% 4 ML VIAL IH SCH (20:00)
[2019-08-19] MEDS: PREGABALIN 50 MG CAP PO SCH (20:56)
[2019-08-19] MEDS: ATORVASTATIN 10 MG TAB PO SCH (20:58)
[2019-08-19] MEDS: MIRTAZAPINE 15 MG TAB PO SCH (20:59)
[2019-08-19] MEDS ORDERED: MELATONIN 5 MG TABLET PO SCH (21:00)
[2019-08-20] MEDS: GUAIFENESIN/CODEINE 5ML UCUP PO PRN (05:40)
[2019-08-20 06:12] LABS: Protime INR 1.96
[2019-08-20 06:15] LABS: Absolute Lymphocytes (CBC) 0.8 K/uL (0.7-4.9); Basophils % 0.1 % (0-1.3); Hematocrit 43.2 % (39.6-49.0); Lymphocytes % 7.4 % (15.3-44.8); MPV 7.8 fL (7.6-11.3); RBC Red Blood Cell Count 5.22 M/uL (4.33-5.43)
[2019-08-20 06:28] LABS: Potassium 4.1 mmol/L (3.5-5.1)
[2019-08-20] MEDS ORDERED: PANTOPRAZOLE 40MG TABLET PO SCH (06:30)
--- NOTE | 2019-08-20 06:39 | EKG ---
Test Date: 2019-08-18 Test Time: 19:28:17 Straw Hat Brim Raiser Operator: MINESH MEASUREMENT RESULTS: Intervals: Rate: 87 MI: 146 QRSD: 70 QT: 376 QTc: 452 [place]: P: 64 MI: 146 QRS: 53 T: 48 INTERPRETIVE STATEMENTS: Normal sinus rhythm Normal ECG Compared to ECG 08/18/2019 10:15:27 Sinus tachycardia no longer present Ventricular premature complex(es) no longer present Electronically Signed On 08-20-19 06:38:11 VALET MANAGER by Olman Devries
[2019-08-20] MEDS: INSULIN -REGULAR HUMAN 50 UNIT/0.5 ML ML SQ SCH ×2 (07:30→11:54)
[2019-08-20] MEDS: ALBUTEROL 2.5 MG/3 ML NEB SOL NEB PRN (08:26)
[2019-08-20] MEDS: IPRATROPIUM BROM 0.5MG/2.5ML NEB PRN (08:26)
[2019-08-20] MEDS: ACETYLCYST 20% 4 ML VIAL IH SCH (08:26)
[2019-08-20] MEDS ORDERED: MAXZIDE (HCTZ 25/TRIAMTERENE 37.5MG) TAB PO SCH (09:00)
[2019-08-20] MEDS ORDERED: BACLOFEN 10 MG TAB PO SCH (09:00)
[2019-08-20] MEDS: CILOSTAZOL 50 MG PO SCH (09:00)
[2019-08-20] MEDS: ROFLUMILAST 500 MCG PO SCH (09:00)
[2019-08-20] MEDS: PREGABALIN 50 MG CAP PO SCH (09:05)
[2019-08-20] MEDS: BENZONATATE 100 MG CAP PO PRN (09:05)
[2019-08-20] MEDS: SOTALOL HCL 80 MG TAB PO SCH (09:06)
[2019-08-20] MEDS: glipiZIDE 5 MG TAB PO SCH (09:07)
[2019-08-20] MEDS: OSELTAMIVIR 75 MG CAP PO SCH (09:07)
[2019-08-20] MEDS: TAMSULOSIN 0.4 MG SR CAP PO SCH (09:07)
[2019-08-20] MEDS: FERROUS SULFATE 325 MG TAB PO SCH (09:08)
[2019-08-20] MEDS: predniSONE 20 MG TAB PO SCH (09:11)
--- NOTE | 2019-08-20 10:40 | P.CNS ---
Date of Consult: 08/20/19 Reason for Consult: Possible COPD exacerbation Chief Complaint: Shortness of breath History of Present Illness: Patient is 84 years of age with a history of COPD has been short of breath for the past 2 days currently got a flow planus some abdominal bloating [place]. Denies any fever chills feeling better compliant with his bronchodilators Allergies No Known Allergies Allergy (Verified 02/03/19 04:47) Home Medications: Acetylcyst [Mucomyst 20%*] 2 ml IH BID 08/18/19 Albuterol Inhaler [Ventolin Inhaler*] 1 puff IH BIDP PRN 08/18/19 Baclofen 5 mg PO DAILY 08/18/19 Benzonatate [Tessalon Perle*] 100 mg PO TIDP PRN 08/18/19 Budesonide [Pulmicort*] 1 inh IH BID 08/18/19 Budesonide/Formoterol Fumarate [Symbicort 160-4.5 Mcg Inhaler] 2 puff PO BID 05/28 Cefdinir [Cefdinir*] 300 mg PO Q12H 08/18/19 Cilostazol 50 mg PO BID 08/18/19 Esomeprazole Mag Trihydrate [Nexium] 40 mg PO DAILY 08/18/19 Ferrous Sulfate [Feosol] 325 mg PO DAILY 08/18/19 Ipratropium/Albuterol Sulfate [Iprat-Albut 0.5-3(2.5) mg/3 ml] 1 inh IH TID 05/28 Melatonin 10 mg PO BEDTIME 08/18/19 Metformin ER [Glucophage ER*] 500 mg PO BID 08/18/19 Mirtazapine [Remeron*] 15 mg PO BEDTIME 08/18/19 Pravastatin Sodium [Pravachol] 40 mg PO DAILY 08/18/19 Pregabalin [Lyrica] 200 mg PO BID 08/18/19 Roflumilast [Daliresp] 500 mcg PO DAILY 08/18/19 Sotalol HCl [Betapace*] 40 mg PO BID 08/18/19 Tamsulosin [Flomax*] 0.4 g PO DAILY 08/18/19 Triamterene/Hydrochlorothiazid [Triamterene-Hctz 37.5-25 mg Cp] 1 cap PO DAILY 08/18/19 Warfarin Sodium 2 mg PO SEECOM 08/18/19 Warfarin Sodium [Coumadin*] 1 mg PO M,W,F 08/18/19 glipiZIDE [Glipizide] 10 mg PO DAILY 08/18/19 predniSONE [Prednisone] 20 mg PO DAILY 08/18/19 - Past Medical/Surgical History Diabetic: Yes -: COPD -: Atrial fibrillation, chronic anti coagulation -: Hyperlipidemia -: Carotid arterial disease -: CAD -: Hypertension -: Diabetes mellitus type 2 -: PVD -: Former tobacco use -: PVD -: CHOLECYSTECTOMY -: BACK SURGERY -: RECTAL FISTULA REPAIRED -: Carotid stent Psychosocial/ Personal History: The patient is . He has 7 children. He does not work. - Family History Father Medical History: Heart disease, Diabetes Notes: Mother Medical History: Other (see notes) Notes: - hypotension Sister Medical History: Lung disease, Diabetes Brother Medical History: Lung disease, Diabetes - Social History Smoking Status: Former smoker Alcohol use: No CD- Drugs: No Caffeine use: No Place of Residence: Home Review of Systems 10-point ROS is otherwise unremarkable General: Weakness Respiratory: Cough, Shortness of Breath Physical Examination Temp Pulse Resp BP Pulse Ox 97 F 69 20 133/89 93 08/20/19 08:00 08/20/19 08:00 08/20/19 08:00 08/20/19 08:00 08/20/19 08:00 General: Alert, Oriented x3 HEENT: Atraumatic Neck: Supple Respiratory: Expiratory wheezes Cardiovascular: No edema, Regular rate/rhythm, Normal S1 S2 Gastrointestinal: Normal bowel sounds, Soft and benign - Problems (1) COPD exacerbation Onset Date: 04/08/18 Current Visit: No Status: Acute Plan: Patient is 84 years of age former smoker admitted with acute shortness of breath compliant with his bronchodilators she has a history of COPD patient is anti coagulated INR therapeutic white count mildly elevated chest x-ray clear chronic interstitial changes vital signs oxygenation satisfactory patient has a history of AFib on sotalol can discharge on low-dose prednisone 10 mg twice a day for 10 days antibiotics really not indicated continue with his Symbicort and Ventolin at home 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
[2019-08-20 12:02] VITALS: O2SAT 94
[2019-08-20 12:16] VITALS: BP 117/85; TEMP 98.3
--- NOTE | 2019-08-21 03:51 | DS ---
Date of Discharge: 08/20/2019 Consultants: Dr. Cervantes with Pulmonology. Admitting Diagnoses: 1. Acute respiratory failure with hypoxia, improved. 2. Acute chronic obstructive pulmonary disease exacerbation, improved. 3. Influenza A, improving on Tamiflu. 4. Atrial fibrillation, chronic, permanent, on Coumadin. 5. Mixed hyperlipidemia. 6. Diabetes mellitus, type 2, insulin requiring with hyperglycemia. 7. Coronary artery disease tribe artery and tribe heart without angina. 8. Carotid artery disease, status post stent. 9. Essential hypertension, stable. 10. Peripheral vascular disease. Discharge Diagnoses: 1. Acute on chronic respiratory distress with hypoxia, improved, secondary to chronic obstructive pulmonary disease. 2. Acute chronic obstructive pulmonary disease exacerbation, improving. 3. Influenza A, on Tamiflu. 4. Atrial fibrillation, chronic permanent, on Coumadin. Therapeutic INR. 5. Mixed hyperlipidemia, on statin. 6. Diabetes mellitus, type 2, insulin requiring with hyperglycemia. 7. Coronary artery disease tribe artery and tribe heart without angina, stable. 8. Carotid artery disease, status post stent, stable. 9. Essential hypertension, stable. 10. Peripheral vascular disease, stable. Hospital Course: Patient is an 84-year-old male with past medical history of COPD, atrial fibrillation, hyperlipidemia, hypertension, multiple vasculopathologies including carotid artery disease, coronary artery disease, hypertension, also diabetes, comes in with sudden shortness of breath. Patient is on oxygen at home. He was found to be flu positive and was having COPD exacerbation. He was started on Tamiflu. Started on droplet precautions. Nebulizer treatments and steroids were also initiated. Pulmonology was consulted as the patient was requiring BiPAP initially and then was quickly switched over to nasal cannula. Patient responded well to treatment. His breathing improved significantly. Wheezing was improving as well. His blood glucose levels remained stable. His Coumadin was resumed for his atrial fibrillation. His INR, however, was somewhat subtherapeutic, currently at 1.96 , did drop as low as 1.7. Blood cultures do not show any growth. Patient overall did well during the course of the hospital stay. White blood cell count improved. He did not appear septic. He was able to ambulate without difficulty. Patient was then cleared for discharge from Pulmonology standpoint and was sent home in a stable condition. Activity: As tolerated. No strenuous activity. Followup: Follow up with primary care physician in 2-3 days. Follow up with cook enchilada, Dr. Cervantes, in 2 weeks. Return to ER for worsening condition. Diet: Diabetic. Medications: As per medication reconciliation list. Finish off course of Tamiflu and short course of steroids. Physical Examination: General: Awake, alert, oriented x3. No acute distress. CV: S1, S2. No murmurs. Respiratory: Moving air well bilaterally. Abdomen: Soft, nontender, nondistended. Positive bowel sounds. Extremities: No clubbing, cyanosis, edema. Neurologic: Nonfocal. Total time spent discharging patient was 34 minutes. /AICHA Voice ID: [id number] Report ID: [id number]
== END 2019-08-20 13:20 | disposition home or self-care (01) | DRG 191 ==
LOC: ER 08:57 → ERHOLD 10:48 → 4TH 14:31
PROVIDERS: ADMIT Family Medicine; ATTEND Family Medicine
DX: J44.1 Chronic obstructive pulmonary disease with (acute) exacerbation (principal); I48.21 Permanent atrial fibrillation; R06.03 Acute respiratory distress; R09.02 Hypoxemia; J11.1 Influenza due to unidentified influenza virus with other respiratory manifestations; E78.2 Mixed hyperlipidemia; E11.65 Type 2 diabetes mellitus with hyperglycemia; I25.10 Atherosclerotic heart disease of native coronary artery without angina pectoris; I77.89 Other specified disorders of arteries and arterioles; I10 Essential (primary) hypertension; I73.9 Peripheral vascular disease, unspecified; Z79.01 Long term (current) use of anticoagulants; Z99.81 Dependence on supplemental oxygen; Z87.891 Personal history of nicotine dependence
CPT/HCPCS: 36415; 71045; 80048; 80076; 81003; 81015; 82550; 82553; 82947; 83605; 83690; 83735; 83880; 84132; 84145; 84484; 85025; 85610; 85730; 87040; 87086; 87088; 87804; 93005; 94640; 99285; J1100; J3475; J7030; J7512

== ENCOUNTER 2020-12-16 14:28 | Observation (INO) | payer OTHER ==
--- OUTSIDE RECORDS SUMMARY | 2020-12-16 14:32 | XMS REPORT | Continuity of Care Document ---
:1935 Author Organization [facility] t Address [address] [place] [address] Care Team Providers Name Role Phone Sylvester DUMONT, Alexandra Primary Care Physician Papito DUMONT, S Attending Clinician Leonarda WERNER, A Attending Clinician Unavailable Jayne DUMONT Attending Clinician Deepthi WERNER Attending Clinician SHEFALI NINA Attending Clinician Unavailable Jayne DUMONT Admitting Clinician SHEFALI NINA Admitting Clinician Unavailable Problems Condition Condition Condition Status Onset Resolution Last Treating Co mments Source Name Details Category Date Date Treatment Clinician Date Pneumonia Pneumonia Disease Active [facility] influenza influenza 00:00: [facility] sarah 00 Center COPD with COPD with Disease Active [facility] exacerbati exacerbati - Me[facility] kes - on on 00:00: Medical 00 Center Carotid Carotid Disease Active 2014-[address] [facility] stenosis stenosis 0-28 [facility] - 00:[facility]: Medical 00 Center TIA TIA Disease Active [facility] (transient (transient 7-12 Mei kes - ischemic ischemic 00:00: Medica l attack) attack) 00 Center Slurred Slurred Disease Active [facility] speech speech -12 [facility] - 00:[facility]: Medical 00 Center Chest pain Chest pain Disease Active [facility] 5[facility]12 [facility] - 00:00: Medical 00 Center COPD COPD Disease Active [facility] (chronic (chronic - [facility] - obstructiv obstructiv 00:00: Me dical e e 00 Center pulmonary pulmonary disease) disease) Paroxysmal Paroxysmal Disease Active Overview : [facility] atrial atrial 11-01 CHAD2S = [facility] - flutter flutter 00:00: 3 (age, Medical 00 HTN, Center DM)Occurr ed in setting of acute illness Strongylo ides infection November 01, 2014 Herniated Herniated Disease Active [facility] nucleus nucleus 01-04 [facility] - pulposus, pulposus, 00:00: Medi sarah lumbar lumbar 00 Center 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 Social History Social Habit Start Date Stop Date Quantity Comments Source Sex Assigned At [facility] Cigarettes smoked 2015-06-05 2015-06-05 [facility] - current (pack per 00:00:00 00:00:00 Medical Center day) - Reported Cigarette 2015-06-05 2015-06-05 [facility] Nisha - pack-years 00:00:00 00:00:00 [facility] Alcohol intake 2015-06-05 2015-06-05 [facility]:00 00:00:00 non-drinker of Medical Ce nter alcohol (finding) History of tobacco 1996-11-11 [facility] use [facility] Smoking Status Start Date Stop Date Source Former smoker 2015-06-05 00:00:00 2015-06-05 00:00:[address] [facility] Medications Ordered Filled Start Stop Current Ordering Indication Dosage Frequency Signature Comments Components Source Medication Medication Date Date Medication? Clinician (SIG) Name Name metFORMIN 2020-0 Yes 500mg Take [address] [facility] (GLUCOPHAGE 1-29 mg by [facility] - ) 500 MG 13:47: mouth 2 Medica l tablet 05 (two) Center times daily with breakfast and dinner. roflumilast 2020-0 Yes QD Take by [facility] (DALIRESP) 1-29 mouth [facility] - 500 mcg Tab 13:47: daily. Medi sarah tablet [address] [place] [address] traZODone 2020-0 Yes 50mg QD Take [address] (DESYREL) 1-29 by mouth [facility] - 50 MG 13:47: nightly. Medical tablet [address] [place] [address] warfarin 2020-0 Yes 2mg QD Take [address] [facility] (COUMADIN) 1-29 by mouth [facility] - 2 MG tablet 13:47: daily. [facility] sarah [address] [place] [address] ranitidine 2020-0 Yes 150mg Take [address] (ZANTAC) 1-29 mg by [facility] - 150 MG 13:47: mouth. Medical tablet [address] [place] [address] esomeprazol 2020-0 Yes 40mg QD Take [address] [facility] e (NEXIUM) 1-29 by mouth [facility] - 40 MG 13:47: daily. Medical capsule [address] [place] [address] mirtazapine 2019-0 Yes 15mg QD Take [address] [address] (REMERON) 1-29 by mouth [facility] - 15 MG 13:47: nightly. Medical tablet [address] [place] [address] tamsulosin 2020-0 Yes .4mg QD Take 0.[address] (FLOMAX) 1-29 mg by [facility] - 0.4 mg Cap 13:47: mouth Medica l 24 hr 05 daily. [place] capsule benzonatate 2020-0 Yes 100mg Take [address] (TESSALON) 1-29 mg by [facility] - 100 MG 13:47: mouth 3 Medical capsule 05 (three) Center times daily as needed for Cough. pravastatin 2020-0 Yes 40mg QD Take [address] (PRAVACHOL) 1-29 by mouth Luke s - 40 MG 13:47: daily. Medical tablet 05 Center melatonin 3 Yes 10mg Take [address] mg Tab 1-29 by mouth [facility] - tablet 13:47: every Medical 05 night as Center needed. budesonide Yes .25mg Q.5D Take 0.[address] (PULMICORT) 1-29 mg by [facility] - 0.25 mg/2 13:47: nebulizati Me dical mL 05 on 2 (two) Center nebulizer times solution daily. diltiazem Yes 60mg 60 mg . [facility] (CARDIZEM 03-14 [facility] - SR) 60 MG 00:00: Medical 12 hr 00 Center capsule nitroglycer Yes [address] in 03-12 under the [facility] - (NITROSTAT) 00:00: tongue at M edical 0.4 MG SL 00 onset of Center tablet attack. Repeat as needed up to 3 times.. pregabalin Yes 200mg Q.5D Take [address] (LYRICA) 7-08 mg by [facility] - 150 MG 00:00: mouth 2 Medical capsule 00 (two) Center times daily . aspirin 81 Yes 81mg Take [address] MG EC 5-20 by mouth. [facility] - tablet 00:00: Medical 00 Center gabapentin Yes 600mg Q.5D [address] (NEURONTIN) 5-16 (two) [facility] - 300 MG 00:00: times Medical capsule 00 daily Center Titrate up to 2 capsules TID . ipratropium Yes 3mg Q.25D Inhale [address] -albuterol 5-11 mg by [facility] - (DUO-NEB) 00:00: mouth via Med ical 0.5 mg-3 00 inhaler 4 Center mg(2.5 mg (four) base)/3 mL times nebulizer daily . solution albuterol Yes 1{puff} Inhale [address] HFA 3-17 puff by [facility] - (VENTOLIN 00:00: mouth via Med ical HFA) 90 00 inhaler Center mcg/actuati every 6 on inhaler (six) hours as needed for Wheezing. Procedures This patient has no known procedures. Plan of Care Planned Activity Planned Date Details Comments Source Future Scheduled 2021-04-[address] [facility] - Test 00:00:00 (Season Ended) [code Medical Center = INFLUENZA VACCINE (Season Ended)] Future Scheduled 2020-08-[address] [facility] - Test 00:00:00 WELLNESS (YEAR 2 or Medical Center FIRST YEAR if no IPPE) [code = MEDICARE ANNUAL WELLNESS (YEAR 2 or FIRST YEAR if no IPPE)] Future Scheduled 2020-08-[address] [facility] - Test 00:00:00 (12+) [code = Medical Center DEPRESSION SCREENING (12+)] Future Scheduled 2018-03-03 Urine screening for [facility] - Test 00:00:00 protein (procedure) Medical Center [code = 387610687] Future Scheduled 2015-06-[address] Mei kes - Test 00:00:00 measurement [facility] Center (procedure) [code = 06413659] Future Scheduled 1987 SHINGLES VACCINES ([address] [facility] - Test 00:00:00 of 2) [code = Medical Center SHINGLES VACCINES (1 of 2)] Future Scheduled 1956-02-05 DTAP/TDAP/TD VACCINES [facility] - Test 00:00:00 (1 - Tdap) [code = Medical C enter DTAP/TDAP/TD VACCINES (1 - Tdap)] Future Scheduled [address] DIABETIC EYE EXAM [facility] - Test 00:00:00 [code = DIABETIC EYE Medical Center EXAM] Future Scheduled [address] Silvio es - Test 00:00:00 examination Medical Center (regime/therapy) [code = 056695339] Encounters Start End Encounter Admission Attending Care Care Encounter Source Date/Time Date/Time Type Type Clinicians Facility Department ID 2020-11-25 2020-11-25 [facility] [id number] 02:48:00 04:26:00 Ashanti Barakat [id number] Carlos [id number] Alexander [id number] 2020-10-23 2020-10-23 Transition Jose Brower [id number] 00:00:00 00:00:00 of [place] [facility] Danial Quinonez [id number] [place] [id number] 2020-10-20 2020-10-22 [facility] [id number] 03:35:00 14:00:00 Encounter Bolivar Godoy [id number] [place] [id number] Alexander [id number] 2019-08-31 2019-08-31 Transition Jose Lacey [id number] 00:00:00 00:00:00 of Care Citlaly Quinonez [id number] [place] [id number] 2019-08-21 2019-08-30 [facility] [id number] 04:18:26 20:12:00 Encounter Bolivar Godoy [id number] [place] [id number] Alexander [id number] Results Test Description Test Time Test Comments Results Result Comments Source POCT-GLUCOSE METER 2019-09-06 12:08:00 Test Item Value Reference Range Interpretation Comme nts POC-GLUCOSE METER (BEAKER) 138 mg/dL 70-110 H : TESTED AT [facility] [address] [facility] (test code = 1538) [facility], [address]: R&D Lab Technician/Techni og ID = [id number] for IVETTE TEIXEIRA POCT-GLUCOSE [id number] 08:13:00 Test Item Value Reference Range Interpretation Comments POC-GLUCOSE METER 81 mg/dL 70-110 : TESTED A T [facility] [address] (BEAKER) (test code = DALI Lyons [facility], 1538) [address]: R&D Lab Technician/Techni og ID = [id number] for HELDER CHINO BASIC METABOLIC [id number] 06:44:00 Test Item Value Reference Range Interpretation Comments SODIUM (BEAKER) 137 meq/L 136-145 (test code = 381) POTASSIUM (BEAKER) 3.8 meq/L 3.5-5.1 (test code = 379) CHLORIDE (BEAKER) 108 meq/L 98-107 H (test code = 382) CO2 (BEAKER) (test 26 meq/L 22-29 code = 355) BLOOD UREA NITROGEN 10 mg/dL 7-21 (BEAKER) (test code = 354) CREATININE (BEAKER) 0.75 mg/dL 0.57-1.25 (test code = 358) GLUCOSE RANDOM 121 mg/dL 70-105 H (BEAKER) (test code = 652) CALCIUM (BEAKER) 8.4 mg/dL 8.4-10.2 (test code = 697) EGFR (BEAKER) (test 100 mL/min/1.73 ESTIM ATED GFR IS code = 1092) sq m NOT ACCURATE CREATININE CLEARANCE IN PREDICTING GLOMERULAR FILTRATION RATE . ESTIMATED GFR I S NOT APPLICABLE FOR DIALYSIS PATIEN TS. R&D Lab Technician ID - CHRIST MPROTHROMBIN TIME/[id number] 05:00:00 Test Item Value Reference Range Interpretation Comments PROTIME (BEAKER) (test code = 22.7 seconds 11.9-14.2 H 759) INR (BEAKER) (test code = 370) 2.1 <=5.9 Effective 01/04/2019: PT Reference Range ChangeNew: 11.9-14.2 Previous: 11.7- 14.7RECOMMENDED COUMADIN/WARFARIN INR THERAPY RANGESSTANDARD DOSE: 2.0-3.0 Includes: PROPHYLAXIS for venous thrombosis, systemic embolization; TREATMENT for venous thrombosis and/or pulmonary embolus.HIGH RISK: Target INR is2.5-3.5 for patients wiht mechanical heart valves.While on warfarin.PROTHROMBIN TIME/INR 2019-09-06 04:51:00 Test Item Value Reference Range Interpretation Comments PROTIME (BEAKER) (test code = 22.8 seconds 11.9-14.2 H 759) INR (BEAKER) (test code = 370) 2.1 <=5.9 Effective 01/04/2019: PT Reference Range ChangeNew: 11.9-14.2 Previous: 11.7- 14.7RECOMMENDED COUMADIN/WARFARIN INR THERAPY RANGESSTANDARD DOSE: 2.0-3.0 Includes: PROPHYLAXIS for venous thrombosis, systemic embolization; TREATMENT for venous thrombosis and/or pulmonary embolus.HIGH RISK: Target INR is2.5-3.5 for patients wiht mechanical heart valves.While on warfarin.POCT-GLUCOSE METER 2019-09-05 22:11:00 Test Item Value Reference Range Interpretation Comments POC-GLUCOSE METER 229 mg/dL 70-110 H : TESTED A T [facility] [address] (BEAKER) (test code = [facility], [facility]) [address]: R&D Lab Technician/Techni og ID = [id number] for ZACH THIBODEAUX POCT-GLUCOSE [id number] 17:58:00 Test Item Value Reference Range Interpretation Comments POC-GLUCOSE METER 272 mg/dL 70-110 H : TESTED A T [facility] [address] (BEAKER) (test code = [facility], [facility]) [address]: R&D Lab Technician/Techni og ID = [id number] for Vi Radha landers POCT-GLUCOSE [id number] 17:13:00 Test Item Value Reference Range Interpretation Comments POC-GLUCOSE METER 249 mg/dL 70-110 H : TESTED A T [facility] [address] (BEAKER) (test code = [facility], [facility]) [address]: R&D Lab Technician/Techni og ID = [id number] for JUSTYN PEREZ POCT-GLUCOSE [id number] 12:21:00 Test Item Value Reference Range Interpretation Comments POC-GLUCOSE METER 167 mg/dL 70-110 H : TESTED A T [facility] [address] (BEAKER) (test code = [facility], [facility]) [address]: R&D Lab Technician/Techni og ID = [id number] for Vi ctRadha galloway POCT-GLUCOSE [id number] 08:58:00 Test Item Value Reference Range Interpretation Comments POC-GLUCOSE METER 91 mg/dL 70-110 : TESTED A T [facility] [address] (BEAKER) (test code = [facility], [facility]) [address]: R&D Lab Technician/Techni og ID = [id number] for Vict laverne Radha BASIC METABOLIC [id number] 05:41:00 Test Item Value Reference Range Interpretation Comments SODIUM (BEAKER) 137 meq/L 136-145 (test code = 381) POTASSIUM (BEAKER) 3.4 meq/L 3.5-5.1 L (test code = 379) CHLORIDE (BEAKER) 108 meq/L 98-107 H (test code = 382) CO2 (BEAKER) (test 26 meq/L - code = 355) BLOOD UREA NITROGEN 11 mg/dL 7-21 (BEAKER) (test code = 354) CREATININE (BEAKER) 0.71 mg/dL 0.57-1.25 (test code = 358) GLUCOSE RANDOM 131 mg/dL 70-105 H (BEAKER) (test code = 652) CALCIUM (BEAKER) 8.0 mg/dL 8.4-10.2 L (test code = 697) EGFR (BEAKER) (test 106 mL/min/1.73 ESTIM ATED GFR IS code = 1092) sq m NOT ACCURATE CREATININE CLEARANCE IN PREDICTING GLOMERULAR FILTRATION RATE . ESTIMATED GFR I S NOT APPLICABLE FOR DIALYSIS PATIEN TS. R&D Lab Technician ID - CHRIST MPROTHROMBIN TIME/[id number] 05:41:00 Test Item Value Reference Range Interpretation Comments PROTIME (BEAKER) (test code = 28.5 seconds 11.9-14.2 H 759) INR (BEAKER) (test code = 370) 2.8 <=5.9 Effective 01/04/2019: PT Reference Range ChangeNew: 11.9-14.2 Previous: 11.7- 14.7RECOMMENDED COUMADIN/WARFARIN INR THERAPY RANGESSTANDARD DOSE: 2.0-3.0 Includes: PROPHYLAXIS for venous thrombosis, systemic embolization; TREATMENT for venous thrombosis and/or pulmonary embolus.HIGH RISK: Target INR is2.5-3.5 for patients wiht mechanical heart valves.While on warfarin.PROTHROMBIN TIME/INR 2019-09-05 05:26:00 Test Item Value Reference Range Interpretation Comments PROTIME (BEAKER) (test code = 28.8 seconds 11.9-14.2 H 759) INR (BEAKER) (test code = 370) 2.8 <=5.9 Effective 01/04/2019: PT Reference Range ChangeNew: 11.9-14.2 Previous: 11.7- 14.7RECOMMENDED COUMADIN/WARFARIN INR THERAPY RANGESSTANDARD DOSE: 2.0-3.0 Includes: PROPHYLAXIS for venous thrombosis, systemic embolization; TREATMENT for venous thrombosis and/or pulmonary embolus.HIGH RISK: Target INR is2.5-3.5 for patients wiht mechanical heart valves.While on warfarin.POCT-GLUCOSE METER 2019-09-05 03:15:00 Test Item Value Reference Range Interpretation Comments POC-GLUCOSE METER 149 mg/dL 70-110 H : [facility]) (test code = [facility], 153) [address]: R&D Lab Technician/Techni og ID = [id number] for ZACH THIBODEAUX POCT-GLUCOSE [id number] 21:56:00 Test Item Value Reference Range Interpretation Comments POC-GLUCOSE METER 231 mg/dL 70-110 H : [facility]) (test code = [facility], [facility]) [address]: R&D Lab Technician/Techni og ID = [id number] for OM RADHA LUCAS POCT-GLUCOSE [id number] 17:03:00 Test Item Value Reference Range Interpretation Comments POC-GLUCOSE METER 267 mg/dL 70-110 H : [facility] ([facility]) (test code = [facility], [facility]) [address]: R&D Lab Technician/Techni og ID = [id number] for Vi ctRadha galloway POCT-GLUCOSE [id number] 12:11:00 Test Item Value Reference Range Interpretation Comments POC-GLUCOSE METER 156 mg/dL 70-110 H : [facility] ([facility]) (test code = [facility], 153) [address]: R&D Lab Technician/Techni og ID = [id number] for FE RNANDO, DA POCT-GLUCOSE [id number] 10:01:00 Test Item Value Reference Range Interpretation Comments POC-GLUCOSE METER 93 mg/dL 70-110 : [facility] ([facility]) (test code = [facility], [facility]) [address]: R&D Lab Technician/Techni og ID = [id number] for FERN ANDO, DA POCT-GLUCOSE [id number] 09:21:00 Test Item Value Reference Range Interpretation Comments POC-GLUCOSE METER 50 mg/dL 70-110 L : Pt. refu sed rpt tst: ([facility]) (test code = TESTED AT [facility] [address] 153) [facility], [address]: R&D Lab Technician/Techni og ID = [id number] for PAM FELTON POCT-GLUCOSE [id number] 08:24:00 Test Item Value Reference Range Interpretation Comments POC-GLUCOSE METER 40 mg/dL 70-110 LL : TESTED A T [facility] [address] (DANE) (test code = DALI Lyons [facility], 1538) [address]: R&D Lab Technician/Techni og ID = [id number] for PAM FELTON POCT-GLUCOSE [id number] 07:36:00 Test Item Value Reference Range Interpretation Comments POC-GLUCOSE METER 42 mg/dL 70-110 L : Notified RN/MD: TESTED (DANE) (test code = AT [facility] [address] 1538) [facility], [address]: R&D Lab Technician/Techni og ID = [id number] for PAM FELTON PROTHROMBIN [id number] 06:50:00 Test Item Value Reference Range Interpretation Comments PROTIME (BEAKER) (test code = 32.1 seconds 11.9-14.2 H 759) INR (BEAKER) (test code = 370) 3.2 <=5.9 Effective 01/04/2019: PT Reference Range ChangeNew: 11.9-14.2 Previous: 11.7- 14.7RECOMMENDED COUMADIN/WARFARIN INR THERAPY RANGESSTANDARD DOSE: 2.0-3.0 Includes: PROPHYLAXIS for venous thrombosis, systemic embolization; TREATMENT for venous thrombosis and/or pulmonary embolus.HIGH RISK: Target INR is2.5-3.5 for patients wiht mechanical heart valves.While on warfarin.BASIC METABOLIC [id number] 03:50:00 Test Item Value Reference Range Interpretation Comments SODIUM (BEAKER) 135 meq/L 136-145 L (test code = 381) POTASSIUM (BEAKER) 3.4 meq/L 3.5-5.1 L (test code = 379) CHLORIDE (BEAKER) 108 meq/L 98-107 H (test code = 382) CO2 (BEAKER) (test 25 meq/L 22-29 code = 355) BLOOD UREA NITROGEN 14 mg/dL 7-21 (BEAKER) (test code = 354) CREATININE (BEAKER) 0.70 mg/dL 0.57-1.25 (test code = 358) GLUCOSE RANDOM 51 mg/dL 70-105 L (BEAKER) (test code = 652) CALCIUM (BEAKER) 7.9 mg/dL 8.4-10.2 L (test code = 697) EGFR (BEAKER) (test 108 mL/min/1.73 ESTIM ATED GFR IS code = 1092) sq m NOT ACCURATE CREATININE CLEARANCE IN PREDICTING GLOMERULAR FILTRATION RATE . ESTIMATED GFR I S NOT APPLICABLE FOR DIALYSIS PATIEN TS. R&D Lab Technician ID - RIGO WPOCT-GLUCOSE [id number] 22:50:00 Test Item Value Reference Range Interpretation Comments POC-GLUCOSE METER 155 mg/dL 70-110 H : TESTED A T [facility] [address] (BEAKER) (test code = [facility], 1538) [address]: R&D Lab Technician/Techni og ID = [id number] for KAMRAN WORRELL POCT-GLUCOSE [id number] 17:26:00 Test Item Value Reference Range Interpretation Comments POC-GLUCOSE METER 255 mg/dL 70-110 H : TESTED A T [facility] [address] (BEAKER) (test code = [facility], 1538) [address]: R&D Lab Technician/Techni og ID = [id number] for Ree dLissette POCT-GLUCOSE [id number] 11:33:00 Test Item Value Reference Range Interpretation Comments POC-GLUCOSE METER 127 mg/dL 70-110 H : TESTED A T [facility] [address] (BEAKER) (test code = [facility], 1538) [address]: R&D Lab Technician/Techni og ID = [id number] for AN BROCK JOSEPH CBC W/PLT COUNT & AUTO [id number] 08:32:00 Test Item Value Reference Range Interpretation Comments WHITE BLOOD CELL COUNT (BEAKER) 11.0 K/ L 3.5-10.5 H (test code = 775) RED BLOOD CELL COUNT (BEAKER) 4.70 M/ L 4.63-6.08 (test code = 761) HEMOGLOBIN (BEAKER) (test code = 13.6 GM/DL 13.7-17.5 L 410) HEMATOCRIT (BEAKER) (test code = 40.1 % 40.1-51.0 411) MEAN CORPUSCULAR VOLUME (BEAKER) 85.3 fL 79.0-92.2 (test code = 753) MEAN CORPUSCULAR HEMOGLOBIN 28.9 pg 25.7-32.2 (BEAKER) (test code = 751) MEAN CORPUSCULAR HEMOGLOBIN CONC 33.9 GM/DL 32.3-36.5 (BEAKER) (test code = 752) RED CELL DISTRIBUTION WIDTH 14.0 % 11.6-14.4 (BEAKER) (test code = 412) PLATELET COUNT (BEAKER) (test 288 K/CU MM 150-450 code = 756) MEAN PLATELET VOLUME (BEAKER) 10.1 fL 9.4-12.4 (test code = 754) NUCLEATED RED BLOOD CELLS 0 /100 WBC 0-0 (BEAKER) (test code = 413) NEUTROPHILS RELATIVE PERCENT 71 % (BEAKER) (test code = 429) LYMPHOCYTES RELATIVE PERCENT 17 % (BEAKER) (test code = 430) MONOCYTES RELATIVE PERCENT 7 % (BEAKER) (test code = 431) EOSINOPHILS RELATIVE PERCENT 0 % (BEAKER) (test code = 432) BASOPHILS RELATIVE PERCENT 1 % (BEAKER) (test code = 437) NEUTROPHILS ABSOLUTE COUNT 7.85 K/ L 1.78-5.38 H (BEAKER) (test code = 670) LYMPHOCYTES ABSOLUTE COUNT 1.86 K/ L 1.32-3.57 (BEAKER) (test code = 414) MONOCYTES ABSOLUTE COUNT (BEAKER) 0.81 K/ L 0.30-0.82 (test code = 415) EOSINOPHILS ABSOLUTE COUNT 0.03 K/ L 0.04-0.54 L (BEAKER) (test code = 416) BASOPHILS ABSOLUTE COUNT (BEAKER) 0.08 K/ L 0.01-0.08 (test code = 417) IMMATURE GRANULOCYTES-RELATIVE 3 % 0-1 H PERCENT (BEAKER) (test code = 2801) POCT-GLUCOSE [id number] 07:40:00 Test Item Value Reference Range Interpretation Comments POC-GLUCOSE METER 116 mg/dL 70-110 H : TESTED A T [facility] [address] (BEAKER) (test code = [place], 1538) [address]: R&D Lab Technician/Techni og ID = [id number] for Ree dLissette PROTHROMBIN TIME/[id number] 05:57:00 Test Item Value Reference Range Interpretation Comments PROTIME (BEAKER) (test code = 31.3 seconds 11.9-14.2 H 759) INR (BEAKER) (test code = 370) 3.1 <=5.9 Effective 01/04/2019: PT Reference Range ChangeNew: 11.9-14.2 Previous: 11.7- 14.7RECOMMENDED COUMADIN/WARFARIN INR THERAPY RANGESSTANDARD DOSE: 2.0-3.0 Includes: PROPHYLAXIS for venous thrombosis, systemic embolization; TREATMENT for venous thrombosis and/or pulmonary embolus.HIGH RISK: Target INR is2.5-3.5 for patients wiht mechanical heart valves.While on warfarin.POCT-GLUCOSE METER 2019-09-02 20:45:00 Test Item Value Reference Range Interpretation Comments POC-GLUCOSE METER 244 mg/dL 70-110 H : TESTED A T [facility] [address] (BEAKER) (test code = MISAELTONY Serena [facility], 1538) [address]: R&D Lab Technician/Techni og ID = [id number] for RA GLAND, GIO SODIUM, RANDOM [id number] 19:03:00 Test Item Value Reference Range Interpretation Comments SODIUM URINE (BEAKER) (test code = 23 meq/L 243) Reference Range: No NormalsOperator ID - KENNOSMOLALITY, [id number] 18:19:00 Test Item Value Reference Range Interpretation Comments OSMOLALITY URINE (BEAKER) (test 857 mOsm/kg 40-1,400 code = 614) POCT-GLUCOSE [id number] 17:17:00 Test Item Value Reference Range Interpretation Comments POC-GLUCOSE METER 235 mg/dL 70-110 H : TESTED A T [facility] 6720 (BEAKER) (test code = MISAELTONY Serena [facility], 1538) [address]: R&D Lab Technician/Techni og ID = [id number] for AN GULO, BROCK URINALYSIS W/ [id number] 16:53:00 Test Item Value Reference Range Interpretation Comments COLOR (BEAKER) (test code = 470) Yellow CLARITY (BEAKER) (test code = 469) Clear SPECIFIC GRAVITY UA (BEAKER) (test 1.026 1.001-1.035 code = 468) PH UA (BEAKER) (test code = 467) 6.5 5.0-8.0 PROTEIN UA (BEAKER) (test code = 50 mg/dL Negative A 464) GLUCOSE UA (BEAKER) (test code = 1000 mg/dL Negative A 365) KETONES UA (BEAKER) (test code = Negative Negative 371) BILIRUBIN UA (BEAKER) (test code = Negative Negative 462) BLOOD UA (BEAKER) (test code = Small Negative A 461) NITRITE UA (BEAKER) (test code = Negative Negative 465) LEUKOCYTE ESTERASE UA (BEAKER) Large Negative A (test code = 466) UROBILINOGEN UA (BEAKER) (test 0.2 mg/dL 0.2-1.0 code = 463) RBC UA (BEAKER) (test code = 519) 7 /HPF WBC UA (BEAKER) (test code = 520) 31 /HPF MUCUS (BEAKER) (test code = 1574) Rare SQUAMOUS EPITHELIAL (BEAKER) (test 2 /HPF code = 516) SOURCE(BEAKER) (test code = 2795) R&D Lab Technician ID - [auto]R&D Lab Technician ID - [id number] 11:46:00 Test Item Value Reference Range Interpretation Comments POC-GLUCOSE METER 199 mg/dL 70-110 H : TESTED A T [facility] 6720 (BEAKER) (test code = DALI Lyons [facility], 1538) [address]: R&D Lab Technician/Techni og ID = [id number] for AN BROCK JOSEPH TSH/FREE T4 IF [id number] 11:41:00 Test Item Value Reference Range Interpretation Comments THYROID STIMULATING HORMONE 1.31 uIU/mL 0.35-4.94 (BEAKER) (test code = 772) R&D Lab Technician ID - CHRIST [id number] 11:41:00 Test Item Value Reference Range Interpretation Comments CORTISOL, TOTAL (BEAKER) (test code 4.8 ug/dL 3.7-19.4 = 9945) R&D Lab Technician ID - CHRIST MOSMOLALITY, [id number] 11:32:00 Test Item Value Reference Range Interpretation Comments OSMOLALITY, SERUM (BEAKER) (test 284 mOsm/kg 275-295 code = 615) CBC W/PLT COUNT & AUTO [id number] 11:23:00 Test Item Value Reference Range Interpretation Comments WHITE BLOOD CELL COUNT (BEAKER) 14.1 K/ L 3.5-10.5 H (test code = 775) RED BLOOD CELL COUNT (BEAKER) 5.13 M/ L 4.63-6.08 (test code = 761) HEMOGLOBIN (BEAKER) (test code = 15.0 GM/DL 13.7-17.5 410) HEMATOCRIT (BEAKER) (test code = 43.1 % 40.1-51.0 411) MEAN CORPUSCULAR VOLUME (BEAKER) 84.0 fL 79.0-92.2 (test code = 753) MEAN CORPUSCULAR HEMOGLOBIN 29.2 pg 25.7-32.2 (BEAKER) (test code = 751) MEAN CORPUSCULAR HEMOGLOBIN CONC 34.8 GM/DL 32.3-36.5 (BEAKER) (test code = 752) RED CELL DISTRIBUTION WIDTH 13.8 % 11.6-14.4 (BEAKER) (test code = 412) PLATELET COUNT (BEAKER) (test 341 K/CU MM 150-450 code = 756) MEAN PLATELET VOLUME (BEAKER) 9.2 fL 9.4-12.4 L (test code = 754) NUCLEATED RED BLOOD CELLS 0 /100 WBC 0-0 (BEAKER) (test code = 413) NEUTROPHILS RELATIVE PERCENT 77 % (BEAKER) (test code = 429) LYMPHOCYTES RELATIVE PERCENT 12 % (BEAKER) (test code = 430) MONOCYTES RELATIVE PERCENT 8 % (BEAKER) (test code = 431) EOSINOPHILS RELATIVE PERCENT 0 % (BEAKER) (test code = 432) BASOPHILS RELATIVE PERCENT 0 % (BEAKER) (test code = 437) NEUTROPHILS ABSOLUTE COUNT 10.90 K/ L 1.78-5.38 H (BEAKER) (test code = 670) LYMPHOCYTES ABSOLUTE COUNT 1.75 K/ L 1.32-3.57 (BEAKER) (test code = 414) MONOCYTES ABSOLUTE COUNT (BEAKER) 1.18 K/ L 0.30-0.82 H (test code = 415) EOSINOPHILS ABSOLUTE COUNT 0.01 K/ L 0.04-0.54 L (BEAKER) (test code = 416) BASOPHILS ABSOLUTE COUNT (BEAKER) 0.03 K/ L 0.01-0.08 (test code = 417) IMMATURE GRANULOCYTES-RELATIVE 2 % 0-1 H PERCENT (BEAKER) (test code = 2801) BASIC METABOLIC [id number] 11:19:00 Test Item Value Reference Range Interpretation Comments SODIUM (BEAKER) 130 meq/L 136-145 L (test code = 381) POTASSIUM (BEAKER) 4.0 meq/L 3.5-5.1 (test code = 379) CHLORIDE (BEAKER) 97 meq/L 98-107 L (test code = 382) CO2 (BEAKER) (test 28 meq/L - code = 355) BLOOD UREA NITROGEN 21 mg/dL 7-21 (BEAKER) (test code = 354) CREATININE (BEAKER) 0.79 mg/dL 0.57-1.25 (test code = 358) GLUCOSE RANDOM 228 mg/dL 70-105 H (BEAKER) (test code = 652) CALCIUM (BEAKER) 8.4 mg/dL 8.4-10.2 (test code = 697) EGFR (BEAKER) (test 94 mL/min/1.73 ESTIMA KERRY GFR IS code = 1092) sq m NOT ACCURATE CREATININE CLEARANCE IN PREDICTING GLOMERULAR FILTRATION RATE . ESTIMATED GFR I S NOT APPLICABLE FOR DIALYSIS PATIEN TS. R&D Lab Technician ID - CHRIST MPOCT-GLUCOSE [id number] 08:20:00 Test Item Value Reference Range Interpretation Comments POC-GLUCOSE METER 220 mg/dL 70-110 H : TESTED A T [facility] 6720 ([place]) (test code = [place], 1538) [address]: R&D Lab Technician/Techni og ID = [id number] for AN BROCK JOSEPH PROTHROMBIN TIME/[id number] 07:06:00 Test Item Value Reference Range Interpretation Comments PROTIME (BEAKER) (test code = 26.3 seconds 11.9-14.2 H 759) INR (BEAKER) (test code = 370) 2.5 <=5.9 Effective 01/04/2019: PT Reference Range ChangeNew: 11.9-14.2 Previous: 11.7- 14.7RECOMMENDED COUMADIN/WARFARIN INR THERAPY RANGESSTANDARD DOSE: 2.0-3.0 Includes: PROPHYLAXIS for venous thrombosis, systemic embolization; TREATMENT for venous thrombosis and/or pulmonary embolus.HIGH RISK: Target INR is2.5-3.5 for patients wiht mechanical heart valves.While on warfarin.POCT-GLUCOSE METER 2019-09-01 21:34:00 Test Item Value Reference Range Interpretation Comments POC-GLUCOSE METER 330 mg/dL 70-110 H : TESTED A T [facility] 6720 (BEFibroblast) (test code = DALI [place], 1538) [address]: R&D Lab Technician/Techni og ID = [id number] for ERICK MCHUGH POCT-GLUCOSE [id number] 17:30:00 Test Item Value Reference Range Interpretation Comments POC-GLUCOSE METER 314 mg/dL 70-110 H : TESTED A T [facility] 6720 (BEAKER) (test code = DALI Lyons [facility], 1538) [address]: R&D Lab Technician/Techni og ID = [id number] for CAMILA BRODERICK CBC W/PLT COUNT & AUTO [id number] 14:05:00 Test Item Value Reference Range Interpretation Comments WHITE BLOOD CELL COUNT (BEAKER) 17.9 K/ L 3.5-10.5 H (test code = 775) RED BLOOD CELL COUNT (BEAKER) 5.28 M/ L 4.63-6.08 (test code = 761) HEMOGLOBIN (BEAKER) (test code = 15.1 GM/DL 13.7-17.5 410) HEMATOCRIT (BEAKER) (test code = 44.5 % 40.1-51.0 411) MEAN CORPUSCULAR VOLUME (BEAKER) 84.3 fL 79.0-92.2 (test code = 753) MEAN CORPUSCULAR HEMOGLOBIN 28.6 pg 25.7-32.2 (BEAKER) (test code = 751) MEAN CORPUSCULAR HEMOGLOBIN CONC 33.9 GM/DL 32.3-36.5 (BEAKER) (test code = 752) RED CELL DISTRIBUTION WIDTH 13.8 % 11.6-14.4 (BEAKER) (test code = 412) PLATELET COUNT (BEAKER) (test 308 K/CU MM 150-450 code = 756) MEAN PLATELET VOLUME (BEAKER) 9.4 fL 9.4-12.4 (test code = 754) NUCLEATED RED BLOOD CELLS 0 /100 WBC 0-0 (BEAKER) (test code = 413) (CELLAVISION MANUAL DIFF)2019-09-01 14:05:00 Test Item Value Reference Range Interpretation Comments NEUTROPHILS - REL 81 % (CELLAVISION)(BEAKER) (test code = 2816) LYMPHOCYTES - REL 6 % (CELLAVISION)(BEAKER) (test code = 2817) MONOCYTES - REL 9 % (CELLAVISION)(BEAKER) (test code = 2818) MYELOCYTES - REL 2 % 0-0 H (CELLAVISION)(BEAKER) (test code = 2822) BANDS - REL (CELLAVISION)(BEAKER) 1 % 0-10 (test code = 2826) ATYPICAL LYMPHOCYTES - REL 1 % 0-0 H (CELLAVISION)(BEAKER) (test code = 2829) NEUTROPHILS - ABS 14.50 K/ul 1.78-5.38 H (CELLAVISION)(BEAKER) (test code = 2830) LYMPHOCYTES - ABS 1.07 K/ul 1.32-3.57 L (CELLAVISION)(BEAKER) (test code = 2831) MONOCYTES - ABS 1.61 K/uL 0.30-0.82 H (CELLAVISION)(BEAKER) (test code = 2832) MYELOCYTES-ABS 0.36 K/uL 0.00-0.00 H (CELLAVISION)(BEAKER) (test code = 2837) BANDS - ABS (CELLAVISION)(BEAKER) 0.18 K/uL 0.00-0.80 (test code = 2840) ATYPICAL LYMPHOCYTES - ABS 0.18 K/uL 0.00-0.00 H (CELLAVISION)(BEAKER) (test code = 2858) TOTAL COUNTED (BEAKER) (test code 100 = 1351) RBC MORPHOLOGY (BEAKER) (test code Normal = 762) WBC MORPHOLOGY (BEAKER) (test code Normal = 487) PLT MORPHOLOGY (BEAKER) (test code Normal = 486) ARTIFACT (CELLAVISION)(BEAKER) Present (test code = 3432) PLATELET CONCENTRATION Adequate (CELLAVISION)(BEAKER) (test code = 3438) R&D Lab Technician ID - Rachell OverholtUser comments: Slide comments:BASIC METABOLIC PANEL 2019-09-01 13:14:00 Test Item Value Reference Range Interpretation Comments SODIUM (BEAKER) 126 meq/L 136-145 L (test code = 381) POTASSIUM (BEAKER) 4.2 meq/L 3.5-5.1 (test code = 379) CHLORIDE (BEAKER) 96 meq/L 98-107 L (test code = 382) CO2 (BEAKER) (test 22 meq/L 22-29 code = 355) BLOOD UREA NITROGEN 38 mg/dL 7-21 H (BEAKER) (test code = 354) CREATININE (BEAKER) 0.83 mg/dL 0.57-1.25 (test code = 358) GLUCOSE RANDOM 263 mg/dL 70-105 H (BEAKER) (test code = 652) CALCIUM (BEAKER) 8.2 mg/dL 8.4-10.2 L (test code = 697) EGFR (BEAKER) (test 89 mL/min/1.73 ESTIMA KERRY GFR IS code = 1092) sq m NOT ACCURATE CREATININE CLEARANCE IN PREDICTING GLOMERULAR FILTRATION RATE . ESTIMATED GFR I S NOT APPLICABLE FOR DIALYSIS PATIEN TS. R&D Lab Technician ID - CHRIST Patriciaimen slightly ictericPOCT-GLUCOSE [id number] 11:53:00 Test Item Value Reference Range Interpretation Comments POC-GLUCOSE METER 238 mg/dL 70-110 H : TESTED A T [facility] 6720 ([place]) (test code = [place], 1538) [address]: R&D Lab Technician/Techni og ID = [id number] for BALTAZAR LL, JOSE A PROTHROMBIN TIME/[id number] 09:50:00 Test Item Value Reference Range Interpretation Comments PROTIME (BEAKER) (test code = 23.7 seconds 11.9-14.2 H 759) INR (BEAKER) (test code = 370) 2.2 <=5.9 Effective 01/04/2019: PT Reference Range ChangeNew: 11.9-14.2 Previous: 11.7- 14.7RECOMMENDED COUMADIN/WARFARIN INR THERAPY RANGESSTANDARD DOSE: 2.0-3.0 Includes: PROPHYLAXIS for venous thrombosis, systemic embolization; TREATMENT for venous thrombosis and/or pulmonary embolus.HIGH RISK: Target INR is2.5-3.5 for patients wiht mechanical heart valves.While on warfarin.POCT-GLUCOSE METER 2019-09-01 08:28:00 Test Item Value Reference Range Interpretation Comments POC-GLUCOSE METER 155 mg/dL 70-110 H : TESTED A T [facility] 6720 ([place]) (test code = [place], 1538) [address]: R&D Lab Technician/Techni og ID = [id number] for BALTAZAR LL, JOSE A POCT-GLUCOSE [id number] 04:16:00 Test Item Value Reference Range Interpretation Comments POC-GLUCOSE METER 264 mg/dL 70-110 H : [facility] (test code = [facility], 1538) [address]: R&D Lab Technician/Techni og ID = [id number] for HOWARD STILL POCT-GLUCOSE [id number] 01:08:00 Test Item Value Reference Range Interpretation Comments POC-GLUCOSE METER 188 mg/dL 70-110 H : [facility] (test code = [facility], 1538) [address]: R&D Lab Technician/Techni og ID = [id number] for IBJeferson MNABIGAILISJeferson BASIC METABOLIC [id number] 19:25:00 Test Item Value Reference Range Interpretation Comments SODIUM (BEAKER) 127 meq/L 136-145 L (test code = 381) POTASSIUM (BEAKER) 4.5 meq/L 3.5-5.1 (test code = 379) CHLORIDE (BEAKER) 89 meq/L 98-107 L (test code = 382) CO2 (BEAKER) (test 30 meq/L 22-29 H code = 355) BLOOD UREA NITROGEN 41 mg/dL 7-21 H (BEAKER) (test code = 354) CREATININE (BEAKER) 1.34 mg/dL 0.57-1.25 H (test code = 358) GLUCOSE RANDOM 415 mg/dL 70-105 HH (BEAKER) (test code = 652) CALCIUM (BEAKER) 9.0 mg/dL 8.4-10.2 (test code = 697) EGFR (BEAKER) (test 51 mL/min/1.73 ESTIMA KERRY GFR IS code = 1092) sq m NOT ACCURATE CREATININE CLEARANCE IN PREDICTING GLOMERULAR FILTRATION RATE . ESTIMATED GFR I S NOT APPLICABLE FOR DIALYSIS PATIEN TS. R&D Lab Technician ID - AAHAMIDPOCT-GLUCOSE [id number] 17:24:00 Test Item Value Reference Range Interpretation Comments POC-GLUCOSE METER 460 mg/dL 70-110 HH : Notified RN/MD: ([facility]) (test code = TESTED AT [facility] 6720 1538) [facility], [address]: R&D Lab Technician/Techni og ID = [id number] for ALLEGRA HUTSON POCT-GLUCOSE [id number] 12:43:00 Test Item Value Reference Range Interpretation Comments POC-GLUCOSE METER 491 mg/dL 70-110 HH : Notified RN/MD: (DANE) (test code = TESTED AT [facility] 6720 1538) [facility], [address]: R&D Lab Technician/Techni og ID = [id number] for ALLEGRA HUTSON RAD, CHEST, 1 VIEW, NON [id number] 08:59:00Reason for exam:->shortness of breathShould this be performed at the bedside?->YesFINAL REPORT CHEST AP PORTABLE History provided: Shortness of breath Comparison exam: 05/17/2015 Heart size normal. Lungs grossly clear and vascularity normal. Signed: Akbar Girard Verified Date/Time: 08/31/2019 08:59:49 Reading Location: [facility] Diagnostic Imaging Reading Room - [facility] 1310.12 RAD, ABDOMEN/KUB, 1 VIEW [id number] 08:54:00Reason for exam:->abdominal distensionShould this be performed at the bedside?->YesFINAL REPORT Comparison: None Discussion: Abdomen: Bowel gas pattern is nonobstructed. Evaluation for free intraperitoneal air is limited due to positioning. Right upper quadrant surgical clips are seen likely due to cholecystectomy. No acute skeletal abnormality. Impression: 1. Nonspecific bowel gas pattern. Signed: Abad Nina Verified Date/Time: 08/31/2019 08:54:37 Reading Location: [facility] Radiology Reading Room POCT-GLUCOSE [id number] 08:20:00 Test Item Value Reference Range Interpretation Comments POC-GLUCOSE METER 317 mg/dL 70-110 H : TESTED A T [facility] 6720 ([place]) (test code = DALI [facility], 1538) [address]: R&D Lab Technician/Techni og ID = [id number] for ALLEGRA HUTSON (CELLAVISION MANUAL DIFF)2019-08-31 07:23:00 Test Item Value Reference Range Interpretation Comments NEUTROPHILS - REL 82 % (CELLAVISION)(BEAKER) (test code = 2816) LYMPHOCYTES - REL 10 % (CELLAVISION)(BEAKER) (test code = 2817) MONOCYTES - REL 3 % (CELLAVISION)(BEAKER) (test code = 2818) ATYPICAL LYMPHOCYTES - REL 5 % 0-0 H (CELLAVISION)(BEAKER) (test code = 2829) NEUTROPHILS - ABS 13.61 K/ul 1.78-5.38 H (CELLAVISION)(BEAKER) (test code = 2830) LYMPHOCYTES - ABS 1.66 K/ul 1.32-3.57 (CELLAVISION)(BEAKER) (test code = 2831) MONOCYTES - ABS 0.50 K/uL 0.30-0.82 (CELLAVISION)(BEAKER) (test code = 2832) ATYPICAL LYMPHOCYTES - ABS 0.83 K/uL 0.00-0.00 H (CELLAVISION)(BEAKER) (test code = 2858) TOTAL COUNTED (BEAKER) (test code 100 = 1351) RBC MORPHOLOGY (BEAKER) (test code Normal = 762) PLT MORPHOLOGY (BEAKER) (test code Normal = 486) SMUDGE CELLS (BEAKER) (test code = Present 1371) PLATELET CONCENTRATION Adequate (CELLAVISION)(BEAKER) (test code = 3438) R&D Lab Technician ID - Cassie Zhu comments: Slide comments:BASIC METABOLIC PANEL 2019-08-31 02:16:00 Test Item Value Reference Range Interpretation Comments SODIUM (BEAKER) 127 meq/L 136-145 L (test code = 381) POTASSIUM (BEAKER) 4.3 meq/L 3.5-5.1 (test code = 379) CHLORIDE (BEAKER) 89 meq/L 98-107 L (test code = 382) CO2 (BEAKER) (test 27 meq/L 22-29 code = 355) BLOOD UREA NITROGEN 41 mg/dL 7-21 H (BEAKER) (test code = 354) CREATININE (BEAKER) 1.21 mg/dL 0.57-1.25 (test code = 358) GLUCOSE RANDOM 381 mg/dL 70-105 H (BEAKER) (test code = 652) CALCIUM (BEAKER) 9.3 mg/dL 8.4-10.2 (test code = 697) EGFR (BEAKER) (test 57 mL/min/1.73 ESTIMA KERRY GFR IS code = 1092) sq m NOT ACCURATE CREATININE CLEARANCE IN PREDICTING GLOMERULAR FILTRATION RATE . ESTIMATED GFR I S NOT APPLICABLE FOR DIALYSIS PATIEN TS. R&D Lab Technician SINDY Sahu slightly ictericHEPATIC FUNCTION [id number] 02:16:00 Test Item Value Reference Range Interpretation Comments TOTAL PROTEIN (BEAKER) (test code = 7.1 gm/dL 6.0-8.3 770) ALBUMIN (BEAKER) (test code = 1145) 3.7 g/dL 3.5-5.0 BILIRUBIN TOTAL (BEAKER) (test code 1.8 mg/dL 0.2-1.2 H = 377) BILIRUBIN DIRECT (BEAKER) (test 0.9 mg/dL 0.1-0.5 H code = 706) ALKALINE PHOSPHATASE (BEAKER) (test 97 U/L 40-150 code = 346) AST (SGOT) (BEAKER) (test code = 21 U/L 5-34 353) ALT (SGPT) (BEAKER) (test code = 60 U/L 6-55 H 347) R&D Lab Technician SINDY Sahu slightly ictericB-TYPE NATRIURETIC FACTOR (BNP) 2019-08-31 01:39:00 Test Item Value Reference Range Interpretation Comments B-TYPE NATRIURETIC PEPTIDE (BEAKER) 37 pg/mL 0-100 (test code = 700) R&D Lab Technician SINDY SIERRA WPT/[id number] 01:35:00 Test Item Value Reference Range Interpretation Comments PROTIME (BEAKER) (test code = 22.6 seconds 11.9-14.2 H 759) INR (BEAKER) (test code = 370) 2.1 <=5.9 PARTIAL THROMBOPLASTIN TIME 35.6 seconds 22.5-36.0 (BEAKER) (test code = 760) Effective 01/04/2019: PT Reference Range ChangeNew: 11.9-14.2 Previous: 11.7- 14.7RECOMMENDED COUMADIN/WARFARIN INR THERAPY RANGESSTANDARD DOSE: 2.0-3.0 Includes: PROPHYLAXIS for venous thrombosis, systemic embolization; TREATMENT for venous thrombosis and/or pulmonary embolus.HIGH RISK: Target INR is2.5-3.5 for patients wiht mechanical heart valves.PROTHROMBIN [id number] 01:34:00 Test Item Value Reference Range Interpretation Comments PROTIME (BEAKER) (test code = 22.6 seconds 11.9-14.2 H 759) INR (BEAKER) (test code = 370) 2.1 <=5.9 Effective 01/04/2019: PT Reference Range ChangeNew: 11.9-14.2 Previous: 11.7- 14.7RECOMMENDED COUMADIN/WARFARIN INR THERAPY RANGESSTANDARD DOSE: 2.0-3.0 Includes: PROPHYLAXIS for venous thrombosis, systemic embolization; TREATMENT for venous thrombosis and/or pulmonary embolus.HIGH RISK: Target INR is2.5-3.5 for patients wiht mechanical heart valves.CBC W/PLT COUNT & AUTO [id number] 01:27:00 Test Item Value Reference Range Interpretation Comments WHITE BLOOD CELL COUNT (BEAKER) 16.6 K/ L 3.5-10.5 H (test code = 775) RED BLOOD CELL COUNT (BEAKER) 5.94 M/ L 4.63-6.08 (test code = 761) HEMOGLOBIN (BEAKER) (test code = 16.9 GM/DL 13.7-17.5 410) HEMATOCRIT (BEAKER) (test code = 48.6 % 40.1-51.0 411) MEAN CORPUSCULAR VOLUME (BEAKER) 81.8 fL 79.0-92.2 (test code = 753) MEAN CORPUSCULAR HEMOGLOBIN 28.5 pg 25.7-32.2 (BEAKER) (test code = 751) MEAN CORPUSCULAR HEMOGLOBIN CONC 34.8 GM/DL 32.3-36.5 (BEAKER) (test code = 752) RED CELL DISTRIBUTION WIDTH 13.8 % 11.6-14.4 (BEAKER) (test code = 412) PLATELET COUNT (BEAKER) (test 396 K/CU MM 150-450 code = 756) MEAN PLATELET VOLUME (BEAKER) 9.3 fL 9.4-12.4 L (test code = 754) NUCLEATED RED BLOOD CELLS 0 /100 WBC 0-0 (BEAKER) (test code = 413) BLOOD GAS, [id number] 00:32:00 Test Item Value Reference Range Interpretation Comments PH ARTERIAL (BEAKER) (test code = 7.48 7.35-7.45 H 383) PCO2 ARTERIAL (BEAKER) (test code 40 mmHg 35-45 = 384) PO2 ARTERIAL (BEAKER) (test code = 80 mmHg 80-90 385) O2 SATURATION ARTERIAL (BEAKER) 97.0 % 96.0-97.0 (test code = 386) HCO3 ARTERIAL (BEAKER) (test code 30 mmol/L 21-29 H = 388) BASE EXCESS ARTERIAL (BEAKER) 5.3 mmol/L -2.0-3.0 H (test code = 387) PATIENT TEMPERATURE (BEAKER) (test 35.8 C code = 1818) FIO2 (BEAKER) (test code = 1819) 40.0 %
[2020-12-16] MEDS ORDERED: METHYLPREDNISOLONE 125 MG INJ ONE (16:03)
[2020-12-16] MEDS ORDERED: LEVALBUTEROL 1.25 MG/3 ML NEB ONE ×2 (16:03→17:15)
[2020-12-16] MEDS ORDERED: FUROSEMIDE 40 MG/4 ML VIAL ONE (16:04)
[2020-12-16 16:13] LABS: Absolute Lymphocytes (CBC) 1.4 K/uL (0.7-4.9); Basophils % 0.5 % (0-1.3); Hematocrit 39.8 % (39.6-49.0); Lymphocytes % 12.9 % (15.3-44.8); MPV 7.8 fL (7.6-11.3); RBC Red Blood Cell Count 4.88 M/uL (4.33-5.43)
[2020-12-16 16:14] LABS: Protime INR 2.4
[2020-12-16 16:30] LABS: BUN Blood Urea Nitrogen 9 mg/dL (7-18); Bicarbonate 26 mmol/L (21-32); NT PRO-BNP 177 pg/mL (<450); Potassium 3.8 mmol/L (3.5-5.1); Sodium Level 137 mmol/L (136-145); Troponin (Emerg Dept Use Only) < 0.02 ng/mL (0.0-0.045)
[2020-12-16 16:33] LABS: Glucose Level 410 mg/dL (74-106)
--- NOTE | 2020-12-16 16:58 | RAD REPORT ---
EXAM DESCRIPTION: RAD - Chest Single View - 12/16/2020 4:42 pm CLINICAL HISTORY: Cough;Dyspnea Chest pain. COMPARISON: Chest Single View dated 08/18/2019; Chest Pa And Lat (2 Views) dated 02/04/2019; Chest Sin gle View dated 02/03/2019; Chest Single View dated 11/02/2018 FINDINGS: Portable technique limits examination quality. The lungs are emphysematous but grossly clear. The heart is normal in size. No displaced fractures. IMPRESSION: Prominent COPD.
--- NOTE | 2020-12-16 17:12 | EDPHYS ---
Physician Documentation [facility] Name: Gene Cisneros Age: 85 yrs Sex: Male : 1935 Arrival Date: 12/16/2020 Time: 14:30 Bed 14 Private MD: ED Physician Linden Shen HPI: 12/16 15:26 This 85 yrs old Male presents to ER via Ambulatory with complaints of Chest rn Tightness, Shortness Of Breath, Leg Swelling. 15:26 The patient has shortness of breath with light activity. Onset: The symptoms/episode rn began/occurred 1 week(s) ago. Duration: The symptoms are continuous. The patient's shortness of breath is aggravated by exertion, light activity. Associated signs and symptoms: Pertinent positives: productive cough, Pertinent negatives: fever, hemoptysis. Severity of symptoms: At their worst the symptoms were moderate in the emergency department the symptoms are unchanged. The patient has experienced similar episodes in the past. The patient has been recently seen by a physician:. Reports sent here by pulmonology office, + 1 week of worsening wob and increased swelling, taking only 20mg prednisone daily, no fever, + cough, + chest pain with exertion. . Historical: - Allergies: 15:02 No Known Allergies; jd3 - PMHx: 17:09 GERD; Anemia; PVD; Hypertension; High Cholesterol; Diabetes - NIDDM; COPD; CAD; kg Pneumonia; Bronchitis; Atrial Fib; CHF; - PSHx: 17:09 anal fistula; Cholecystectomy; back; kg - Immunization history:: Adult Immunizations up to date. - Social history:: Smoking status: Patient/guardian denies using tobacco, but has a distant history of tobacco abuse. - Family history:: not pertinent. - Hospitalizations: : No recent hospitalization is reported. ROS: 15:26 Constitutional: Negative for fever, chills, and weight loss, Eyes: Negative for injury, rn pain, redness, and discharge, Neck: Negative for injury, pain, and swelling, Cardiovascular: + chest pain and edema Respiratory: + sob and cough Abdomen/GI: Negative for abdominal pain, nausea, vomiting, diarrhea, and constipation, Back: Negative for injury and pain, MS/Extremity: Negative for injury and deformity, Skin: Negative for injury, rash, and discoloration, Neuro: Negative for headache, numbness, tingling, and seizure. Exam: 15:26 Constitutional: This is a well developed, well nourished patient who is awake, alert, rn + moderate tachypnea Head/Face: Normocephalic, atraumatic. Eyes: Periorbital areas with no swelling, redness, or edema. ENT: No stridor Cardiovascular: Regular rate and rhythm. No pulse deficits. Respiratory: + moderate tachypnea, + coarse bilateral breath sounds with wheezing throughout Abdomen/GI: soft, non-tender Skin: Warm, dry with normal turgor. Normal color with no rashes, no lesions, and no evidence of cellulitis. MS/ Extremity: 2+ edema bilateral lower ext Neuro: Awake and alert, GCS 15 Vital Signs: 15:03 BP 127 / 68; Pulse 98; Resp 19 S; Temp 98.0(TE); Pulse Ox 95% on R/A; Weight 72.57 kg jd3 (R); Height 5 ft. 4 in. (162.56 cm) (R); Pain 5/10; 16:00 BP 152 / 99; Pulse 74; Resp 20; Pulse Ox 97% on R/A; kg 17:00 BP 131 / 76; Pulse 89; Resp 20; Pulse Ox 94% on R/A; kg 19:05 BP 130 / 91; Pulse 90; Resp 20; Pulse Ox 96% on R/A; kg 15:03 Body Mass Index 27.46 (72.57 kg, 162.56 cm) jd3 MDM: 15:15 Patient medically screened. rn 17:08 Differential diagnosis: CHF exacerbation, Chronic Obstructive Pulmonary Disease rn Myocardial Infarction pneumonia, Pneumothorax pulmonary edema. Data reviewed: vital signs, nurses notes, lab test result(s), EKG, radiologic studies, plain films, and as a result, I will discharge patient. Counseling: I had a detailed discussion with the patient and/or guardian regarding: the historical points, exam findings, and any diagnostic results supporting the discharge/admit diagnosis, lab results, radiology results, the need for further work-up and treatment in the hospital. Response to treatment: the patient's symptoms have mildly improved after treatment, and as a result, I will admit patient. Admission orders: after a detailed discussion of the patient's condition and case, the admit orders are written by me. ED course: Mild improvement, xray chest shows prominent COPD, no pneumonia, BNP WNL, will admit for COPD exacerbation, mild CHF on top of that.. 12/16 15:24 Order name: Blood Culture Adult (2) 12/16 15:24 Order name: BMP; Complete Time: 16:42 12/16 15:24 Order name: CBC with Diff; Complete Time: 16:42 12/16 15:24 Order name: NT PRO-BNP; Complete Time: 16:42 12/16 15:24 Order name: PT-INR; Complete Time: 16:42 12/16 15:24 Order name: Troponin (emerg Dept Use Only); Complete Time: 16:42 12/16 15:24 Order name: XRAY CXR (1 view); Complete Time: 17:01 12/16 15:24 Order name: EKG; Complete Time: 15:26 12/16 15:25 Order name: Blood Culture [facility] 12/16 17:17 Order name: SARS-COV-2 RT PCR [facility] 12/16 15:24 Order name: Cardiac monitoring; Complete Time: 15:41 12/16 15:24 Order name: EKG - Nurse/Tech; Complete Time: 16:23 12/16 15:24 Order name: IV Saline Lock; Complete Time: 16:06 12/16 15:24 Order name: Labs collected and sent; Complete Time: 16:06 12/16 15:24 Order name: O2 Per Protocol; Complete Time: 16:06 12/16 15:24 Order name: O2 Sat Monitoring; Complete Time: 16:06 12/16 17:21 Order name: Diet Ada 2000 Caesar; Complete Time: 17:22 tr6 Administered Medications: 15:45 Drug: Lasix (furosemide) 40 mg Route: IVP; Site: left forearm; kg 16:25 Follow up: Response: No adverse reaction kg 15:55 Drug: SOLU-Medrol (methylPrednisoLONE) 125 mg Route: IVP; Site: left forearm; kg 16:24 Follow up: Response: No adverse reaction kg 15:55 Drug: Xopenex (levalbuterol) (3) 1.25 mg Route: Inhalation; kg Disposition: 12/16/20 17:11 Hospitalization ordered by Greg Nicholas for Observation. Preliminary diagnosis is Chronic obstructive pulmonary disease with (acute) exacerbation. - Bed requested for Telemetry/MedSurg (observation). - Status is Observation. [id number] - Condition is Stable. - Problem is an acute exacerbation. - Symptoms have improved. Signatures: Dispatcher [employer] EDMS Yadi greene Linden Johnson MD MD rn Calderon, Audri RN RN aa5 Prateek Kelly RN RN jd3 Malcaba, Joseph, RN RN jm8 Earlene Cordon kg Corrections: (The following items were deleted from the chart) 16:24 15:26 CORONAVIRUS+MR.LAB.BRZ ordered. EDVT EDVT 17:09 15:02 PMHx: GERD; jd3 kg 17:09 15:02 PMHx: Anemia; jd3 kg 17:09 15:02 PMHx: PVD; jd3 kg 17:09 15:02 PMHx: Hypertension; jd3 kg 17:09 15:02 PMHx: High Cholesterol; jd3 kg 17:09 15:02 PMHx: Diabetes - NIDDM; jd3 kg 17:09 15:02 PMHx: COPD; jd3 kg 17:09 15:02 PMHx: CAD; jd3 kg 17:09 15:02 PMHx: Pneumonia; jd3 kg 17:09 15:02 PMHx: Bronchitis; jd3 kg 17:09 15:02 PMHx: Atrial Fib; jd3 kg 17:09 15:02 PMHx: CHF; jd3 kg 17:09 15:02 PSHx: anal fistula; jd3 kg 17:09 15:02 PSHx: Cholecystectomy; jd3 kg 17:09 15:02 PSHx: back; jd3 kg 18:37 17:11 Hospitalization Ordered by Greg Nicholas DO for Observation. Preliminary bd diagnosis is Chronic obstructive pulmonary disease with (acute) exacerbation. Bed requested for Telemetry/MedSurg (observation). Status is Observation. Condition is Stable. Problem is an acute exacerbation. Symptoms have improved. rn 18:45 18:37 12/16/2020 17:11 Hospitalization Ordered by Greg Nicholas DO for Observation. aa5 Preliminary diagnosis is Chronic obstructive pulmonary disease with (acute) exacerbation. Bed requested for [facility] ER HOLD. Status is Observation. Condition is Stable. Problem is an acute exacerbation. Symptoms have improved. bd 20:35 18:45 12/16/2020 17:11 Hospitalization Ordered by Greg Nicholas DO for Observation. jm8 Preliminary diagnosis is Chronic obstructive pulmonary disease with (acute) exacerbation. Bed requested for Telemetry/MedSurg (observation). Status is Observation. Condition is Stable. Problem is an acute exacerbation. Symptoms have improved. aa5
--- NOTE | 2020-12-16 17:12 | ER ---
Nurse's Notes [facility] Name: Gene Cisneros Age: 85 yrs Sex: Male : 1935 Arrival Date: 12/16/2020 Time: 14:30 Bed 14 Private MD: Diagnosis: Chronic obstructive pulmonary disease with (acute) exacerbation Presentation: 12/16 14:59 Chief complaint: Patient's son or daughter states: adult child states: "He has been jd3 reporting some chest pain and pressure with shortness of breath with his CHF. i noticed his feet were starting to swell real bad again, but he is on Lasix to help. I can also hear the wheezing when he breaths.". Coronavirus screen: At this time, the client does not indicate any symptoms associated with coronavirus-19. Ebola Screen: Patient negative for fever greater than or equal to 101.5 degrees Fahrenheit, and additional compatible Ebola Virus Disease symptoms. Initial Sepsis Screen: Does the patient meet any 2 criteria? No. Patient's initial sepsis screen is negative. Does the patient have a suspected source of infection? No. Patient's initial sepsis screen is negative. Risk Assessment: Do you want to hurt yourself or someone else? Patient reports no desire to harm self or others. Onset of symptoms was December 12, 2020. 14:59 Method Of Arrival: Ambulatory [facility] 14:59 Acuity: JO-ANN 2 jd3 Historical: - Allergies: 15:02 No Known Allergies; jd3 - PMHx: 17:09 GERD; Anemia; PVD; Hypertension; High Cholesterol; Diabetes - NIDDM; COPD; CAD; kg Pneumonia; Bronchitis; Atrial Fib; CHF; - PSHx: 17:09 anal fistula; Cholecystectomy; back; kg - Immunization history:: Adult Immunizations up to date. - Social history:: Smoking status: Patient/guardian denies using tobacco, but has a distant history of tobacco abuse. - Family history:: not pertinent. - Hospitalizations: : No recent hospitalization is reported. Screenin:04 Abuse screen: Denies threats or abuse. Nutritional screening: No deficits noted. kg Tuberculosis screening: No symptoms or risk factors identified. Fall Risk None identified. No fall in past 12 months (0 pts). No secondary diagnosis (0 pts). IV access (20 points). Ambulatory Aid- None/Bed Rest/Nurse Assist (0 pts). Gait- Normal/Bed Rest/Wheelchair (0 pts) Mental Status- Oriented to own ability (0 pts). Total Velasco Fall Scale indicates Low Risk Score (25-44 pts). Fall prevention measures have been instituted. Side Rails Up X 2 Placed close to Nursing Station Frequent Obs/Assesments occuring Family Present and informed to notify staff if they need to leave bedside As available Patient and Family Educated on Fall Prevention Program and strategies. Assessment: 17:01 General: Appears in no apparent distress. Behavior is calm, cooperative, appropriate kg for age, quiet. Pain: Complains of pain in chest Pain does not radiate. Pain currently is 1 out of 10 on a pain scale. at worst was 3 out of 10 on a pain scale. level that patient reports is acceptable is 1 out of 10 on a pain scale. Quality of pain is described as pressure, tightness Pain began 1 day ago. Neuro: No deficits noted. Level of Consciousness is awake, alert, obeys commands, Oriented to person, place, time, situation. Cardiovascular: No deficits noted. Heart tones S1 S2. Respiratory: Reports shortness of breath at rest cough that is productive, Airway is patent Breath sounds are coarse bilaterally. Breath sounds with crackles bilaterally. Breath sounds with wheezes bilaterally. GI: No deficits noted. : No deficits noted. EENT: No deficits noted. Derm: No deficits noted. 19:21 Reassessment: Tried to call report. Nurses unable to take report at this time. Will try kg again. Vital Signs: 15:03 BP 127 / 68; Pulse 98; Resp 19 S; Temp 98.0(TE); Pulse Ox 95% on R/A; Weight 72.57 kg jd3 (R); Height 5 ft. 4 in. (162.56 cm) (R); Pain 5/10; 16:00 BP 152 / 99; Pulse 74; Resp 20; Pulse Ox 97% on R/A; kg 17:00 BP 131 / 76; Pulse 89; Resp 20; Pulse Ox 94% on R/A; kg 19:05 BP 130 / 91; Pulse 90; Resp 20; Pulse Ox 96% on R/A; kg 15:03 Body Mass Index 27.46 (72.57 kg, 162.56 cm) [facility] ED Course: 14:30 Patient arrived in ED. as 15:01 Triage completed. jd3 15:04 Arm band placed on. jd3 15:15 Linden Shen MD is Attending Physician. rn 15:32 Earlene Cordon is Primary Nurse. kg 16:10 Inserted saline lock: 20 gauge in left forearm, using aseptic technique. Blood dh4 collected. Inserted Missed attempt(s): 20 gauge in right forearm. 16:42 XRAY CXR (1 view) In Process Unspecified. EDMS 17:08 Patient has correct armband on for positive identification. Bed in low position. Call kg light in reach. Side rails up X2. color television console monitor on. Pulse ox on. NIBP on. 17:10 Greg Nicholas DO is Hospitalizing Provider. rn 17:11 Patient maintains SpO2 saturation greater than 95% on room air. kg 17:22 Blood Culture Adult (2) Sent. kg 19:39 Report given to Matthew WERNER. 8 20:34 No provider procedures requiring assistance completed. Patient admitted, IV remains in [address] place. Administered Medications: 15:45 Drug: Lasix (furosemide) 40 mg Route: IVP; Site: left forearm; kg 16:25 Follow up: Response: No adverse reaction kg 15:55 Drug: SOLU-Medrol (methylPrednisoLONE) 125 mg Route: IVP; Site: left forearm; kg 16:24 Follow up: Response: No adverse reaction kg 15:55 Drug: Xopenex (levalbuterol) (3) 1.25 mg Route: Inhalation; kg Output: 18:00 Urine: 840ml (Voided); Total: 840ml. kg Outcome: 17:11 Decision to Hospitalize by Provider. rn 20:34 Admitted to Med/surg accompanied by nurse, via wheelchair, with chart, Report called to gabo Castro Rn 20:34 Condition: good 20:34 Instructed on the need for admit. 20:35 Patient left the ED. Opal Signatures: Dispatcher [employer] EDMS Jacqui Parekh as Linden Shen MD MD rn Davies, Jonathon, RN RN jd3 Huhn, Donald dh4 Trung Dupree RN RN jm8 Graham, Kristen kg Corrections: (The following items were deleted from the chart) 17:09 15:02 PMHx: GERD; jd3 kg 17:09 15:02 PMHx: Anemia; jd3 kg 15:02 PMHx: PVD; jd3 kg : 15:02 PMHx: Hypertension; jd3 kg : 15:02 PMHx: High Cholesterol; jd3 kg : 15:02 PMHx: Diabetes - NIDDM; jd3 kg : 15:02 PMHx: COPD; jd3 kg : 15:02 PMHx: CAD; jd3 kg : 15:02 PMHx: Pneumonia; jd3 kg 15:02 PMHx: Bronchitis; jd3 kg : 15:02 PMHx: Atrial Fib; jd3 kg : 15:02 PMHx: CHF; jd3 kg : 15:02 PSHx: anal fistula; jd3 kg : 15:02 PSHx: Cholecystectomy; jd3 kg : 15:02 PSHx: back; jd3 kg 20:35 20:34 Admitted to Med/surg accompanied by nurse, via wheelchair, with chart, jm8 jm8
--- NOTE | 2020-12-16 17:48 | P.HP ---
Certification for Inpatient Patient admitted to: Observation With expected LOS: <2 Midnights Patient will require the following post-hospital care: None Practitioner: I am a practitioner with admitting privileges, knowledge of patient current condition, hospital course, and medical plan of care. Services: Services provided to patient in accordance with Admission requirements found in Title 42 Section 412.3 of the Code of Federal Regulations Patient History Date of Service: 12/16/20 Reason for admission: COPD Exarcebation History of Present Illness: Patient is an 85-year-old male with a past medical history significant for COPD, GERD, PVD, anemia, DM2, A. fib, CHF, HLD, CAD who presents with complaint of shortness of breath that has been ongoing for the past 4 days. Patient reports associated signs and symptoms of chest tightness and bilateral lower extremity swelling. Patient denies any other signs or symptoms. Symptoms are aggravated by exertion and relieved by nothing. Patient decided to present to the hospital due to worsening symptoms. Allergies No Known Allergies Allergy (Verified 02/03/19 04:47) Home medications list reviewed: No Home Medications: Acetylcyst [Mucomyst 20%*] 2 ml IH BID 08/18/19 Albuterol Inhaler [Ventolin Inhaler*] 1 puff IH BIDP PRN 08/18/19 Baclofen 5 mg PO DAILY 08/18/19 Benzonatate [Tessalon Perle*] 100 mg PO TIDP PRN 08/18/19 Budesonide [Pulmicort*] 1 inh IH BID 08/18/19 Budesonide/Formoterol Fumarate [Symbicort 160-4.5 Mcg Inhaler] 2 puff PO BID 08/18/19 Cefdinir [Cefdinir*] 300 mg PO Q12H 08/18/19 Esomeprazole Mag Trihydrate [Nexium] 40 mg PO DAILY 08/18/19 Ferrous Sulfate [Feosol] 325 mg PO DAILY 08/18/19 Ipratropium/Albuterol Sulfate [Iprat-Albut 0.5-3(2.5) mg/3 ml] 1 inh IH TID 08/18/19 Melatonin 10 mg PO BEDTIME 08/18/19 Metformin ER [Glucophage ER*] 500 mg PO BID 08/18/19 Mirtazapine [Remeron*] 15 mg PO BEDTIME 08/18/19 Pravastatin Sodium [Pravachol] 40 mg PO DAILY 08/18/19 Pregabalin [Lyrica] 200 mg PO BID 08/18/19 Roflumilast [Daliresp] 500 mcg PO DAILY 08/18/19 Sotalol HCl [Betapace*] 40 mg PO BID 08/18/19 Tamsulosin [Flomax*] 0.4 g PO DAILY 08/18/19 Triamterene/Hydrochlorothiazid [Triamterene-Hctz 37.5-25 mg Cp] 1 cap PO DAILY 08/18/19 Warfarin Sodium 2 mg PO SEECOM 08/18/19 Warfarin Sodium [Coumadin*] 1 mg PO M,W,F 08/18/19 cilostazoL [Cilostazol] 50 mg PO BID 08/18/19 glipiZIDE [Glipizide] 10 mg PO DAILY 08/18/19 predniSONE [Prednisone] 20 mg PO DAILY 08/18/19 Guaifen W/Codeine Syrup [ROBITUSSIN A-C Syrup] 5 ml PO Q6HP PRN #1 bottle 08/20/19 Oseltamivir [Tamiflu*] 75 mg PO BID #7 cap 08/20/19 predniSONE [Prednisone] 40 mg PO DAILY 5 Days #10 tablet 08/20/19 - Past Medical/Surgical History Diabetic: Yes -: COPD -: Atrial fibrillation, chronic anti coagulation -: Hyperlipidemia -: Carotid arterial disease -: CAD -: Hypertension -: Diabetes mellitus type 2 -: PVD -: Former tobacco use -: PVD -: CHOLECYSTECTOMY -: BACK SURGERY -: RECTAL FISTULA REPAIRED -: Carotid stent Psychosocial/ Personal History: The patient is . He has 7 children. He does not work. - Family History Father -: Heart disease, Diabetes Notes: Mother -: Other (see notes) Notes: - hypotension Sister -: Lung disease, Diabetes Brother -: Lung disease, Diabetes - Social History Alcohol use: No CD- Drugs: No Caffeine use: No Review of Systems General: Unremarkable Eyes: Unremarkable ENT: Unremarkable Respiratory: Cough, Shortness of Breath Cardiovascular: Other (chest tightness ) Gastrointestinal: Unremarkable Genitourinary: Unremarkable Musculoskeletal: Pedal edema, Unremarkable Integumentary: Unremarkable Neurological: Unremarkable Lymphatics: Unremarkable Physical Examination - Physical Exam General: Alert, In no apparent distress, Oriented x3 HEENT: Atraumatic, PERRLA, Mucous membr. moist/pink, EOMI, Sclerae nonicteric Neck: Supple, 2+ carotid pulse no bruit, No LAD, Without JVD or thyroid abnormality Respiratory: Diminished, Expiratory wheezes, Inspiratory wheezes Cardiovascular: No edema, Regular rate/rhythm, Normal S1 S2 Capillary refill: <2 Seconds Gastrointestinal: Normal bowel sounds, No tenderness Musculoskeletal: No clubbing, No swelling, No tenderness Integumentary: No rashes, No breakdown Neurological: Normal gait, Normal speech, Normal strength at 5/5 x4 extr, Normal tone, Normal affect Lymphatics: No axilla or inguinal lymphadenopathy External genitalia: Deferred Rectal: Deferred - Studies Laboratory Data (last 24 hrs) 12/16/20 16:00: PT 27.9 H, INR 2.40 12/16/20 16:00: WBC 11.20 H, Hgb 12.8 L, Hct 39.8, Plt Count 353 12/16/20 16:00: Sodium 137, Potassium 3.8, BUN 9, Creatinine 1.03, Glucose 410 H* Assessment and Plan - Plan --Acute on chronic COPD exacerbation. Continue antibiotics, steroids and neb treatment with albuterol\Atrovent. . --DM2. Poorly controlled. BS monitoring with sliding scale insulin. --A. fib. Continue warfarin. --History of CAD\PVD.. Continue Warfarin and statin --HLD. Continue statin. --BECKIE. Continue ferrous sulfate. --GERD. Continue home medication. --Bilateral lower extremity edema. Patient given a dose of Lasix in the ER. Continue home diuretics --DVT prophylaxis with heparin subQ Discharge Plan: Home Plan to discharge in: 48 Hours - Advance Directives Does patient have a Living Will: Yes Does patient have a Durable POA for Healthcare: Yes - Code Status/Comfort Care Code Status Assessed: Yes Code Status: Full Code Critical Care: No
[2020-12-16] MEDS ORDERED: ONDANSETRON 4 MG/2 ML VIAL IV PRN (20:15)
[2020-12-16] MEDS ORDERED: ACETAMINOPHEN 500 MG TAB PO PRN (20:15)
[2020-12-16] MEDS ORDERED: HYDROCODONE/APAP 5/325 MG TAB PO PRN (20:15)
[2020-12-16] MEDS: ALBUTEROL 2.5 MG/3 ML NEB SOL NEB SCH (20:30)
[2020-12-16] MEDS: IPRATROPIUM BROM 0.5MG/2.5ML NEB SCH (20:30)
[2020-12-16] MEDS ORDERED: AZITHROMYCIN IV 500 MG in NA CHLORIDE 0.9% 250 ML IVPB SCH (21:00)
[2020-12-16] MEDS: INSULIN -REGULAR HUMAN 50 UNIT/0.5 ML ML SQ SCH (21:13)
[2020-12-16 21:24] VITALS: BMI 27.0
[2020-12-16 21:45] LABS: Urine Appearance CLEAR (Clear); Urine Bilirubin NEGATIVE (Negative); Urine Blood 1+ (Negative); Urine Color YELLOW (Yellow); Urine Glucose 3+ (Negative); Urine Protein NEGATIVE (Negative); Urine Specific Gravity 1.015 (1.005-1.030); Urine Urobilinogen 0.2 mg/dL (0.2-1.0); Urine pH 5.5 (5.0-7.0)
[2020-12-16 21:47] LABS: Urine Microscopic Reflex ORDER UMIC
[2020-12-16] MEDS ORDERED: AZITHROMYCIN 500 MG INJ IVPB ONE (21:52)
[2020-12-16] MEDS ORDERED: NA CHLORIDE 0.9% 500 ML ONE (21:56)
[2020-12-16 21:58] LABS: Urine Bacteria NONE SEEN /HPF (NONE SEEN)
[2020-12-16] MEDS ORDERED: GLUCAGON 1 MG/VIAL IM PRN (22:18)
[2020-12-16] MEDS ORDERED: INSULIN -REGULAR HUMAN 50 UNIT/0.5 ML ML IV ONE (22:18)
[2020-12-16] MEDS ORDERED: D50W 25 GM/50 ML SYRINGE IV PRN (22:18)
[2020-12-17] MEDS: HEPARIN 5000 UNIT/ML 1 ML VIAL SQ SCH ×2 (00:09→08:22)
[2020-12-17] MEDS ORDERED: INSULIN -REGULAR HUMAN 50 UNIT/0.5 ML ML IV ONE (00:23)
[2020-12-17] MEDS ORDERED: METHYLPREDNISOLONE 40 MG INJ IV SCH (01:00)
[2020-12-17] MEDS: IPRATROPIUM BROM 0.5MG/2.5ML NEB SCH ×2 (01:10→08:40)
[2020-12-17] MEDS: ALBUTEROL 2.5 MG/3 ML NEB SOL NEB SCH ×2 (01:10→08:40)
[2020-12-17 06:20] LABS: Absolute Lymphocytes (CBC) 1.1 K/uL (0.7-4.9); Basophils % 0.4 % (0-1.3); Hematocrit 40.4 % (39.6-49.0); Lymphocytes % 10.5 % (15.3-44.8); MPV 7.9 fL (7.6-11.3); RBC Red Blood Cell Count 5.01 M/uL (4.33-5.43)
[2020-12-17 06:47] LABS: Protime INR 2.2
[2020-12-17 06:50] LABS: Blood Morphology Comment NOT SEEN (NOT SEEN); Platelet Estimate ADEQ
[2020-12-17 06:52] LABS: Magnesium 2.1 mg/dL (1.8-2.4); Potassium 3.8 mmol/L (3.5-5.1)
[2020-12-17] MEDS ORDERED: INSULIN GLARGINE 100 UNITS/ML SQ SCH (08:00)
[2020-12-17] MEDS: INSULIN -REGULAR HUMAN 50 UNIT/0.5 ML ML SQ SCH ×2 (08:21→12:09)
[2020-12-17] MEDS ORDERED: TAMSULOSIN 0.4 MG SR CAP PO SCH (09:00)
[2020-12-17] MEDS ORDERED: METFORMIN ER 500 MG TAB PO SCH (09:00)
[2020-12-17] MEDS ORDERED: POTASSIUM CL SA 10 MEQ TAB PO ONE (09:00)
[2020-12-17] MEDS ORDERED: predniSONE 20 MG TAB PO SCH (09:00)
[2020-12-17] MEDS ORDERED: FUROSEMIDE 20 MG TABLET PO SCH (09:00)
[2020-12-17] MEDS ORDERED: ASPIRIN 81 MG CHEWABLE TABLET PO SCH (09:00)
[2020-12-17] MEDS ORDERED: ROFLUMILAST 500 MCG TABLET PO SCH (09:00)
[2020-12-17] MEDS ORDERED: SOTALOL HCL 80 MG TAB PO SCH (09:00)
[2020-12-17 12:11] VITALS: BP 124/63; TEMP 97.2
[2020-12-17 12:13] VITALS: O2SAT 94
--- NOTE | 2020-12-17 13:14 | P.DS ---
Admission Date: 12/16/20 Discharge Date: 12/17/20 Disposition: ROUTINE DISCHARGE Discharge Condition: GOOD Reason for Admission: COPD Exarcebation Procedures: CXR (12/16): lungs are emphysematous but grossly clear. heart is normal in size. no displaced fractures. Impression: Prominent COPD Problem List Acute on chronic COPD Exacerbation NIDDM2, poorly controlled Chronic Afib on warfarin h/o CAD/PVD hLD iron deficiency anemia GERD Brief History of Present Illness: Patient is an 85-year-old male with a past medical history significant for COPD, GERD, PVD, anemia, DM2, A. fib, CHF, HLD, CAD who presents with complaint of shortness of breath that has been ongoing for the past 4 days. Patient reports associated signs and symptoms of chest tightness and bilateral lower extremity swelling. Patient denies any other signs or symptoms. Symptoms are aggravated by exertion and relieved by nothing. Patient decided to present to the hospital due to worsening symptoms. Hospital Course: Patient was treated for acute COPD exacerbation with steroids, nebulizers, and azithromycin. He had significant improvement and was breathing much more comfortably the following day, even down to room air. He reported having oxygen at home and feeling much better. This was discussed with his daughter who were in agreement that he improved and was well enough for discharge home. He did have some mild bilateral lower extremity edema on presentation to the ED which resolved with one dose of 40mg IV Lasix, he was otherwise maintained on his home regimen of PO 20mg Lasix. His daughter was advised to try an extra dose of 20mg Lasix if she notices increased edema and ~2lb wt gain. If requires more than 1 extra dose, to discuss further with PCP. He was noted to have hyperglycemia to ~400, and I reviewed possibility of insulin while on higher dose steroids. His daughter stated he refuses insulin and will not allow her to give him insulin. Patient confirmed. I advised to please continue to consider and discuss further with his PCP. He was discharged with a short course of high dose prednisone and azithromycin. Follow up: PCP in 3-5 days. 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 Vital Signs/Physical Exam: Temp Pulse Resp BP Pulse Ox 97.2 F 94 H 20 124/63 94 12/17/20 12:00 12/17/20 12:00 12/17/20 12:00 12/17/20 12:00 12/17/20 12:00 General: Alert, In no apparent distress, Oriented x3 HEENT: Mucous membr. moist/pink, Sclerae nonicteric Neck: Supple, JVD not distended Respiratory: Clear to auscultation bilaterally, Diminished (slightly at bases bilaterall) Cardiovascular: No edema, Regular rate/rhythm Gastrointestinal: Soft and benign, Non-distended, No tenderness Musculoskeletal: No erythema, No tenderness Integumentary: No rashes Neurological: Normal speech, Normal affect Laboratory Data at Discharge: WBC 10.30 K/uL (4.3-10.9) 12/17/20 05:52 Hgb 13.7 g/dL (13.6-17.9) 12/17/20 05:52 Hct 40.4 % (39.6-49.0) 12/17/20 05:52 Plt Count 364 K/uL (152-406) 12/17/20 05:52 PT 25.5 SECONDS (9.5-12.5) H 12/17/20 06:30 INR 2.20 12/17/20 06:30 Sodium 142 mmol/L (136-145) 12/17/20 05:52 Potassium 3.8 mmol/L (3.5-5.1) 12/17/20 05:52 BUN 17 mg/dL (7-18) 12/17/20 05:52 Creatinine 0.91 mg/dL (0.55-1.3) 12/17/20 05:52 Glucose 256 mg/dL (74-106) H 12/17/20 05:52 Magnesium 2.1 mg/dL (1.8-2.4) 12/17/20 05:52 Troponin I < 0.02 ng/mL (0.0-0.045) 12/16/20 20:39 Home Medications: Aspirin 81 mg PO DAILY 12/16/20 Baclofen [Lioresal*] 5 mg PO QID 12/16/20 Esomeprazole Magnesium [Nexium] 20 mg PO DAILY 12/16/20 Furosemide [Lasix*] 20 mg PO DAILY 12/16/20 Glipizide [Glipizide Xl] 10 mg PO DAILY 12/16/20 Melatonin 10 mg PO BEDTIME PRN 12/16/20 Metformin ER [Glucophage ER*] 500 mg PO BID 12/16/20 Mirtazapine [Remeron*] 15 mg PO BEDTIME 12/16/20 Potassium Oral Tab [Klor-Con 10 mEq Tab*] 20 meq PO DAILY 12/16/20 Pravastatin Sodium 40 mg PO DAILY 12/16/20 Pregabalin [Lyrica] 200 mg PO BID 12/16/20 Primidone [Mysoline *] 50 mg PO BEDTIME 12/16/20 Roflumilast [Daliresp*] 500 mcg PO DAILY 12/16/20 Sotalol HCl [Sotalol AF] 0.5 tab PO BID 12/16/20 Tamsulosin [Flomax*] 1 cap PO DAILY 12/16/20 Vit D3/Vit K2/Calc Frutoborate [Move Free Yjffw-Tubynv-G1-D3] 1 tab PO DAILY 12/16/20 Warfarin Sodium [Coumadin*] 2 mg PO DAILY 12/16/20 cilostazoL [Cilostazol] 50 mg PO BID 12/16/20 predniSONE [Deltasone*] 10 mg PO DAILY 12/16/20 predniSONE [Prednisone*] 1 tab PO DAILY 12/16/20 predniSONE [Prednisone*] 2 tab PO DAILY 12/16/20 Azithromycin 250 mg PO DAILY 3 Days #3 tablet 12/17/20 predniSONE [Deltasone] 20 mg PO SEECOM 8 Days #12 tab 12/17/20 New Medications: Azithromycin 250 mg PO DAILY 3 Days #3 tablet predniSONE [Deltasone] 20 mg PO SEECOM 8 Days #12 tab Physician Discharge Instructions: You were found to have a COPD exacerbation and improved with steroids and nebulizers. You are discharged home to continue with higher dose prednisone. You were noted to have high blood sugar levels, and we discussed possibly starting insulin however you do not want to do this at this time. Please watch your diet, take your medications, and continue to discuss with your PCP. If you notice lower leg swelling due to fluid, consider taking one extra dose of furosemide 20mg. If this does not help, or swelling is getting worse, please see your PCP. Follow up with your PCP in 3-5 days. Follow up with your lung doctor in the next 1-2 weeks. Diet: ADA Activity: Ad berna Followup: Aman Cervantes MD [ACTIVE - CAN ADMIT] - 1-2 Weeks (lung doctor- call to schedule an appointment ) LENCHO MUSA [Primary Care Provider] - (Follow up with your PCP in 3-5 days. ) Time spent managing pt's care (in minutes): 40
[2020-12-17] MEDS ORDERED: WARFARIN SODIUM 2 MG TAB PO SCH (17:00)
--- NOTE | 2020-12-17 17:43 | EKG ---
Test Date: 2020-12-16 Test Time: 15:10:17 Public Works Inspector: SAVANNAH MEASUREMENT RESULTS: Intervals: Rate: 96 AR: 132 QRSD: 70 QT: 358 QTc: 452 [place]: P: 79 AR: 132 QRS: 27 T: 56 INTERPRETIVE STATEMENTS: Sinus rhythm with premature supraventricular complexes Otherwise normal ECG Compared to ECG 08/18/2019 19:28:17 Atrial premature complex(es) now present Electronically Signed On 12-17-20 17:40:23 CDT by Aly Mari
[2020-12-17] MEDS ORDERED: PRIMIDONE 50 MG TAB PO SCH (21:00)
[2020-12-17] MEDS ORDERED: MIRTAZAPINE 15 MG TAB PO SCH (21:00)
== END 2020-12-17 15:08 | disposition home or self-care (01) ==
LOC: ER 14:28 → ERHOLD 17:37 → 2ND 19:52
PROVIDERS: ADMIT Internal Medicine; ATTEND Hospitalist
DX: J44.1 Chronic obstructive pulmonary disease with (acute) exacerbation (principal); E11.65 Type 2 diabetes mellitus with hyperglycemia; I48.20 Chronic atrial fibrillation, unspecified; Z20.822 Contact with and (suspected) exposure to COVID-19; I25.10 Atherosclerotic heart disease of native coronary artery without angina pectoris; E11.51 Type 2 diabetes mellitus with diabetic peripheral angiopathy without gangrene; E78.5 Hyperlipidemia, unspecified; D50.9 Iron deficiency anemia, unspecified; I11.0 Hypertensive heart disease with heart failure; I50.9 Heart failure, unspecified; Z87.891 Personal history of nicotine dependence; Z79.01 Long term (current) use of anticoagulants; K21.9 Gastro-esophageal reflux disease without esophagitis
CPT/HCPCS: 93005; 87040 ×2; 85025 ×2; 80048 ×2; 36415; 83735; 85610 ×2; 82947 ×4; 83036; 84484 ×2; 83880; 71045; 97116; 97162; 94640; 96375; 96374; 99285; U0003; J1940; J1644 ×2; J0456; J7050; J2930; 81003; 81015; G0378; J1815; J7512

== ENCOUNTER 2021-08-05 10:49 | Inpatient (IN) | payer OTHER ==
--- OUTSIDE RECORDS SUMMARY | 2021-08-05 11:16 | XMS REPORT | Continuity of Care Document ---
:1935 Author Organization [facility] t Address [address] [place] [address] Care Team Providers Name Role Phone SHELBY GHOSH Primary Care Physician Unavailable Antonio PETTIT Attending Clinician Unavailable CHELLY Attending Clinician Unavailable LAB53 Attending Clinician Unavailable SHELBY GHOSH Attending Clinician Unavailable JANET Attending Clinician Unavailable VIDHI Attending Clinician Unavailable Aman DUMONT Attending Clinician ETIENNE Attending Clinician Unavailable Shelby Ghosh MD Attending Clinician LAB39 Attending Clinician Unavailable Janet DUMONT Attending Clinician Stephania RN, T Attending Clinician Unavailable CURRY Attending Clinician Unavailable Only, Db Test Attending Clinician Unavailable Curry SUAZO Attending Clinician TRED53 Attending Clinician Unavailable JACKIE Attending Clinician Unavailable SALOME Attending Clinician Unavailable BI Attending Clinician Unavailable TOMOGRAPHY, OPTICAL COHERENCE Attending Clinician Unavailab Sarah DUMONT, S Attending Clinician Leonarda RN, A Attending Clinician Unavailable Bridget DUMONT Attending Clinician ANENE Attending Clinician Unavailable Deepthi WERNER Attending Clinician SHEFALI NINA Attending Clinician Unavailable BRIDGET Attending Clinician Unavailable Bridget DUMONT Admitting Clinician SHEFALI NINA Admitting Clinician Unavailable BRIDGET Admitting Clinician Unavailable Payers Payer Name Policy Type Policy Number Effective Date Expiration Date Jae stone [employer] [place] [id number] 2019 CLASSIC/VALUE 00:00:00 [facility] [id number] 2016 MEDICAID 00:00:00 [place] [id number] 2019 00:00:00 [place] [id number] 2018 CLASSIC [id number] 00:00:00 Advance Directives Directive Decision Effective Termination Comments Source Date Date Healthcare Agents on N/A [facility] ersity FileNameRelationshipHealthcare [facility] Agent Medical RelationshipCommunicationPiedmont [facility] Pamela ContrerasChildHealth Care [phone] (Mobile) [email or web address] [facility]ate [facility] [phone] (Mobile) Problems Condition Condition Condition Status Onset Resolution Last Treating Co mments Source Name Details Category Date Date Treatment Clinician Date Immunocomp Immunocomp Disease Active 2020-08 Jing woody romised romised 0-04 Seybold 00:00: 00 Type 2 Type 2 Disease Active 2020-08 Wen diabetes diabetes 0-04 Seybol d mellitus mellitus 00:00: with with 00 hyperglyce hyperglyce miguel miguel Hyperchole Hyperchole Disease Active Jing woody sterolemia sterolemia 9-23 Se ybold 00:00: 00 Asthma-ONION TOPPER Asthma-ONION TOPPER Disease Active 2021-0 K elsey D overlap D overlap 8-18 Seyb old syndrome syndrome 00:00: 00 Type 2 Type 2 Disease Active Wen diabetes diabetes 8-18 Seybol d mellitus mellitus 00:00: with stage with stage 00 2 chronic 2 chronic kidney kidney disease disease DM type 2 DM type 2 Disease Active Mariola sey with with 8-18 Seybold diabetic diabetic 00:00: mixed mixed 00 hypertrigl hypertrigl yceridemia yceridemia 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 5-25 Se ybold asthma asthma 00:00: 00 Paroxysmal Paroxysmal Disease Active Jing annalise atrial atrial 3-30 Seybold fibrillati fibrillati 00:00: on on Chest pain Chest pain Disease Active U nivers 3-14 ity of 00:00: [place] [id number] Medical Branch Left arm Left arm Disease Active Unive rs swelling swelling 3-14 ity of 00:00: [place] [facility] Altered Altered Disease Active Univers mental mental 3-14 ity of state state 00:00: [place] [address] Medical Branch Acute Acute Disease Active Univers diastolic diastolic 3-14 ity of congestive [place]ive [place] heart heart 00 Medical failure failure Branch Depression Depression Disease Active 2019-08 Jing woody 2-15 Seybold 00:00: 00 Hypercoagu Hypercoagu Disease Active 2019-08 Timothy Jing woody lable lable 2-15 Assessmen Seybold state due state due 00:00: t & Plan: to atrial to atrial 00 Formattin fibrillati fibrillati g of this on on note might be different from the original. Controlle d stable on anticoagu lant long-term Prefers warfarin despite the challenge s of getting pro time monitorin g CAD CAD Disease Active Wen (coronary (coronary 8-14 Seyb old artery artery 00:00: disease) disease) 00 Chronic Chronic Disease Active Wen hypoxemic hypoxemic 7-17 Seyb old respirator respirator 00:00: y failure y failure 00 Pneumonia Pneumonia Disease [facility] influenza influenza 00:00: [facility] 00 Center COPD with COPD with Disease Active [facility] exacerbati exacerbati -22 Mei kes - on on 00:00: Medical 00 Center COPD with COPD with Disease Active Uni vers acute acute 1-13 ity of exacerbati exacerbati [place] 00 [facility] Branch PAF PAF Disease Active Univers (paroxysma (paroxysma 1-13 it y of l atrial l atrial 00:00: [place] fibrillati fibrillati 00 Me dical on) on) Branch Type 2 Type 2 Disease Active Univers diabetes diabetes 1-13 ity of mellitus mellitus 00:00: [place] without without 00 Medical complicati complicati Br anch on, on, without without long-term long-term current current use of use of insulin insulin Essential Essential Disease Active Uni vers hypertensi hypertensi 1-13 it y of on on 00:00: [place] 00 Medical Branch PAD PAD Disease Active Univers (periphera (periphera 1-13 it y of l artery l artery 00:00: [place] disease) disease) 00 Medica l Branch Bilateral Bilateral Disease Active Uni vers carotid carotid 1-13 ity of artery artery 00:00: [place] stenosis stenosis 00 Medica l Branch Tremor Tremor Disease Active Wen 5-20 Seybold 00:00: 00 Hypertensi Hypertensi Disease Active Jing woody ve heart ve heart 5-06 Seybol d and renal and renal 00:00: disease disease 00 with heart with heart failure failure Chronic Chronic Disease Active Wen renal renal 5-06 Seybold disease, disease, 00:00: stage II stage II 00 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 4-18 Se ybold yceridemia yceridemia 00:00: 00 History of History of Disease Active Jing woody arterial arterial 8-24 Seybol d ischemic ischemic 00:00: stroke stroke 00 Type 2 Type 2 Disease Active Wen diabetes diabetes 5-31 Seybol d with with 00:00: atheroscle atheroscle 00 rosis of rosis of arteries arteries of of [facility] s s Eosinophil Eosinophil Disease Active Jing woody ic asthma ic asthma 5-31 Seyb old 00:00: 00 Atheroscle Atheroscle Disease Active Jing woody rosis of rosis of 01-06 Seybol d arteries arteries 00:00: of of [address] [place], [place] [address]e [facility] s s 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) 00:00: 00 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 Seybol d age-relate age-relate 00:00: d cataract d cataract 00 of both of both eyes eyes Dermatocha Dermatocha Disease Active 2015-08 Jing woody lasis of lasis of 2-15 Seybol d both upper both upper 00:00: eyelids eyelids 00 Dry eyes, Dry eyes, Disease Active 2015-08 Mariola sey bilateral bilateral 2-15 Seyb old 00:00: 00 Bilateral Bilateral Disease Active 2015-08 Mariola sey presbyopia presbyopia 2-15 Se ybold 00:00: 00 Cerebrovas Cerebrovas Disease Active Jing woody cular cular 9-20 Seybold disease disease 00:00: 00 Chronic Chronic Disease Active Wen diastolic diastolic 5-11 Seyb old congestive congestive 00:00: heart heart 00 failure failure Leg pain, Leg pain, Disease Active Mariola sey RICHELLE RICHELLE 3-22 Seybold 05/07/15: 9//15: 00:00: GTP 72 GTP 72 00 right, right, left left 1.19/1.07, 1.19/1.07, GTP 88 GTP 88 possibly possibly due to due to peripheral peripheral neuropathy neuropathy Carotid Carotid Disease Active 2014-[address] [facility] stenosis stenosis 0-28 [facility] 00 Center Type 2 Type 2 Disease Active Wen diabetes diabetes 8-26 Seybol d mellitus mellitus 00:00: with with 00 diabetic diabetic polyneurop polyneurop athy athy Type 2 Type 2 Disease Active Wen diabetes diabetes 8-26 Seybol d mellitus mellitus 00:00: with with 00 diabetic diabetic polyneurop polyneurop athy athy TIA TIA Disease Active [facility] (transient (transient 7-12 Mei kes - ischemic ischemic 00:00: Medica l attack) attack) 00 Center History of History of Disease Active Jing woody TIA TIA 5-20 Seybold (transient (transient 00:00: ischemic ischemic 00 attack) attack) Slurred Slurred Disease Active [facility] speech speech 5-12 [facility] 00:[facility] 00 Center Chest pain Chest pain Disease Active [facility] 5[facility]12 [facility] 00 [facility] COPD COPD Disease Active [facility] (chronic (chronic 12-18 [facility] - obstructiv obstructiv 00:00: Me dical e e 00 Center pulmonary pulmonary disease) disease) Paroxysmal Paroxysmal Disease Active Overview : [facility] atrial atrial 11-01 Formattin [facility] - flutter flutter 00:00: g of this Medic al 00 note Center might be different from the original. CHAD2S = 3 (age, HTN, DM)Occurr ed in setting of acute illness Strongylo ides infection November 01, 2014 Herniated Herniated Disease Active [facility] nucleus nucleus 01-04 [facility] - pulposus, pulposus, 00:00: Medi sarah lumbar lumbar 00 Center Abnormal Abnormal Disease Active Kelse y TMT-MIBI TMT-MIBI 12-18 Seybol d -- but NO -- but NO 00:00: obstructiv obstructiv 00 e CAD at e CAD at heart cath heart cath - 12/2013 - 12/2013 Lumbar Lumbar Disease Active [facility] radiculopa radiculopa 12-15 Mei kes - thy thy 00:00: Medical 00 Center History of History of Disease Active [facility] carotid carotid 12-15 [facility] - angioplast angioplast 00:00: Me dical y with y with 00 Center stent stent Pure Pure Disease Active [facility] hyperchole hyperchole 12-15 Mei kes - sterolemia sterolemia 00:00: Me dical 00 Center Diabetes Diabetes Disease [facility] -- -- 12[facility] - diet-contr diet-contr 00:00: Me dical olled olled 00 Center Displaceme Displaceme Disease Active K elsey nt of nt of 4-29 Seybold lumbar lumbar 00:00: interverte interverte 00 bral disc bral disc without without myelopathy myelopathy GERD GERD Disease Active Wen (gastroeso (gastroeso 03-11 Se ybold phageal phageal 00:00: reflux reflux 00 disease) disease) Benign Benign Disease Active Wen essential essential 8-03 Seyb old hypertensi hypertensi 00:00: on on 00 Degenerati Degenerati Disease Active K elsey ve ve 5-11 Seybold arthritis arthritis 00:00: of lumbar of lumbar 00 spine spine Left Left Disease Active Wen carotid carotid [place] artery artery stenosis stenosis Allergies, Adverse Reactions, Alerts Allergy Allergy Status Severity Reaction(s) Onset Inactive Treating Comm ents Source Name Type Date Date Clinician NO KNOWN Allergy Active [facility] NO KNOWN Drug Active Univers ALLERGIE Class ity of S [place] [facility] [place] Social History Social Habit Start Date Stop Date Quantity Comments Source History SDOH University o f Alcohol Frequency [place] [facility] History SDIN University o f Alcohol Std Drinks [place] [facility] History [facility] University o f Alcohol Binge [place] [facility] Exposure to Yes Wen jacinto SARS-CoV-2 (event) Alcohol intake 2021-07-09 2021-07-09 0 /d Wen Hines bold 00:00:00 00:00:00 Education 2019-08-21 2019-08-21 6 University of 00:00:00 00:00:00 [place] [facility] History SDOH 2019-08-21 2019-08-21 5 University o f Financial 00:00:00 00:00:00 [place] [facility] [place] History [facility] Food 2019-08-21 2019-08-21 1 Univers ity of Worry 00:00:00 00:00:00 [place] [facility] [place] History [facility] Food 2019-08-21 2019-08-21 1 Univers ity of Scarcity 00:00:00 00:00:00 [place] [facility] History [facility] 2019-08-21 2019-08-21 2 University o f Transport Med 00:00:00 00:00:00 [place] [facility] History SDIN 2019-08-21 2019-08-21 2 University o f Transport Non-Med 00:00:00 00:00:00 [facility] Tobacco Comment 2019-08-21 2019-08-21 quit 15 years Univer sity of 00:00:00 00:00:00 ago, .5 PPD [facility] Alcohol Comment 2019-08-21 2019-08-21 socially Universit y of 00:00:00 00:00:00 [facility] Cigarettes smoked 2010-11-11 2010-11-11 Wen Baird current (pack per 00:00:00 00:00:00 day) - Reported Cigarette 2010-11-11 2010-11-11 Wen Baird pack-years 00:00:00 00:00:00 Tobacco use and 2010-11-11 2010-11-11 Smokeless Wen bella exposure 00:00:00 00:00:00 tobacco non-user History of tobacco 1996-11-11 Smoker ANISA Cartwright - use 00:00:00 [facility] Sex Assigned At [birth year] ANISA Xiao - 00:00:00 [facility]:00:00 [facility] Smoking Status Start Date Stop Date Source Former smoker 2019-08-21 00:00:00 2019-08-21 00:00:00 [facility] Medications Ordered Filled Start Stop Current Ordering Indication Dosage Frequency Signature Comments Components Source Medication Medication Date Date Medication? Clinician (SIG) Name Name Melatonin 2020-08 Yes Take by Mariolase y 10 MG oral 2-01 mouth Seybold Tab 11:20: daily 35 Cholecalcif 2020-08 Yes Take by Mariola villafanay cheryl 2-01 mouth Seybold (VITAMIN 11:20: daily D3) 5000 35 units oral Cap Budesonide- 2020-08 Yes 2{puff} Inhale 2 Wen Formoterol 2-01 puffs into Sey bold Fumarate 11:20: the lungs (Symbicort) 35 2 times 160-4.5 daily MCG/ACT inhalation Aerosol ESOMEPRAZOL 2020-08 Yes 40mg Take 40 mg Wen E MAGNESIUM 2-01 by mouth Seyb old OR 11:20: daily 35 Ondansetron 2020-08 Yes [id number] 4mg Q8H Take 1 Wen HCl 4 MG 2-01 tablet (4 Seybol d oral Tablet 00:00: mg total) 00 by mouth every 8 hours as needed Famotidine 2020-08 Yes [id number] 20mg Take 1 K elsey (PEPCID) 20 2-01 tablet (20 Se ybold MG oral 00:00: mg total) tablet 00 by mouth 2 times daily Warfarin 2020-08 Yes [id number] Take Sara ey (Jantoven) 1-08 one-half Seybo ld 2 MG oral 00:00: tablet (1 Tablet 00 mg) daily, except one tablet (2 mg) on and Saturdays or as directed by the [facility]. Torsemide 2020-08 Yes 1-2 tab q Mariola sey 20 MG oral 1-04 AM for Seybold Tablet 00:00: increased 00 leg swelling every 2 to 3 days as needed predniSONE 2020-08 Yes TAKE 3 Kelse y 20 MG oral 0-28 TABLETS Seybol d tablet 00:00: DAILY FOR 00 3 DAYS FOLLOWED BY 2 TABLETS DAILY FOR 3 DAYS FOLLOWED BY 1 TABLET DAILY FOR 4 DAYS Pravastatin 2020-08 Yes TAKE 1 Sara ey Sodium 40 0-28 TABLET Seybold MG oral 00:00: DAILY Tablet 00 Potassium 2020-08 Yes TAKE 1 Wen Chloride ER 0-28 TABLET BY Sey bold 20 MEQ oral 00:00: MOUTH Tab CR 00 EVERY DAY Tamsulosin 2020-08 Yes [id number] TAKE 2 K elsey HCl 0.4 MG 0-07 CAPSULES(0 Sey bold oral 00:00: .8 MG) BY Capsule 00 MOUTH DAILY Ketoconazol 2020-08- No Apply Sara ey e 2 % apply 007-09 twice Seybol d externally 00:00: 00:00 daily to Cream 00 :00 rash in groin Dulaglutide 2020-08- No .75mg Inject Ke lsey (Trulicity) 007-09 0.75 mg Seyb old 0.75 00:00: 00:00 into the MG/0.5ML 00 :00 skin once subcutaneou a week s Solution Pen-injecto r Melatonin 2020-08 Yes Take by Mariolase y 10 MG oral 0-04 mouth Seybold Tab 11:06: daily 55 Cholecalcif 2020-08 Yes Take by Mariola sey cheryl 0-04 mouth Seybold (VITAMIN 11:06: daily D3) 5000 55 units oral Cap Budesonide- 2020-08 Yes 2{puff} Inhale 2 Wen Formoterol 0-04 puffs into Sey bold Fumarate 11:06: the lungs (Symbicort) 55 2 times 160-4.5 daily MCG/ACT inhalation Aerosol ESOMEPRAZOL 2020-08 Yes 40mg Take 40 mg Wen E MAGNESIUM 0-04 by mouth Seyb old OR 11:06: daily 55 Econazole 2020-08 Yes [id number] Apply to Wen Nitrate 1 % 0-04 the rash Seyb old apply 00:00: in the externally 00 groin Cream twice daily for 3 weeks Econazole 2020-08- No [id number] Apply to Wen Nitrate 1 % 0-04 07-09 the rash Sey bold apply 00:00: 00:00 in the externally 00 :00 groin Cream twice daily for 3 weeks Semaglutide 2020-08- No [id number] 3mg Take 3 mg Wen (Rybelsus) 0-04 -05 by mouth Seyb old 3 MG oral 00:00: 00:00 daily Tablet 00 :00 Tramadol 2020-08 Yes [id number] TAKE 1 Wen HCl 50 MG 0-01 9101 TABLET(50 Seybo ld oral Tablet 00:00: MG) BY 00 MOUTH EVERY 8 HOURS NEEDED Tramadol 2020-08 Yes [id number] TAKE 1 Wen HCl 50 MG 0-01 9101 TABLET(50 Seybo ld oral Tablet 00:00: MG) BY 00 MOUTH EVERY 8 HOURS NEEDED Tamsulosin 2020-08- No [id number] TAKE 2 Wen HCl 0.4 MG 0-05-15 CAPSULES(0 Se ybold oral 00:00: 00:00 .8 MG) BY Capsule 00 :00 MOUTH DAILY Melatonin Yes Take by Jammie y 10 MG oral - mouth Seybold Tab 07:40: daily 21 Cholecalcif Yes Take by Mariola villafanay cheryl - mouth Seybold (VITAMIN 07:40: daily D3) 5000 21 units oral Cap Budesonide- Yes 2{puff} Inhale 2 Wen Formoterol 9-29 puffs into Sey bold Fumarate 07:40: the lungs (Symbicort) 21 2 times 160-4.5 daily MCG/ACT inhalation Aerosol ESOMEPRAZOL Yes 40mg Take 40 mg Wen E MAGNESIUM 9-29 by mouth Seyb old OR 07:40: daily 21 diazePAM Yes [id number] Take 1/2 K elsey (Valium) 5 - pill 2 Seybold MG oral 00:00: hours Tablet 00 before procedure and 1/2 pill 30 minutes before procedure if needed diazePAM Yes [id number] Take 1/2 K elsey (Valium) 5 - pill 2 Seybold MG oral 00:00: hours Tablet 00 before procedure and 1/2 pill 30 minutes before procedure if needed diazePAM Yes [id number] Take 1/2 K elsey (Valium) 5 9-29 pill 2 Seybold MG oral 00:00: hours Tablet 00 before procedure and 1/2 pill 30 minutes before procedure if needed Warfarin Yes [id number] Take Sara ey (Jantoven) 9- one-half Seybo ld 2 MG oral 00:00: tablet (1 Tablet 00 mg) daily, except one tablet (2 mg) on and Saturdays or as directed by the [facility] Warfarin Yes [id number] Take Sara ey (Jantoven) 9- one-half Seybo ld 2 MG oral 00:00: tablet (1 Tablet 00 mg) daily, except one tablet (2 mg) on and Saturdays or as directed by the [facility] Metformin Yes [id number] TAKE 1 K elsey HCl 500 MG 9-11 TABLET(500 Sey bold oral Tablet 00:00: MG) BY 00 MOUTH TWICE DAILY WITH MEALS Metformin Yes [id number] TAKE 1 K elsey HCl 500 MG 9-11 TABLET(500 Sey bold oral Tablet 00:00: MG) BY 00 MOUTH TWICE DAILY WITH MEALS Metformin Yes [id number] TAKE 1 K elsey HCl 500 MG 9-11 TABLET(500 Sey bold oral Tablet 00:00: MG) BY 00 MOUTH TWICE DAILY WITH MEALS Pregabalin Yes TAKE 1 Kelse y 200 MG oral 9-01 CAPSULE Seybo ld Capsule 00:00: TWICE 00 DAILY Pregabalin Yes TAKE 1 Kelse y 200 MG oral 9-01 CAPSULE Seybo ld Capsule 00:00: TWICE 00 DAILY Pregabalin Yes TAKE 1 Kelse y 200 MG oral 9-01 CAPSULE Seybo ld Capsule 00:00: TWICE 00 DAILY Glucose Yes USE TO Wen Blood (True 8-30 TEST DAILY Se ybold Metrix 00:00: Blood 00 Glucose Test) in vitro Strip Glucose Yes USE TO Wen Blood (True 8-30 TEST DAILY Se ybold Metrix 00:00: Blood 00 Glucose Test) in vitro Strip Glucose Yes USE TO Wen Blood (True 8-30 TEST DAILY Se ybold Metrix 00:00: Blood 00 Glucose Test) in vitro Strip predniSONE Yes [id number] TAKE 2 Wen 5 MG oral 8-23 TABLETS Seybold Tablet 00:00: ALTERNATIN 00 G WITH 1 TABLET DAILY predniSONE Yes [id number] TAKE 2 Wen 5 MG oral 8-23 TABLETS Seybold Tablet 00:00: ALTERNATIN 00 G WITH 1 TABLET DAILY predniSONE Yes [id number] TAKE 2 Wen 5 MG oral 8-23 TABLETS Seybold Tablet 00:00: ALTERNATIN 00 G WITH 1 TABLET DAILY Baclofen 10 Yes TAKE 1/2 Ke lsey MG oral 8-17 TABLET Seybold Tablet 00:00: (5MG 00 TOTAL)4 TIMES A DAY Baclofen 10 Yes TAKE 1/2 Ke lsey MG oral 8-17 TABLET Seybold Tablet 00:00: (5MG 00 TOTAL)4 TIMES A DAY Baclofen 10 Yes TAKE 1/2 Ke lsey MG oral 8-17 TABLET Seybold Tablet 00:00: (5MG 00 TOTAL)4 TIMES A DAY Pravastatin Yes TAKE 1 Sara ey Sodium 40 8-16 TABLET Seybold MG oral 00:00: DAILY Tablet 00 Pravastatin Yes TAKE 1 Sara ey Sodium 40 8-16 TABLET Seybold MG oral 00:00: DAILY Tablet 00 predniSONE Yes TAKE 3 Kelse y 20 MG oral 8-14 TABLETS Seybol d tablet 00:00: DAILY FOR 00 3 DAYS FOLLOWED BY 2 TABLETS DAILY FOR 3 DAYS FOLLOWED BY 1 TABLET DAILY FOR 4 DAYS. predniSONE Yes TAKE 3 Kelse y 20 MG oral 8-14 TABLETS Seybol d tablet 00:00: DAILY FOR 00 3 DAYS FOLLOWED BY 2 TABLETS DAILY FOR 3 DAYS FOLLOWED BY 1 TABLET DAILY FOR 4 DAYS. Budesonide, Yes INHALE THE Wen Inhalation, 8-08 CONTENTS Seyb old 0.5 MG/2ML 00:00: OF 1 inhalation 00 VIAL VIA Suspension NEBULIZER TWO TIMES A DAY DIRECTED Budesonide, Yes INHALE THE Wen Inhalation, 8-08 CONTENTS Seyb old 0.5 MG/2ML 00:00: OF 1 inhalation 00 VIAL VIA Suspension NEBULIZER TWO TIMES A DAY DIRECTED Budesonide, Yes INHALE THE Wen Inhalation, 8-08 CONTENTS Seyb old 0.5 MG/2ML 00:00: OF 1 inhalation 00 VIAL VIA Suspension NEBULIZER TWO TIMES A DAY DIRECTED Potassium Yes TAKE 1 Wen Chloride ER 8-02 TABLET BY Sey bold 20 MEQ oral 00:00: MOUTH Tab CR 00 EVERY DAY Potassium Yes TAKE 1 Wen Chloride ER 8-02 TABLET BY Sey bold 20 MEQ oral 00:00: MOUTH Tab CR 00 EVERY DAY Cilostazol Yes TAKE 1 Kelse y 50 MG oral 7-28 TABLET Seybold Tablet 00:00: TWICE A 00 DAY GlipiZIDE Yes TAKE 1 Wen 10 MG oral 7-28 TABLET Seybold TABLET SR 00:00: DAILY 24 HR 00 Cilostazol Yes TAKE 1 Kelse y 50 MG oral 7-28 TABLET Seybold Tablet 00:00: TWICE A 00 DAY GlipiZIDE Yes TAKE 1 Wen 10 MG oral 7-28 TABLET Seybold TABLET SR 00:00: DAILY 24 HR 00 Cilostazol Yes TAKE 1 Kelse y 50 MG oral 7-28 TABLET Seybold Tablet 00:00: TWICE A 00 DAY GlipiZIDE 0 Yes TAKE 1 Wen 10 MG oral 7-28 TABLET Seybold TABLET SR 00:00: DAILY 24 HR 00 Roflumilast Yes 1{tbl} Take 1 Ke lsey (Daliresp) 7-21 tablet by Seyb old 500 MCG 00:00: mouth oral Tablet 00 daily Roflumilast Yes 1{tbl} Take 1 Ke lsey (Daliresp) 7-21 tablet by Seyb old 500 MCG 00:00: mouth oral Tablet 00 daily Roflumilast Yes 1{tbl} Take 1 Ke lsey (Daliresp) 7-21 tablet by Seyb old 500 MCG 00:00: mouth oral Tablet 00 daily Lancets Yes USE Wen (OneTouch 7-18 DIRECTED Seybol d Delica Plus 00:00: DAILY [id number]) 00 does not apply Misc Lancets 0 Yes USE Wen (OneTouch 7-18 DIRECTED Seybol d Delica Plus 00:00: DAILY [id number]) 00 does not apply Misc Lancets 2020-0 Yes USE Wen (OneTouch 7-18 DIRECTED Seybol d Delica Plus 00:00: DAILY [id number]) 00 does not apply Misc Acetylcyste 0 Yes USE 2 ML Ke lsey ine 20 % 7-14 VIA Seybold inhalation 00:00: NEBULIZER Solution 00 THREE TIMES DAILY NEEDED. MIX WITH ALBUTEROL 2.5 MG Acetylcyste 0 Yes USE 2 ML Ke lsey ine 20 % 7-14 VIA Seybold inhalation 00:00: NEBULIZER Solution 00 THREE TIMES DAILY NEEDED. MIX WITH ALBUTEROL 2.5 MG Acetylcyste 2020-0 Yes USE 2 ML Ke lsey ine 20 % 7-14 VIA Seybold inhalation 00:00: NEBULIZER Solution 00 THREE TIMES DAILY NEEDED. MIX WITH ALBUTEROL 2.5 MG Mirtazapine 2020-0 Yes TAKE 1 Sara ey 15 MG oral 7-01 TABLET BY Seyb old Tablet 00:00: MOUTH 00 EVERY NIGHT Mirtazapine 2020-0 Yes TAKE 1 Sara ey 15 MG oral 7-01 TABLET BY Seyb old Tablet 00:00: MOUTH 00 EVERY NIGHT Mirtazapine 2020-0 Yes TAKE 1 Sara ey 15 MG oral 7-01 TABLET BY Seyb old Tablet 00:00: MOUTH 00 EVERY NIGHT Sotalol HCl 2020-0 Yes [id number] TAKE 1/2 Wen 80 MG oral 6-17 TABLET Seybold Tablet 00:00: (40MG 00 TOTAL) TWO TIMES A DAY Sotalol HCl 2020-0 Yes [id number] TAKE 1/2 Wen 80 MG oral 6-17 TABLET Seybold Tablet 00:00: (40MG 00 TOTAL) TWO TIMES A DAY Sotalol HCl 2020-0 Yes [id number] TAKE 1/2 Wen 80 MG oral 6-17 TABLET Seybold Tablet 00:00: (40MG 00 TOTAL) TWO TIMES A DAY Torsemide 2020-0 Yes 1-2 tab in Ke lsey 20 MG oral 5-25 AM for Seybold Tablet 00:00: increased 00 leg swelling. Torsemide Yes 1-2 tab in Ke lsey 20 MG oral 5-25 AM for Seybold Tablet 00:00: increased 00 leg swelling. Glucose Yes Use to Wen Blood in -07 check Seybold vitro Strip 00:00: sugar once 00 daily-el ent request true matrix Glucose Yes Use to Wen Blood in 12-13 check Seybold vitro Strip 00:00: sugar once 00 daily-el ent request true matrix Glucose Yes Use to Wen Blood in 07 check Seybold vitro Strip 00:00: sugar once 00 daily-el ent request true matrix Albuterol-I Yes INHALE THE Wen pratropium 5-06 CONTENTS Seybo ld 0.5-2.5 (3) 00:00: OF 1 MG/3ML 00 VIAL 4 inhalation TIMES A Solution DAY NEEDED Albuterol-I Yes INHALE THE Wen pratropium 5-06 CONTENTS Seybo ld 0.5-2.5 (3) 00:00: OF 1 MG/3ML 00 VIAL 4 inhalation TIMES A Solution DAY NEEDED Albuterol-I Yes INHALE THE Wen pratropium 5-06 CONTENTS Seybo ld 0.5-2.5 (3) 00:00: OF 1 MG/3ML 00 VIAL 4 inhalation TIMES A Solution DAY NEEDED Tamsulosin Yes [id number] TAKE 2 K elsey HCl 0.4 MG 4-21 CAPSULES(0 Sey bold oral 00:00: .8 MG) BY Capsule 00 MOUTH DAILY Aspirin EC Yes 81mg Take 1 Kelse y 81 MG oral 4-21 tablet (81 Sey bold Tablet 00:00: mg total) Delayed 00 by mouth Response daily Aspirin EC Yes 81mg Take 1 Kelse y 81 MG oral 4-21 tablet (81 Sey bold Tablet 00:00: mg total) Delayed 00 by mouth Response daily Aspirin EC Yes 81mg Take 1 Kelse y 81 MG oral 4-21 tablet (81 Sey bold Tablet 00:00: mg total) Delayed 00 by mouth Response daily Tramadol Yes [id number] 50mg Q8H Take 1 Wen HCl 50 MG 3- 9101 tablet (50 Seyb old oral Tablet 00:00: mg total) 00 by mouth every 8 hours as needed PREDNISOLON Yes 10mg Take 10 mg Univers E ORAL 3-16 by mouth. ity of 20:03: [place] 00 [facility] PREDNISONE Yes 5mg Take 5 mg Un mario alberto ORAL 3-16 by mouth. ity of 20:03: Medical Branch predniSONE Yes 20mg Take 20 mg U nivers 20 mg 3-16 by mouth ity of tablet 20:03: daily. Medical Branch BUDESONIDE Yes Inhale 2 Uni vers INHALE 3-16 (two) ity of 20:03: times [place] 00 daily. Medical Branch tamsulosin Yes Take by Uni vers 0.4 mg 24 3-16 mouth ity of hr capsule 20:03: daily. Medical Branch pravastatin Yes 40mg Take 40 mg Univers 40 mg 3-16 by mouth ity of tablet 20:03: at [place] 00 bedtime. Medical Branch pregabalin Yes 200mg Take 200 Un mario alberto (LYRICA) 3-16 mg by ity of 200 mg 20:03: mouth 2 [place] capsule 00 (two) Medical times Branch daily. baclofen 10 Yes 10mg Take 10 mg Univers mg tablet 3-16 by mouth 3 ity of 20:03: (three) [place] 00 times Medical daily. Branch roflumilast Yes Take by Un mario alberto (DALIRESP) 3-16 mouth. ity of 500 mcg 20:03: [place] tablet 00 Medical Branch MIRTAZAPINE Yes 10mg Take 10 mg Univers ORAL 3-16 by mouth. ity of 20:03: 00 Medical Branch glipiZIDE Yes 10mg Take 10 mg Un mario alberto 10 mg 3-16 by mouth ity of tablet 20:03: daily. Medical Branch sotaloL Yes 80mg Take 80 mg Univ ers (SOTALOL 3-16 by mouth ity of AF) 80 mg 20:03: every 12 [place] tablet 00 (twelve) Medical hours. Branch cilostazoL Yes 50mg Take 50 mg U nivers 50 mg 3-16 by mouth. ity of tablet 20:03: [place] 00 Medical Branch acetylcyste Yes 600mg 600 mg. Un mario alberto ine 20%, 3-16 ity of 200 mg/mL, 20:03: [place] oral 00 Medical solution Branch ipratropium 0 Yes 1{ampul 1 Ampule 4 Univers -albuteroL 3-16 e} (four) ity of 0.5 mg-3 20:03: times [place] mg(2.5 mg 00 daily. Medical base)/3 mL Branch nebulizer solution metformin Yes 750mg Take 750 Uni vers ER 750 mg 3-16 mg by ity of 24 hr 20:03: mouth [place] tablet 00 daily with Medical breakfast. Branch ALBUTEROL Yes Inhale. Unive rs INHALE 3-16 ity of 20:03: [place] 00 Medical Branch cholecalcif Yes Take by Un mario alberto cheryl, 3-16 mouth. ity of vitamin D3, 20:03: [place] 125 mcg 00 Medical (5,000 Branch unit) TbDL BUDESONIDE Yes Inhale 2 Uni vers INHALE 3-16 (two) ity of 15:03: times [place] 00 daily. Medical Branch tamsulosin Yes Take by Uni vers 0.4 mg 24 3-16 mouth ity of hr capsule 15:03: daily. 00 Medical Branch pravastatin Yes 40mg Take 40 mg Univers 40 mg 3-16 by mouth ity of tablet 15:03: at [place] 00 bedtime. Medical Branch pregabalin Yes 200mg Take 200 Un mario alberto (LYRICA) 3-16 mg by ity of 200 mg 15:03: mouth 2 [place] capsule 00 (two) Medical times Branch daily. baclofen 10 0 Yes 10mg Take 10 mg Univers mg tablet 3-16 by mouth 3 ity of 15:03: (three) [place] 00 times Medical daily. Branch roflumilast Yes Take by Un mario alberto (DALIRESP) 3-16 mouth. ity of 500 mcg 15:03: [place] tablet 00 Medical Branch MIRTAZAPINE 0 Yes 10mg Take 10 mg Univers ORAL 3-16 by mouth. ity of 15:03: Medical Branch glipiZIDE Yes 10mg Take 10 mg Un mario alberto 10 mg 3-16 by mouth ity of tablet 15:03: daily. Medical Branch sotaloL Yes 80mg Take 80 mg Univ ers (SOTALOL 3-16 by mouth ity of AF) 80 mg 15:03: every 12 [place] tablet 00 (twelve) Medical hours. Branch cilostazoL Yes 50mg Take 50 mg U nivers 50 mg 3-16 by mouth. ity of tablet 15:03: Medical Branch acetylcyste Yes 600mg 600 mg. Un mario alberto ine 20%, 3-16 ity of 200 mg/mL, 15:03: [place] oral 00 Medical solution Branch ipratropium Yes 1{ampul 1 Ampule 4 Univers -albuteroL 3-16 e} (four) ity of 0.5 mg-3 15:03: times [place] mg(2.5 mg 00 daily. Medical base)/3 mL Branch nebulizer solution metformin Yes 750mg Take 750 Uni vers ER 750 mg 3-16 mg by ity of 24 hr 15:03: mouth [place] tablet 00 daily with Medical breakfast. Branch ALBUTEROL Yes Inhale. Unive rs INHALE 3-16 ity of 15:03: Medical Branch cholecalcif Yes Take by Un mario alberto cheryl, 3-16 mouth. ity of vitamin D3, 15:03: [place] 125 mcg 00 Medical (5,000 Branch unit) TbDL PREDNISOLON Yes 10mg Take 10 mg Univers E ORAL 3-16 by mouth. ity of 15:03: Medical Branch PREDNISONE Yes 5mg Take 5 mg Un mario alberto ORAL 3-16 by mouth. ity of 15:03: Medical Branch predniSONE Yes 20mg Take 20 mg U nivers 20 mg 3-16 by mouth ity of tablet 15:03: daily. Medical Branch Respiratory Yes Please [facility] Therapy 3-03 supply Seybold Supplies 00:00: patient (Nebulizer/ 00 with a new Tubing/Mout nebulizer hpiece) tubing and does not mouth apply Kit piece kit and provide refills monthly x 11 Respiratory 0 Yes Please [facility] Therapy 3-03 supply Seybold Supplies 00:00: patient (Nebulizer/ 00 with a new Tubing/Mout nebulizer hpiece) tubing and does not mouth apply Kit piece kit and provide refills monthly x 11 Respiratory 0 Yes Please [facility] Therapy 3-03 supply Seybold Supplies 00:00: patient (Nebulizer/ 00 with a new Tubing/Mout nebulizer hpiece) tubing and does not mouth apply Kit piece kit and provide refills monthly x 11 Daliresp Yes TAKE 1 Wen 500 MCG 1-08 TABLET Seybold oral Tab 00:00: DAILY 00 Daliresp Yes TAKE 1 Wen 500 MCG 1-08 TABLET Seybold oral Tab 00:00: DAILY 00 Daliresp Yes TAKE 1 Wen 500 MCG 1-08 TABLET Seybold oral Tab 00:00: DAILY 00 Blood 2020-0 Yes Use as Wen Glucose 7-16 directed Seybold Monitoring 00:00: Suppl 00 (BLOOD GLUCOSE MONITOR SYSTEM) w/Device does not apply Kit Blood 2020-0 Yes Use as Wen Glucose 7-16 directed Seybold Monitoring 00:00: Suppl 00 (BLOOD GLUCOSE MONITOR SYSTEM) w/Device does not apply Kit Blood 2020-0 Yes Use as Wen Glucose 7-16 directed Seybold Monitoring 00:00: Suppl 00 (BLOOD GLUCOSE MONITOR SYSTEM) w/Device does not apply Kit predniSONE 2020-0 Yes 1 tab Wen (DELTASONE) 6-29 alternatin Se ybold 10 MG oral 00:00: g with 1/2 tablet 00 tab a day. predniSONE 2020-0 Yes 1 tab Wen (DELTASONE) 6-29 alternatin Se ybold 10 MG oral 00:00: g with 1/2 tablet 00 tab a day. predniSONE 2020-0 Yes 1 tab Wen (DELTASONE) 6-29 alternatin Se ybold 10 MG oral 00:00: g with 1/2 tablet 00 tab a day. Respiratory 2020-0 Yes [id number] Please [facility] 3-12 supply Seybold Supplies 00:00: patient (NEBULIZER/ 00 with a new TUBING/MOUT nebulizer HPIECE) machine, does not tubing and apply Kit mouth piece kit. Also as needed refills on the tubing and mouth piece. Respiratory 2020-0 Yes [id number] Please [facility] Therapy 3-12 supply Seybold Supplies 00:00: patient (NEBULIZER/ 00 with a new TUBING/MOUT nebulizer HPIECE) machine, does not tubing and apply Kit mouth piece kit. Also as needed refills on the tubing and mouth piece. Respiratory 2020-0 Yes [id number] Please [facility] Therapy 3-12 supply Seybold Supplies 00:00: patient (NEBULIZER/ 00 with a new TUBING/MOUT nebulizer HPIECE) machine, does not tubing and apply Kit mouth piece kit. Also as needed refills on the tubing and mouth piece. metFORMIN 2020-0 Yes 500mg Take [address] [facility] (GLUCOPHAGE 1-29 mg [facility] - ) 500 MG 13:47: mouth 2 Medica l tablet 05 (two) Center times daily with breakfast and dinner. roflumilast 2020-0 Yes QD Take by [facility] (DALIRESP) 1-29 mouth [facility] - 500 mcg Tab 13:47: daily. [facility] sarah tablet 05 [place] traZODone 2020-0 Yes 50mg QD Take [address] (DESYREL) 1-29 by mouth [facility] - 50 MG 13:47: nightly. Medical tablet 05 [place] warfarin 2020-0 Yes 2mg QD Take [address] [facility] (COUMADIN) -29 by mouth [facility] - 2 MG tablet 13:47: daily. [facility] sarah [address] [place] [address] ranitidine 2020-0 Yes 150mg Take [address] (ZANTAC) 1-29 mg by [facility] - 150 MG 13:47: mouth. Medical tablet 05 [place] esomeprazol 2020-0 Yes 40mg QD Take [address] [facility] e (NEXIUM) 1-29 by mouth [facility] - 40 MG 13:47: daily. Medical capsule 05 [place] mirtazapine 2020-0 Yes 15mg QD Take [address] [facility] (REMERON) 1-29 by mouth [facility] - 15 MG 13:47: nightly. Medical tablet 05 [place] tamsulosin 2020-0 Yes .4mg QD Take 0.[address] [facility] (FLOMAX) 1-29 mg by [facility] - 0.4 mg Cap 13:47: mouth Medica l 24 hr 05 daily. Center capsule benzonatate 2020-0 Yes 100mg Take [address] (TESSALON) 1-29 mg by [facility] - 100 MG 13:47: mouth 3 Medical capsule 05 (three) Center times daily as needed for Cough. pravastatin Yes 40mg QD Take 40 mg [facility] [...] 2 (two) Center nebulizer times solution daily. ALBUTEROL Yes [id number] 2{puff} Q6H INHALE 2 Wen HFA 108 (90 1-13 PUFFS INTO Se ybold Base) 00:00: THE LUNGS MCG/ACT IN 00 EVERY 6 AERS HOURS NEEDED FOR WHEEZING ALBUTEROL Yes [id number] 2{puff} Q6H INHALE 2 Wen HFA 108 (90 1-13 PUFFS INTO Se ybold Base) 00:00: THE LUNGS MCG/ACT IN 00 EVERY 6 AERS HOURS NEEDED FOR WHEEZING ALBUTEROL Yes [id number] 2{puff} Q6H INHALE 2 Wen HFA 108 (90 1-13 PUFFS INTO Se ybold Base) 00:00: THE LUNGS MCG/ACT IN 00 EVERY 6 AERS HOURS NEEDED FOR WHEEZING diltiazem Yes 60mg 60 mg . [facility] HFA 3-17 puff by Lujulita - (VENTOLIN 00:00: mouth via Med ical HFA) 90 00 inhaler Center mcg/actuati every 6 on inhaler (six) hours as needed for Wheezing. Immunizations Ordered Immunization Filled Immunization Date Status Commen ts Source Name Name Influenza Virus 2021-05-01 Completed Wen bella Vaccine, 00:00:00 Quadrivalent, High Dose, Age 65 And Up Influenza Virus 2021-05-01 Completed Wen bella Vaccine, 00:00:00 Quadrivalent, High Dose, Age 65 And Up Influenza Virus 2021-05-01 Completed Wen diazold Vaccine, 00:00:00 Quadrivalent, High Dose, Age 65 And Up Covid-19 Vaccine 2021-03-14 Completed Wen zamora ([employer]), Mrna-lnp, 00:00:00 Dane Protein, Pf, 30mcg/0.3ml,IM Covid-19 Vaccine 2021-03-14 Completed Wen zamora ([employer]), Mrna-lnp, 00:00:00 [place]ane Protein, Pf, 30mcg/0.3ml,IM Pneumococcal 2019-09-14 Completed [place] o f Polysaccharide, 00:00:00 [place] Med ical PPSV23 (PNEUMOVAX) Branch Pneumococcal 2019-09-14 Completed [place] o f Polysaccharide, 00:00:00 [place] Med ical PPSV23 (PNEUMOVAX) Branch Pneumococcal Vaccine, 2019-09-14 Completed Mariola sey Seybold Polysaccharide 00:00:00 Pneumococcal Vaccine, 2019-09-14 Completed Mariola sey Seybold Polysaccharide 00:00:00 Pneumococcal Vaccine, 2019-09-14 Completed Mariola sey Seybold Polysaccharide 00:00:00 Influenza High Dose 2019-05-31 Completed Unive rsity of 00:00:00 [facility] [place] [facility] Influenza High Dose 2019-05-31 Completed Unive rsity of 00:00:00 [facility] Influenza Virus 2019-05-31 Completed Wen Se ybold Vaccine, High Dose, 00:00:00 Age 65 And Up Influenza Virus 2019-05-31 Completed Wen Se ybold Vaccine, High Dose, 00:00:00 Age 65 And Up Influenza Virus 2019-05-31 Completed Wen Se ybold Vaccine, High Dose, 00:00:00 Age 65 And Up Zoster Vaccine 2018-11-24 Completed University of Recombinant 00:00:00 [facility] [place] [facility] Zoster Vaccine 2018-11-24 Completed University of Recombinant 00:00:00 [facility] Shingles IM 2018-11-24 Completed Wen Seybol d (Shingrix) 00:00:00 Shingles IM 2018-11-24 Completed Wen Seybol d (Shingrix) 00:00:00 Shingles IM 2018-11-24 Completed Wen Seybol d (Shingrix) 00:00:00 Influenza High Dose 2018-05-11 Completed Unive rsity of 00:00:00 [facility] [place] [facility] Influenza High Dose 2018-05-11 Completed Unive rsity of 00:00:00 [facility] Influenza Virus 2018-05-11 Completed Wen Se ybold Vaccine, High Dose, 00:00:00 Age 65 And Up Influenza Virus 2018-05-11 Completed Wen Se ybold Vaccine, High Dose, 00:00:00 Age 65 And Up Influenza Virus 2018-05-11 Completed Wen Se ybold Vaccine, High Dose, 00:00:00 Age 65 And Up Zoster Vaccine 2017-12-23 Completed University of Recombinant 00:00:00 [facility] [place] [facility] Zoster Vaccine 2017-12-23 Completed University of Recombinant 00:00:00 [facility] Shingles IM 2017-12-23 Completed Wen Seybol d (Shingrix) 00:00:00 Shingles IM 2017-12-23 Completed Wen Seybol d (Shingrix) 00:00:00 Shingles IM 2017-12-23 Completed Wen Seybol d (Shingrix) 00:00:00 Influenza High Dose 2017-06-14 Completed Unive rsity of 00:00:00 [facility] [place] [facility] Influenza High Dose 2017-06-14 Completed Unive rsity of 00:00:00 [facility] Influenza Virus 2017-06-14 Completed Wen Se ybold Vaccine, High Dose, 00:00:00 Age 65 And Up Influenza Virus 2017-06-14 Completed Wen Se ybold Vaccine, High Dose, 00:00:00 Age 65 And Up Influenza Virus 2017-06-14 Completed Wen Se ybold Vaccine, High Dose, 00:00:00 Age 65 And Up Influenza High Dose 2016-05-07 Completed Unive rsity of 00:00:00 [facility] [place] [facility] Influenza High Dose 2016-05-07 Completed Unive rsity of 00:00:00 [facility] Influenza Virus 2016-05-07 Completed Wen Se ybold Vaccine, High Dose, 00:00:00 Age 65 And Up Influenza Virus 2016-05-07 Completed Wen Se ybold Vaccine, High Dose, 00:00:00 Age 65 And Up Influenza Virus 2016-05-07 Completed Wen Se ybold Vaccine, High Dose, 00:00:00 Age 65 And Up Influenza High Dose 2015-04-25 Completed Unive rsity of 00:00:00 [facility] [place] [facility] Pneumococcal 13 2015-04-25 Completed Universit y of Conjugate, PCV13 00:00:00 [facility] dical (Prevnar 13) [place] Influenza High Dose 2015-04-25 Completed Unive rsity of 00:00:00 [facility] Pneumococcal 13 2015-04-25 Completed Universit y of Conjugate, PCV13 00:00:00 [facility] dical (Prevnar 13) Branch Pneumococcal Vaccine, 2015-04-25 Completed Mariola sey Seybold Conjugate 13 00:00:00 Influenza Virus 2015-04-25 Completed Wen Se ybold Vaccine, High Dose, 00:00:00 Age 65 And Up Pneumococcal Vaccine, 2015-04-25 Completed Mariola sey Seybold Conjugate 13 00:00:00 Influenza Virus 2015-04-25 Completed Wen Se ybold Vaccine, High Dose, 00:00:00 Age 65 And Up Pneumococcal Vaccine, 2015-04-25 Completed Mariola sey Seybold Conjugate 13 00:00:00 Influenza Virus 2015-04-25 Completed Wen Se ybold Vaccine, High Dose, 00:00:00 Age 65 And Up Influenza High Dose 2014-04-30 Completed Unive rsity of 00:00:00 [facility] [place] [facility] Pneumococcal 2014-04-30 Completed University o f Polysaccharide, 00:00:00 [facility] ica PPSV23 (PNEUMOVAX) Branch Influenza High Dose 2014-04-30 Completed Unive rsity of 00:00:00 [facility] Pneumococcal 2014-04-30 Completed University o f Polysaccharide, 00:00:00 [facility] ical PPSV23 (PNEUMOVAX) Branch Influenza Virus 2014-04-30 Completed Wen Se ybold Vaccine, High Dose, 00:00:00 Age 65 And Up Pneumococcal Vaccine, 2014-04-30 Completed Mariola sey Seybold Polysaccharide 00:00:00 Influenza Virus 2014-04-30 Completed Wen Se ybold Vaccine, High Dose, 00:00:00 Age 65 And Up Pneumococcal Vaccine, 2014-04-30 Completed Mariola sey Seybold Polysaccharide 00:00:00 Influenza Virus 2014-04-30 Completed Wen Se ybold Vaccine, High Dose, 00:00:00 Age 65 And Up Pneumococcal Vaccine, 2014-04-30 Completed Mariola sey Seybold Polysaccharide 00:00:00 Influenza High Dose 2013-06-16 Completed Unive rsity of 00:00:00 [facility] Influenza High Dose 2013-06-16 Completed Unive rsity of 00:00:00 [facility] Influenza Virus 2013-06-16 Completed Wen Se ybold Vaccine, High Dose, 00:00:00 Age 65 And Up Influenza Virus 2013-06-16 Completed Wen Se ybold Vaccine, High Dose, 00:00:00 Age 65 And Up Influenza Virus 2013-06-16 Completed Wen Se ybold Vaccine, High Dose, 00:00:00 Age 65 And Up Influenza High Dose 2011-07-10 Completed Unive rsity of 00:00:00 [facility] Influenza High Dose 2011-07-10 Completed Unive rsity of 00:00:00 [facility] Influenza Virus 2011-07-10 Completed Wen Se ybold Vaccine, High Dose, 00:00:00 Age 65 And Up Influenza Virus 2011-07-10 Completed Wen Se ybold Vaccine, High Dose, 00:00:00 Age 65 And Up Influenza Virus 2011-07-10 Completed Wen Se ybold Vaccine, High Dose, 00:00:00 Age 65 And Up Pneumococcal 2011-03-12 Completed University o f Polysaccharide, 00:00:00 [place] Med ical PPSV23 (PNEUMOVAX) Branch Pneumococcal 2011-03-12 Completed [place] o f Polysaccharide, 00:00:00 [place] Med ical PPSV23 (PNEUMOVAX) Branch Pneumococcal Vaccine, 2011-03-12 Completed Mariola sey Seybold Polysaccharide 00:00:00 Pneumococcal Vaccine, 2011-03-12 Completed Mariola sey Seybold Polysaccharide 00:00:00 Pneumococcal Vaccine, 2011-03-12 Completed Mariola sey Seybold Polysaccharide 00:00:00 Influenza Virus 2010-04-29 Completed Universit y of Vaccine Quad IM 00:00:00 [place] Med ical Multi-dose 6+ MO Branch Influenza Virus 2010-04-29 Completed Universit y of Vaccine Quad IM 00:00:00 [place] Med ical Multi-dose 6+ MO Branch Influenza Virus 2010-04-29 Completed Wen Se ybold Vaccine, age 6 months 00:00:00 and up Influenza Virus 2010-04-29 Completed Wen Se ybold Vaccine, age 6 months 00:00:00 and up Influenza Virus 2010-04-29 Completed Wen Se ybold Vaccine, age 6 months 00:00:00 and up Vital Signs Vital Name Observation Time Observation Value Comments Source Systolic blood pressure 2021-05-12 16:08:00 114 mm[Hg] Wen Baird Diastolic blood 2021-05-12 16:08:00 62 mm[Hg] Jammie Baird pressure Heart rate 2021-05-12 16:08:00 78 /min Wen zamora Respiratory rate 2021-05-12 16:08:00 16 /min Sara Baird Body height 2021-05-12 16:08:00 162.6 cm Wen zamora Body weight 2021-05-12 16:08:00 68.493 kg Wen Jae sera BMI 2021-05-12 16:08:00 25.92 kg/m2 Wen zamora Oxygen saturation in 2021-05-12 16:08:00 95 /min Wen Baird Arterial blood by Pulse oximetry Systolic blood pressure 2021-05-07 12:40:00 114 mm[Hg] Wen Baird Diastolic blood 2021-05-07 12:40:00 62 mm[Hg] Jammie Baird pressure Heart rate 2021-05-07 12:40:00 80 /min Wen zamora Respiratory rate 2021-05-07 12:40:00 20 /min Sara Baird Body height 2021-05-07 12:40:00 162.6 cm Wen zamora Body weight 2021-05-07 12:40:00 68.04 kg Wen zamora BMI 2021-05-07 12:40:00 25.75 kg/m2 Wen zamora Procedures Procedure Date / Time Performed Performing Clinician Sourc e MICROALB/CREAT RATIO, [facility] 2021-05-12 17:53:00 Prakash Ghosh UR URINALYSIS, ROUTINE 2021-05-12 17:53:00 Prakash Ghosh HGB A1C WITH MBG ESTIMATION 2021-05-12 17:19:00 Prakash Ghosh COMP. METABOLIC PANEL (14) 2021-05-12 17:19:00 Prakash Ghosh Plan of Care Planned Activity Planned Date Details Comments Source Future Scheduled 2021-04-[address] [facility] - Test 00:00:00 (#1) [code = [facility] INFLUENZA VACCINE (#1)] Future Scheduled 2020-08-[address] [facility] [facility] - Test 00:00:00 WELLNESS (YEAR 2 or Medical Center FIRST YEAR if no IPPE) [code = MEDICARE ANNUAL WELLNESS (YEAR 2 or FIRST YEAR if no IPPE)] Future Scheduled 2020-08-[address] [facility] - Test 00:00:00 (12+) [code = Medical Center DEPRESSION SCREENING (12+)] Future Scheduled 2020-08-09 FALLS RISK SCREENING [facility] - Test 00:00:00 [code = FALLS RISK Medical C enter SCREENING] Future Scheduled 2018-03-03 Urine screening for [facility] - Test 00:00:00 protein (procedure) [facility] [code = 399289454] Future Scheduled 2015-06-[address] [facility] Test 00:[facility]:00 measurement [facility] Center (procedure) [code = 97690680] Future Scheduled 1987 SHINGLES VACCINES ([address] [facility] - Test 00:00:00 of 2) [code = Medical Center SHINGLES VACCINES (1 of 2)] Future Scheduled 1956-02-05 DTAP/TDAP/TD [facility]ACCINES [facility] Test 00:00:00 (1 - Tdap) [code = Medical C enter DTAP/TDAP/TD VACCINES (1 - Tdap)] Future Scheduled 1949 COVID-19 VACCINE (1) [facility] - Test 00:00:00 [code = COVID-[address] VACCINE (1)] Future Scheduled [address] EYE EXAM [facility] - Test 00:00:00 [code = DIABETIC EYE Medical Center EXAM] Future Scheduled [address] [facility] - Test 00:00:00 examination Medical Center (regime/therapy) [code = 138181994] Encounters Start End Encounter Admission Attending Care Care Encounter Source Date/Time Date/Time Type Type Clinicians Facility Department ID 2021-06-08 Emergency [facility] [id number] Univers 13:40:29 [facility] 2021-06-08 Emergency [facility] [id number] Univers 05:50:10 [facility] 2021-10-30 2021-10-30 Outpatient WEN PETTIT [id number] Wen 10:00:00 10:00:00 CORI Seybol d 2021-08-15 2021-08-15 Outpatient WEN SPAULIDNG [id number] Wen 10:30:00 10:30:00 RONAN Seybol d 2021-07-31 2021-07-31 Outpatient WEN SPAULDING [id number] Wen 00:00:00 00:00:00 RONAN Seybol d 2021-07-28 2021-07-28 Outpatient LAB53 WEN MTZ [id number] Wen 10:05:00 10:05:00 Seybol d 2021-07-28 2021-07-28 Outpatient WEN SPAULDING [id number] Wen 00:00:00 00:00:00 RONAN Seybol d 2021-07-28 2021-07-28 Outpatient KELSEY WEN MTZ [id number] Wen 00:00:00 00:00:00 PRAKASH Seybol d 2021-07-26 2021-07-26 Outpatient KELSEY WEN MTZ [id number] Wen 00:00:00 00:00:00 PRAKASH Seybol d 2021-07-26 2021-07-26 Outpatient CHELLY WEN MTZ [id number] Wen 00:00:00 00:00:00 RONAN Seybol d 2021-07-23 2021-07-23 Outpatient LAB53 WEN MTZ [id number] Wen 09:05:00 09:05:00 Seybol d 2021-07-23 2021-07-23 Outpatient KELSEY WEN MTZ [id number] Wen 00:00:00 00:00:00 PRAKASH Seybol d 2021-07-23 2021-07-23 Outpatient KELSEY WEN MTZ [id number] Wen 00:00:00 00:00:00 PRAKASH Seybol d 2021-07-23 2021-07-23 Outpatient KELSEY WEN MTZ [id number] Wen 00:00:00 00:00:00 PRAKASH Seybol d 2021-07-17 2021-07-17 Outpatient WEN GONZALES [id number] Wen 08:45:00 08:45:00 AHMED Seybol d 2021-07-17 2021-07-17 Outpatient WEN MTZ [id number] Wen 08:30:00 08:30:00 Seybol d 2021-07-17 2021-07-17 Outpatient WEN MOSHER [id number] Wen 00:00:00 00:00:00 LOWANNA Seybol d 2021-07-16 2021-07-16 Outpatient LAB53 WEN MTZ [id number] Wen 09:55:00 09:55:00 Seybol d 2021-07-16 2021-07-16 Outpatient MARIOLA GONZALESSEY WEN [id number] Wen 00:00:00 00:00:00 AHMED Seybol d 2021-07-16 2021-07-16 Outpatient KELSEY WEN MTZ [id number] Wen 00:00:00 00:00:00 PRAKASH Seybol d 2021-07-15 2021-07-15 Outpatient JANET WEN MTZ [id number] Wen 00:00:00 00:00:00 AHMED Seybol d 2021-07-11 2021-07-11 Outpatient WEN MTZ [id number] Wen 00:00:00 00:00:00 Seybol d 2021-07-09 2021-07-09 [facility] LUCIANA Newton [id number] Wen 11:30:00 11:33:[address] [facility] [id number] Seybold [id number] 2021-07-09 2021-07-09 Outpatient KELSEY WEN MTZ [id number] Wen 00:00:00 00:00:00 PRAKASH Seybol d 2021-07-09 2021-07-09 Outpatient KELSEY WEN MTZ [id number] Wen 00:00:00 00:00:00 PRAKASH Seybol d 2021-06-19 2021-06-19 Outpatient KELSEY WEN MTZ [id number] Wen 00:00:00 00:00:00 PRAKASH Seybol d 2021-06-18 2021-06-18 Outpatient KELSEY WEN MTZ [id number] Wen 00:00:00 00:00:00 PRAKASH Seybol d 2021-06-16 2021-06-16 Outpatient KELSEY WEN MTZ [id number] Wen 00:00:00 00:00:00 PRAKASH Seybol d 2021-06-13 2021-06-13 Outpatient WEN MTZ [id number] Wen 16:15:00 16:15:00 Seybol d 2021-06-13 2021-06-13 Outpatient LAB53 WEN MTZ [id number] Wen 15:40:00 15:40:00 Seybol d 2021-06-12 2021-06-12 Outpatient MELOCHE, WEN MTZ [id number] Wen 00:00:00 00:00:00 PRAKASH Seybol d 2021-06-12 2021-06-12 Outpatient MELOCHE, WEN MTZ [id number] Wen 00:00:00 00:00:00 PRAKASH Seybol d 2021-05-26 2021-05-26 Outpatient MELOCHE, WEN MTZ [id number] Wen 00:00:00 00:00:00 PRAKASH Seybol d 2021-05-20 2021-05-20 Outpatient MYKELSEYONL WEN MTZ [id number] Wen 00:00:00 00:00:00 MD ADELSO Seybol d 2021-05-15 2021-05-15 Outpatient MELOCHE, WEN MTZ [id number] Wen 00:00:00 00:00:00 PRAKASH Seybol d 2021-05-15 2021-05-15 Outpatient MELOCHE, WEN MTZ [id number] Wen 00:00:00 00:00:00 PRAKASH Seybol d 2021-05-14 2021-05-14 Outpatient MELOCHE, WEN MTZ [id number] Wen 00:00:00 00:00:00 PRAKASH Seybol d 2021-05-14 2021-05-14 Outpatient MELOCHE, WEN MTZ [id number] Wen 00:00:00 00:00:00 PRAKASH Seybol d 2021-05-14 2021-05-14 Outpatient MELOCHE, WEN MTZ [id number] Wen 00:00:00 00:00:00 PRAKASH Seybol d 2021-05-14 2021-05-14 Outpatient MELOCHE, WEN MTZ [id number] Wen 00:00:00 00:00:00 PRAKASH Seybol d 2021-05-13 2021-05-13 Outpatient MELOCHE, WEN MTZ [id number] Wen 00:00:00 00:00:00 PRAKASH Seybol d 2021-05-13 2021-05-13 Outpatient WEN GHOSH WEN [id number] Wen 00:00:00 00:00:00 PRAKASH Seybol d 2021-05-13 2021-05-13 Outpatient CHELLY WEN MTZ [id number] Wen 00:00:00 00:00:00 RONAN Seybol d 2021-05-12 2021-05-12 Outpatient LAB53 WEN MTZ [id number] Wen 13:05:00 13:05:00 Seybol d 2021-05-12 2021-05-12 Office Kelsey LUCIANA [id number] Wen 10:54:55 11:09:55 Visit Prakash Shelby RAM 350.1.13.13 Seybold 1.2.7.2.686 [id number] 2021-05-09 2021-05-09 Outpatient KELSEY WEN MTZ [id number] Wen 00:00:00 00:00:00 PRAKASH Seybol d 2021-05-08 2021-05-08 Outpatient KELSEY WEN MTZ [id number] Wen 00:00:00 00:00:00 PRAKASH Seybol d 2021-05-07 2021-05-07 Outpatient WEN MTZ [id number] Wen 09:10:00 09:10:00 Seybol d 2021-05-07 2021-05-07 Outpatient WEN MTZ [id number] Wen 09:05:00 09:05:00 Seybol d 2021-05-07 2021-05-07 Outpatient LAB39 WEN MTZ [id number] Wen 09:00:00 09:00:00 Seybol d 2021-05-07 2021-05-07 Office Janet YAIR [id number] [id number] Wen 07:29:31 07:59:31 Visit [facility] 350.1.13.13 Se ybold 1.2.7.2.686 [id number] 2021-05-07 2021-05-07 Outpatient KELSEY WEN MTZ [id number] Wen 00:00:00 00:00:00 PRAKASH Seybol d 2021-05-07 2021-05-07 Outpatient KELSEY WEN MTZ [id number] Wen 00:00:00 00:00:00 PRAKASH Seybol d 2021-05-01 2021-05-01 Outpatient WILVER WEN MTZ [id number] Wen 10:00:00 10:00:00 CORI Seybol d 2021-05-01 2021-05-01 Outpatient LAB53 WEN MTZ [id number] Wen 09:30:00 09:30:00 Seybol d 2021-05-01 2021-05-01 Outpatient KELSEY WEN MTZ [id number] Wen 00:00:00 00:00:00 PRAKASH Seybol d 2021-04-23 2021-04-23 Outpatient JANET WEN MTZ [id number] Wen 08:30:00 08:30:00 AHMED Seybol d 2021-04-21 2021-04-21 Letter CJ Cat [id number] Univers 00:00:00 00:00:00 (Out) Paula ACUNA 350.1.13.10 it y of [facility] 4.2.7.2.686 Yoan as [id number] 2021-04-19 2021-04-19 Outpatient R [facility] [id number] Univers 16:20:00 16:20:00 [id number] [facility] 2021-04-19 2021-04-19 Outpatient R CURRY [facility] [id number] Univers 16:20:00 16:20:00 [facility] 2021-04-19 Laboratory Only, Ang Db Test [facility] 1.2.8 40.114 [id number] Univers 16:08:35 16:18:35 Only Curry [facility] 350.1.13.[address] [facility] 4.2.7.2.686 Yoan as Jw?Blea [id number] [facility] 2021-04-10 2021-04-10 Outpatient WEN GHOSH [id number] Wen 10:30:00 10:30:00 PRAKASH Seybol d 2021-04-10 2021-04-10 Outpatient WEN GHOSH [id number] Wen 09:00:00 09:00:00 PRAKASH Seybol d 2021-04-10 2021-04-10 Outpatient WEN SPAULDING [id number] Wen 00:00:00 00:00:00 RONAN Seybol d 2021-04-08 2021-04-08 Outpatient WEN SPAULDING [id number] Wen 00:00:00 00:00:00 RONAN Seybol d 2021-04-07 2021-04-07 Outpatient TRED53 WEN MTZ [id number] Wen 10:15:00 10:15:00 Seybol d 2021-04-07 2021-04-07 Outpatient CR MEJIA [id number] Wen 09:45:00 09:45:00 Seybol d 2021-04-07 2021-04-07 Outpatient LAB53 WEN MTZ [id number] Wen 08:55:00 08:55:00 Seybol d 2021-04-07 2021-04-07 Outpatient WEN GHOSH [id number] Wen 00:00:00 00:00:00 PRAKASH Seybol d 2021-04-07 2021-04-07 Outpatient WEN GHOSH [id number] Wen 00:00:00 00:00:00 PRAKASH Seybol d 2021-04-04 2021-04-04 Outpatient WEN MCMAHON [id number] Wen 08:40:00 08:40:00 RALPH Seybol d 2021-04-03 2021-04-03 Outpatient WEN GHOSH [id number] Wen 00:00:00 00:00:00 PRAKASH Seybol d 2021-03-26 2021-03-26 Outpatient WEN SPAULDING [id number] Wen 10:30:00 10:30:00 RONAN Seybol d 2021-03-20 2021-03-20 Outpatient WEN GHOSH [id number] Wen 11:30:00 11:30:00 PRAKASH Seybol d 2021-03-18 2021-03-18 Outpatient WEN SPAULDING [id number] Wen 00:00:00 00:00:00 RONAN Seybol d 2021-03-17 2021-03-17 Outpatient MICHAELAntonioWEN [id number] Wen 00:00:00 00:00:00 PRAKASH Seybol d 2021-03-16 2021-03-16 Outpatient CHELLYWEN [id number] Wen 00:00:00 00:00:00 RONAN Seybol d 2021-03-12 2021-03-12 Outpatient WEN GHOSH [id number] Wen 00:00:00 00:00:00 PRAKASH Seybol d 2021-03-11 2021-03-11 Outpatient LAB53 WEN MTZ [id number] Wen 11:00:00 11:00:00 Seybol d 2021-03-09 2021-03-09 Outpatient CHELLYWEN [id number] Wen 00:00:00 00:00:00 RONAN Seybol d 2021-03-06 2021-03-06 Outpatient WEN GHOSH [id number] Wen 00:00:00 00:00:00 PRAKASH Seybol d 2021-03-04 2021-03-04 Outpatient NOCWEN Ch [id number] Wen 14:40:00 14:40:00 IAM Seybo ld 2021-03-04 2021-03-04 Outpatient TOMOGRAPHY, WEN MTZ [id number] Wen 14:20:00 14:20:00 CK Seybol d 2021-02-24 2021-02-24 Outpatient LAB53 WEN MTZ [id number] Wen 11:15:00 11:15:00 Seybol d 2021-02-24 2021-02-24 Outpatient WEN GHOSH [id number] Wen 00:00:00 00:00:00 PRAKASH Seybol d 2021-02-20 2021-02-20 Outpatient LAB53 WEN MTZ [id number] Wen 10:35:00 10:35:00 Seybol d 2021-02-20 2021-02-20 Outpatient CHELLY WEN MTZ [id number] Wen 00:00:00 00:00:00 RONAN Seybol d 2021-02-20 2021-02-20 Outpatient KELSEY WEN MTZ [id number] Wen 00:00:00 00:00:00 PRAKASH Seybol d 2021-02-19 2021-02-19 Outpatient CHELLY WEN MTZ [id number] Wen 00:00:00 00:00:00 RONAN Seybol d 2020-11-25 2020-11-25 [facility] [id number] 02:48:00 04:26:00 Ashanti Barakat 350.1.13.10 [place] 4.2.7.2.686 [place] [id number] 2020-10-23 2020-10-23 Transition Jose Brower 1.2.840.114 [id number] 00:00:00 00:00:00 of Care Danial Quinonez 350.1.13.10 [place] 4.2.7.2.686 [id number] 2020-10-20 2020-10-22 [facility] 1.2.840. 114 [id number] 03:35:00 14:00:00 Encounter Karla Godoy 350.1.13.10 [place] 4.2.7.2.686 [place] [id number] 2020-02-13 2020-02-13 Outpatient Serena RODRIGUEZ, [facility] [id number] Univers 15:40:00 15:40:00 TERA fish [facility] 2019-08-31 2019-08-31 Transition Jose Lacey 1.2.840.114 [id number] 00:00:00 00:00:00 of Care Citlaly Quinonez 350.1.13.10 [place] 4.2.7.2.686 [id number] 2019-08-21 2019-08-30 [facility] [place] S [facility] 1.2.840. 114 [id number] 04:18:26 20:12:00 Encounter Karla Godoy 350.1.13.10 [place] 4.2.7.2.686 [place] [id number] 2019-08-21 2019-08-30 Inpatient X [facility] [id number] Univers 04:18:26 20:12:00 KARLA fish [facility] Results Test Description Test Time Test Comments Results Result Comments Source MICROALB/CREAT RATIO, RANDM UR 2021-05-13 22:18:00 Test Item Value Reference Range Interpretation Comme nts CREATININE, URINE (test 31.9 mg/dL Not Estab. code = 2161-8) MICROALBUM.,U,RANDOM (test 21.8 ug/mL Not Estab. code = 85350-1) MICROALB/CREAT RATIO (test See_Comment H ? code = 9318-7) ?Normal: ? 0 - ?29 ?Mo derately increased: 30 - 300 ?Severe ly increased: ? ? ? >300 [Autom ated message] The sy stem which generated this result transmit sumit reference range : 0 - 29 mg/g creat. The reference range was not used to interpr et this result as normal/abnormal . DAISY (test code = DAISY) [facility] results reported in Eastern Time. [facility] Clinical Information:SRC:Urine ?L[facility] Source of Specimen:Urine Lab Interpretation (test Abnormal code = 48720-1) Wen BairdHGB A1C WITH MBG [id number] 12:00:00 Test Item Value Reference Range Interpretation Comments HEMOGLOBIN A1C (test 10.6 % 4.8-5.6 H ? code = 4548-4) ? . ? Prediabetes: 5. 7 - 6.4 ? Diabetes: >6.4 ? Glycemic control for adults with diabetes: <7.0 ESTIM. AVG GLU (EAG) 258 mg/dL (test code = 66159-2) DAISY (test code = DAISY) [facility] results reported in Eastern Time. [facility] Clinical Information:SRC: Blood, venous*Venipunc ture ? L[facility] Source of Specimen:Blood, venous*Venipunc Lab Interpretation Abnormal (test code = 60743-1) Wen Adame. METABOLIC PANEL (14)2021-05-13 11:11:00 Test Item Value Reference Range Interpretation Comments GLUCOSE, SERUM (test 266 mg/dL 65-99 H code = 2345-7) BUN (test code = 13 mg/dL 8- 3094-0) CREATININE, SERUM 0.79 mg/dL 0.76-1.27 (test code = 2160-0) EGFR IF NONAFRICN AM 82 mL/min/1.73 >59 (test code = 03472-3) EGFR IF AFRICN AM 95 mL/min/1.73 >59 [facility] p (test code = 30956-3) an collins reports eGFR in complia nce with the an t ?recommendation s of the National Kidney Foundati on. [facility] will ?update reporti ng as new guidelin es are published f rom the NKF-ASN ?Ta sk force. BUN/CREATININE RATIO 10-24 (test code = 3097-3) SODIUM, SERUM (test 138 mmol/L 134-144 code = 2951-2) POTASSIUM, SERUM 3.9 mmol/L 3.5-5.2 (test code = 2823-3) CHLORIDE, SERUM (test 97 mmol/L 96-106 code = 2075-0) CARBON DIOXIDE, TOTAL 24 mmol/L 20-29 (test code = 2027-) CALCIUM, SERUM (test 8.8 mg/dL 8.6-10.2 code = 30197-4) PROTEIN, TOTAL, SERUM 6.7 g/dL 6.0-8.5 (test code = 2885-2) ALBUMIN, SERUM (test 3.9 g/dL 3.6-4.6 code = 1751-7) GLOBULIN, TOTAL (test 2.8 g/dL 1.5-4.5 code = 81666-8) A/G RATIO (test code 1.2-2.2 = 1759-0) BILIRUBIN, TOTAL 0.6 mg/dL 0.0-1.2 (test code = 1975-2) ALKALINE PHOSPHATASE, See_Comment SERUM (test code = Please 6768-6) note reference interval change [Automated message] The system which generated this result transmit sumit reference range : 44 - 121 IU/L. The reference range was not used to interpret this result as normal/abnormal . AST (SGOT) (test code See_Comment [Auto mated = 1920-8) message] The system which generated this result transmit sumit reference range : 0 - 40 IU/L. The reference range was not used to interpret this result as normal/abnormal . ALT (SGPT) (test code See_Comment [Auto mated = 1742-6) message] The system which generated this result transmit sumit reference range : 0 - 44 IU/L. The reference range was not used to interpret this result as normal/abnormal . DAISY (test code = DAISY) [facility] results reported in Eastern Time. [facility] Clinical Information:SRC :Blood, venous*Venipunc ture ? [facility] Source of Specimen:Blood, venous*Venipunc Lab Interpretation Abnormal (test code = 78466-1) Wen DuniaoldURINALYSIS, [id number] 07:07:00 Test Item Value Reference Range Interpretation Comments SPECIFIC GRAVITY 1.005-1.030 (test code = 2965-2) PH (test code = 5.0-7.5 5803-2) URINE-COLOR (test Yellow Yellow code = 5778-6) APPEARANCE (test Clear Clear code = 5767-9) WBC ESTERASE (test Negative Negative code = 5799-2) PROTEIN (test code Negative Negative/Trace = 24016-1) GLUCOSE (test code Negative Negative = 2349-9) KETONES (test code Negative Negative = 4634-8) OCCULT BLOOD (test Negative Negative code = 5794-3) BILIRUBIN (test Negative Negative code = 5770-3) UROBILINOGEN,SEMI-Q 0.2 mg/dL 0.2-1.0 N (test code = 35319-4) NITRITE, URINE Negative Negative (test code = 5802-4) MICROSCOPIC Microscopic not EXAMINATION (test indicated and not code = 37977-2) performed. DAISY (test code = [facility] results DAISY) reported in [place] Time. L[facility] Clinical Information:SRC: Urine ?LCA Source of Specimen:Urine Wen DuqueoldPOCT-GLUCOSE [id number] 12:08:00 Test Item Value Reference Range Interpretation Comments POC-GLUCOSE METER 138 mg/dL 70-110 H : TESTED A T [facility] 6720 (BEAKER) (test code = [facility], 1538) 00688: Laser Machine Operator/Techni go ID = [id number] for AN HELDER FRIEND POCT-GLUCOSE [id number] 08:13:00 Test Item Value Reference Range Interpretation Comments POC-GLUCOSE METER 81 mg/dL 70-110 : TESTED A T [facility] 6720 (BEAKER) (test code = [facility], 1538) 55198: Laser Machine Operator/Techni og ID = [id number] for HELDER CHINO BASIC METABOLIC [id number] 06:44:00 Test Item Value Reference Range Interpretation [...] S NOT APPLICABLE FOR DIALYSIS PATIEN TS. Laser Machine Operator ID - CHRIST MPROTHROMBIN TIME/[id number] 05:00:00 Test Item Value Reference Range Interpretation [...] H : TESTED A T [facility] 6720 (Yellow Pages) (test code = [facility] [employer] [facility], 1538) 63449: Laser Machine Operator/Techni og ID = [id number] for EV ANSZACH POCT-GLUCOSE [id number] 17:58:00 Test Item Value Reference Range Interpretation Comments POC-GLUCOSE METER 272 mg/dL 70-110 H : TESTED A T [facility] 6720 (Yellow Pages) (test code = [facility] [employer] [facility], 153) 64066: Laser Machine Operator/Techni og ID = [id number] for Vi mariumRadha galloway POCT-GLUCOSE [id number] 17:13:00 Test Item Value Reference Range Interpretation Comments POC-GLUCOSE METER 249 mg/dL 70-110 H : TESTED A T [facility] 6720 (BEAKER) (test code = [facility], 1538) 13256: Laser Machine Operator/Techni og ID = [id number] for JUSTYN PEREZ POCT-GLUCOSE [id number] 12:21:00 Test Item Value Reference Range Interpretation Comments POC-GLUCOSE METER 167 mg/dL 70-110 H : TESTED A T [facility] 6720 (BEAKER) (test code = [facility], 1538) 99595: Laser Machine Operator/Techni og ID = [id number] for Radha Horn POCT-GLUCOSE [id number] 08:58:00 Test Item Value Reference Range Interpretation Comments POC-GLUCOSE METER 91 mg/dL 70-110 : TESTED A T [facility] 6720 (BEAKER) (test code = [facility], 1538) 07399: Laser Machine Operator/Techni og ID = [id number] for Vict Radha galloway BASIC METABOLIC [id number] 05:41:00 Test Item Value Reference Range Interpretation Comments SODIUM (BEAKER) 137 meq/L 136-145 (test code = 381) POTASSIUM (BEAKER) 3.4 meq/L 3.5-5.1 L (test code = 379) CHLORIDE (BEAKER) 108 meq/L 98-107 H (test code = 382) CO2 (BEAKER) (test 26 meq/L 22-29 code = 355) BLOOD UREA NITROGEN 11 [...] S NOT APPLICABLE FOR DIALYSIS PATIEN TS. Laser Machine Operator ID - CHRIST MPROTHROMBIN TIME/[id number] 05:41:00 Test Item Value Reference Range Interpretation [...] H : TESTED A T [facility] 6720 (Yellow Pages) (test code = [employer] [facility], 1538) 20334: Laser Machine Operator/Techni og ID = [id number] for ZACH THIBODEAUX POCT-GLUCOSE [id number] 21:56:00 Test Item Value Reference Range Interpretation Comments POC-GLUCOSE METER 231 mg/dL 70-110 H : TESTED A T [facility] 6720 ([employer]) (test code = [employer] [facility], 1538) 25128: Laser Machine Operator/Techni og ID = [id number] for OM RADHA LUCAS POCT-GLUCOSE [id number] 17:03:00 Test Item Value Reference Range Interpretation Comments POC-GLUCOSE METER 267 mg/dL 70-110 H : TESTED A T [facility] 6720 ([facility]) (test code = [facility], [facility]) 64124: Laser Machine Operator/Techni og ID = [id number] for Radha Horn POCT-GLUCOSE [id number] 12:11:00 Test Item Value Reference Range Interpretation Comments POC-GLUCOSE METER 156 mg/dL 70-110 H : TESTED A T [facility] 6720 ([facility]) (test code = [facility], [facility]) 93077: Laser Machine Operator/Techni og ID = [id number] for DILIA KRUEGERO, DA POCT-GLUCOSE [id number] 10:01:00 Test Item Value Reference Range Interpretation Comments POC-GLUCOSE METER 93 mg/dL 70-110 : TESTED A T [facility] 6720 ([facility]) (test code = [facility], [facility]) 97690: Laser Machine Operator/Techni og ID = [id number] for KHOI MOOREO, DA POCT-GLUCOSE [id number] 09:21:00 Test Item Value Reference Range Interpretation Comments POC-GLUCOSE METER 50 mg/dL 70-110 L : Pt. refu sed rpt tst: ([facility]) (test code = TESTED AT [place] [address] 153) [facility], [address]: Laser Machine Operator/Techni og ID = [id number] for MENDOZA-ROSALVA JOSR, PAM POCT-GLUCOSE [id number] 08:24:00 Test Item Value Reference Range Interpretation Comments POC-GLUCOSE METER 40 mg/dL 70-110 LL : TESTED A [facility] 6720 ([facility]) (test code = [facility], [facility]) 26179: Laser Machine Operator/Techni og ID = [id number] for MENDOZA-ROSALVA JOSR, PAM POCT-GLUCOSE [id number] 07:36:00 Test Item Value Reference Range Interpretation Comments POC-GLUCOSE METER 42 mg/dL 70-110 L : Notified RN/MD: TESTED ([facility]) (test code = AT [place] [address]) [facility], 770 30: Laser Machine Operator/Techni og ID = [id number] for MENDOZA-ROSALVA JOSR, PAM PROTHROMBIN TIME/[id number] 06:50:00 Test Item Value Reference Range Interpretation [...] wiht mechanical heart valves.While on warfarin.BASIC METABOLIC [id number] 03:50:00 Test Item Value Reference Range Interpretation Comments SODIUM (BEAKER) 135 meq/L 136-145 L (test code = 381) POTASSIUM (BEAKER) 3.4 meq/L 3.5-5.1 L (test code = 379) CHLORIDE (BEAKER) 108 meq/L 98-107 H (test code = 382) CO2 (BEAKER) (test 25 meq/L code = 355) BLOOD UREA NITROGEN 14 [...] S NOT APPLICABLE FOR DIALYSIS PATIEN TS. Laser Machine Operator ID - RIGO WPOCT-GLUCOSE [id number] 22:50:00 Test Item Value Reference Range Interpretation Comments POC-GLUCOSE METER 155 mg/dL 70-110 H : TESTED A T [facility] 6720 (BEAKER) (test code = DALI [place], 1538) 01258: Laser Machine Operator/Techni og ID = [id number] for KAMRAN WORRELL POCT-GLUCOSE [id number] 17:26:00 Test Item Value Reference Range Interpretation Comments POC-GLUCOSE METER 255 mg/dL 70-110 H : TESTED A T [facility] 6720 (BEAKER) (test code = DALI [place], 1538) 96192: Laser Machine Operator/Techni og ID = [id number] for Lissette Lebron POCT-GLUCOSE [id number] 11:33:00 Test Item Value Reference Range Interpretation Comments POC-GLUCOSE METER 127 mg/dL 70-110 H : TESTED A T [facility] 6720 (BEAKER) (test code = DALI Lyons [facility], 1538) 69929: Laser Machine Operator/Techni og ID = [id number] for AN BROCK JOSEPH CBC W/PLT COUNT & AUTO [id number] 08:32:00 Test Item Value Reference Range Interpretation [...] PERCENT (BEAKER) (test code = 2801) POCT-GLUCOSE [id number] 07:40:00 Test Item Value Reference Range Interpretation Comments POC-GLUCOSE METER 116 mg/dL 70-110 H : TESTED A T [facility] 6720 ([employer]) (test code = [employer] [place], 1538) 70391: Laser Machine Operator/Techni og ID = [id number] for Ree d, Lissette PROTHROMBIN TIME/[id number] 05:57:00 Test Item Value Reference Range Interpretation [...] H : TESTED A T [facility] 6720 ([employer]) (test code = [employer] [place], 1538) 88454: Laser Machine Operator/Techni og ID = [id number] for RA GLAND, GIO SODIUM, RANDOM [id number] 19:03:00 Test Item Value Reference Range Interpretation Comments SODIUM URINE (BEAKER) (test code = 23 meq/L 243) Reference Range: No NormalsOperator ID - KENNOSMOLALITY, [id number] 18:19:00 Test Item Value Reference Range Interpretation Comments OSMOLALITY URINE (BEAKER) (test 857 mOsm/kg 40-1,400 code = 614) POCT-GLUCOSE [id number] 17:17:00 Test Item Value Reference Range Interpretation Comments POC-GLUCOSE METER 235 mg/dL 70-110 H : TESTED A T [facility] 6720 (BEAKER) (test code = [place], 1538) 667[address]: Laser Machine Operator/Techni og ID = [id number] for AN BROCK JOSEPH URINALYSIS W/ [id number] 16:53:00 Test Item Value Reference Range Interpretation [...] = 516) SOURCE(BEAKER) (test code = 2795) Laser Machine Operator ID - [auto]Laser Machine Operator ID - hankPOCT-GLUCOSE [id number] 11:46:00 Test Item Value Reference Range Interpretation Comments POC-GLUCOSE METER 199 mg/dL 70-110 H : TESTED A T [facility] 6720 (BEAKER) (test code = DALI [place], 1538) 38695: Laser Machine Operator/Techni og ID = [id number] for AN BROCK JOSEPH TSH/FREE T4 IF [id number] 11:41:00 Test Item Value Reference Range Interpretation Comments THYROID STIMULATING HORMONE 1.31 uIU/mL 0.35-4.94 (BEAKER) (test code = 772) Laser Machine Operator ID - CHRIST [id number] 11:41:00 Test Item Value Reference Range Interpretation Comments CORTISOL, TOTAL (BEAKER) (test code 4.8 ug/dL 3.7-19.4 = 2755) Laser Machine Operator ID - CHRIST MOSMOLALITY, [id number] 11:32:00 Test Item Value Reference Range Interpretation Comments OSMOLALITY, SERUM (BEAKER) (test 284 mOsm/kg 275-295 code = 615) CBC W/PLT COUNT & AUTO [id number] 11:23:00 Test Item Value Reference Range Interpretation [...] (BEAKER) (test code = 2801) BASIC METABOLIC [id number] 11:19:00 Test Item Value Reference Range Interpretation Comments SODIUM (BEAKER) 130 meq/L 136-145 L (test code = 381) POTASSIUM (BEAKER) 4.0 meq/L 3.5-5.1 (test code = 379) CHLORIDE (BEAKER) 97 meq/L 98-107 L (test code = 382) CO2 (BEAKER) (test 28 meq/L 22-29 code = 355) BLOOD UREA NITROGEN 21 mg/dL 7-21 (BEAKER) (test code = 354) CREATININE (BEAKER) 0.79 mg/dL 0.57-1.25 (test code = 358) GLUCOSE RANDOM 228 mg/dL 70-105 H (BEAKER) (test code = 652) CALCIUM (BEAKER) 8.4 mg/dL 8.4-10.2 (test code = 697) EGFR (BEAKER) (test 94 mL/min/1.73 ESTIMA SUMIT GFR IS code = 1092) sq m NOT ACCURATE CREATININE CLEARANCE IN PREDICTING GLOMERULAR FILTRATION RATE . ESTIMATED GFR I S NOT APPLICABLE FOR DIALYSIS PATIEN TS. Laser Machine Operator ID - CHRIST MPOCT-GLUCOSE [id number] 08:20:00 Test Item Value Reference Range Interpretation Comments POC-GLUCOSE METER 220 mg/dL 70-110 H : TESTED A T [facility] 6720 (BEAKER) (test code = [facility], 1538) 51758: Laser Machine Operator/Techni og ID = [id number] for AN BROCK JOSEPH PROTHROMBIN TIME/[id number] 07:06:00 Test Item Value Reference Range Interpretation [...] T [facility] 6720 (BEAKER) (test code = [facility], 1538) 94144: Laser Machine Operator/Techni og ID = [id number] for ERICK MCHUGH POCT-GLUCOSE [id number] 17:30:00 Test Item Value Reference Range Interpretation Comments POC-GLUCOSE METER 314 mg/dL 70-110 H : TESTED A T [facility] 6720 (BEAKER) (test code = [facility], 1538) 62855: Laser Machine Operator/Techni og ID = [id number] for CAMILA BRODERICK CBC W/PLT COUNT & AUTO [id number] 14:05:00 Test Item Value Reference Range Interpretation [...] CONCENTRATION Adequate (CELLAVISION)(BEAKER) (test code = 3438) Laser Machine Operator ID - Rachell OverholtUser comments: Slide comments:BASIC [...] 697) EGFR (BEAKER) (test 89 mL/min/1.73 ESTIMA SUMIT GFR IS code = 1092) sq m NOT ACCURATE CREATININE CLEARANCE IN PREDICTING GLOMERULAR FILTRATION RATE . ESTIMATED GFR I S NOT APPLICABLE FOR DIALYSIS PATIEN TS. Laser Machine Operator ID - CHRIST MSpecimen slightly ictericPOCT-GLUCOSE [id number] 11:53:00 Test Item Value Reference Range Interpretation Comments POC-GLUCOSE METER 238 mg/dL 70-110 H : TESTED A T [facility] 6720 (BEAKER) (test code = [facility], 153) 70298: Laser Machine Operator/Techni og ID = [id number] for JOSE A CHÁVEZ PROTHROMBIN [id number] 09:50:00 Test Item Value Reference Range Interpretation [...] T [facility] 6720 (BEAKER) (test code = [facility], 153) 67424: Laser Machine Operator/Techni og ID = [id number] for JOSE A CHÁVEZ POCT-GLUCOSE [id number] 04:16:00 Test Item Value Reference Range Interpretation Comments POC-GLUCOSE METER 264 mg/dL 70-110 H : TESTED A T [facility] 6720 (BEAKER) (test code = [facility], 153) 36758: Laser Machine Operator/Techni og ID = [id number] for HOWARD STILL POCT-GLUCOSE [id number] 01:08:00 Test Item Value Reference Range Interpretation Comments POC-GLUCOSE METER 188 mg/dL 70-110 H : TESTED A T [facility] 6720 (BEAKER) (test code = [facility], 153) 72[address]: Laser Machine Operator/Techni og ID = [id number] for MS IBI, MNCEDISI BASIC METABOLIC [id number] 19:25:00 Test Item Value Reference Range Interpretation [...] 697) EGFR (BEAKER) (test 51 mL/min/1.73 ESTIMA SUMIT GFR IS code = 1092) sq m NOT ACCURATE CREATININE CLEARANCE IN PREDICTING GLOMERULAR FILTRATION RATE . ESTIMATED GFR I S NOT APPLICABLE FOR DIALYSIS PATIEN TS. Laser Machine Operator ID - AAHAMIDPOCT-GLUCOSE [id number] 17:24:00 Test Item Value Reference Range Interpretation Comments POC-GLUCOSE METER 460 mg/dL 70-110 HH : Notified RN/MD: (DANE) (test code = TESTED AT [place] [id number] 1538) SELECT [facility], [address]: Laser Machine Operator/Techni og ID = [id number] for ALLEGRA HUTSON POCT-GLUCOSE [id number] 12:43:00 Test Item Value Reference Range Interpretation Comments POC-GLUCOSE METER 491 mg/dL 70-110 HH : Notified RN/MD: (DANE) (test code = TESTED AT [place] [address] 153) [facility], [address]: Laser Machine Operator/Techni og ID = [id number] for ALLEGRA HUTSON RAD, CHEST, 1 VIEW, NON [id number] 08:59:00Reason for exam:->shortness of breathShould this be performed at the bedside?->YesFINAL REPORT CHEST AP PORTABLE History provided: Shortness of breath Comparison exam: 05/17/2015 Heart size normal. Lungs grossly clear and vascularity normal. Signed: Barry Girardeport Verified Date/Time: 08/31/2019 08:59:49 Reading Location: [facility] Diagnostic Imaging Reading Room - [facility] [id number] RAD, ABDOMEN/KUB, 1 VIEW [id number] 08:54:00Reason for exam:->abdominal distensionShould this be performed at the bedside?->YesFINAL REPORT Comparison: None Discussion: Abdomen: Bowel gas pattern is nonobstructed. Evaluation for free intraperitoneal air is limited due to positioning. Right upper quadrant surgical clips are seen likely due to cholecystectomy. No acute skeletal abnormality. Impression: 1. Nonspecific bowel gas pattern. Signed: Abad Nina MDReport Verified Date/Time: 08/31/2019 08:54:37 Reading Location: [facility] Radiology Reading Room POCT-GLUCOSE [id number] 08:20:00 Test Item Value Reference Range Interpretation Comments POC-GLUCOSE METER 317 mg/dL 70-110 H : TESTED A T [facility] 6720 (BEAKER) (test code = [facility], 1538) [address]: Laser Machine Operator/Techni og ID = [id number] for SHARRON SELVIN DINH (CELLAVISION MANUAL DIFF)2019-08-31 07:23:00 Test Item Value [...] CONCENTRATION Adequate (CELLAVISION)(BEAKER) (test code = 3438) Laser Machine Operator ID - Cassieyee HuangAlmita comments: Slide comments:BASIC METABOLIC PANEL 2019-08-31 02:16:00 [...] 697) EGFR (BEAKER) (test 57 mL/min/1.73 ESTIMA SUMIT GFR IS code = 1092) sq m NOT ACCURATE CREATININE CLEARANCE IN PREDICTING GLOMERULAR FILTRATION RATE . ESTIMATED GFR I S NOT APPLICABLE FOR DIALYSIS PATIEN TS. Laser Machine Operator ID - RIGO Monicaimemariela slightly ictericHEPATIC FUNCTION [id number] 02:16:00 Test Item Value Reference Range Interpretation [...] code = 60 U/L 6-55 H 347) Laser Machine Operator ID Shemar Sahu slightly ictericB-TYPE NATRIURETIC FACTOR (BNP) 2019-08-31 01:39:00 Test Item Value Reference Range Interpretation Comments B-TYPE NATRIURETIC PEPTIDE (FERNANDAAKER) 37 pg/mL 0-100 (test code = 700) Laser Machine Operator ID Shemar SIERRA WPT/[id number] 01:35:00 Test Item Value Reference Range Interpretation Comments PROTIME (BEAKER) (test code = 22.6 seconds 11.9-14.2 H 759) INR (BEAKER) (test code = 370) 2.1 <=5.9 PARTIAL THROMBOPLASTIN TIME 35.6 seconds 22.5-36.0 (FERNANDAAKER) (test code = 760) Effective 01/04/2019: PT Reference Range ChangeNew: 11.9-14.2 Previous: 11.7- 14.7RECOMMENDED COUMADIN/WARFARIN INR THERAPY RANGESSTANDARD DOSE: 2.0-3.0 Includes: PROPHYLAXIS for venous thrombosis, systemic embolization; TREATMENT for venous thrombosis and/or pulmonary embolus.HIGH RISK: Target INR is2.5-3.5 for patients wiht mechanical heart valves.PROTHROMBIN TIME/[id number] 01:34:00 Test Item Value Reference Range Interpretation Comments PROTIME (DANE) (test code = 22.6 seconds 11.9-14.2 H 759) INR (BEAKER) (test code = 370) 2.1 <=5.9 Effective 01/04/2019: PT Reference Range ChangeNew: 11.9-14.2 Previous: 11.7- 14.7RECOMMENDED COUMADIN/WARFARIN INR THERAPY RANGESSTANDARD DOSE: 2.0-3.0 Includes: PROPHYLAXIS for venous thrombosis, systemic embolization; TREATMENT for venous thrombosis and/or pulmonary embolus.HIGH RISK: Target INR is2.5-3.5 for patients wiht mechanical heart valves.CBC W/PLT COUNT & AUTO [id number] 01:27:00 Test Item Value Reference Range Interpretation [...] (BEAKER) (test code = 413) BLOOD GAS, [id number] 00:32:00 Test Item Value Reference Range Interpretation [...]
--- NOTE | 2021-08-05 12:57 | RAD REPORT ---
EXAM DESCRIPTION: RAD - Chest Single View - 08/05/2021 12:42 pm CLINICAL HISTORY: SOB COMPARISON: December 16 TECHNIQUE: AP portable chest image was obtained 08/05/2021 12:42 pm . FINDINGS: Patient has significant baseline interstitial fibrosis. The baseline pattern is not clearl y different from the December 2020 study. There is bibasilar increased interstitial and alveolar opacifica tion superimposed on the fibrosis. No vascular engorgement. Significant failure or volume overload not suspected. Heart and vasculature are normal. No measurable pleural effusion and no pneumothorax. No acute bony abnormality seen. No ac cee aortic findings suspected. IMPRESSION: Bibasilar interstitial and alveolar opacification superimposed on interstitial fibrosis. Bibasilar pneumonia is suspected.
[2021-08-05] MEDS ORDERED: METHYLPREDNISOLONE 125 MG INJ ONE (13:25)
[2021-08-05] MEDS ORDERED: ALBUTEROL 2.5 MG/3 ML NEB SOL ONE (13:25)
[2021-08-05] MEDS ORDERED: CEFTRIAXONE 1000 MG/VIAL ONE (13:25)
[2021-08-05] MEDS ORDERED: NA CHLORIDE 0.9% 50 ML ONE (13:26)
[2021-08-05] MEDS ORDERED: IPRATROPIUM BROM 0.5MG/2.5ML ONE (13:26)
[2021-08-05] MEDS ORDERED: NA CHLORIDE 0.9% 500 ML ONE (13:26)
[2021-08-05 13:31] LABS: Urine Blood 1+ (Negative); Urine Glucose Negative (Negative); Urine Protein Negative (Negative)
[2021-08-05 13:37] LABS: Absolute Lymphocytes (CBC) 1.3 K/uL (0.7-4.9); Hematocrit 43.4 % (39.6-49.0); Lymphocytes % 8.3 % (15.3-44.8); MPV 7.2 fL (7.6-11.3)
[2021-08-05 13:41] LABS: Protime INR 2.41
[2021-08-05 13:44] LABS: Urine Bacteria <20 /HPF (NONE SEEN); Urine RBC <5 /HPF (NONE SEEN)
[2021-08-05 13:55] LABS: ALT/SGPT 32 U/L (12-78); AST/SGOT 17 U/L (15-37); Albumin 2.5 g/dL (3.4-5.0); Alkaline Phosphatase 106 U/L (45-117); Amylase 145 U/L (25-115); BUN Blood Urea Nitrogen 19 mg/dL (7-18); Bicarbonate 30 mmol/L (21-32); Bilirubin Direct 0.4 mg/dL (0-0.2); Bilirubin Total 1.2 mg/dL (0.2-1.0); CKMB Creatine Kinase MB 1.7 ng/mL (1.0-3.6); Creatine Phosphokinase 66 U/L (39-308); Glucose Level 261 mg/dL (74-106); Lipase 236 U/L (73-393); Protein, Total 7.8 g/dL (6.4-8.2); Sodium Level 130 mmol/L (136-145); Troponin (Emerg Dept Use Only) < 0.02 ng/mL (0.0-0.045)
[2021-08-05 13:59] LABS: Potassium 2.9 mmol/L (3.5-5.1)
[2021-08-05 14:09] LABS: Blood Morphology Comment NOT SEEN (NOT SEEN); Platelet Estimate ADEQ; Platelets, Giant PRESENT; White Blood Cell Scan OK (OK)
[2021-08-05 14:23] LABS: SARS-COV-2 RT PCR NEGATIVE (NEGATIVE)
--- NOTE | 2021-08-05 14:58 | ER ---
Nurse's Notes [facility] Name: Gene Cisneros Age: 86 yrs Sex: Male : 1935 Arrival Date: 08/05/2021 Time: 10:56 Bed 7 Private MD: Diagnosis: Pneumonia, unspecified organism;COPD/ Chronic obstructive pulmonary disease, unspecified Presentation: 08/05 12:05 Chief complaint: Patient states: cough, fever, weakness, confusion. Coronavirus screen: [facility] Vaccine status: Patient reports receiving the 2nd dose of the covid vaccine. Client denies travel out of the [place] in the last 14 days. Client presents with at least one sign or symptom that may indicate coronavirus-19. Standard/surgical mask placed on the client. Ebola Screen: Patient negative for fever greater than or equal to 101.5 degrees Fahrenheit, and additional compatible Ebola Virus Disease symptoms Patient denies exposure to infectious person. Patient denies travel to an Ebola-affected area in the 21 days before illness onset. Initial Sepsis Screen: Does the patient meet any 2 criteria? RR > 20 per min. HR > 90 bpm. Does the patient have a suspected source of infection? Yes: Productive cough/pneumonia. Risk Assessment: Do you want to hurt yourself or someone else? Patient reports no desire to harm self or others. 12:05 Method Of Arrival: Wheelchair [facility] 12:05 Acuity: JO-ANN 3 jh5 15:35 Onset of symptoms was July 22, 2021. [facility] Triage Assessment: 12:07 General: Appears in no apparent distress. well groomed, well developed, well nourished, [facility] Behavior is calm, cooperative, appropriate for age. Pain: Denies pain. Respiratory: Reports shortness of breath cough that is. Historical: - PMHx: 12:06 Anemia; Atrial Fib; Bronchitis; CAD; CHF; COPD; Diabetes - NIDDM; GERD; High [facility] Cholesterol; Hypertension; Pneumonia; PVD; - Immunization history:: Adult Immunizations up to date. - Social history:: Smoking status: Patient denies any tobacco usage or history of. Screenin:07 Abuse screen: Denies threats or abuse. Denies injuries from another. Nutritional 5 screening: No deficits noted. Tuberculosis screening: No symptoms or risk factors identified. 15:36 Fall Risk Secondary diagnosis (15 points) impaired mobility, IV access (20 points). jh6 Ambulatory Aid- None/Bed Rest/Nurse Assist (0 pts). Gait- Weak (10 pts.). Assessment: 12:07 Respiratory: Airway is patent Respiratory effort is even, unlabored. jh5 13:00 Reassessment: Patient and/or family updated on plan of care and expected duration. Pain jh6 level reassessed. 15:33 Reassessment: Patient is alert, oriented x 3, equal unlabored respirations, skin jh6 warm/dry/pink. Patient denies pain at this time. Patient states feeling better. Cardiovascular: Rhythm is regular. Respiratory: Reports shortness of breath on exertion cough that is non-productive. 17:33 Reassessment: Patient and/or family updated on plan of care and expected duration. Pain jh6 level reassessed. Patient is alert, oriented x 3, equal unlabored respirations, skin warm/dry/pink. General: Appears comfortable, Behavior is calm, cooperative. Pain: Denies pain. Respiratory: Airway is patent Trachea midline Respiratory effort is even. 20:06 General: Appears in no apparent distress. Pain: Denies pain. Respiratory: Reports cough as6 that is Denies shortness of breath. Vital Signs: 12:05 BP 114 / 69; Pulse 103; Resp 26; Temp 98.9; Pulse Ox 97% ; Weight 77.11 kg; Height 5 [facility] ft. 4 in. (162.56 cm); 12:28 BP 90 / 47; jh5 14:00 BP 116 / 68; Pulse 93; Resp 24; Pulse Ox 94% on 3 lpm NC; jh6 15:00 BP 125 / 73; Pulse 99; Resp 22; Pulse Ox 96% on 3 lpm NC; jh6 17:00 BP 105 / 83; Pulse 110; Resp 20; Pulse Ox 97% on 3 lpm NC; jh6 20:07 BP 120 / 65; Pulse 96; Resp 21 S; Pulse Ox 94% on R/A; as6 22:19 BP 111 / 61; Pulse 95; Resp 24 S; Pulse Ox 93% on R/A; as6 12:05 Body Mass Index 29.18 (77.11 kg, 162.56 cm) [facility] Vitals: 15:00 Cardiac Rhythm Assessment Regular. 6 ED Course: 10:56 Patient arrived in ED. mr 12:06 Triage completed. jh5 12:07 Arm band placed on left wrist. jh5 12:19 Luis Martinez NP is PHCP. pm1 12:19 Bacilio Mcqueen MD is Attending Physician. pm1 12:27 COVID-19/FLU A+B (Document "Date of Onset" if Symptomatic) Sent. jh5 12:42 Chest Single View XRAY In Process Unspecified. EDMS 13:35 Wil Rock, DEBBI is Primary Nurse. bp 14:58 Ko Newton MD is Hospitalizing Provider. pm1 22:20 Bed in low position. Call light in reach. Side rails up X2. surveillance system monitor on. Pulse as6 ox on. NIBP on. 22:41 No provider procedures requiring assistance completed. Patient admitted, IV remains in as6 place. Administered Medications: 12:45 Drug: NS 0.9% 500 ml Route: IV; Rate: bolus; Site: right antecubital; bp 22:43 Follow up: Response: No adverse reaction; IV Status: Completed infusion; IV Intake: as6 500ml 12:45 Drug: Albuterol - atroVENT (ipratropium) (3:1) (2.5 mg - 0.5 mg) 3 ml Route: Nebulizer; bp 22:43 Follow up: Response: No adverse reaction as6 12:45 Drug: SOLU-Medrol (methylPrednisoLONE) 125 mg Route: IVP; Site: right antecubital; bp 22:43 Follow up: Response: No adverse reaction as6 12:45 Drug: Rocephin (cefTRIAXone) 1 grams Route: IV; Rate: calculated rate; Site: right bp antecubital; 15:17 Follow up: Response: No adverse reaction jh6 15:29 Drug: Potassium Effervescent Tablet 50 mEq Route: PO; jh6 22:44 Follow up: Response: No adverse reaction as6 15:29 Drug: AZITHromycin 500 mg Route: IVPB; Infused Over: 1 hrs; Site: right antecubital; jh6 22:45 Follow up: Response: No adverse reaction; IV Status: Completed infusion; IV Intake: as6 250ml Intake: 22:43 IV: 500ml; Total: 500ml. as6 22:45 IV: 250ml; Total: 750ml. as6 Outcome: 14:58 Decision to Hospitalize by Provider. pm1 22:42 Admitted to Med/surg accompanied by tech, via stretcher, room 214, with chart, Report as6 called to julio WERNER 22:42 Condition: stable 22:46 Patient left the ED. as6 Signatures: Dispatcher [employer] [place]WA CheungCarmen fraire mr MartinezLuis, [employer] P[employer] ASSEMBLER [employer] ASSEMBLER pm1 Wil Rock, RN RN bp Ashlee Viera, RN RN jh5 Wilian Moore RN RN as6 Carmen Ruffin RN RN jh6
--- NOTE | 2021-08-05 14:58 | EDPHYS ---
Physician Documentation [facility] Name: Gene Cisneros Age: 86 yrs Sex: Male : 1935 Arrival Date: 08/05/2021 Time: 10:56 Bed 7 Private MD: ED Physician Bacilio Mcqueen HPI: 08/05 12:38 This 86 yrs old Male presents to ER via Wheelchair with complaints of pm1 Breathing Difficulty, Cough, Congestion. 12:38 The patient has shortness of breath at rest. Onset: The symptoms/episode began/occurred pm1 1 week(s) ago. Duration: The symptoms are continuous. The patient's shortness of breath is aggravated by light activity. Associated signs and symptoms: Pertinent positives: fever, Pertinent negatives: chest pain, nausea, vomiting, Diarrhea. Severity of symptoms: in the emergency department the symptoms are worse Pain is currently a 0 / 10. The patient has not recently seen a physician. 12:38 Patient is requiring supplemental oxygen 24/7 instead of just at night and is short of pm1 breath walking less than 5 feet. Historical: - PMHx: 12:06 Anemia; Atrial Fib; Bronchitis; CAD; CHF; COPD; Diabetes - NIDDM; GERD; High jh5 Cholesterol; Hypertension; Pneumonia; PVD; - Immunization history:: Adult Immunizations up to date. - Social history:: Smoking status: Patient denies any tobacco usage or history of. ROS: 12:38 Cardiovascular: Negative for chest pain, palpitations, and edema. pm1 12:38 Abdomen/GI: Negative for abdominal pain, nausea, vomiting, diarrhea, and constipation, Back: Negative for injury and pain, MS/Extremity: Negative for injury and deformity, Skin: Negative for injury, rash, and discoloration, Neuro: Negative for headache, weakness, numbness, tingling, and seizure. 12:38 Constitutional: Positive for fever, Negative for poor PO intake. 12:38 Respiratory: Positive for cough, shortness of breath. 12:38 All other systems are negative. Exam: 12:38 Constitutional: This is a well developed, well nourished patient who is awake, alert, pm1 and in no acute distress. Head/Face: Normocephalic, atraumatic. 12:38 Skin: Warm, dry with normal turgor. Normal color with no rashes, no lesions, and no evidence of cellulitis. MS/ Extremity: Pulses equal, no cyanosis. Neurovascular intact. Full, normal range of motion. 12:38 Cardiovascular: Rate: tachycardic, actual rate is 106 bpm, Rhythm: regular, Pulses: no pulse deficits are appreciated, Heart sounds: normal, normal S1and S2. 12:38 Respiratory: the patient does not display signs of respiratory distress, Respirations: normal, Breath sounds: decreased breath sounds, are located in both bases. 12:38 Neuro: Exam negative for acute changes, Orientation: is normal, Mentation: is normal, Motor: moves all fours. Vital Signs: 12:05 BP 114 / 69; Pulse 103; Resp 26; Temp 98.9; Pulse Ox 97% ; Weight 77.11 kg; Height 5 5 ft. 4 in. (162.56 cm); 12:28 BP 90 / 47; 5 14:00 BP 116 / 68; Pulse 93; Resp 24; Pulse Ox 94% on 3 lpm NC; 6 15:00 BP 125 / 73; Pulse 99; Resp 22; Pulse Ox 96% on 3 lpm NC; 6 17:00 BP 105 / 83; Pulse 110; Resp 20; Pulse Ox 97% on 3 lpm NC; 6 20:07 BP 120 / 65; Pulse 96; Resp 21 S; Pulse Ox 94% on R/A; as6 22:19 BP 111 / 61; Pulse 95; Resp 24 S; Pulse Ox 93% on R/A; as6 12:05 Body Mass Index 29.18 (77.11 kg, 162.56 cm) [facility] MDM: 12:22 Patient medically screened. pm1 14:51 Data reviewed: vital signs. Data interpreted: Pulse oximetry: on 2L(s) per nasal pm1 [place], is 97 %. Interpretation: acceptable. Counseling: I had a detailed discussion with the patient and/or guardian regarding: the historical points, exam findings, and any diagnostic results supporting the discharge/admit diagnosis, lab results, radiology results, the need for further work-up and treatment in the hospital. 08/05 11:54 Order name: COVID-19/FLU A+B (Document "Date of Onset" if Symptomatic); Complete Time: ll1 14:41 08/05 12:12 Order name: Amylase, Serum; Complete Time: 14:41 pm1 08/05 12:12 Order name: Basic Metabolic Panel; Complete Time: 14:41 pm1 08/05 12:12 Order name: Blood Culture Adult (2) pm1 08/05 12:12 Order name: CBC with Diff; Complete Time: 14:41 pm1 08/05 12:12 Order name: CPK; Complete Time: 14:41 pm1 08/05 12:12 Order name: Ckmb; Complete Time: 14:41 pm1 08/05 12:12 Order name: LFT's; Complete Time: 14:41 pm1 08/05 12:12 Order name: Lactate; Complete Time: 13:59 pm1 08/05 12:12 Order name: Lipase; Complete Time: 14:41 pm1 08/05 12:12 Order name: Procalcitonin; Complete Time: 14:41 pm1 08/05 12:12 Order name: Protime (+inr); Complete Time: 13:51 pm1 08/05 12:12 Order name: Ptt, Activated; Complete Time: 13:51 pm1 08/05 12:12 Order name: Troponin (emerg Dept Use Only); Complete Time: 14:41 pm1 08/05 12:12 Order name: Urine Microscopic Only; Complete Time: 13:51 pm1 08/05 13:31 Order name: Urine Dipstick-Ancillary; Complete Time: 13:51 EDMS 08/05 13:45 Order name: Urine Culture EDMS 08/05 14:08 Order name: CBC Smear Scan; Complete Time: 14:41 EDMS 08/05 17:03 Order name: CBC with Automated Diff EDMS 08/05 17:03 Order name: CBC with Automated Diff EDMS 08/05 17:03 Order name: Comprehensive Metabolic Panel EDMS 08/05 17:03 Order name: Comprehensive Metabolic Panel EDMS 08/05 17:03 Order name: Magnesium EDMS 08/05 17:03 Order name: Magnesium EDMS 08/05 17:03 Order name: NT PRO-BNP EDMS 08/05 17:03 Order name: NT PRO-BNP EDMS 08/05 17:03 Order name: Phosphorus EDMS 08/05 17:03 Order name: Phosphorus EDMS 08/05 17:03 Order name: Urinalysis EDMS 08/05 12:12 Order name: Chest Single View XRAY; Complete Time: 13:01 pm1 08/05 12:12 Order name: Accucheck; Complete Time: 19:46 pm1 08/05 12:12 Order name: Cardiac monitoring; Complete Time: 19:46 pm1 08/05 12:12 Order name: EKG - Nurse/Tech; Complete Time: 20:09 pm1 08/05 12:12 Order name: IV Saline Lock - Large Bore; Complete Time: 19:46 pm1 08/05 12:12 Order name: Labs collected and sent; Complete Time: 19:46 pm1 08/05 12:12 Order name: O2 Per Protocol; Complete Time: 19:46 pm1 08/05 12:12 Order name: O2 Sat Monitoring; Complete Time: 19:46 pm1 08/05 12:12 Order name: Urine Dipstick-Ancillary (obtain specimen); Complete Time: 20:09 pm1 08/05 17:03 Order name: Heart Healthy EDMS Administered Medications: 12:45 Drug: NS 0.9% 500 ml Route: IV; Rate: bolus; Site: right antecubital; bp 22:43 Follow up: Response: No adverse reaction; IV Status: Completed infusion; IV Intake: as6 500ml 12:45 Drug: Albuterol - atroVENT (ipratropium) (3:1) (2.5 mg - 0.5 mg) 3 ml Route: Nebulizer; bp 22:43 Follow up: Response: No adverse reaction as6 12:45 Drug: SOLU-Medrol (methylPrednisoLONE) 125 mg Route: IVP; Site: right antecubital; bp 22:43 Follow up: Response: No adverse reaction as6 12:45 Drug: Rocephin (cefTRIAXone) 1 grams Route: IV; Rate: calculated rate; Site: right bp antecubital; 15:17 Follow up: Response: No adverse reaction jh6 15:29 Drug: Potassium Effervescent Tablet 50 mEq Route: PO; jh6 22:44 Follow up: Response: No adverse reaction as6 15:29 Drug: AZITHromycin 500 mg Route: IVPB; Infused Over: 1 hrs; Site: right antecubital; jh6 22:45 Follow up: Response: No adverse reaction; IV Status: Completed infusion; IV Intake: as6 250ml Disposition: 08/06 07:29 Co-signature as Attending Physician, Bacilio Mcqueen MD I agree with the assessment and kdr plan of care. Disposition Summary: 08/05/21 14:58 Hospitalization Ordered Hospitalization Status: Inpatient Admission pm1 Provider: Ko Newton pm1 Location: Telemetry/[facility] (Inpatient) pm1 Condition: Stable pm1 Problem: new pm1 Symptoms: have improved pm1 Bed/Room Type: Standard pm1 Room Assignment: 214(08/05/21 22:18) cg Diagnosis - Pneumonia, unspecified organism pm1 - COPD/ Chronic obstructive pulmonary disease, unspecified pm1 Forms: - Medication Reconciliation Form pm1 - SBAR form pm1 Signatures: Dispatcher [employer] EDMS Bacilio Mcqueen MD MD kdr Kymberly Falk RN RN cg Luis Martinez, [employer] CLE[employer]ER AND TESTER pm1 Wil Rock RN RN bp Ashlee Viera RN RN jh5 Carmen Ruffin RN RN jh6 Wilian Moore RN as6 Corrections: (The following items were deleted from the chart) 08/05 22:18 14:58 pm1 cg
[2021-08-05] MEDS ORDERED: AZITHROMYCIN 500 MG INJ IVPB ONE (15:21)
[2021-08-05] MEDS ORDERED: NA CHLORIDE 0.9% 250 ML ONE (15:22)
[2021-08-05] MEDS ORDERED: POTASSIUM 25 MEQ EFFERV TAB ONE (15:22)
[2021-08-05] MEDS ORDERED: ACETAMINOPHEN 500 MG TAB PO PRN (17:00)
[2021-08-05] MEDS ORDERED: ONDANSETRON 4 MG/2 ML VIAL IV PRN (17:00)
[2021-08-05] MEDS ORDERED: ALPRAZOLAM 0.25 MG TABLET PO PRN (17:00)
[2021-08-05] MEDS: NA CHLORIDE 0.9% 1,000 ML IV SCH ×2 (17:00→23:12)
--- NOTE | 2021-08-05 17:00 | P.HP ---
Certification for Inpatient Patient admitted to: Inpatient With expected LOS: >2 Midnights Patient will require the following post-hospital care: None Practitioner: I am a practitioner with admitting privileges, knowledge of patient current condition, hospital course, and medical plan of care. Services: Services provided to patient in accordance with Admission requirements found in Title 42 Section 412.3 of the Code of Federal Regulations Patient History Date of Service: 08/05/21 Reason for admission: Pneumonia History of Present Illness: Patient is an 86-year-old gentleman who came into the hospital with shortness of breath. Patient was seen in the emergency room and found have a pneumonia with acute COPD exacerbation. He was having more and more difficulty with his breathing. He tried to take his medications at home but his symptoms were not improving. He came into the hospital for further evaluation. In the ER is chest x-ray revealed bilateral interstitial pneumonia with chronic COPD changes. He was tachycardic and slightly hypoxic. Patient be admitted to the hospital for further evaluation. Allergies No Known Allergies Allergy (Verified 02/03/19 04:47) Home Medications: Aspirin 81 mg PO DAILY 12/16/20 Baclofen [Lioresal*] 5 mg PO QID 12/16/20 Esomeprazole Magnesium [Nexium] 20 mg PO DAILY 12/16/20 Furosemide [Lasix*] 20 mg PO DAILY 12/16/20 Glipizide [Glipizide Xl] 10 mg PO DAILY 12/16/20 Melatonin 10 mg PO BEDTIME PRN 12/16/20 Metformin ER [Glucophage ER*] 500 mg PO BID 12/16/20 Mirtazapine [Remeron*] 15 mg PO BEDTIME 12/16/20 Potassium Oral Tab [Klor-Con 10 mEq Tab*] 20 meq PO DAILY 12/16/20 Pravastatin Sodium 40 mg PO DAILY 12/16/20 Pregabalin [Lyrica] 200 mg PO BID 12/16/20 Primidone [Mysoline *] 50 mg PO BEDTIME 12/16/20 Roflumilast [Daliresp*] 500 mcg PO DAILY 12/16/20 Sotalol HCl [Sotalol AF] 0.5 tab PO BID 12/16/20 Tamsulosin [Flomax*] 1 cap PO DAILY 12/16/20 Vit D3/Vit K2/Calc Frutoborate [Move Free Ilkhi-Ibdwxq-X9-D3] 1 tab PO DAILY 12/16/20 Warfarin Sodium [Coumadin*] 2 mg PO DAILY 12/16/20 cilostazoL [Cilostazol] 50 mg PO BID 12/16/20 predniSONE [Deltasone*] 5 mg PO DAILY 12/16/20 predniSONE [Prednisone*] 1 tab PO DAILY 12/16/20 predniSONE [Prednisone*] 2 tab PO DAILY 12/16/20 Azithromycin 250 mg PO DAILY 3 Days #3 tablet 12/17/20 predniSONE [Deltasone] 20 mg PO SEECOM 8 Days #12 tab 12/17/20 - Past Medical/Surgical History Diabetic: Yes -: COPD -: Atrial fibrillation, chronic anti coagulation -: Hyperlipidemia -: Carotid arterial disease -: CAD -: Hypertension -: Diabetes mellitus type 2 -: PVD -: Former tobacco use -: PVD -: CHOLECYSTECTOMY -: BACK SURGERY -: RECTAL FISTULA REPAIRED -: Carotid stent Psychosocial/ Personal History: The patient is . He has 7 children. He does not work. - Family History Father Medical History: Heart disease, Diabetes Notes: Mother Medical History: Other (see notes) Notes: - hypotension Sister Medical History: Lung disease, Diabetes Brother Medical History: Lung disease, Diabetes - Social History Smoking Status: Never smoker Alcohol use: No CD- Drugs: No Caffeine use: No Review of Systems 10-point ROS is otherwise unremarkable Physical Examination - Vital Signs Temperature: 99 F Blood Pressure: 120/70 Pulse: 85 Respirations: 18 Pulse Ox (%): 95 - Physical Exam General: Alert, In no apparent distress, Oriented x3 HEENT: Atraumatic, PERRLA, Mucous membr. moist/pink, EOMI, Sclerae nonicteric Neck: Supple, 2+ carotid pulse no bruit, No LAD, Without JVD or thyroid abnormality Respiratory: Diminished, Rhonchi/gurgles Cardiovascular: Regular rate/rhythm, Normal S1 S2, No murmurs Gastrointestinal: Normal bowel sounds, Soft and benign, Non-distended, No tenderness Musculoskeletal: No clubbing, No swelling, No tenderness Integumentary: No rashes Neurological: Sensation intact, Cranial nerves 3-12 intact, Normal affect, Abnormal strength Lymphatics: No axilla or inguinal lymphadenopathy - Studies Laboratory Data (last 24 hrs) 08/05/21 13:10: PT 28.0 H, INR 2.41, APTT 42.6 H 08/05/21 13:10: WBC 15.80 H, Hgb 14.7, Hct 43.4, Plt Count 376 08/05/21 13:10: Sodium 130 L, Potassium 2.9 L*, BUN 19 H, Creatinine 1.03, Glucose 261 H, Total Bilirubin 1.2 H, AST 17, ALT 32, Alkaline Phosphatase 106, Amylase 145 H, Lipase 236 Assessment & Plan - Problems (Diagnosis) (1) Pneumonia Current Visit: Yes Status: Acute (2) COPD (chronic obstructive pulmonary disease) with acute bronchitis Onset Date: 12/09/15 Current Visit: No Status: Acute (3) SOB (shortness of breath) Onset Date: 03/04/16 Current Visit: No Status: Acute (4) Atrial fibrillation Onset Date: 11/04/15 Current Visit: No Status: Chronic Qualifiers: (5) CAD (coronary artery disease) Onset Date: 04/08/18 Current Visit: No Status: Chronic (6) Carotid arterial disease Onset Date: 04/08/18 Current Visit: No Status: Chronic (7) Diabetes mellitus, type II, insulin dependent Onset Date: 11/04/15 Current Visit: No Status: Chronic (8) GERD (gastroesophageal reflux disease) Current Visit: No Status: Chronic (9) Hypertension Onset Date: 11/04/15 Current Visit: No Status: Chronic (10) PVD (peripheral vascular disease) Onset Date: 04/08/18 Current Visit: No Status: Chronic - Plan Plan: 1. Continue with IV steroids and neb treatments; continue with IV antibiotic therapy 2. Continue with diuretics 3. Monitor liver function testing 4. Repeat chest x-ray 5. Out of bed and ambulate 6. GI and DVT prophylaxis Discharge Plan: Home - Advance Directives Does patient have a Living Will: Yes Does patient have a Durable POA for Healthcare: Yes - Code Status/Comfort Care Code Status Assessed: Yes Code Status: Full Code Critical Care: No Time Spent Managing PTS Care (In Minutes): 45
[2021-08-05 23:12] VITALS: O2SAT 93
[2021-08-05] MEDS: BENZONATATE 100 MG CAP PO PRN (23:12)
[2021-08-05] MEDS: ALBUTEROL 2.5 MG/3 ML NEB SOL NEB PRN (23:15)
[2021-08-05] MEDS: IPRATROPIUM BROM 0.5MG/2.5ML NEB PRN (23:15)
[2021-08-05] MEDS: PIPER TAZO 3.375 GM in NA CHLORIDE 0.9% 100 ML IV SCH (23:53)
[2021-08-06 04:06] LABS: Absolute Lymphocytes (CBC) 0.7 K/uL (0.7-4.9); Hematocrit 39.5 % (39.6-49.0); Lymphocytes % 7.5 % (15.3-44.8); MPV 7.1 fL (7.6-11.3); RBC Red Blood Cell Count 5.04 M/uL (4.33-5.43)
[2021-08-06 04:30] LABS: Albumin 2.1 g/dL (3.4-5.0); Bilirubin Total 0.7 mg/dL (0.2-1.0); Magnesium 2.2 mg/dL (1.8-2.4); Phosphorus 2.7 mg/dL (2.5-4.9); Potassium 3.3 mmol/L (3.5-5.1); Protein, Total 6.6 g/dL (6.4-8.2)
[2021-08-06] MEDS: INSULIN -REGULAR HUMAN 50 UNIT/0.5 ML ML SQ SCH ×5 (04:37→19:35)
[2021-08-06] MEDS ORDERED: GLUCAGON 1 MG/VIAL IM PRN (04:37)
[2021-08-06] MEDS ORDERED: D50W 25 GM/50 ML SYRINGE IV PRN (04:37)
[2021-08-06] MEDS: ALBUTEROL 2.5 MG/3 ML NEB SOL NEB PRN ×4 (05:00→23:10)
[2021-08-06] MEDS: IPRATROPIUM BROM 0.5MG/2.5ML NEB PRN ×4 (05:00→23:10)
[2021-08-06] MEDS ORDERED: POTASSIUM CL SA 10 MEQ TAB PO ONE (09:00)
[2021-08-06] MEDS: ENOXAPARIN 40 MG/0.4 ML SQ SCH (10:16)
[2021-08-06] MEDS: PIPER TAZO 3.375 GM in NA CHLORIDE 0.9% 100 ML IV SCH ×2 (10:21→16:56)
[2021-08-06] MEDS ORDERED: MELATONIN 5 MG TABLET PO PRN (11:02)
--- NOTE | 2021-08-06 11:12 | P.PN ---
Subjective Date of Service: 08/06/21 Patient clinical symptoms are improving. Continue with current treatment and monitor oxygen. Repeat chest x-ray in the morning. Physical Examination - Vital Signs Temperature: 99 F Blood Pressure: 120/70 Pulse: 85 Respirations: 18 Pulse Ox (%): 95 - Studies Laboratory Data (last 24 hrs) 08/05/21 13:10: PT 28.0 H, INR 2.41, APTT 42.6 H 08/05/21 13:10: WBC 15.80 H, Hgb 14.7, Hct 43.4, Plt Count 376 08/05/21 13:10: Sodium 130 L, Potassium 2.9 L*, BUN 19 H, Creatinine 1.03, Glucose 261 H, Total Bilirubin 1.2 H, AST 17, ALT 32, Alkaline Phosphatase 106, Amylase 145 H, Lipase 236 Assessment & Plan - Problems (Diagnosis) (1) Pneumonia Current Visit: Yes Status: Acute (2) COPD (chronic obstructive pulmonary disease) with acute bronchitis Onset Date: 12/09/15 Current Visit: No Status: Acute (3) SOB (shortness of breath) Onset Date: 03/04/16 Current Visit: No Status: Acute (4) Atrial fibrillation Onset Date: 11/04/15 Current Visit: No Status: Chronic Qualifiers: (5) CAD (coronary artery disease) Onset Date: 04/08/18 Current Visit: No Status: Chronic (6) Carotid arterial disease Onset Date: 04/08/18 Current Visit: No Status: Chronic (7) Diabetes mellitus, type II, insulin dependent Onset Date: 11/04/15 Current Visit: No Status: Chronic (8) GERD (gastroesophageal reflux disease) Current Visit: No Status: Chronic (9) Hypertension Onset Date: 11/04/15 Current Visit: No Status: Chronic (10) PVD (peripheral vascular disease) Onset Date: 04/08/18 Current Visit: No Status: Chronic - Plan Plan: 1. Continue with IV steroids and neb treatments; continue with IV antibiotic therapy 2. Continue with diuretics 3. Monitor liver function testing 4. Repeat chest x-ray 5. Out of bed and ambulate 6. GI and DVT prophylaxis - Advance Directives Does patient have a Living Will: Yes Does patient have a Durable POA for Healthcare: Yes - Code Status/Comfort Care Code Status: Full Code
[2021-08-06] MEDS: SOTALOL HCL 80 MG TAB PO SCH ×2 (12:36→20:26)
[2021-08-06] MEDS: BACLOFEN 10 MG TAB PO SCH ×3 (12:37→20:26)
[2021-08-06] MEDS: BENZONATATE 100 MG CAP PO PRN (12:44)
[2021-08-06] MEDS ORDERED: WARFARIN SODIUM 2 MG TAB PO SCH (17:00)
[2021-08-06] MEDS: NA CHLORIDE 0.9% 1,000 ML IV SCH (19:40)
[2021-08-06] MEDS ORDERED: ALBUTEROL 2.5 MG/3 ML NEB SOL ONE (20:17)
[2021-08-06] MEDS ORDERED: IPRATROPIUM BROM 0.5MG/2.5ML ONE (20:18)
[2021-08-06] MEDS: PREGABALIN 50 MG CAP PO SCH (20:26)
[2021-08-06] MEDS: METFORMIN ER 500 MG TAB PO SCH (20:27)
[2021-08-06] MEDS: cilostazoL 100 MG TAB PO SCH (20:27)
[2021-08-06] MEDS ORDERED: ATORVASTATIN 10 MG TAB PO SCH (21:00)
[2021-08-06] MEDS ORDERED: PRIMIDONE 50 MG TAB PO SCH (21:00)
[2021-08-06] MEDS ORDERED: MIRTAZAPINE 15 MG TAB PO SCH (21:00)
[2021-08-06 22:20] VITALS: BMI 29.0
[2021-08-07] MEDS: PIPER TAZO 3.375 GM in NA CHLORIDE 0.9% 100 ML IV SCH ×2 (00:15→08:33)
[2021-08-07] MEDS ORDERED: IPRATROPIUM BROM 0.5MG/2.5ML ONE (01:46)
[2021-08-07] MEDS ORDERED: ALBUTEROL 2.5 MG/3 ML NEB SOL ONE (01:46)
[2021-08-07] MEDS: IPRATROPIUM BROM 0.5MG/2.5ML NEB PRN ×2 (05:05→11:01)
[2021-08-07] MEDS: ALBUTEROL 2.5 MG/3 ML NEB SOL NEB PRN ×2 (05:05→11:01)
[2021-08-07 06:30] LABS: Absolute Lymphocytes (CBC) 1.8 K/uL (0.7-4.9); Hematocrit 41.5 % (39.6-49.0); Lymphocytes % 15.1 % (15.3-44.8)
[2021-08-07 06:33] LABS: Protime INR 2.24
[2021-08-07 07:08] LABS: Folic Acid, (Folate) 7.5 ng/mL (3.1-17.5); Magnesium 2.3 mg/dL (1.8-2.4)
[2021-08-07] MEDS ORDERED: POTASSIUM CL SA 10 MEQ TAB PO ONE (07:18)
[2021-08-07] MEDS: INSULIN -REGULAR HUMAN 50 UNIT/0.5 ML ML SQ SCH ×2 (07:30→12:24)
[2021-08-07] MEDS: METFORMIN ER 500 MG TAB PO SCH (08:53)
[2021-08-07] MEDS: ENOXAPARIN 40 MG/0.4 ML SQ SCH (08:53)
[2021-08-07] MEDS: SOTALOL HCL 80 MG TAB PO SCH (08:54)
[2021-08-07] MEDS: BACLOFEN 10 MG TAB PO SCH ×2 (08:55→12:24)
[2021-08-07] MEDS: PREGABALIN 50 MG CAP PO SCH (08:56)
[2021-08-07] MEDS: cilostazoL 100 MG TAB PO SCH (08:57)
[2021-08-07] MEDS ORDERED: HOME MED 1 EA UNK (Vit D3/Vit K2/Calc Frutoborate [Move Free Ultra-Borate-K2-D3] Tablet) PO SCH (09:00)
[2021-08-07] MEDS ORDERED: FUROSEMIDE 20 MG TABLET PO SCH (09:00)
[2021-08-07] MEDS ORDERED: POTASSIUM CL SA 10 MEQ TAB PO SCH (09:00)
[2021-08-07] MEDS ORDERED: HOME MED 1 EA UNK (Pravastatin Sodium [Pravastatin Sodium] 40 MG Tablet) PO SCH (09:00)
[2021-08-07] MEDS ORDERED: ROFLUMILAST 500 MCG TABLET PO SCH (09:00)
[2021-08-07] MEDS ORDERED: TAMSULOSIN 0.4 MG SR CAP PO SCH (09:00)
[2021-08-07] MEDS: NA CHLORIDE 0.9% 1,000 ML IV SCH (09:00)
[2021-08-07] MEDS ORDERED: HOME MED 1 EA UNK (Esomeprazole Magnesium [Nexium] 20 MG Capsule.Dr) PO SCH (09:00)
[2021-08-07] MEDS ORDERED: PANTOPRAZOLE 40MG TABLET PO SCH (09:00)
[2021-08-07] MEDS ORDERED: GLIPIZIDE S.A. 5 MG TAB PO SCH (09:00)
[2021-08-07] MEDS ORDERED: ASPIRIN 81 MG CHEWABLE TABLET PO SCH (09:00)
--- NOTE | 2021-08-07 10:06 | RAD REPORT ---
EXAM DESCRIPTION: RAD - Chest Single View - 08/07/2021 5:13 am CLINICAL HISTORY: pneumonia Chest pain. COMPARISON: Chest Single View dated 08/05/2021; Chest Single View dated 12/16/2020; Chest Single View dated 08/18/2019; Chest Pa And Lat (2 Views) dated 02/04/2019 FINDINGS: Portable technique limits examination quality. Emphysematous changes are present with mild bibasilar lung opacities, mildly improved since comparati ve study. The heart is normal in size. No displaced fractures. IMPRESSION: Mild improvement in bibasilar lung infiltrate since comparative study.
[2021-08-07] MEDS: BENZONATATE 100 MG CAP PO PRN (10:23)
[2021-08-11 01:47] VITALS: BP 120/70; TEMP 99
--- NOTE | 2021-08-11 01:48 | P.DS ---
Discharge Date: 08/07/21 Disposition: ROUTINE DISCHARGE Discharge Condition: GOOD Reason for Admission: Pneumonia - Problems (1) Pneumonia Status: Acute (2) COPD (chronic obstructive pulmonary disease) with acute bronchitis Onset Date: 12/09/15 Status: Acute (3) SOB (shortness of breath) Onset Date: 03/04/16 Status: Acute (4) Atrial fibrillation Onset Date: 11/04/15 Status: Chronic Qualifiers: (5) CAD (coronary artery disease) Onset Date: 04/08/18 Status: Chronic (6) Carotid arterial disease Onset Date: 04/08/18 Status: Chronic (7) Diabetes mellitus, type II, insulin dependent Onset Date: 11/04/15 Status: Chronic (8) GERD (gastroesophageal reflux disease) Status: Chronic (9) Hypertension Onset Date: 11/04/15 Status: Chronic (10) PVD (peripheral vascular disease) Onset Date: 04/08/18 Status: Chronic Brief History of Present Illness: Patient is an 86-year-old gentleman who came into the hospital with shortness of breath. Patient was seen in the emergency room and found have a pneumonia with acute COPD exacerbation. He was having more and more difficulty with his breathing. He tried to take his medications at home but his symptoms were not improving. He came into the hospital for further evaluation. In the ER is chest x-ray revealed bilateral interstitial pneumonia with chronic COPD changes. He was tachycardic and slightly hypoxic. Patient be admitted to the hospital fo r further evaluation. Hospital Course: Patient's clinical symptoms have improved. Patient is doing much better. Patient was treated with nebs, steroids, and given antibiotics. Patient respiratory status has improved. At this time, patient is stable for discharge home. Vital Signs/Physical Exam: Temp Pulse Resp BP Pulse Ox 99 F 85 18 120/70 95 08/11/21 01:47 08/11/21 01:47 08/11/21 01:47 08/11/21 01:47 08/11/21 01:47 General: Alert, In no apparent distress, Oriented x3 Laboratory Data at Discharge: WBC 11.90 K/uL (4.3-10.9) H D 08/07/21 06:09 Hgb 13.6 g/dL (13.6-17.9) 08/07/21 06:09 Hct 41.5 % (39.6-49.0) 08/07/21 06:09 Plt Count 371 K/uL (152-406) 08/07/21 06:09 PT 26.0 SECONDS (9.5-12.5) H 08/07/21 06:09 INR 2.24 08/07/21 06:09 APTT 42.6 SECONDS (24.3-36.9) H 08/05/21 13:10 Sodium 139 mmol/L (136-145) 08/07/21 06:09 Potassium Cancelled 08/07/21 14:00 BUN 25 mg/dL (7-18) H 08/07/21 06:09 Creatinine 0.87 mg/dL (0.55-1.3) 08/07/21 06:09 Glucose 103 mg/dL (74-106) 08/07/21 06:09 Phosphorus 2.5 mg/dL (2.5-4.9) 08/07/21 06:09 Magnesium 2.3 mg/dL (1.8-2.4) 08/07/21 06:09 Total Bilirubin 0.7 mg/dL (0.2-1.0) 08/06/21 03:55 AST 13 U/L (15-37) L 08/06/21 03:55 ALT 27 U/L (12-78) 08/06/21 03:55 Alkaline Phosphatase 86 U/L (45-117) 08/06/21 03:55 Amylase 145 U/L (25-115) H 08/05/21 13:10 Lipase 236 U/L (73-393) 08/05/21 13:10 Home Medications: Aspirin 81 mg PO DAILY 12/16/20 Baclofen [Lioresal*] 5 mg PO QID 12/16/20 Esomeprazole Magnesium [Nexium] 20 mg PO DAILY 12/16/20 Furosemide [Lasix*] 20 mg PO DAILY 12/16/20 Glipizide [Glipizide Xl] 10 mg PO DAILY 12/16/20 Melatonin 10 mg PO BEDTIME PRN 12/16/20 Metformin ER [Glucophage ER*] 500 mg PO BID 12/16/20 Mirtazapine [Remeron*] 15 mg PO BEDTIME 12/16/20 Potassium Oral Tab [Klor-Con 10 mEq Tab*] 20 meq PO DAILY 12/16/20 Pravastatin Sodium 40 mg PO DAILY 12/16/20 Pregabalin [Lyrica] 200 mg PO BID 12/16/20 Primidone [Mysoline *] 50 mg PO BEDTIME 12/16/20 Roflumilast [Daliresp*] 500 mcg PO DAILY 12/16/20 Sotalol HCl [Sotalol AF] 0.5 tab PO BID 12/16/20 Tamsulosin [Flomax*] 1 cap PO DAILY 12/16/20 Vit D3/Vit K2/Calc Frutoborate [Move Free Gebln-Gnsqwi-D1-D3] 1 tab PO DAILY 12/16/20 Warfarin Sodium [Coumadin*] 2 mg PO DAILY 12/16/20 cilostazoL [Cilostazol] 50 mg PO BID 12/16/20 ALPRAZolam [Xanax*] 0.25 mg PO BEDTIME PRN PRN #14 tab 08/07/21 Albuterol Neb [Proventil 0.083% Neb Soln] 2.5 mg NEB [id number] PRN #60 amp 08/07/21 Amoxicillin/Potassium Clav [Augmentin 875-125 Tablet] 1 each PO BID #14 tablet 08/07/21 Benzonatate [Tessalon Perle*] 100 mg PO TID PRN #30 cap 08/07/21 Fluconazole [Diflucan] 50 mg PO DAILY #5 tablet 08/07/21 Ipratropium Neb [Atrovent*] 0.5 mg NEB [id number] PRN #60 amp 08/07/21 Nystatin 100,000 ml PO Q6H #400 ml 08/07/21 predniSONE [Prednisone*] 20 mg PO BID #20 tab 08/07/21 New Medications: Ipratropium Neb [Atrovent*] 0.5 mg NEB [id number] PRN #60 amp PRN Reason: Shortness Of Breath Amoxicillin/Potassium Clav [Augmentin 875-125 Tablet] 1 each PO BID #14 tablet Fluconazole [Diflucan] 50 mg PO DAILY #5 tablet Nystatin 100,000 ml PO Q6H #400 ml predniSONE [Prednisone*] 20 mg PO BID #20 tab Albuterol Neb [Proventil 0.083% Neb Soln] 2.5 mg NEB [id number] PRN #60 amp PRN Reason: Shortness Of Breath Benzonatate [Tessalon Perle*] 100 mg PO TID PRN #30 cap PRN Reason: Cough ALPRAZolam [Xanax*] 0.25 mg PO BEDTIME PRN PRN #14 tab PRN Reason: Insomnia Physician Discharge Instructions: OK TO DC IV AND DC HOME FOLLOW-UP WITH PRIMARY CARE PROVIDER IN 1-2 WEEKS FOLLOW-UP WITH CARDIOLOGY & PULMONARY IN 1-2 WEEKS RETURN TO THE ER IF symptoms worsen CALL or TEXT DR. WANG AT [phone] IF ANY QUESTIONS REGARDING HOSPITAL STAY. PLEASE CALL THE FLOOR AT [phone] IF ANY MEDICATION OR NURSING QUESTIONS. 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
== END 2021-08-07 14:02 | disposition home or self-care (01) | DRG 190 ==
LOC: ER 10:49 → ERHOLD 17:00 → 2ND 22:32
PROVIDERS: ADMIT Hospitalist; ATTEND Hospitalist
DX: J44.0 Chronic obstructive pulmonary disease with (acute) lower respiratory infection (principal); J18.9 Pneumonia, unspecified organism; I48.20 Chronic atrial fibrillation, unspecified; J44.1 Chronic obstructive pulmonary disease with (acute) exacerbation; R09.02 Hypoxemia; I25.10 Atherosclerotic heart disease of native coronary artery without angina pectoris; E11.9 Type 2 diabetes mellitus without complications; K21.9 Gastro-esophageal reflux disease without esophagitis; I77.9 Disorder of arteries and arterioles, unspecified; I73.9 Peripheral vascular disease, unspecified; I10 Essential (primary) hypertension; Z79.01 Long term (current) use of anticoagulants; Z20.822 Contact with and (suspected) exposure to COVID-19
CPT/HCPCS: 0240U; 36415; 71045; 80048; 80053; 80076; 81003; 81015; 82150; 82550; 82553; 82607; 82746; 82947; 83540; 83605; 83690; 83735; 83880; 84100; 84132; 84145; 84484; 85025; 85610; 85730; 87040; 87086; 87088; 94640; 96361; 96365; 96366; 96375; 99285; J0456; J1650; J2543; J2930; J7030; J7040; J7050